=== PATIENT | male | born 1970 | race Caucasian/White ===

== ENCOUNTER 2016-06-16 22:00 | Emergency (ER) | payer OTHER ==
[~2016-06-16 22:00] MED LIST: /THIA10TA; ACET-654 PO; AMOX875T PO; ASPI81TA83 OR; ASPI81TAEC PO; BACT800T5 PO; CARA1TAB2 PO; CELEBRE200 PO; DILA2TAB; FOLI1TAB2 PO; LIPI10TA PO; MAALSUS OR; MIRA3350 PO; MULTCAP PO; MULTIVIT PO; NAPR250T OR; NICO21DI4; NORC5TAB PO; NORCOTAB PO; No Historical Meds; OMEP20TA7 OR; PENI250T81 OR; PERC5TAB6 PO; PERCOCET PO; PRIL20CA; PROT1TAB2 PO; PROT20TA11 PO; SENO8.6T10 PO; TYLE325T5 PO; VICO5TAB OR; VICODIN-ES PO; VITA100T60 PO; VITMTA PO; ZOFR20TA PO
[2016-06-16] MEDS ORDERED: MORPHINE 4 MG/ML 1ML SYRINGE As Ordered ONE (22:28)
[2016-06-16] MEDS ORDERED: LIDOCAINE 1% MDV 20ML VIAL As Ordered ONE (22:35)
[2016-06-16] MEDS ORDERED: CEPHALEXIN 250 MG CAP As Ordered ONE (23:05)
[2016-06-16] MEDS ORDERED: PERCOCET 5MG/325MG TAB As Ordered ONE (23:13)
--- NOTE | 2016-06-16 23:29 | EDDOCDS ---
Nurse's Notes [facility] Name: Pk Henley Age: 46 yrs Sex: Male : 1970 Arrival Date: 06/16/2016 Time: 22:00 Bed 10 Private MD: VALERIA STYLES Diagnosis: Laceration without foreign body of right index finger without damage to nail Presentation: 06/16 22:03 Presenting complaint: Patient states: "I cut my finger pretty bad. I was cutting mb9 firewood and I cut a piece of wood and it bounced back up and cut my finger". Adult Sepsis Screening: The patient does not have new or worsening altered mentation. Patient's respiratory rate is less than 22. Systolic blood pressure is greater than 100. Patient has a qSOFA score of 0- Negative Sepsis Screen. Suicide/Homicide risk assessment- the patient denies having any suicidal and/or homicidal ideations and does not present with any other emotional, behavioral or mental health complaints. Status: Patient is not a service correspondent or dependent. Transition of care: patient was not received from another setting of care. 22:03 Acuity: EZEQUIEL Level 4 mb9 22:03 Method Of Arrival: Walkin/Carried/Asstd mb9 Triage Assessment: 22:06 General: Appears uncomfortable, Behavior is appropriate for age, cooperative. Pain: mb9 Location: dorsal aspect of middle phalanx of right index finger and dorsal aspect of proximal phalanx of right index finger Pain currently is 9 out of 10 on a pain scale. HIV screening NA for this visit Offered previously. Injury Description: Laceration sustained to dorsal aspect of middle phalanx of right index finger and dorsal aspect of proximal phalanx of right index finger is jagged, 2.6 to 7.5 cm long, was sustained 1-2 hours ago. Historical: - Allergies: no known allergies; - Home Meds: 1. none - PMHx: Kidney stones; stomach ulcer; Pancreatitis; - PSHx: Knee surgery- Left; Knee surgery- Right; Appendectomy; - Immunization history:: Last tetanus immunization: < 5 years ago. - Family history: Not pertinent. - Social history: Smoking status: Patient uses tobacco products, light tobacco smoker. No barriers to communication noted. - : The pt / caregiver states he / she is not on anticoagulants. Home medication list is obtained from the patient. - Exposure Risk Screening:: None identified. Screenin:31 Screening information is obtained from the patient. Fall risk: No risks identified. kas2 Assistance ADL's: requires no assistance with activities of daily living. Abuse/DV Screen: The patient / caregiver reports he/she is: not in a situation that causes fear, pain or injury. Nutritional screening: No deficits noted. Advance Directives: Currently, there is no health care proxy. There is no active DNR order. There is no living will. There is no Power of Health Claims Examiner. home support is adequate. Assessment: 22:30 General: Appears in no apparent distress, uncomfortable, well nourished, well groomed, kas2 Behavior is appropriate for age, cooperative. Pain: Location: right hand and dorsal aspect of proximal phalanx of right index finger and dorsal aspect of middle phalanx of right index finger Pain currently is 8 out of 10 on a pain scale. Neurological: Level of Consciousness is awake, alert, Oriented to person, place, time. Cardiovascular: Rhythm is regular. Respiratory: Airway is patent Respiratory effort is even, unlabored, Respiratory pattern is regular, symmetrical, Breath sounds are clear bilaterally. Derm: Skin is intact, Skin is dry, Skin is pink, warm & dry. Skin temperature is warm. Injury Description: Laceration sustained to right hand and dorsal aspect of proximal phalanx of right index finger and dorsal aspect of middle phalanx of right index finger is bleeding a small amount. 23:09 General: Bacitracin applied to laceration on right hand on index finger. Dry dressing kas2 applied. Patient tolerated procedure well.. Vital Signs: 22:02 BP 161 / 90; Pulse 77; Resp 18 S; Temp 98.5(O); Pulse Ox 98% on R/A; Weight 90.72 kg dd6 (R); Height 5 ft. 11 in. (180.34 cm) (R); 23:15 BP 141 / 82; Pulse 86; Resp 18; Temp 97.7(TE); Pulse Ox 94% on R/A; Pain 10/10; kb5 22:02 Body Mass Index 27.89 (90.72 kg, 180.34 cm) dd6 Vitals: 22:02 Log In Time: June 16, 2016 at 22:00. dd6 ED Course: 22:01 Patient visited by Ricardo Esteban PCA. dd6 22:01 Patient moved to Waiting dd6 22:02 VALERIA STYLES is Private Physician. dd6 22:03 Patient moved to Pre RCE dd6 22:05 Triage Initiated mb9 22:13 Patient moved to Triage 3 mdr 22:18 Sonal Garland,RN is Primary Nurse. mdr 22:18 Patient moved to 10 mdr 22:20 Darron Colmenares MD is Attending Physician. br1 22:25 Patient visited by Darron Colmenares MD. br1 22:31 Patient visited by Sonal Garland RN. kas2 22:58 [facility] Payment Agreement was scanned into [employer] and attached to record. gb 23:09 VALERIA STYLES is Referral Physician. br1 23:10 Patient visited by Sonal Garland RN. kas2 23:10 No IV's were initiated during this patient's visit. No procedures done that require kas2 assistance. 23:16 Patient visited by Zeyad Gaxiola PCA. kb5 23:28 The patient / caregiver is instructed regarding the plan of care and ED course. kas2 Administered Medications: 22:34 Drug: morphine 4 mg [morphine 4 mg/mL intravenous cartridge (1 mL)] Route: IM; Site: kas2 left deltoid; 23:09 Drug: Cephalexin 500 mg [cephalexin 250 mg capsule (2 caps)] Route: PO; kas2 23:17 Drug: oxyCODONE-acetaminophen 1 tabs [oxycodone-acetaminophen 5 mg-325 mg tablet (1 kas2 tabs)] Route: PO; Order Results: There are currently no results for this order. Outcome: 23:11 Discharge ordered by Provider. br1 23:28 Discharge Assessment: patient administered narcotics - yes. Pt provided with safe kas2 discharge. The following High Risk Discharge criteria are identified: None. Discharged to home ambulatory, with significant other. Condition: good Condition: stable Condition: improved. No special radiology studies were completed. Property :Personal belongings accompany Pt. 23:28 Patient left the ED. kas2 Signatures: Barbara Leslie, Reg Reg Zeyad Gaxiola, PETROLEUM ENGINEER PETROLEUM ENGINEER kb5 Darron Colmenares MD MD br1 Ricardo Esteban, PETROLEUM ENGINEER PETROLEUM ENGINEER dd6 Hussain RayRN RN mb9 Pavel Moore, PETROLEUM ENGINEER PETROLEUM ENGINEER mdr Sonal Garland,RN RN kas2 MTDD
--- NOTE | 2016-06-16 23:29 | EDDOCDS ---
Physician Documentation [facility] Name: Pk Henley Age: 46 yrs Sex: Male : 1970 Arrival Date: 06/16/2016 Time: 22:00 Bed 10 Private MD: VALERIA STYLES Disposition: 06/16/16 23:11 Discharged to Home/Self Care. Impression: Laceration without foreign body of right index finger without damage to nail. - Condition is Stable. - Discharge Instructions: Laceration Care, Adult. - Prescriptions for Keflex 500 mg Oral Capsule - take 1 capsule by ORAL route every 6 hours for 7 days; 28 capsule. - Medication Reconciliation, Local Pharmacy Hours form. - Follow up: VALERIA STYLES; When: 4 - 5 days; Reason: Recheck today's complaints. - Problem is new. - Symptoms have improved. - Notes: You were seen in the ED for a laceration to the right index finger. Xrays showed no other acute findings. The wound was repaired with 6 sutures that will need to be removed in 7-10 days. Call your doctor in the morning to arrange to be seen for wound recheck as well. Take the antibiotics as written. Keep the wound cleanand dry with a clean dressing daily. Return to the ED for any worsening pain, redness around the wound, discharge from the wound, fever, or any other concerns. Historical: - Allergies: no known allergies; - Home Meds: 1. none - PMHx: Kidney stones; stomach ulcer; Pancreatitis; - PSHx: Knee surgery- Left; Knee surgery- Right; Appendectomy; - Immunization history:: Last tetanus immunization: < 5 years ago. - Family history: Not pertinent. - Social history: Smoking status: Patient uses tobacco products, light tobacco smoker. No barriers to communication noted. - : The pt / caregiver states he / she is not on anticoagulants. Home medication list is obtained from the patient. - Exposure Risk Screening:: None identified. Vital Signs: 06/16 22:02 BP 161 / 90; Pulse 77; Resp 18 S; Temp 98.5(O); Pulse Ox 98% on R/A; Weight 90.72 kg / dd6 200 lbs (R); Height 5 ft. 11 in. (180.34 cm) (R); 23:15 BP 141 / 82; Pulse 86; Resp 18; Temp 97.7(TE); Pulse Ox 94% on R/A; Pain 10/10; kb5 22:02 Body Mass Index 27.89 (90.72 kg, 180.34 cm) dd6 Procedures: 23:02 Laceration repair:. br1 Laceration: 23:02 Wound Repair of 4cm ( 1.6in ) full thickness laceration to dorsal aspect of middle br1 phalanx of right index finger. Irregularly shaped.. Wound explored. No foreign body. Extensor tendon intact.. Distal neuro/vascular/tendon intact. Anesthesia: Local anesthetic administered with 5 mls of 1% lidocaine. Wound prep: Simple cleansing with betadine by provider, Wound irrigation with saline by provider. Skin closed with 6 x 5-0 Ethilon using Simple interrupted sutures. Dressed with Bacitracin, 4x4's. Patient tolerated well. MDM: 22:24 Undress patient appropriately for examination ordered. br1 22:24 morphine 4 mg IM once ordered. br1 22:26 Hand, Complete Ordered. EDMS 22:33 Financial registration complete. 22:58 [facility] Payment Agreement was scanned into [employer] and attached to record. gb 23:01 Cephalexin 500 mg PO once ordered. br1 23:02 Misc. Nursing Order ordered. br1 23:11 oxyCODONE-acetaminophen 5 mg-325 mg 1 tabs PO once ordered. br1 Administered Medications: 22:34 Drug: morphine 4 mg [morphine 4 mg/mL intravenous cartridge (1 mL)] Route: IM; Site: kas2 left deltoid; 23:09 Drug: Cephalexin 500 mg [cephalexin 250 mg capsule (2 caps)] Route: PO; kas2 23:17 Drug: oxyCODONE-acetaminophen 1 tabs [oxycodone-acetaminophen 5 mg-325 mg tablet (1 kas2 tabs)] Route: PO; Signatures: Dispatcher [employer] EDMS Barbara Leslie, Reg Reg gb Darron Colmenares MD MD br1 Hussain Ray RN RN mb9 Sonal Garland RN RN kas2 The chart was reviewed and I authenticate all verbal orders and agree with the evaluation and treatment provided.Attachments: 22:58 [facility] Payment Agreement gb MTDD
--- NOTE | 2016-06-17 00:45 | REP ---
Clinical: Trauma. Technique: AP, lateral, bilateral oblique views of the right hand. Findings: The osseous structures and joint spaces are intact and there is no evidence for acute fracture or dislocation. Mild osteoarthritic degenerative changes are appreciated. Surrounding soft tissues are unremarkable. No subcutaneous emphysema or radiodense foreign body. Impression: Mild arthritic changes. No acute fracture or dislocation. Signed by Adiel Bernal MD 06/17/2016 12:36 A
--- NOTE | 2016-06-19 00:29 | EDDOCDS ---
Nurse's Notes [facility] Name: Pk Henley Age: 46 yrs Sex: Male : 1970 Arrival Date: 06/16/2016 Time: 22:00 Bed 10 Private MD: VALERIA STYLES Diagnosis: Laceration without foreign body of right index finger without damage to nail Presentation: 06/16 22:03 Presenting complaint: Patient states: "I cut my finger pretty bad. I was cutting mb9 firewood and I cut a piece of wood and it bounced back up and cut my finger". Adult Sepsis Screening: The patient does not have new or worsening altered mentation. Patient's respiratory rate is less than 22. Systolic blood pressure is greater than 100. Patient has a qSOFA score of 0- Negative Sepsis Screen. Suicide/Homicide risk assessment- the patient denies having any suicidal and/or homicidal ideations and does not present with any other emotional, behavioral or mental health complaints. Status: Patient is not a customer service professional or dependent. Transition of care: patient was not received from another setting of care. 22:03 Acuity: EZEQUIEL Level 4 mb9 22:03 Method Of Arrival: Walkin/Carried/Asstd mb9 Triage Assessment: 22:06 General: Appears uncomfortable, Behavior is appropriate for age, cooperative. Pain: mb9 Location: dorsal aspect of middle phalanx of right index finger and dorsal aspect of proximal phalanx of right index finger Pain currently is 9 out of 10 on a pain scale. HIV screening NA for this visit Offered previously. Injury Description: Laceration sustained to dorsal aspect of middle phalanx of right index finger and dorsal aspect of proximal phalanx of right index finger is jagged, 2.6 to 7.5 cm long, was sustained 1-2 hours ago. Historical: - Allergies: no known allergies; - Home Meds: 1. none - PMHx: Kidney stones; stomach ulcer; Pancreatitis; - PSHx: Knee surgery- Left; Knee surgery- Right; Appendectomy; - Immunization history:: Last tetanus immunization: < 5 years ago. - Family history: Not pertinent. - Social history: Smoking status: Patient uses tobacco products, light tobacco smoker. No barriers to communication noted. - : The pt / caregiver states he / she is not on anticoagulants. Home medication list is obtained from the patient. - Exposure Risk Screening:: None identified. Screenin:31 Screening information is obtained from the patient. Fall risk: No risks identified. kas2 Assistance ADL's: requires no assistance with activities of daily living. Abuse/DV Screen: The patient / caregiver reports he/she is: not in a situation that causes fear, pain or injury. Nutritional screening: No deficits noted. Advance Directives: Currently, there is no health care proxy. There is no active DNR order. There is no living will. There is no Power of Stock Hanger. home support is adequate. Assessment: 22:30 General: Appears in no apparent distress, uncomfortable, well nourished, well groomed, kas2 Behavior is appropriate for age, cooperative. Pain: Location: right hand and dorsal aspect of proximal phalanx of right index finger and dorsal aspect of middle phalanx of right index finger Pain currently is 8 out of 10 on a pain scale. Neurological: Level of Consciousness is awake, alert, Oriented to person, place, time. Cardiovascular: Rhythm is regular. Respiratory: Airway is patent Respiratory effort is even, unlabored, Respiratory pattern is regular, symmetrical, Breath sounds are clear bilaterally. Derm: Skin is intact, Skin is dry, Skin is pink, warm & dry. Skin temperature is warm. Injury Description: Laceration sustained to right hand and dorsal aspect of proximal phalanx of right index finger and dorsal aspect of middle phalanx of right index finger is bleeding a small amount. 23:09 General: Bacitracin applied to laceration on right hand on index finger. Dry dressing kas2 applied. Patient tolerated procedure well.. Vital Signs: 22:02 BP 161 / 90; Pulse 77; Resp 18 S; Temp 98.5(O); Pulse Ox 98% on R/A; Weight 90.72 kg dd6 (R); Height 5 ft. 11 in. (180.34 cm) (R); 23:15 BP 141 / 82; Pulse 86; Resp 18; Temp 97.7(TE); Pulse Ox 94% on R/A; Pain 10/10; kb5 22:02 Body Mass Index 27.89 (90.72 kg, 180.34 cm) dd6 Vitals: 22:02 Log In Time: June 16, 2016 at 22:00. dd6 ED Course: 22:01 Patient visited by Ricardo Esteban, BUZZ. dd6 22:01 Patient moved to Waiting dd6 22:02 VALERIA STYLES is Private Physician. dd6 22:03 Patient moved to Pre RCE dd6 22:05 Triage Initiated mb9 22:13 Patient moved to Triage 3 mdr 22:18 Sonal GarlandRN is Primary Nurse. mdr 22:18 Patient moved to 10 mdr 22:20 Darron Colmenares MD is Attending Physician. br1 22:25 Patient visited by Darron Colmenares MD. br1 22:31 Patient visited by Sonal Garland RN. kas2 22:58 [facility] Payment Agreement was scanned into [employer] and attached to record. gb 23:09 VALERIA STYLES is Referral Physician. br1 23:10 Patient visited by Sonal Garland RN. kas2 23:10 No IV's were initiated during this patient's visit. No procedures done that require kas2 assistance. 23:16 Patient visited by Zeyad Gaxiola, BUZZ. kb5 23:28 The patient / caregiver is instructed regarding the plan of care and ED course. kas2 06/17 00:57 Hand, Complete Returned. EDMS 11:25 T-Sheet-- Draft Copy was scanned into [employer] and attached to record. Administered Medications: 06/16 22:34 Drug: morphine 4 mg [morphine 4 mg/mL intravenous cartridge (1 mL)] Route: IM; Site: [facility] left deltoid; 23:09 Drug: Cephalexin 500 mg [cephalexin 250 mg capsule (2 caps)] Route: PO; kas2 23:17 Drug: oxyCODONE-acetaminophen 1 tabs [oxycodone-acetaminophen 5 mg-325 mg tablet (1 kas2 tabs)] Route: PO; Order Results: Radiology Order: Hand, Complete Test: Hand, Complete REASON FOR EXAMINATION: Trauma; Clinical: Trauma.; ; Technique: AP, lateral, bilateral oblique views of the right hand.; ; Findings: The osseous structures and joint spaces are intact and there is no; evidence for acute fracture or dislocation. Mild osteoarthritic degenerative; changes are appreciated. Surrounding soft tissues are unremarkable. No; subcutaneous emphysema or radiodense foreign body.; ; Impression:; Mild arthritic changes. No acute fracture or dislocation.; ; ; Signed by; Adiel Bernal MD 06/17/2016 12:36 A; Outcome: 23:11 Discharge ordered by Provider. br1 23:28 Discharge Assessment: patient administered narcotics - yes. Pt provided with safe kas2 discharge. The following High Risk Discharge criteria are identified: None. Discharged to home ambulatory, with significant other. Condition: good Condition: stable Condition: improved. No special radiology studies were completed. Property :Personal belongings accompany Pt. 23:28 Patient left the ED. kas2 Signatures: Dispatcher [employer] EDMS Barbara Leslie, Reg Reg gb Zeyad Gaxiola, CHUTE WORKER CHUTE WORKER kb5 Darron Colmenares MD MD br1 Ricardo Esteban, CHUTE WORKER CHUTE WORKER dd6 Hussain Ray,RN RN mb9 Pavel Moore, CHUTE WORKER CHUTE WORKER Sonal Martin RN RN kas2 Chart Complete MTDRenetta
--- NOTE | 2016-06-19 00:29 | EDDOCDS ---
Physician Documentation [facility] Name: Pk Henley Age: 46 yrs Sex: Male : 1970 Arrival Date: 06/16/2016 Time: 22:00 Bed 10 Private MD: VALERIA STYLES Disposition: 06/16/16 23:11 Discharged to Home/Self Care. Impression: Laceration without foreign body of right index finger without damage to nail. - Condition is Stable. - Discharge Instructions: Laceration Care, Adult. - Prescriptions for Keflex 500 mg Oral Capsule - take 1 capsule by ORAL route every 6 hours for 7 days; 28 capsule. - Medication Reconciliation, Local Pharmacy Hours form. - Follow up: VALERIA STYLES; When: 4 - 5 days; Reason: Recheck today's complaints. - Problem is new. - Symptoms have improved. - Notes: You were seen in the ED for a laceration to the right index finger. Xrays showed no other acute findings. The wound was repaired with 6 sutures that will need to be removed in 7-10 days. Call your doctor in the morning to arrange to be seen for wound recheck as well. Take the antibiotics as written. Keep the wound cleanand dry with a clean dressing daily. Return to the ED for any worsening pain, redness around the wound, discharge from the wound, fever, or any other concerns. Historical: - Allergies: no known allergies; - Home Meds: 1. none - PMHx: Kidney stones; stomach ulcer; Pancreatitis; - PSHx: Knee surgery- Left; Knee surgery- Right; Appendectomy; - Immunization history:: Last tetanus immunization: < 5 years ago. - Family history: Not pertinent. - Social history: Smoking status: Patient uses tobacco products, light tobacco smoker. No barriers to communication noted. - : The pt / caregiver states he / she is not on anticoagulants. Home medication list is obtained from the patient. - Exposure Risk Screening:: None identified. Vital Signs: 06/16 22:02 BP 161 / 90; Pulse 77; Resp 18 S; Temp 98.5(O); Pulse Ox 98% on R/A; Weight 90.72 kg / dd6 200 lbs (R); Height 5 ft. 11 in. (180.34 cm) (R); 23:15 BP 141 / 82; Pulse 86; Resp 18; Temp 97.7(TE); Pulse Ox 94% on R/A; Pain 10/10; kb5 22:02 Body Mass Index 27.89 (90.72 kg, 180.34 cm) dd6 Procedures: 23:02 Laceration repair:. br1 Laceration: 23:02 Wound Repair of 4cm ( 1.6in ) full thickness laceration to dorsal aspect of middle br1 phalanx of right index finger. Irregularly shaped.. Wound explored. No foreign body. Extensor tendon intact.. Distal neuro/vascular/tendon intact. Anesthesia: Local anesthetic administered with 5 mls of 1% lidocaine. Wound prep: Simple cleansing with betadine by provider, Wound irrigation with saline by provider. Skin closed with 6 x 5-0 Ethilon using Simple interrupted sutures. Dressed with Bacitracin, 4x4's. Patient tolerated well. MDM: 22:24 Undress patient appropriately for examination ordered. br1 22:24 morphine 4 mg IM once ordered. br1 22:26 Hand, Complete Ordered. EDMS 22:33 Financial registration complete. gb 22:58 [place] [place] Agreement was scanned into [employer] and attached to record. gb 23:01 Cephalexin 500 mg PO once ordered. br1 23:02 [facility]. Nursing Order ordered. br1 23:11 oxyCODONE-acetaminophen 5 mg-325 mg 1 tabs PO once ordered. br1 06/17 11:25 T-Sheet-- Draft Copy was scanned into [employer] and attached to record. gb Administered Medications: 06/16 22:34 Drug: morphine 4 mg [morphine 4 mg/mL intravenous cartridge (1 mL)] Route: IM; Site: kas2 left deltoid; 23:09 Drug: Cephalexin 500 mg [cephalexin 250 mg capsule (2 caps)] Route: PO; kas2 23:17 Drug: oxyCODONE-acetaminophen 1 tabs [oxycodone-acetaminophen 5 mg-325 mg tablet (1 kas2 tabs)] Route: PO; Signatures: Dispatcher [employer] EDIN Barbara Leslie, Reg Reg gb Darron Colmenares MD MD br1 Hussain Ray RN RN mb9 Sonal Garland RN RN kas2 The chart was reviewed and I authenticate all verbal orders and agree with the evaluation and treatment provided.Attachments: 22:58 [facility] Payment Agreement gb 06/17 11:25 T-Sheet-- Draft Copy gb Chart Complete MTDD
--- NOTE | 2016-06-19 00:29 | EDDOCDS ---
Physician Documentation [facility] Name: Pk Henley Age: 46 yrs Sex: Male : 1970 Arrival Date: 06/16/2016 Time: 22:00 Bed 10 Private MD: VALERIA STYLES Disposition: 06/16/16 23:11 Discharged to Home/Self Care. Impression: Laceration without foreign body of right index finger without damage to nail. - Condition is Stable. - Discharge Instructions: Laceration Care, Adult. - Prescriptions for Keflex 500 mg Oral Capsule - take 1 capsule by ORAL route every 6 hours for 7 days; 28 capsule. - Medication Reconciliation, Local Pharmacy Hours form. - Follow up: VALERIA STYLES; When: 4 - 5 days; Reason: Recheck today's complaints. - Problem is new. - Symptoms have improved. - Notes: You were seen in the ED for a laceration to the right index finger. Xrays showed no other acute findings. The wound was repaired with 6 sutures that will need to be removed in 7-10 days. Call your doctor in the morning to arrange to be seen for wound recheck as well. Take the antibiotics as written. Keep the wound cleanand dry with a clean dressing daily. Return to the ED for any worsening pain, redness around the wound, discharge from the wound, fever, or any other concerns. Historical: - Allergies: no known allergies; - Home Meds: 1. none - PMHx: Kidney stones; stomach ulcer; Pancreatitis; - PSHx: Knee surgery- Left; Knee surgery- Right; Appendectomy; - Immunization history:: Last tetanus immunization: < 5 years ago. - Family history: Not pertinent. - Social history: Smoking status: Patient uses tobacco products, light tobacco smoker. No barriers to communication noted. - : The pt / caregiver states he / she is not on anticoagulants. Home medication list is obtained from the patient. - Exposure Risk Screening:: None identified. Vital Signs: 06/16 22:02 BP 161 / 90; Pulse 77; Resp 18 S; Temp 98.5(O); Pulse Ox 98% on R/A; Weight 90.72 kg / dd6 200 lbs (R); Height 5 ft. 11 in. (180.34 cm) (R); 23:15 BP 141 / 82; Pulse 86; Resp 18; Temp 97.7(TE); Pulse Ox 94% on R/A; Pain 10/10; kb5 22:02 Body Mass Index 27.89 (90.72 kg, 180.34 cm) dd6 Procedures: 23:02 Laceration repair:. br1 Laceration: 23:02 Wound Repair of 4cm ( 1.6in ) full thickness laceration to dorsal aspect of middle br1 phalanx of right index finger. Irregularly shaped.. Wound explored. No foreign body. Extensor tendon intact.. Distal neuro/vascular/tendon intact. Anesthesia: Local anesthetic administered with 5 mls of 1% lidocaine. Wound prep: Simple cleansing with betadine by provider, Wound irrigation with saline by provider. Skin closed with 6 x 5-0 Ethilon using Simple interrupted sutures. Dressed with Bacitracin, 4x4's. Patient tolerated well. MDM: 22:24 Undress patient appropriately for examination ordered. br1 22:24 morphine 4 mg IM once ordered. br1 22:26 Hand, Complete Ordered. EDMS 22:33 Financial registration complete. gb 22:58 [facility] [place] Agreement was scanned into Mind[employer] and attached to record. gb 23:01 Cephalexin 500 mg PO once ordered. br1 23:02 [facility]. br1 23:11 oxyCODONE-acetaminophen 5 mg-325 mg 1 tabs PO once ordered. br1 06/17 11:25 T-Sheet-- Draft Copy was scanned into Mindjet and attached to record. gb Administered Medications: 06/16 22:34 Drug: morphine 4 mg [morphine 4 mg/mL intravenous cartridge (1 mL)] Route: IM; Site: kas2 left deltoid; 23:09 Drug: Cephalexin 500 mg [cephalexin 250 mg capsule (2 caps)] Route: PO; kas2 23:17 Drug: oxyCODONE-acetaminophen 1 tabs [oxycodone-acetaminophen 5 mg-325 mg tablet (1 kas2 tabs)] Route: PO; Signatures: Dispatcher MedHost EDWV Barbara Leslie, Reg Reg gb Darron Colmenares MD MD br1 Hussain Ray RN RN mb9 Sonal Garland RN RN kas2 The chart was reviewed and I authenticate all verbal orders and agree with the evaluation and treatment provided.Attachments: 22:58 [facility] Payment Agreement gb 06/17 11:25 T-Sheet-- Draft Copy gb Chart Complete MTDD
== END 2016-06-16 23:28 | disposition home or self-care (01) ==
LOC: M ED 22:00
DX: S61.210A Laceration without foreign body of right index finger without damage to nail, initial encounter (principal); W45.8XXA Other foreign body or object entering through skin, initial encounter; Y92.019 Unspecified place in single-family (private) house as the place of occurrence of the external cause; Y93.H9 Activity, other involving exterior property and land maintenance, building and construction; Y99.8 Other external cause status; K86.1 Other chronic pancreatitis; K25.9 Gastric ulcer, unspecified as acute or chronic, without hemorrhage or perforation; Z87.442 Personal history of urinary calculi; F17.210 Nicotine dependence, cigarettes, uncomplicated

== ENCOUNTER 2016-06-17 16:12 | Emergency (ER) | payer OTHER ==
[2016-06-17] MEDS ORDERED: MORPHINE 4 MG/ML 1ML SYRINGE As Ordered ONE (19:14)
[2016-06-17] MEDS ORDERED: UNASYN 3 GM VIAL As Ordered ONE (19:16)
[2016-06-17 19:49] LABS: BASO # 0.2 K/mm3 (0.0-0.2); BASO % 1.7 % (0.0-1.0); EOS # 0.2 K/mm3 (0.0-0.50); EOS % 1.8 % (0.0-3.0); LARGE UNSTAINED CELL # 0.4 K/mm3 (0.0-0.4); LARGE UNSTAINED CELL % 3.9 % (0.0-4.0); LYMPH # 4.5 K/mm3 (1.5-4.5); LYMPH % 40.9 % (24.0-44.0); MEAN CORPUSCULAR HEMOGLOBIN 29.7 pg (27.0-33.0); MEAN CORPUSCULAR HGB CONC 32.1 g/dl (32.0-36.5); MEAN CORPUSCULAR VOLUME 92.5 fl (80.0-96.0); MONO # 0.6 K/mm3 (0.0-0.8); MONO % 5.7 % (0.0-5.0); NEUTROPHILS # 4.6 K/mm3 (1.8-7.7); PLATELET COUNT, AUTOMATED 256 k/mm3 (150-450); RED CELL DISTRIBUTION WIDTH 13.6 % (11.5-14.5)
[2016-06-17] MEDS ORDERED: HYDROmorphone HCL 1 MG/ML SYRINGE (J1170) As Ordered ONE (20:23)
[2016-06-17] MEDS ORDERED: NORCO 5/325MG TABLET (BULK) As Ordered ONE (21:50)
--- NOTE | 2016-06-17 22:11 | EDDOCDS ---
Physician Documentation [facility] Name: Pk Henley Age: 46 yrs Sex: Male : 1970 Arrival Date: 06/17/2016 Time: 16:12 Bed I3 / M3 Private MD: No Pcp Disposition: 06/17/16 21:50 Discharged to Home/Self Care. Impression: Cellulitis of right finger - following laceration, index. - Condition is Stable. - Discharge Instructions: Cellulitis, Sutured Wound Care. - Medication Reconciliation, Local Pharmacy Hours form. - Follow up: Private Physician; When: As previously arranged; Reason: Recheck today's complaints, Continuance of care. - Problem is new. - Symptoms have improved. Historical: - Allergies: no known allergies; - Home Meds: 1. Keflex 500 mg Oral cap 1 cap every 12 hours 2. Motrin 800 mg Oral tab 1 tab 3 times per day - PMHx: Kidney stones; Pancreatitis; stomach ulcer; - Social history: Smoking status: Patient uses tobacco products, light tobacco smoker. No barriers to communication noted, The patient speaks fluent Kyrgyz, Speaks appropriately for age. - Family history: No immediate family members are acutely ill. - : The pt / caregiver states he / she is not on anticoagulants. Home medication list is obtained from the patient. - Exposure Risk Screening:: None identified. Vital Signs: 06/17 16:15 BP 156 / 89; Pulse 80; Resp 18; Temp 98.2(O); Pulse Ox 98% on R/A; Weight 90.72 kg / elp 200 lbs; Height 5 ft. 11 in. (180.34 cm); Pain 10/10; 21:56 BP 148 / 94; Pulse 84; Resp 18; Temp 98.6; Pulse Ox 98% ; Pain 8/10; ajs 16:15 Body Mass Index 27.89 (90.72 kg, 180.34 cm) elp MDM: 17:51 [facility] Payment Agreement was scanned into [employer] and attached to record. zo 18:48 Financial registration complete. zo 18:58 IV Saline Lock ordered. ar2 18:58 morphine 4 mg IVP once ordered. ar2 18:58 Ampicillin-Sulbactam Sodium 3 grams IVPB once over 30 mins; dilute in 100mL of NS or ar2 D5W ordered. 18:59 CBC with Diff Ordered. EDMS 18:59 CRP Ordered. EDMS 19:52 ERYTHROCYTE SEDIMENTATION RATE Ordered. EDMS 20:15 Dilaudid - HYDROmorphone 0.5 mg IVP once ordered. ar2 21:12 CBC with Diff Reviewed. ar2 21:12 CRP Reviewed. ar2 21:12 ERYTHROCYTE SEDIMENTATION RATE Reviewed. ar2 21:44 HYDROcodone-acetaminophen 4 pack- 5 mg-325 mg 1 packets PO Per package directions; ar2 Dispense with patient. 1 po q4h prn for pain ordered. 21:44 Dressing ordered. ar2 Administered Medications: 19:39 Drug: morphine 4 mg [morphine 4 mg/mL intravenous cartridge (1 mL)] Route: IVP; Site: jmb left forearm; 19:39 Drug: Ampicillin-Sulbactam Sodium 3 grams [ampicillin-sulbactam 1.5 gram solution for jmb injection] Route: IVPB; Infused Over: 30 mins; Site: left forearm; 20:30 Drug: Dilaudid - HYDROmorphone 0.5 mg [hydromorphone 1 mg/mL injection syringe (0.5 jmb mL)] Route: IVP; Site: left forearm; 22:07 Drug: HYDROcodone-acetaminophen 4 pack- 1 packets [hydrocodone 5 mg-acetaminophen 325 mb9 mg tablet (1 tabs)] {Co-Signature: lonnie (Taqueria Barrera RN).} Route: PO; Signatures: Dispatcher [employer] EDMS Hussain Lopez RN RN mlb1 Jeremy Starr Aaron, PA-C PA-C ar2 Hussain Ray RN RN mb9 Taqueria Barrera RN, RN The chart was reviewed and I authenticate all verbal orders and agree with the evaluation and treatment provided.Corrections: (The following items were deleted from the chart) 19:52 18:59 ERYTHROCYTE SEDIMENTATION RATE+LAB ordered. EDMS EDMS Attachments: 17:51 [facility] Payment Agreement zo MTDD
--- NOTE | 2016-06-17 22:11 | EDDOCDS ---
Nurse's Notes [facility] Name: Pk Henley Age: 46 yrs Sex: Male : 1970 Arrival Date: 06/17/2016 Time: 16:12 Bed I3 / M3 Private MD: No Pcp Diagnosis: Cellulitis of right finger-following laceration, index Presentation: 06/17 16:20 Presenting complaint: Patient states: Laceration to right index finger hit with a piece mlb1 of wood repaired here last night, increased pain swelling and redness since. Adult Sepsis Screening: The patient does not have new or worsening altered mentation. Patient's respiratory rate is less than 22. Systolic blood pressure is greater than 100. Patient has a qSOFA score of 0- Negative Sepsis Screen. Suicide/Homicide risk assessment- the patient denies having any suicidal and/or homicidal ideations and does not present with any other emotional, behavioral or mental health complaints. 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 Transition of care: patient was not received from another setting of care. 16:20 Acuity: EZEQUIEL Level 4 mlb1 16:20 Method Of Arrival: Walkin/Carried/Asstd mlb1 Triage Assessment: 16:24 General: Appears uncomfortable, Behavior is appropriate for age, cooperative. General: mlb1 Appears distressed, Behavior is. Pain: Location: right index finger Pain currently is 10 out of 10 on a pain scale. HIV screening NA for this visit Offered previously. Historical: - Allergies: no known allergies; - Home Meds: 1. Keflex 500 mg Oral cap 1 cap every 12 hours 2. Motrin 800 mg Oral tab 1 tab 3 times per day - PMHx: Kidney stones; Pancreatitis; stomach ulcer; - Social history: Smoking status: Patient uses tobacco products, light tobacco smoker. No barriers to communication noted, The patient speaks fluent Lao, Speaks appropriately for age. - Family history: No immediate family members are acutely ill. - : The pt / caregiver states he / she is not on anticoagulants. Home medication list is obtained from the patient. - Exposure Risk Screening:: None identified. Screenin:10 Screening information is obtained from the patient. Fall risk: No risks identified. mcp Assistance ADL's: requires no assistance with activities of daily living. Abuse/DV Screen: The patient / caregiver reports he/she is: not in a situation that causes fear, pain or injury. Nutritional screening: No deficits noted. Advance Directives: There is no active DNR order. home support is adequate. Assessment: 18:09 General: Appears uncomfortable, Behavior is cooperative. Pain: Location: right hand mcp Pain currently is 8 out of 10 on a pain scale. Neurological: No deficits noted. Respiratory: Airway is patent Respiratory effort is even, unlabored. Derm: Skin is pink, warm & dry. Musculoskeletal: Circulation, motion, and sensation intact Swelling present in right hand redness noted to right hand. Gauze dressing dry and intact. 19:22 Adult Sepsis Screening: The patient does not have new or worsening altered mentation. dsf Patient's respiratory rate is less than 22. Systolic blood pressure is greater than 100. Patient has a qSOFA score of 0- Negative Sepsis Screen. General: Appears uncomfortable, Behavior is cooperative. Pain: Location: right index finger Pain currently is 10 out of 10 on a pain scale. Quality of pain is described as sharp. Neurological: Level of Consciousness is awake, alert. Cardiovascular: Capillary refill < 3 seconds. Respiratory: Airway is patent Respiratory effort is even, unlabored, Respiratory pattern is regular, symmetrical. Derm: Skin is pink, warm & dry. Swollen area noted on right index finger and top of right hand. 20:30 General: Appears uncomfortable, Behavior is appropriate for age, cooperative, upon jmb entrance to room, patient swaying back and forth on bed. Patient medicated per Dean Chan's orders. Will monitor. . Neurological: Level of Consciousness is awake, alert, obeys commands, Oriented to person, place, time, Speech is normal, Facial symmetry appears normal, Facial symmetry: tongue is midline. Respiratory: Airway is patent Respiratory effort is even, unlabored, Respiratory pattern is regular, symmetrical. 21:15 General: Appears in no apparent distress, comfortable, Behavior is appropriate for age, jmb cooperative. Neurological: Level of Consciousness is awake, alert, obeys commands, Oriented to person, place, time. Respiratory: Airway is patent Respiratory effort is even, unlabored, Respiratory pattern is regular, symmetrical. Vital Signs: 16:15 BP 156 / 89; Pulse 80; Resp 18; Temp 98.2(O); Pulse Ox 98% on R/A; Weight 90.72 kg; elp Height 5 ft. 11 in. (180.34 cm); Pain 10/10; 21:56 BP 148 / 94; Pulse 84; Resp 18; Temp 98.6; Pulse Ox 98% ; Pain 8/10; ajs 16:15 Body Mass Index 27.89 (90.72 kg, 180.34 cm) elp Vitals: 16:15 Log In Time: June 17, 2016 at 16:14. elp ED Course: 16:14 Patient visited by Bobbi Lewis PCA. elp 16:14 No Pcp is Private Physician. elp 16:14 Patient moved to Waiting elp 16:15 Patient visited by Bobbi Lewis PCA. elp 16:16 Patient moved to Pre RCE elp 16:20 Patient visited by Hussain Lopez, EVELYNE. mlb1 16:22 Triage Initiated mlb1 16:25 Patient visited by Hussain Lopez, RN. mlb1 17:51 [facility] [place] [facility] Payment Agreement was scanned into [employer] and attached to record. zo 18:08 Patient moved to Triage 1 mcp 18:10 The patient / caregiver is instructed regarding the plan of care and ED course. Patient mcp has correct armband on for positive identification. Bed in low position. Call light in reach. Adult w/ patient. 18:11 Patient visited by Anastasiia Larsen RN. mcp 18:39 [facility] ar2 18:39 Maria G Gutiérrez MD is Attending Physician. ar2 18:39 Patient visited by Dean Chan PA-C. ar2 18:58 Patient moved to I3 / M3 mcp 19:01 Patient visited by Hussain Lopez, EVELYNE. mlb1 19:24 Patient visited by Addie Stephen,RN. dsf 19:39 CRP Sent. jmb 19:39 CBC with Diff Sent. jmb 20:31 Patient visited by Taqueria Barrera,EVELYNE. jmb 21:15 Patient visited by Taqueria Barrera,EVELYNE. jmb 21:57 Patient visited by Tamy Harrison. ajs 22:08 No IV's were initiated during this patient's visit. No procedures done that require mb9 assistance. Dressings: 4X4s X 1; 2 inch gauze. Administered Medications: 19:39 Drug: morphine 4 mg [morphine 4 mg/mL intravenous cartridge (1 mL)] Route: IVP; Site: jmb left forearm; 19:39 Drug: Ampicillin-Sulbactam Sodium 3 grams [ampicillin-sulbactam 1.5 gram solution for jmb injection] Route: IVPB; Infused Over: 30 mins; Site: left forearm; 20:30 Drug: Dilaudid - HYDROmorphone 0.5 mg [hydromorphone 1 mg/mL injection syringe (0.5 jmb mL)] Route: IVP; Site: left forearm; 22:07 Drug: HYDROcodone-acetaminophen 4 pack- 1 packets [hydrocodone 5 mg-acetaminophen 325 mb9 mg tablet (1 tabs)] {Co-Signature: lonnie (Taqueria Barrera RN).} Route: PO; Order Results: Lab Order: CBC with Diff; SPEC'M 06/17/16 19:36 Test: WHITE BLOOD COUNT; Value: 10.0; Range: 4.0-10.0; Units: K/mm3; Status: F Test: RED BLOOD COUNT; Value: 4.96; Range: 4.30-6.10; Units: M/mm3; Status: F Test: HEMOGLOBIN; Value: 14.7; Range: 14.0-18.0; Units: g/dl; Status: F Test: HEMATOCRIT; Value: 45.8; Range: 42.0-52.0; Units: %; Status: F Test: MEAN CORPUSCULAR VOLUME; Value: 92.5; Range: 80.0-96.0; Units: fl; Status: F Test: MEAN CORPUSCULAR HEMOGLOBIN; Value: 29.7; Range: 27.0-33.0; Units: pg; Status: F Test: MEAN CORPUSCULAR HGB CONC; Value: 32.1; Range: 32.0-36.5; Units: g/dl; Status: F Test: RED CELL DISTRIBUTION WIDTH; Value: 13.6; Range: 11.5-14.5; Units: %; Status: F Test: PLATELET COUNT, AUTOMATED; Value: 256; Range: 150-450; Units: k/mm3; Status: F Test: NEUTROPHILS %; Value: 46.0; Range: 36.0-66.0; Units: %; Status: F Test: LYMPH %; Value: 40.9; Range: 24.0-44.0; Units: %; Status: F Test: MONO %; Value: 5.7; Range: 0.0-5.0; Abnormal: Above high normal; Units: %; Status: F Test: EOS %; Value: 1.8; Range: 0.0-3.0; Units: %; Status: F Test: BASO %; Value: 1.7; Range: 0.0-1.0; Abnormal: Above high normal; Units: %; Status: F Test: LARGE UNSTAINED CELL %; Value: 3.9; Range: 0.0-4.0; Units: %; Status: F Test: NEUTROPHILS #; Value: 4.6; Range: 1.8-7.7; Units: K/mm3; Status: F Test: LYMPH #; Value: 4.5; Range: 1.5-4.5; Units: K/mm3; Status: F Test: MONO #; Value: 0.6; Range: 0.0-0.8; Units: K/mm3; Status: F Test: EOS #; Value: 0.2; Range: 0.0-0.50; Units: K/mm3; Status: F Test: BASO #; Value: 0.2; Range: 0.0-0.2; Units: K/mm3; Status: F Test: LARGE UNSTAINED CELL #; Value: 0.4; Range: 0.0-0.4; Units: K/mm3; Status: F Lab Order: CRP; SPEC'M 06/17/16 19:36 Test: C REACTIVE PROTEIN QUANTITATIV; Value: 2.08; Range: 0.00-0.30; Abnormal: Above high normal; Units: MG/DL; Status: F Lab Order: ERYTHROCYTE SEDIMENTATION RATE; SPEC'M 06/17/16 19:36 Test: ERYTHROCYTE SEDIMENTATION RATE; Value: 23; Range: 0-15; Abnormal: Above high normal; Units: mm/hr; Status: F Outcome: 21:50 Discharge ordered by Provider. ar2 22:08 Discharge Assessment: Patient awake, alert and oriented x 3. No cognitive and/or mb9 functional deficits noted. Patient verbalized understanding of disposition instructions. patient administered narcotics - yes. Pt provided with safe discharge. The following High Risk Discharge criteria are identified: None. Discharged to home ambulatory, with significant other. Condition: good Condition: stable Condition: improved. Discharge instructions given to patient, Instructed on discharge instructions, follow up and referral plans. medication usage, Demonstrated understanding of instructions, medications, Pt was receptive of discharge instructions/ teaching. No special radiology studies were completed. Property :Personal belongings accompany Pt. 22:09 Patient left the ED. cain Signatures: Anastasiia Larsen RN Hussain Sierra mcp RN EVELYNE [facility] Jeremy Starr Aaron, PA-C PA-C ar2 Addie StephenRN RN dsf Tamy Harrison Erin, Taqueria Lora RN RN jmb Belles, Michael, RN RN mb9 Taqueria fleming Corrections: (The following items were deleted from the chart) 19:01 16:20 Presenting complaint: Patient states: Laceration to left index finger hit with a mlb1 piece of wood repaired here last night, increased pain swelling and redness since mlb1 19:52 19:39 ERYTHROCYTE SEDIMENTATION RATE+LAB sent. lonnie EDMS MTDD
--- NOTE | 2016-06-19 23:11 | EDDOCDS ---
Physician Documentation [facility] Name: Pk Henley Age: 46 yrs Sex: Male : 1970 Arrival Date: 06/17/2016 Time: 16:12 Bed I3 / M3 Private MD: No Pcp Disposition: 06/17/16 21:50 Discharged to Home/Self Care. Impression: Cellulitis of right finger - following laceration, index. - Condition is Stable. - Discharge Instructions: Cellulitis, Sutured Wound Care. - Medication Reconciliation, Local Pharmacy Hours form. - Follow up: Private Physician; When: As previously arranged; Reason: Recheck today's complaints, Continuance of care. - Problem is new. - Symptoms have improved. Historical: - Allergies: no known allergies; - Home Meds: 1. Keflex 500 mg Oral cap 1 cap every 12 hours 2. Motrin 800 mg Oral tab 1 tab 3 times per day - PMHx: Kidney stones; Pancreatitis; stomach ulcer; - Social history: Smoking status: Patient uses tobacco products, light tobacco smoker. No barriers to communication noted, The patient speaks fluent Anguillan, Speaks appropriately for age. - Family history: No immediate family members are acutely ill. - : The pt / caregiver states he / she is not on anticoagulants. Home medication list is obtained from the patient. - Exposure Risk Screening:: None identified. Vital Signs: 06/17 16:15 BP 156 / 89; Pulse 80; Resp 18; Temp 98.2(O); Pulse Ox 98% on R/A; Weight 90.72 kg / elp 200 lbs; Height 5 ft. 11 in. (180.34 cm); Pain 10/10; 21:56 BP 148 / 94; Pulse 84; Resp 18; Temp 98.6; Pulse Ox 98% ; Pain 8/10; ajs 16:15 Body Mass Index 27.89 (90.72 kg, 180.34 cm) elp MDM: 17:51 [place] [place] was scanned into Aveks[employer] and attached to record. zo 18:48 Financial registration complete. zo 18:58 IV Saline Lock ordered. ar2 18:58 morphine 4 mg IVP once ordered. ar2 18:58 Ampicillin-Sulbactam Sodium 3 grams IVPB once over 30 mins; dilute in 100mL of NS or ar2 D5W ordered. 18:59 CBC with Diff Ordered. EDMS 18:59 CRP Ordered. EDMS 19:52 ERYTHROCYTE SEDIMENTATION RATE Ordered. EDMS 20:15 Dilaudid - HYDROmorphone 0.5 mg IVP once ordered. ar2 21:12 CBC with Diff Reviewed. ar2 21:12 CRP Reviewed. ar2 21:12 ERYTHROCYTE SEDIMENTATION RATE Reviewed. ar2 21:44 HYDROcodone-acetaminophen 4 pack- 5 mg-325 mg 1 packets PO Per package directions; ar2 Dispense with patient. 1 po q4h prn for pain ordered. 21:44 Dressing ordered. ar2 06/18 12:38 T-Sheet-- Draft Copy was scanned into Ave[employer] and attached to record. gb Administered Medications: 06/17 19:39 Drug: morphine 4 mg [morphine 4 mg/mL intravenous cartridge (1 mL)] Route: IVP; Site: b left forearm; 19:39 Drug: Ampicillin-Sulbactam Sodium 3 grams [ampicillin-sulbactam 1.5 gram solution for jmb injection] Route: IVPB; Infused Over: 30 mins; Site: left forearm; 20:30 Drug: Dilaudid - HYDROmorphone 0.5 mg [hydromorphone 1 mg/mL injection syringe (0.5 jmb mL)] Route: IVP; Site: left forearm; 22:07 Drug: HYDROcodone-acetaminophen 4 pack- 1 packets [hydrocodone 5 mg-acetaminophen 325 mb9 mg tablet (1 tabs)] {Co-Signature: lonnie (Taqueria Barrera RN).} Route: PO; Signatures: Dispatcher MedHost EDMS Barbara Leslie, Reg Reg gb Hussain Lopez, RN RN mlb1 Jeremy Starr Aaron, PA-C PA-C ar2 Hussain Ray RN RN [id number] Taqueria Barrera RN, RN The chart was reviewed and I authenticate all verbal orders and agree with the evaluation and treatment provided.Corrections: (The following items were deleted from the chart) 19:52 18:59 ERYTHROCYTE SEDIMENTATION RATE+LAB ordered. EDMS EDMS Attachments: 17:51 [place] [place] Agreement zo 06/18 12:38 T-Sheet-- Draft Copy gb Chart Complete MTDD
--- NOTE | 2016-06-19 23:11 | EDDOCDS ---
Nurse's Notes [facility] Name: Pk Henley Age: 46 yrs Sex: Male : 1970 Arrival Date: 06/17/2016 Time: 16:12 Bed I3 / M3 Private MD: No Pcp Diagnosis: Cellulitis of right finger-following laceration, index Presentation: 06/17 16:20 Presenting complaint: Patient states: Laceration to right index finger hit with a piece mlb1 of wood repaired here last night, increased pain swelling and redness since. Adult Sepsis Screening: The patient does not have new or worsening altered mentation. Patient's respiratory rate is less than 22. Systolic blood pressure is greater than 100. Patient has a qSOFA score of 0- Negative Sepsis Screen. Suicide/Homicide risk assessment- the patient denies having any suicidal and/or homicidal ideations and does not present with any other emotional, behavioral or mental health complaints. 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 Transition of care: patient was not received from another setting of care. 16:20 Acuity: EZEQUIEL Level 4 mlb1 16:20 Method Of Arrival: Walkin/Carried/Asstd mlb1 Triage Assessment: 16:24 General: Appears uncomfortable, Behavior is appropriate for age, cooperative. General: mlb1 Appears distressed, Behavior is. Pain: Location: right index finger Pain currently is 10 out of 10 on a pain scale. HIV screening NA for this visit Offered previously. Historical: - Allergies: no known allergies; - Home Meds: 1. Keflex 500 mg Oral cap 1 cap every 12 hours 2. Motrin 800 mg Oral tab 1 tab 3 times per day - PMHx: Kidney stones; Pancreatitis; stomach ulcer; - Social history: Smoking status: Patient uses tobacco products, light tobacco smoker. No barriers to communication noted, The patient speaks fluent Hungarian, Speaks appropriately for age. - Family history: No immediate family members are acutely ill. - : The pt / caregiver states he / she is not on anticoagulants. Home medication list is obtained from the patient. - Exposure Risk Screening:: None identified. Screenin:10 Screening information is obtained from the patient. Fall risk: No risks identified. mcp Assistance ADL's: requires no assistance with activities of daily living. Abuse/DV Screen: The patient / caregiver reports he/she is: not in a situation that causes fear, pain or injury. Nutritional screening: No deficits noted. Advance Directives: There is no active DNR order. home support is adequate. Assessment: 18:09 General: Appears uncomfortable, Behavior is cooperative. Pain: Location: right hand mcp Pain currently is 8 out of 10 on a pain scale. Neurological: No deficits noted. Respiratory: Airway is patent Respiratory effort is even, unlabored. Derm: Skin is pink, warm & dry. Musculoskeletal: Circulation, motion, and sensation intact Swelling present in right hand redness noted to right hand. Gauze dressing dry and intact. 19:22 Adult Sepsis Screening: The patient does not have new or worsening altered mentation. dsf Patient's respiratory rate is less than 22. Systolic blood pressure is greater than 100. Patient has a qSOFA score of 0- Negative Sepsis Screen. General: Appears uncomfortable, Behavior is cooperative. Pain: Location: right index finger Pain currently is 10 out of 10 on a pain scale. Quality of pain is described as sharp. Neurological: Level of Consciousness is awake, alert. Cardiovascular: Capillary refill < 3 seconds. Respiratory: Airway is patent Respiratory effort is even, unlabored, Respiratory pattern is regular, symmetrical. Derm: Skin is pink, warm & dry. Swollen area noted on right index finger and top of right hand. 20:30 General: Appears uncomfortable, Behavior is appropriate for age, cooperative, upon jmb entrance to room, patient swaying back and forth on bed. Patient medicated per Dean Chan's orders. Will monitor. . Neurological: Level of Consciousness is awake, alert, obeys commands, Oriented to person, place, time, Speech is normal, Facial symmetry appears normal, Facial symmetry: tongue is midline. Respiratory: Airway is patent Respiratory effort is even, unlabored, Respiratory pattern is regular, symmetrical. 21:15 General: Appears in no apparent distress, comfortable, Behavior is appropriate for age, jmb cooperative. Neurological: Level of Consciousness is awake, alert, obeys commands, Oriented to person, place, time. Respiratory: Airway is patent Respiratory effort is even, unlabored, Respiratory pattern is regular, symmetrical. Vital Signs: 16:15 BP 156 / 89; Pulse 80; Resp 18; Temp 98.2(O); Pulse Ox 98% on R/A; Weight 90.72 kg; elp Height 5 ft. 11 in. (180.34 cm); Pain 10/10; 21:56 BP 148 / 94; Pulse 84; Resp 18; Temp 98.6; Pulse Ox 98% ; Pain 8/10; ajs 16:15 Body Mass Index 27.89 (90.72 kg, 180.34 cm) elp Vitals: 16:15 Log In Time: June 17, 2016 at 16:14. elp ED Course: 16:14 Patient visited by Bobbi Lewis PCA. elp 16:14 No Pcp is Private Physician. elp 16:14 Patient moved to Waiting elp 16:15 Patient visited by Bobbi Lewis PCA. elp 16:16 Patient moved to Pre RCE elp 16:20 Patient visited by Hussain Lopez, EVELYNE. mlb1 16:22 Triage Initiated mlb1 16:25 Patient visited by Hussain Lopez, RN. mlb1 17:51 [facility] [place] was scanned into [employer] and attached to record. zo 18:08 Patient moved to Triage 1 mcp 18:10 The patient / caregiver is instructed regarding the plan of care and ED course. Patient mcp has correct armband on for positive identification. Bed in low position. Call light in reach. Adult w/ patient. 18:11 Patient visited by Anastasiia Larsen RN. mcp 18:39 [facility]. ar2 18:39 Maria G Gutiérrez MD is Attending Physician. ar2 18:39 Patient visited by Dean Chan PA-C. ar2 18:58 Patient moved to I3 / M3 mcp 19:01 Patient visited by Hussain Lopez, EVELYNE. mlb1 19:24 Patient visited by Addie Stephen,RN. dsf 19:39 CRP Sent. jmb 19:39 CBC with Diff Sent. jmb 20:31 Patient visited by Taqueria Barrera,EVELYNE. jmb 21:15 Patient visited by Taqueria Barrera,EVELYNE. jmb 21:57 Patient visited by Tamy Harrison. ajs 22:08 No procedures done that require assistance. Dressings: 4X4s X 1; 2 inch gauze. mb9 22:11 Discontinued IV lock intact, bleeding controlled, pressure dressing applied, No mb9 redness/swelling at site. pt had a [address] to left forearm when discharged. 06/18 12:38 T-Sheet-- Draft Copy was scanned into [employer] and attached to record. gb Administered Medications: 06/17 19:39 Drug: morphine 4 mg [morphine 4 mg/mL intravenous cartridge (1 mL)] Route: IVP; Site: jmb left forearm; 19:39 Drug: Ampicillin-Sulbactam Sodium 3 grams [ampicillin-sulbactam 1.5 gram solution for jmb injection] Route: IVPB; Infused Over: 30 mins; Site: left forearm; 20:30 Drug: Dilaudid - HYDROmorphone 0.5 mg [hydromorphone 1 mg/mL injection syringe (0.5 jmb mL)] Route: IVP; Site: left forearm; 22:07 Drug: HYDROcodone-acetaminophen 4 pack- 1 packets [hydrocodone 5 mg-acetaminophen 325 mb9 mg tablet (1 tabs)] {Co-Signature: lonnie (Taqueria Barrera RN).} Route: PO; Order Results: Lab Order: CBC with Diff; SPEC'M 06/17/16 19:36 Test: WHITE BLOOD COUNT; Value: 10.0; Range: 4.0-10.0; Units: K/mm3; Status: F Test: RED BLOOD COUNT; Value: 4.96; Range: 4.30-6.10; Units: M/mm3; Status: F Test: HEMOGLOBIN; Value: 14.7; Range: 14.0-18.0; Units: g/dl; Status: F Test: HEMATOCRIT; Value: 45.8; Range: 42.0-52.0; Units: %; Status: F Test: MEAN CORPUSCULAR VOLUME; Value: 92.5; Range: 80.0-96.0; Units: fl; Status: F Test: MEAN CORPUSCULAR HEMOGLOBIN; Value: 29.7; Range: 27.0-33.0; Units: pg; Status: F Test: MEAN CORPUSCULAR HGB CONC; Value: 32.1; Range: 32.0-36.5; Units: g/dl; Status: F Test: RED CELL DISTRIBUTION WIDTH; Value: 13.6; Range: 11.5-14.5; Units: %; Status: F Test: PLATELET COUNT, AUTOMATED; Value: 256; Range: 150-450; Units: k/mm3; Status: F Test: NEUTROPHILS %; Value: 46.0; Range: 36.0-66.0; Units: %; Status: F Test: LYMPH %; Value: 40.9; Range: 24.0-44.0; Units: %; Status: F Test: MONO %; Value: 5.7; Range: 0.0-5.0; Abnormal: Above high normal; Units: %; Status: F Test: EOS %; Value: 1.8; Range: 0.0-3.0; Units: %; Status: F Test: BASO %; Value: 1.7; Range: 0.0-1.0; Abnormal: Above high normal; Units: %; Status: F Test: LARGE UNSTAINED CELL %; Value: 3.9; Range: 0.0-4.0; Units: %; Status: F Test: NEUTROPHILS #; Value: 4.6; Range: 1.8-7.7; Units: K/mm3; Status: F Test: LYMPH #; Value: 4.5; Range: 1.5-4.5; Units: K/mm3; Status: F Test: MONO #; Value: 0.6; Range: 0.0-0.8; Units: K/mm3; Status: F Test: EOS #; Value: 0.2; Range: 0.0-0.50; Units: K/mm3; Status: F Test: BASO #; Value: 0.2; Range: 0.0-0.2; Units: K/mm3; Status: F Test: LARGE UNSTAINED CELL #; Value: 0.4; Range: 0.0-0.4; Units: K/mm3; Status: F Lab Order: CRP; SPEC'M 06/17/16 19:36 Test: C REACTIVE PROTEIN QUANTITATIV; Value: 2.08; Range: 0.00-0.30; Abnormal: Above high normal; Units: MG/DL; Status: F Lab Order: ERYTHROCYTE SEDIMENTATION RATE; SPEC'M 06/17/16 19:36 Test: ERYTHROCYTE SEDIMENTATION RATE; Value: 23; Range: 0-15; Abnormal: Above high normal; Units: mm/hr; Status: F Outcome: 21:50 Discharge ordered by Provider. ar2 22:08 Discharge Assessment: Patient awake, alert and oriented x 3. No cognitive and/or mb9 functional deficits noted. Patient verbalized understanding of disposition instructions. patient administered narcotics - yes. Pt provided with safe discharge. The following High Risk Discharge criteria are identified: None. Discharged to home ambulatory, with significant other. Condition: good Condition: stable Condition: improved. Discharge instructions given to patient, Instructed on discharge instructions, follow up and referral plans. medication usage, Demonstrated understanding of instructions, medications, Pt was receptive of discharge instructions/ teaching. No special radiology studies were completed. Property :Personal belongings accompany Pt. 22:09 Patient left the ED. 9 Signatures: Anastasiia Larsen, RN RN Barbara Wynn, Hussain Wilder RN RN [facility] Jeremy Starr Aaron, PALaronC PASolange ar2 Addie StephenRN RN dsf Tamy Harrison Erin, ANALYSIS ANALYST ANALYSIS ANALYST Taqueria Boyd RN RN jmb Belles, Michael, RN RN 9 Taqueria fleming Corrections: (The following items were deleted from the chart) 19:01 16:20 Presenting complaint: Patient states: Laceration to left index finger hit with a mlb1 piece of wood repaired here last night, increased pain swelling and redness since mlb1 19:52 19:39 ERYTHROCYTE SEDIMENTATION RATE+LAB sent. lonnie EDMS 22:11 22:08 No IV's were initiated during this patient's visit cain lal9 Chart Complete MTDD
--- NOTE | 2016-06-19 23:11 | EDDOCDS ---
Physician Documentation [facility] Name: Pk Henley Age: 46 yrs Sex: Male : 1970 Arrival Date: 06/17/2016 Time: 16:12 Bed I3 / M3 Private MD: No Pcp Disposition: 06/17/16 21:50 Discharged to Home/Self Care. Impression: Cellulitis of right finger - following laceration, index. - Condition is Stable. - Discharge Instructions: Cellulitis, Sutured Wound Care. - Medication Reconciliation, Local Pharmacy Hours form. - Follow up: Private Physician; When: As previously arranged; Reason: Recheck today's complaints, Continuance of care. - Problem is new. - Symptoms have improved. Historical: - Allergies: no known allergies; - Home Meds: 1. Keflex 500 mg Oral cap 1 cap every 12 hours 2. Motrin 800 mg Oral tab 1 tab 3 times per day - PMHx: Kidney stones; Pancreatitis; stomach ulcer; - Social history: Smoking status: Patient uses tobacco products, light tobacco smoker. No barriers to communication noted, The patient speaks fluent Belarusian, Speaks appropriately for age. - Family history: No immediate family members are acutely ill. - : The pt / caregiver states he / she is not on anticoagulants. Home medication list is obtained from the patient. - Exposure Risk Screening:: None identified. Vital Signs: 06/17 16:15 BP 156 / 89; Pulse 80; Resp 18; Temp 98.2(O); Pulse Ox 98% on R/A; Weight 90.72 kg / elp 200 lbs; Height 5 ft. 11 in. (180.34 cm); Pain 10/10; 21:56 BP 148 / 94; Pulse 84; Resp 18; Temp 98.6; Pulse Ox 98% ; Pain 8/10; ajs 16:15 Body Mass Index 27.89 (90.72 kg, 180.34 cm) elp MDM: 17:51 [facility] [place] Agreement was scanned into QRGL and attached to record. zo 18:48 Financial registration complete. zo 18:58 IV Saline Lock ordered. ar2 18:58 morphine 4 mg IVP once ordered. ar2 18:58 Ampicillin-Sulbactam Sodium 3 grams IVPB once over 30 mins; dilute in 100mL of NS or ar2 D5W ordered. 18:59 CBC with Diff Ordered. EDMS 18:59 CRP Ordered. EDMS 19:52 ERYTHROCYTE SEDIMENTATION RATE Ordered. EDMS 20:15 Dilaudid - HYDROmorphone 0.5 mg IVP once ordered. ar2 21:12 CBC with Diff Reviewed. ar2 21:12 CRP Reviewed. ar2 21:12 ERYTHROCYTE SEDIMENTATION RATE Reviewed. ar2 21:44 HYDROcodone-acetaminophen 4 pack- 5 mg-325 mg 1 packets PO Per package directions; ar2 Dispense with patient. 1 po q4h prn for pain ordered. 21:44 Dressing ordered. ar2 06/18 12:38 T-Sheet-- Draft Copy was scanned into QRGL and attached to record. gb Administered Medications: 06/17 19:39 Drug: morphine 4 mg [morphine 4 mg/mL intravenous cartridge (1 mL)] Route: IVP; Site: b left forearm; 19:39 Drug: Ampicillin-Sulbactam Sodium 3 grams [ampicillin-sulbactam 1.5 gram solution for jmb injection] Route: IVPB; Infused Over: 30 mins; Site: left forearm; 20:30 Drug: Dilaudid - HYDROmorphone 0.5 mg [hydromorphone 1 mg/mL injection syringe (0.5 jmb mL)] Route: IVP; Site: left forearm; 22:07 Drug: HYDROcodone-acetaminophen 4 pack- 1 packets [hydrocodone 5 mg-acetaminophen 325 mb9 mg tablet (1 tabs)] {Co-Signature: lonnie (Taqueria Barrera RN).} Route: PO; Signatures: Dispatcher MedHost EDMS Barbara Leslie, Reg Reg gb Hussain Lopez, RN RN mlb1 Jeremy Starr Aaron, PA-C PA-C ar2 Hussain Ray RN RN [id number] Taqueria Barrera RN, RN The chart was reviewed and I authenticate all verbal orders and agree with the evaluation and treatment provided.Corrections: (The following items were deleted from the chart) 19:52 18:59 ERYTHROCYTE SEDIMENTATION RATE+LAB ordered. EDMS EDMS Attachments: 17:51 [facility] [place] Payment Agreement zo 06/18 12:38 T-Sheet-- Draft Copy gb Chart Complete MTDD
== END 2016-06-17 22:09 | disposition home or self-care (01) ==
LOC: M ED 16:12
DX: L03.011 Cellulitis of right finger (principal); K86.1 Other chronic pancreatitis; K25.9 Gastric ulcer, unspecified as acute or chronic, without hemorrhage or perforation; Z87.442 Personal history of urinary calculi; F17.210 Nicotine dependence, cigarettes, uncomplicated; Z79.899 Other long term (current) drug therapy
CPT/HCPCS: 36415; 85025; 85652; 86140; 96374; 96375; 99283; J1170

== ENCOUNTER 2017-04-08 05:59 | Day surgery (SDC) | payer OTHER ==
[~2017-04-08] VITALS: Ht 180.3 cm; Wt 105.7 kg
[~2017-04-08 05:59] MED LIST changes: -ACET-654 PO; +ACET1TAB17 PO; -CARA1TAB2 PO; +CARA1TAB6 PO; -FOLI1TAB2 PO; +FOLI1TAB4 PO; +NORC1TAB4 PO; -NORC5TAB PO; +PERC5TAB12 PO; -PERC5TAB6 PO; +TYLE500T78 PO
[2017-04-08] MEDS ORDERED: LR 1,000 ML IV ONE (06:15)
[2017-04-08] MEDS ORDERED: LIDOCAINE 2% INJ 100 MG/5 ML SDV (FOR ANES.) As Ordered ONE (07:16)
[2017-04-08] MEDS ORDERED: ROCURONIUM BROMIDE 50 MG/5 ML VIAL/SYRINGE As Ordered ONE ×2 (07:16→08:16)
[2017-04-08] MEDS ORDERED: fentaNYL 250 MCG/5 ML INJECTION (J3010) As Ordered ONE (07:16)
[2017-04-08] MEDS ORDERED: MIDAZOLAM INJ 2 MG/2 ML VIAL (J2250) As Ordered ONE (07:16)
[2017-04-08] MEDS ORDERED: PROPOFOL 200 MG/20 ML VIAL As Ordered ONE ×2 (07:16→08:49)
[2017-04-08] MEDS ORDERED: dexameTHASONE 4 MG/ML 1ML VIAL (J1100) As Ordered ONE (07:16)
[2017-04-08] MEDS ORDERED: ONDANSETRON 4MG/2ML VIAL (J2405) As Ordered ONE (07:16)
[2017-04-08] MEDS ORDERED: BUPIVACAINE HCL 0.25% 30 ML VIAL As Ordered ONE (07:21)
[2017-04-08] MEDS ORDERED: BUPIVACAINE LIPOSOME/PF 1.3% 20 ML VIAL (13.3MG/ML)(EXPAREL) As Ordered ONE (07:21)
[2017-04-08] MEDS ORDERED: ePHEDrine SULFATE 25 MG/5 ML(5MG/ML) SYRINGE As Ordered ONE (08:02)
[2017-04-08] MEDS ORDERED: PHENYLephrine HCL 500 MCG/5 ML (100MCG/ML) SYRINGE (J2370) As Ordered ONE (08:05)
[2017-04-08] MEDS ORDERED: HYDROmorphone HCL 2 MG/ML 1ML VIAL (J1170) As Ordered ONE (08:26)
[2017-04-08] MEDS ORDERED: GLYCOPYRROLATE INJ 0.2 MG/ML 2 ML VIAL As Ordered ONE (08:26)
[2017-04-08] MEDS ORDERED: NEOSTIGMINE 10 MG/10 ML VIAL (J2710) As Ordered ONE (08:26)
[2017-04-08] MEDS ORDERED: LABETALOL HCL 100 MG/20 ML VIAL As Ordered ONE (08:54)
[2017-04-08] MEDS ORDERED: SEVOFLURANE INHAL SOLN 250 ML BTL As Ordered ONE (08:58)
[2017-04-08] MEDS ORDERED: NORCO, ANEXSIA 5/325MG TABLET (HYDROcodone/ACETAMINOPHEN) PO PRN ×2 (10:45)
[2017-04-08] MEDS ORDERED: ONDANSETRON 4MG/2ML VIAL (J2405) IV PRN (10:45)
[2017-04-08] MEDS ORDERED: PERCOCET 5MG/325MG TAB PO PRN (10:45)
[2017-04-08] MEDS ORDERED: IBUPROFEN 600 MG TAB PO PRN (10:45)
[2017-04-08] MEDS ORDERED: ACETAMINOPHEN TAB 650MG DOSE (2X325MG) PO PRN (10:45)
[2017-04-08] MEDS ORDERED: LR 1,000 ML IV SCH (10:45)
[2017-04-08] MEDS ORDERED: HYDROmorphone HCL 1 MG/ML SYRINGE (J1170) IV PRN (10:45)
[2017-04-08] MEDS ORDERED: fentaNYL 100 MCG/2 ML INJECTION (J3010) IV PRN (10:45)
[2017-04-08 11:45] VITALS: BP 128/66
--- NOTE | 2017-04-09 10:41 | RO ---
DATE OF PROCEDURE: 04/08/2017 PREOPERATIVE DIAGNOSIS: Ventral incisional hernia. POSTOPERATIVE DIAGNOSIS: Incarcerated ventral incisional hernia with multiple additional ventral incisional hernias. PROCEDURE PERFORMED: Laparoscopic repair of incarcerated ventral incisional hernia with additional fascial defects using Parietex mesh, and lysis of adhesions. SURGEON: Ebenezer Brian MD MARKET RESEARCH EXECUTIVE: ANESTHESIA: General. INDICATIONS FOR THE PROCEDURE: The patient is a 47-year-old man who had undergone an open appendectomy for perforated appendicitis many years ago. He has recently developed a bulge along the right side of the umbilicus. He has had some soreness in this area and he is now for repair of a ventral incisional hernia. OPERATIVE PROCEDURE: The patient was placed under general endotracheal anesthesia. The patient's abdomen was prepped and draped in a sterile fashion. Inspection of the abdominal wall showed a long midline scar extending from the epigastrium to the hypogastrium, curving around the left side of the umbilicus. On the right side of the umbilicus, slightly above the level of the umbilicus, was an approximately 2-2-1/2 cm subcutaneous mass, which was not reducible, consistent with an incarcerated hernia. I elected to proceed initially by making a short transverse incision over this mass and this was performed sharply. The incision was deepened into the subcutaneous tissues using the cautery. Some fibrofatty tissue was opened and as dissection proceeded deeper a herniated portion of fibrofatty tissue clearly encapsulated and a thin hernia capsule was identified. This was approximately 2-1/2 cm in size and clearly represented the palpable mass. This was dissected free down to the fascia where it was noted that this presented through a defect that was smaller than a centimeter in size. The neck of this portion of herniated tissue was carefully transected using the electrocautery. The fascial defect was then opened extending superiorly and inferiorly to allow better inspection of the fascia. Palpation revealed fairly extensive adhesions to fibrofatty tissue, particularly toward the left side of the abdomen which would be toward the scar from his prior surgery. As a few adhesions were broken apart bluntly by finger dissection, there was clearly free space to the right side of the abdomen. I therefore infiltrated some local anesthesia in this area, made a small incision and advanced to 5 mm trocar into the abdomen in the lateral right abdomen at the level of the umbilicus. At this point, I temporarily closed the fascial opening that I had created, which at this point was perhaps 4 cm in length using Ethibond sutures. The abdomen was insufflated. Inspection with the scope showed that there were still some adhesions superiorly and inferiorly from the area around the umbilicus. There were a few fragments of fibrofatty tissue adherent up into additional smaller fascial defects extending superiorly and inferiorly as well along the area of his previous scar. A second 5 mm trocar was placed in the right upper quadrant. A pair of cauterizing scissors was used to take down the remaining adhesions. Some fibrofatty tissue was removed from within a couple of small fascial defects. Measurements were taken and the defects appeared to extend over a distance of approximately 10-11 cm. A 12 cm Parietex patch was selected. The abdomen was deflated and the sutures in the fascial closure were removed and the wound reopened. A #0 Ethibond suture was placed at the midpoint of the fascial defect and taking a very small bite of the Parietex patch to fix this in place, centered over the area of the defect. The mesh was reduced into the abdomen and the suture tied and the fascial defect was closed completely with interrupted #0 Ethibond sutures. The abdomen was reinflated and a SecureStrap tacker was used to tack the mesh securely to the anterior abdominal wall. Two tackers, or total of approximately 45 tacks, were utilized. These were placed completely around the periphery as well as in multiple areas within the center portions of the mesh to apply this nicely over the anterior abdominal wall. There was no significant bleeding caused. 20 mL of Exparel was then mixed with 20 mL of sterile saline and this was infiltrated into the abdominal wall diffusely over the area of the mesh application guided by inspection from within the abdomen. Some of the Exparel was also infiltrated over the supraumbilical incision and around the trocar sites. After a final inspection confirmed no evidence of bleeding, the abdomen was deflated and the trocars were removed. The subcutaneous tissues at the supraumbilical incision were approximated with some Vicryl sutures and the incision was closed with a running subcuticular #5-0 Vicryl. Trocar sites were also closed with buried Vicryl. Steri-Strips were applied followed by light dressings. The patient tolerated the procedure well without apparent complication. He was awakened in the operating room, extubated and moved to the recovery room in stable condition.
== END 2017-04-08 11:46 | disposition home or self-care (01) ==
LOC: M SDC 05:59
PROVIDERS: ATTEND Surgery
DX: K43.6 Other and unspecified ventral hernia with obstruction, without gangrene (principal); K66.0 Peritoneal adhesions (postprocedural) (postinfection); R06.83 Snoring; G47.9 Sleep disorder, unspecified; Z72.0 Tobacco use; Z87.81 Personal history of (healed) traumatic fracture
CPT/HCPCS: 49653; 88302; C1781

== ENCOUNTER → 2017-07-07 | Outpatient (CLI) | payer OTHER | LOC: M LRY 15:20 | DX: S89.92XA Unspecified injury of left lower leg, initial encounter (principal); X58.XXXA Exposure to other specified factors, initial encounter; Y92.89 Other specified places as the place of occurrence of the external cause; Y93.89 Activity, other specified; Y99.8 Other external cause status | CPT/HCPCS: 73564 ==

== ENCOUNTER 2017-10-08 08:06 | Emergency (ER) | payer OTHER ==
[2017-10-08] MEDS: NS 1,000 ML IV (08:50)
[2017-10-08] MEDS: MORPHINE 4 MG/ML 1ML VIAL/SYRINGE (J2270) IV ×2 (08:50→10:03)
[2017-10-08] MEDS: ONDANSETRON 4MG/2ML VIAL (J2405) IV (08:50)
[2017-10-08 09:00] LABS: BASO # 0.1 10^3/uL (0.0-0.2); BASO % 0.8 % (0.0-1.0); EOS # 0.2 10^3/uL (0.0-0.50); EOS % 1.1 % (0.0-3.0); HEMATOCRIT 39.2 % (42.0-52.0); HEMOGLOBIN 13.2 g/dl (13.5-17.5); IMMATURE GRANULOCYTE % 0.8 % (0-3.0); LYMPH # 2.3 10^3/uL (1.5-4.5); LYMPH % 15.3 % (24.0-44.0); MEAN CORPUSCULAR HEMOGLOBIN 29.5 pg (27.0-33.0); MEAN CORPUSCULAR HGB CONC 33.7 g/dl (32.0-36.5); MEAN CORPUSCULAR VOLUME 87.7 fl (80.0-96.0); MONO # 0.9 10^3/uL (0.0-0.8); MONO % 5.8 % (0.0-5.0); NEUTROPHILS # 11.4 10^3/uL (1.8-7.7); NEUTROPHILS % 76.2 % (36.0-66.0); PLATELET COUNT, AUTOMATED 768 10^3/uL (150-450); RED BLOOD COUNT 4.47 10^6/uL (4.30-6.10); RED CELL DISTRIBUTION WIDTH 13.1 % (11.5-14.5)
[2017-10-08 09:23] LABS: ALBUMIN 3.2 GM/DL (3.2-5.2); ALBUMIN/GLOBULIN RATIO 0.57 (1.00-1.93); ALKALINE PHOSPHATASE 182 U/L (45-117); ALT/SGPT 48 U/L (12-78); AMYLASE 68 U/L (25-115); ANION GAP 10 MEQ/L (8-16); AST/SGOT 30 U/L (7-37); BILIRUBIN,DIRECT 0.1 MG/DL (0.0-0.2); BILIRUBIN,TOTAL 0.9 MG/DL (0.2-1.0); BLOOD UREA NITROGEN 19 MG/DL (7-18); CALCIUM LEVEL 9.4 MG/DL (8.5-10.1); CARBON DIOXIDE LEVEL 24 MEQ/L (21-32); CHLORIDE LEVEL 103 MEQ/L (98-107); CREATININE FOR GFR 0.99 MG/DL (0.70-1.30); GLOMERULAR FILTRATION RATE > 60.0 (>60); GLUCOSE, FASTING 148 MG/DL (70-100); LIPASE 59 U/L (73-393); POTASSIUM SERUM 4.1 MEQ/L (3.5-5.1); SODIUM LEVEL 137 MEQ/L (136-145); TOTAL PROTEIN 8.8 GM/DL (6.4-8.2)
[2017-10-08 09:33] LABS: INR 0.98; PARTIAL THROMBOPLASTIN TIME 34.9 SECONDS (26.8-37.9); PROTHROMBIN TIME 13.1 SECONDS (12.4-14.5)
[2017-10-08 09:46] LABS: LACTIC ACID SEPSIS PROTOCOL 2.2 MMOL/L (0.4-2.0)
[2017-10-08] MEDS: METOCLOPRAMIDE INJ 10MG/2ML VIAL (J2765) IV (10:03)
[2017-10-08] MEDS ORDERED: ISOVUE-370 76% 100ML VIAL (Q9967) As Ordered (10:14)
[2017-10-08] MEDS: HYDROmorphone HCL 1 MG/ML SYRINGE (J1170) IV (11:17)
[2017-10-08] MEDS: DICYCLOMINE INJ 20MG/2ML (J0500) IM (14:09)
== END 2017-10-08 15:17 | disposition home or self-care (01) ==
LOC: M ED 08:06
DX: E86.0 Dehydration (principal); R11.2 Nausea with vomiting, unspecified; R19.7 Diarrhea, unspecified; Z79.899 Other long term (current) drug therapy; Z79.82 Long term (current) use of aspirin
CPT/HCPCS: J1170

== ENCOUNTER 2017-10-10 09:47 | Emergency (ER) | payer OTHER ==
[2017-10-10] MEDS: ONDANSETRON 4MG/2ML VIAL (J2405) IV (10:13)
[2017-10-10] MEDS: PANTOPRAZOLE 40MG INJ (PROTONIX) (C9113) IV (10:13)
[2017-10-10 10:37] LABS: BASO # 0.1 10^3/uL (0.0-0.2); BASO % 0.6 % (0.0-1.0); EOS # 0.1 10^3/uL (0.0-0.50); EOS % 0.4 % (0.0-3.0); HEMATOCRIT 38.6 % (42.0-52.0); HEMOGLOBIN 12.7 g/dl (13.5-17.5); IMMATURE GRANULOCYTE % 0.4 % (0-3.0); LYMPH % 12.8 % (24.0-44.0); MEAN CORPUSCULAR HEMOGLOBIN 29.1 pg (27.0-33.0); MEAN CORPUSCULAR HGB CONC 32.9 g/dl (32.0-36.5); MEAN CORPUSCULAR VOLUME 88.3 fl (80.0-96.0); MONO # 0.9 10^3/uL (0.0-0.8); MONO % 5.9 % (0.0-5.0); NEUTROPHILS # 12.5 10^3/uL (1.8-7.7); NEUTROPHILS % 79.9 % (36.0-66.0); PLATELET COUNT, AUTOMATED 846 10^3/uL (150-450); RED BLOOD COUNT 4.37 10^6/uL (4.30-6.10); RED CELL DISTRIBUTION WIDTH 13.1 % (11.5-14.5); WHITE BLOOD COUNT 15.7 10^3/uL (4.0-10.0)
[2017-10-10 10:56] LABS: INR 1.03; PROTHROMBIN TIME 13.6 SECONDS (12.4-14.5)
[2017-10-10 11:03] LABS: ALBUMIN 3.6 GM/DL (3.2-5.2); ALKALINE PHOSPHATASE 144 U/L (45-117); ALT/SGPT 38 U/L (12-78); ANION GAP 9 MEQ/L (8-16); AST/SGOT 21 U/L (7-37); BILIRUBIN,DIRECT 0.3 MG/DL (0.0-0.2); BILIRUBIN,TOTAL 0.9 MG/DL (0.2-1.0); BLOOD UREA NITROGEN 21 MG/DL (7-18); CALCIUM LEVEL 9.4 MG/DL (8.5-10.1); CARBON DIOXIDE LEVEL 27 MEQ/L (21-32); CHLORIDE LEVEL 100 MEQ/L (98-107); CPK CREATINE PHOSPHOKINASE 243 U/L (39-308); CREATININE FOR GFR 0.95 MG/DL (0.70-1.30); GLOMERULAR FILTRATION RATE > 60.0 (>60); GLUCOSE, FASTING 118 MG/DL (70-100); LIPASE 140 U/L (73-393); POTASSIUM SERUM 4.4 MEQ/L (3.5-5.1); SODIUM LEVEL 136 MEQ/L (136-145); TOTAL PROTEIN 8.1 GM/DL (6.4-8.2); TROPONIN I < 0.02 NG/ML (< 0.10)
[2017-10-10] MEDS: GI COCKTAIL 50ML BTL(HYOSCYAMINE/MAALOX/LIDOCAINE VISCOUS)(1:3:1) PO (11:03)
[2017-10-10 11:04] LABS: CK-MB VALUE MASS < 1.0 NG/ML (<3.6); MB/CK RELATIVE INDEX 0.41 (< OR =4)
[2017-10-10] MEDS: SUCRALFATE SUSP 1GM/10ML UD PO (11:26)
[2017-10-10] MEDS: NS 1,000 ML IV (11:26)
[2017-10-10 11:50] LABS: LACTIC ACID SEPSIS PROTOCOL 1.6 MMOL/L (0.4-2.0)
[2017-10-10] MEDS ORDERED: ISOVUE-370 76% 100ML VIAL (Q9967) As Ordered (13:04)
[2017-10-10] MEDS: MORPHINE 4 MG/ML 1ML VIAL/SYRINGE (J2270) IV (13:25)
[2017-10-10] MEDS: NITROGLYCERIN 0.4 MG SUBL TABLET SL (15:06)
[2017-10-10 17:12] LABS: CK-MB VALUE MASS < 1.0 NG/ML (<3.6); CPK CREATINE PHOSPHOKINASE 196 U/L (39-308); MB/CK RELATIVE INDEX 0.51 (< OR =4); TROPONIN I < 0.02 NG/ML (< 0.10)
[2017-10-10] MEDS: PROMETHAZINE INJ 25 MG/ML VIAL (J2550) IV (17:31)
== END 2017-10-10 19:09 | disposition home or self-care (01) ==
LOC: M ED 09:47
DX: R11.2 Nausea with vomiting, unspecified (principal); R78.5 Finding of other psychotropic drug in blood; Z87.891 Personal history of nicotine dependence; N20.0 Calculus of kidney
CPT/HCPCS: C9113

== ENCOUNTER 2018-02-26 18:44 | Emergency (ER) | payer SELFPAY, OTHER, MEDICAID ==
[2018-02-26 19:24] LABS: BASO % 0.1 % (0.0-1.0); HEMATOCRIT 42.8 % (42.0-52.0); HEMOGLOBIN 14.4 g/dl (13.5-17.5); IMMATURE GRANULOCYTE % 0.5 % (0-3.0); LYMPH # 1.5 10^3/uL (1.5-4.5); LYMPH % 9.4 % (24.0-44.0); MEAN CORPUSCULAR HEMOGLOBIN 29.8 pg (27.0-33.0); MEAN CORPUSCULAR HGB CONC 33.6 g/dl (32.0-36.5); MEAN CORPUSCULAR VOLUME 88.6 fl (80.0-96.0); MONO # 0.5 10^3/uL (0.0-0.8); MONO % 3.4 % (0.0-5.0); NEUTROPHILS # 13.4 10^3/uL (1.8-7.7); NEUTROPHILS % 86.6 % (36.0-66.0); PLATELET COUNT, AUTOMATED 361 10^3/uL (150-450); RED BLOOD COUNT 4.83 10^6/uL (4.30-6.10); RED CELL DISTRIBUTION WIDTH 13.8 % (11.5-14.5); WHITE BLOOD COUNT 15.5 10^3/uL (4.0-10.0)
[2018-02-26 19:31] LABS: AMORPHOUS SEDIMENT SMALL (NEGATIVE); APPEARANCE, URINE CLOUDY (CLEAR); BACTERIA, URINE AUTO NEGATIVE (NEGATIVE); BILIRUBIN, URINE AUTO NEGATIVE (NEGATIVE); BLOOD, URINE BLOOD NEGATIVE (NEGATIVE); COLOR, URINE YELLOW (YELLOW); GLUCOSE, URINE (UA) AUTO NEGATIVE (NEGATIVE); KETONE, URINE AUTO NEGATIVE (NEGATIVE); LEUKOCYTE ESTERASE, URINE AUTO NEGATIVE (NEGATIVE); MUCUS, URINE SMALL (NEGATIVE); NITRITE, URINE AUTO NEGATIVE (NEGATIVE); PROTEIN, URINE AUTO NEGATIVE (NEGATIVE); RBC, URINE AUTO 4 /HPF (0-3); SQUAMOUS EPITHELIAL CELL UR AU 0 /HPF (0-6); UROBILINOGEN, URINE AUTO 0.2 mg/dL (0.0-2.0); WBC, URINE AUTO 3 /HPF (0-3)
[2018-02-26] MEDS: NS 1,000 ML IV (19:45)
[2018-02-26] MEDS: METOCLOPRAMIDE INJ 10MG/2ML VIAL (J2765) IV (19:55)
[2018-02-26] MEDS: MORPHINE 4 MG/ML 1ML VIAL/SYRINGE (J2270) IV ×2 (19:56→21:23)
[2018-02-26 19:59] LABS: ALBUMIN/GLOBULIN RATIO 0.95 (1.00-1.93); ALKALINE PHOSPHATASE 72 U/L (45-117); ALT/SGPT 19 U/L (12-78); ANION GAP 8 MEQ/L (8-16); AST/SGOT 12 U/L (7-37); BILIRUBIN,DIRECT 0.2 MG/DL (0.0-0.2); BILIRUBIN,TOTAL 0.5 MG/DL (0.2-1.0); BLOOD UREA NITROGEN 11 MG/DL (7-18); CALCIUM LEVEL 9.4 MG/DL (8.5-10.1); CARBON DIOXIDE LEVEL 27 MEQ/L (21-32); CHLORIDE LEVEL 104 MEQ/L (98-107); CPK CREATINE PHOSPHOKINASE 108 U/L (39-308); GLOMERULAR FILTRATION RATE > 60.0 (>60); GLUCOSE, FASTING 147 MG/DL (70-100); LIPASE 68 U/L (73-393); POTASSIUM SERUM 3.9 MEQ/L (3.5-5.1); SODIUM LEVEL 139 MEQ/L (136-145); TOTAL PROTEIN 8.2 GM/DL (6.4-8.2); TROPONIN I < 0.02 NG/ML (< 0.10)
[2018-02-26] MEDS: GASTROGRAFIN SOLUTION 30ML PO ×2 (20:20→20:45)
[2018-02-26] MEDS ORDERED: ISOVUE-370 76% 100ML VIAL (Q9967) As Ordered (21:40)
[2018-02-26] MEDS: GI COCKTAIL 50ML BTL(HYOSCYAMINE/MAALOX/LIDOCAINE VISCOUS)(1:3:1) PO (23:30)
[2018-02-26] MEDS: PANTOPRAZOLE 40MG INJ (PROTONIX) (C9113) IV (23:30)
== END 2018-02-27 | disposition home or self-care (01) ==
LOC: M ED 02-27
DX: K21.0 Gastro-esophageal reflux disease with esophagitis (principal); E78.5 Hyperlipidemia, unspecified; F10.11 Alcohol abuse, in remission; Z87.19 Personal history of other diseases of the digestive system; Z87.891 Personal history of nicotine dependence; Z90.49 Acquired absence of other specified parts of digestive tract
CPT/HCPCS: C9113

== ENCOUNTER 2018-07-29 16:36 | Emergency (ER) | payer OTHER, SELFPAY ==
[~2018-07-29 16:36] MED LIST changes: -ACET1TAB17 PO; +ACET1TAB55 PO; +BENT10CA PO; +DIAZ5TAB; +DOK100TA; +EQ A81TA; +FOLI1TAB11 PO; -FOLI1TAB4 PO; +OXYCOD/APAP; +REGL10TA6 PO; +SUCR1SS PO; -ZOFR20TA PO; +ZOFR4TAB14 PO; +ZOFR4TAB16 PO
[2018-07-29] MEDS ORDERED: GI COCKTAIL 50ML BTL(HYOSCYAMINE/MAALOX/LIDOCAINE VISCOUS)(1:3:1) PO ONE (17:30)
[2018-07-29] MEDS ORDERED: KETOROLAC 30 MG/ML VIAL (J1885) IV ONE (17:30)
[2018-07-29] MEDS ORDERED: NS 1,000 ML IV ONE ×2 (17:30→18:30)
[2018-07-29 17:41] LABS: BASO % 0.2 % (0.0-1.0); HEMOGLOBIN 13.1 g/dl (13.5-17.5); LYMPH # 1.6 10^3/uL (1.5-4.5); LYMPH % 14.8 % (24.0-44.0); MEAN CORPUSCULAR HEMOGLOBIN 29.6 pg (27.0-33.0); MEAN CORPUSCULAR HGB CONC 33.6 g/dl (32.0-36.5); MONO # 0.4 10^3/uL (0.0-0.8); MONO % 3.9 % (0.0-5.0); NEUTROPHILS # 8.9 10^3/uL (1.8-7.7); NEUTROPHILS % 80.6 % (36.0-66.0); PLATELET COUNT, AUTOMATED 409 10^3/uL (150-450); RED BLOOD COUNT 4.43 10^6/uL (4.30-6.10)
[2018-07-29 17:56] LABS: AMORPHOUS SEDIMENT SMALL (NEGATIVE); APPEARANCE, URINE HAZY (CLEAR); BACTERIA, URINE AUTO NEGATIVE (NEGATIVE); BILIRUBIN, URINE AUTO NEGATIVE (NEGATIVE); BLOOD, URINE BLOOD NEGATIVE (NEGATIVE); COLOR, URINE YELLOW (YELLOW); GLUCOSE, URINE (UA) AUTO NEGATIVE (NEGATIVE); KETONE, URINE AUTO NEGATIVE (NEGATIVE); LEUKOCYTE ESTERASE, URINE AUTO NEGATIVE (NEGATIVE); MUCUS, URINE SMALL (NEGATIVE); NITRITE, URINE AUTO NEGATIVE (NEGATIVE); PROTEIN, URINE AUTO NEGATIVE (NEGATIVE); RBC, URINE AUTO 2 /HPF (0-3); SQUAMOUS EPITHELIAL CELL UR AU 0 /HPF (0-6); UROBILINOGEN, URINE AUTO 0.2 mg/dL (0.0-2.0); WBC, URINE AUTO 1 /HPF (0-3)
[2018-07-29] MEDS: GASTROGRAFIN SOLUTION 30ML PO SCH ×2 (17:56→18:30)
[2018-07-29 18:10] LABS: ALBUMIN 3.6 GM/DL (3.2-5.2); ALT/SGPT 19 U/L (12-78); AMYLASE 85 U/L (25-115); BILIRUBIN,TOTAL 0.5 MG/DL (0.2-1.0); BLOOD UREA NITROGEN 10 MG/DL (7-18); C REACTIVE PROTEIN QUANTITATIV 1.45 MG/DL (0.00-0.30); CALCIUM LEVEL 8.5 MG/DL (8.5-10.1); CARBON DIOXIDE LEVEL 28 MEQ/L (21-32); CHLORIDE LEVEL 105 MEQ/L (98-107); CPK CREATINE PHOSPHOKINASE 136 U/L (39-308); CREATININE FOR GFR 0.88 MG/DL (0.70-1.30); GLOMERULAR FILTRATION RATE > 60.0 (>56); GLUCOSE, FASTING 137 MG/DL (70-100); LIPASE 80 U/L (73-393); MB/CK RELATIVE INDEX 0.81 (< OR =4); POTASSIUM SERUM 4.1 MEQ/L (3.5-5.1); SODIUM LEVEL 140 MEQ/L (136-145); TOTAL PROTEIN 7.7 GM/DL (6.4-8.2); TROPONIN I 0.02 NG/ML (< 0.10)
[2018-07-29] MEDS ORDERED: MORPHINE 4 MG/ML 1ML VIAL/SYRINGE (J2270) IV ONE (18:15)
--- NOTE | 2018-07-29 18:21 | REP ---
Chest x-ray: Two views. History: Abdomen pain radiating into the chest. Comparison chest x-ray November 19, 2014. Findings: The lungs are well inflated and clear. There is no evidence of infiltrate or free subdiaphragmatic air. Pleural angles are sharp. Pulmonary vasculature is not increased. Heart size is normal. No significant bony abnormality is seen. Impression: No active disease. Electronically Signed by Kb Albarado MD 07/29/2018 06:11 P
--- NOTE | 2018-07-29 18:58 | ECGEPIP ---
Stationary ECG Study [facility] - ED Test Date: 2018-07-29 Pat Name: SOULEYMANE TALBERT Department: Room: - Gender: M Point Of Care Technician: SIERRA : 1970 Requested By: RUSH Stephenson PA-C Order Number: [id number] Reading MD: Vinicio John Measurements Intervals [place] Rate: 61 P: 7 ID: [id number] QRS: 45 QRSD: 95 T: 42 QT: 411 QTc: 416 Interpretive Statements SINUS RHYTHM WITH MARKED SINUS ARRHYTHMIA NSTTW ABNORMALITIES SIMILAR TO 10/10/17 Electronically Signed On 07-29-2018 18:58:04 EST by Vinicio John
[2018-07-29] MEDS ORDERED: ISOVUE-370 76% 100ML VIAL (Q9967) As Ordered ONE (19:10)
--- NOTE | 2018-07-29 20:12 | REPVR ---
EXAM: CT Abdomen and Pelvis With Contrast EXAM DATE/TIME: 07/29/2018 7:24 PM CLINICAL HISTORY: 48 years old, male; Pain; Abdominal pain; Generalized; Additional info: Diffuse abd pain, HX of pancreatitis TECHNIQUE: Axial computed tomography images of the abdomen and pelvis with intravenous contrast. All CT scans at this facility use at least one of these dose optimization techniques: automated exposure control; mA and/or kV adjustment per patient size (includes targeted exams where dose is matched to clinical indication); or iterative reconstruction. Coronal and sagittal reformatted images were created and reviewed. CONTRAST: Contrast Material: 100 ml of isovue 370; Contrast Route: iv COMPARISON: CT ABD/PEL W/IV ORAL CONTRAS 02/26/2018 9:33 PM FINDINGS: Lower thorax: No acute findings. ABDOMEN: Liver: There is a diffuse decrease in hepatic parenchymal density, consistent with fatty infiltration. Gallbladder and bile ducts: Normal. No calcified stones. No ductal dilation. Pancreas: Normal. No ductal dilation. Spleen: Normal. No splenomegaly. Adrenals: Normal. No mass. Kidneys and ureters: 5 millimeters nonobstructing calculus left kidney. Subcentimeter left renal cyst. Stomach and bowel: Normal. No obstruction. No mucosal thickening. Appendix: No evidence of appendicitis. PELVIS: Bladder: Diffuse thickening of the bladder wall likely related to underdistention. Clinical correlation to exclude cystitis suggested. Reproductive: Unremarkable as visualized. ABDOMEN and PELVIS: Intraperitoneal space: Normal. No free air. No significant fluid collection. Bones/joints: The spine demonstrates mild degenerative changes. Soft tissues: Bilateral inguinal hernias. Vasculature: The aorta demonstrates mild atherosclerotic calcification. Lymph nodes: Normal. No enlarged lymph nodes. IMPRESSION: 1. There is a diffuse decrease in hepatic parenchymal density, consistent with fatty infiltration. 2. 5 millimeters nonobstructing calculus left kidney. 3. Bilateral inguinal hernias. 4. Diffuse thickening of the bladder wall likely related to underdistention. Clinical correlation to exclude cystitis suggested. COMMENT: Consistent with the [employer] [place] [employer] Incidental Findings Committee Report (J Am Lia Radiol 2010): Unless the patients specific circumstances suggest otherwise, any liver lesion 0.5 cm or less, any cystic kidney lesion less than 1.0 cm, and/or any adrenal lesion 1.0 cm or less not otherwise characterized in this report as possessing suspicious or indeterminate imaging features is/are highly likely to be benign and do not require follow-up imaging or biopsy. Electronically signed by: Graham Zafar On 07/29/2018 20:12:02 PM
[2018-07-29 20:22] VITALS: BP 171/84
[2018-07-29] MEDS ORDERED: KETO10TAB PO (20:22)
== END 2018-07-29 20:42 | disposition home or self-care (01) ==
LOC: M ED 16:36 → EDBD 16:36 → M ED 20:42
DX: K40.90 Unilateral inguinal hernia, without obstruction or gangrene, not specified as recurrent (principal); R10.84 Generalized abdominal pain; N20.0 Calculus of kidney; I10 Essential (primary) hypertension; E78.00 Pure hypercholesterolemia, unspecified
CPT/HCPCS: 71046; 74177; 80053; 81001; 82150; 82550; 82553; 83605; 83690; 85025; 86140; 93005; 96361; 96374; 96375; 99284; J1885; J2270; Q9963; Q9967

== ENCOUNTER 2019-08-24 05:22 | Observation (INO) | payer OTHER ==
[~2019-08-24] VITALS: Ht 180.3 cm; Wt 105.7 kg
[~2019-08-24 05:22] MED LIST changes: +ASPI-117; -EQ A81TA; +HYDR-3715 PO; +KETO10TAB PO; -NORC1TAB4 PO; +NORC1TAB7 PO; -NORCOTAB PO
[2019-08-24 05:53] LABS: BASO % 0.1 % (0.0-1.0); EOS % 0.1 % (0.0-3.0); HEMATOCRIT 44.4 % (42.0-52.0); HEMOGLOBIN 14.8 g/dl (13.5-17.5); LYMPH # 2.7 10^3/uL (1.5-5.0); LYMPH % 18.3 % (24.0-44.0); MEAN CORPUSCULAR HEMOGLOBIN 29.5 pg (27.0-33.0); MEAN CORPUSCULAR HGB CONC 33.3 g/dl (32.0-36.5); MEAN CORPUSCULAR VOLUME 88.4 fl (80.0-96.0); MONO # 1.5 10^3/uL (0.0-0.8); MONO % 9.7 % (0.0-5.0); NEUTROPHILS # 10.7 10^3/uL (1.5-8.5); NEUTROPHILS % 71.4 % (36.0-66.0); PLATELET COUNT, AUTOMATED 330 10^3/uL (150-450); RED BLOOD COUNT 5.02 10^6/uL (4.30-6.10)
[2019-08-24] MEDS ORDERED: GI COCKTAIL 50ML BTL(HYOSCYAMINE/MAALOX/LIDOCAINE VISCOUS)(1:3:1) PO ONE (06:00)
[2019-08-24] MEDS ORDERED: PANTOPRAZOLE 40MG INJ (PROTONIX) (C9113) IV ONE (06:00)
[2019-08-24] MEDS ORDERED: NS 500 ML IV ONE ×2 (06:00→07:15)
[2019-08-24 06:22] LABS: ALBUMIN 4.1 GM/DL (3.2-5.2); ALT/SGPT 21 U/L (12-78); BILIRUBIN,DIRECT 0.2 MG/DL (0.0-0.2); BILIRUBIN,TOTAL 1.1 MG/DL (0.2-1.0); BLOOD UREA NITROGEN 13 MG/DL (7-18); CALCIUM LEVEL 9.3 MG/DL (8.5-10.1); CARBON DIOXIDE LEVEL 25 MEQ/L (21-32); CHLORIDE LEVEL 101 MEQ/L (98-107); CK-MB VALUE MASS 1.9 NG/ML (<3.6); CPK CREATINE PHOSPHOKINASE 457 U/L (39-308); CREATININE FOR GFR 1.01 MG/DL (0.70-1.30); ETHYL ALCOHOL (ETHANOL) < 0.003 % (0.000-0.010); GLOMERULAR FILTRATION RATE > 60.0 (>56); GLUCOSE, FASTING 113 MG/DL (70-100); LIPASE 859 U/L (73-393); MB/CK RELATIVE INDEX 0.42 (< OR =4); POTASSIUM SERUM 3.3 MEQ/L (3.5-5.1); SODIUM LEVEL 137 MEQ/L (136-145); TOTAL PROTEIN 8.2 GM/DL (6.4-8.2); TROPONIN I < 0.02 NG/ML (< 0.10)
[2019-08-24] MEDS: GASTROGRAFIN SOLUTION 30ML PO SCH ×2 (06:23→06:50)
[2019-08-24] MEDS ORDERED: MORPHINE 4 MG/ML 1ML VIAL/SYRINGE (J2270) IV ONE ×2 (06:30→10:30)
[2019-08-24] MEDS: HYDROMORPHONE HCL 0.5 MG/ 0.5 ML SYRINGE (J1170 PER 1) IV PRN ×2 (07:26→09:16)
[2019-08-24] MEDS ORDERED: ISOVUE-370 76% 100ML VIAL (Q9967) As Ordered ONE (07:42)
--- NOTE | 2019-08-24 08:25 | REP ---
CT ABDOMEN AND PELVIS WITH IV CONTRAST: HISTORY: Abdomen pain. Comparison CT study July 29, 2018. CT CONTRAST DOSE: 100 mL of intravenous Isovue 370. 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 Axial images through the lung bases demonstrate minimal subsegmental discoid atelectatic change in the right lower lobe. No pleural effusion is seen. There is evidence of mild diffuse fatty infiltration of the liver similar to the prior study. No focal liver mass lesion is seen. The gallbladder and the pancreas are unremarkable. The spleen is normal size homogeneous in texture. No adrenal lesion is seen on either side. There is no evidence of hydronephrosis. There is a calculus in the upper pole left kidney collecting system which measures 5 mm in greatest diameter. No ureteral or bladder calculus is seen. No renal mass lesion is observed. No retroperitoneal mass or adenopathy is seen. No free fluid is noted. There are some dystrophic calcifications in the prostate. There is some fatty infiltration of the spermatic cords bilaterally. No abdominal wall defect is seen. Axial CT images also show mild gaseous distension of the transverse colon and to some degree, the cecum. No small bowel dilation is seen. No significant small bowel air-fluid levels are seen. No obstructive lesion is appreciated. There is no evidence of free air. The distal colon is empty. There is mild mural thickening in the left colon from mid descending distally. This may reflect some degree of enterocolitis. IMPRESSION: Very mild mural thickening affecting the distal colon. This may represent a mild enterocolitis. Question ileus. No obstructive lesion or free air seen. There is a 5 mm intrarenal calculus in the upper pole left kidney. Fatty infiltration of the liver is seen. The patient is status post appendectomy. Electronically Signed by Kb Albarado MD 08/24/2019 10:03 A
[2019-08-24] MEDS: NS 1,000 ML IV SCH ×2 (10:20→17:49)
--- NOTE | 2019-08-24 10:24 | HPEPDOC ---
General Date of Admission Aug 24, 2019 at 05:23 Date of Service: Aug 24, 2019 Chief Complaint The patient is a 49-year-old male admitted with a reason for visit of Pancreatitis. History of Present Illness 49 year old male presents with abdominal pain. States symptoms started yesterday evening, b/l LQ abdominal pain, associated with nausea and vomiting. VSS, afebrile. CT A/P with question of ileus, fatty infiltration of the liver, mild mural wall thickening affecting distal colon, normal pancreas. Home Medications No Active Prescriptions or Reported Meds Allergies Coded Allergies: No Known Drug Allergies (Verified Allergy, Unknown, 08/24/19) Past Medical History Medical History PAST MEDICAL HISTORY: 1. Peptic ulcer disease. 2. Chronic abdominal pain. 3. Pancreatitis. PAST SURGICAL HISTORY: 1. Appendectomy. 2. Bilateral knee surgery. Surgical History as above Family History Significant Family History: No pertinent family hx Social History * Smoker: current smoker Alcohol: Denies Drugs: denies A-FIB/CHADSVASC A-FIB History Current/History of A-Fib/PAF?: No Review of Systems Constitutional: Denies: Chills, Fever, Night Sweats Eyes: Denies: Pain, Vision change ENT: Denies: Head Aches, Ear Pain, Dysphagia Skin: Denies: Rash, Lesions, Breakdown Pulmonary: Denies: Dyspnea, Cough Cardiovascular: Denies: Chest Pain, Palpitations, Orthopnea, Paroxysmal Noc. Dy spnea, Lt Headedness Gastrointestinal: Reports: Nausea, Abdominal Pain; Denies: Vomiting, Diarrhea Genitourinary: Denies: Dysuria, Frequency, Incontinence, Retention Hematologic: Denies: Bruising, Bleeding Excessively Musculoskeletal: Denies: Neck Pain, Back Pain, Joint Pain, Muscle Pain, Spasms Neurological: Denies: Weakness, Numbness, Change in speech, Confusion Psych: Reports: Mood Normal; Denies: Depression, Memory Issues Physical Examination General Exam: Positive: Alert, No Acute Distress Eye Exam: Positive: PERRLA, Conjunctiva & lids normal, EOMI; Negative: Sclera icteric ENT Exam: Positive: Atraumatic, Mucous membr. moist/pink, Pharynx Normal Neck Exam: Positive: Supple; Negative: JVD, thyromegaly Chest Exam: Positive: Clear to auscultation, Normal air movement Heart Exam: Positive: Rate Normal, Regular Rhythm, Normal S1, Normal S2; Negative: Murmurs, Rubs Telemetry: Positive: No significant arrhythmia Abdomen Exam: Positive: Normal bowel sounds, Soft, Tenderness (generalized); Negative: Hepatospenomegaly Extremity Exam: Positive: Normal pulses; Negative: Clubbing, Cyanosis, Edema Skin Exam: Positive: Nl turgor and temperature; Negative: Breakdown, Lesion Neuro Exam: Positive: Normal Gait, Normal Speech, Cranial Nerves 3-12 NL, Reflexes 2+ Psych Exam: Positive: Mental status NL, Mood NL, Oriented x 3 Vital Signs Vital Signs Date Time Temp Pulse Resp B/P (MAP) Pulse Ox O2 Delivery O2 Flow Rate FiO2 08/24/19 09:47 98.0 08/24/19 09:16 18 08/24/19 09:00 74 121/71 (88) 93 Room Air Laboratory Data Labs 24H Laboratory Tests 2 08/24/19 05:38: Immature Granulocyte % (Auto) 0.4, Neutrophils (%) (Auto) 71.4H, Lymphocytes (%) (Auto) 18.3L, Monocytes (%) (Auto) 9.7H, Eosinophils (%) (Auto) 0.1, Basophils (%) (Auto) 0.1, Neutrophils # (Auto) 10.7H, Lymphocytes # (Auto) 2.7, Monocytes # (Auto) 1.5H, Eosinophils # (Auto) 0.0, Basophils # (Auto) 0.0, Nucleated Red Blood Cells % (auto) 0.0, Anion Gap 11, Glomerular Filtration Rate > 60.0, Calcium Level 9.3, Total Bilirubin 1.1H, Direct Bilirubin 0.2, Aspartate Amino Transf (AST/SGOT) 20, Alanine Aminotransferase (ALT/SGPT) 21, Alkaline Phosphatase 62, Total Creatine Kinase 457H, Creatine Kinase MB 1.9, Creatine Kinase MB Relative Index 0.42, Troponin I < 0.02, Total Protein 8.2, Albumin 4.1, Albumin/Globulin Ratio 1.00, Lipase 859H, Ethyl Alcohol Level < 0.003 08/24/19 05:41: POC Glucose (Misc Panel) 121H, POC Sodium (Misc Panel) 137, POC Potassium (Misc Panel) 3.3L, POC Chloride (Misc Panel) 99, POC Total CO2 (Misc Panel) 24.0, POC Blood Urea Nitrogen (Misc Panel 15, POC Ionized Calcium (Misc Panel) 4.3L, POC Creatinine (Misc Panel) 0.9, POC Hematocrit (Misc Panel) 47.0 CBC/BMP Laboratory Tests 08/24/19 05:38 Assessment/Plan 1. acute pancreatitis - admit to med/surg. - NPO, IVF. - pain control prn, antiemetics prn. - PPI. - CT results noted, check abdominal US. 2. ileus - management as above. 3. DVT ppx - lovenox/SCD's. Plan / VTE VTE Prophylaxis Ordered?: Yes MARIA FERNANDA FLOOD MD Aug 24, 2019 10:24
[2019-08-24] MEDS ORDERED: ONDANSETRON 4MG/2ML VIAL (J2405) IV PRN (11:15)
[2019-08-24 11:50] VITALS: BP 147/94
[2019-08-24] MEDS: ENOXAPARIN 40 MG/0.4 ML SYRINGE (J1650) SC SCH (13:31)
[2019-08-24 14:00] VITALS: BP 138/32
[2019-08-24] MEDS ORDERED: HYDROMORPHONE HCL 0.5 MG/ 0.5 ML SYRINGE (J1170 PER 1) IV ONE (14:00)
--- NOTE | 2019-08-24 16:26 | REP ---
REASON FOR EXAM: Abdominal pain. No prior complete ultrasound examinations for comparison. Previous right upper quadrant ultrasound examinations 09/28/2015, 08/27/2014, 07/13/2014 were reviewed. Patient also had CT earlier today which was also reviewed. Multiple ultrasonographic images of the liver show patchy areas of increased echoes. There was no mass or ductal dilatation. The common bile duct measures 3 mm. Multiple ultrasonographic images of the gallbladder show the gallbladder to be normal and unchanged. The imaged portion of the pancreas shows no abnormality. The spleen measures 9.3 x 2.6 x 9.5 cm rendering a volumetric index of 229 which is within normal limits. There are no splenic or perisplenic abnormalities. Right kidney measures 11.0 x 5.9 x 6.1 cm and left kidney measures 11.0 x 4.9 x 5.7 cm. There are no renal abnormalities. There are cystic or solid masses. There is no hydronephrosis. The imaged aorta is within normal limits. There is no free fluid in the abdomen. IMPRESSION: There is ultrasonographic evidence of mild geographic fatty infiltration of the liver. With that exception the examination is unremarkable. Fatty infiltration of the liver better imaged by CT. Electronically Signed by Quinton Mabry DO 08/24/2019 04:53 P
[2019-08-24] MEDS: MORPHINE 2 MG/ML 1ML VIAL (J2270) IV PRN ×2 (18:09→21:41)
--- NOTE | 2019-08-24 18:20 | ECGEPIP ---
[facility] - ED Test Date: 2019-08-24 Pat Name: SOULEYMANE TALBERT Department: Room: - Gender: Male Respiratory Therapy Aide: : 1970 Requested By: YVAN DUNLAP Order Number: [id number] Reading MD: Carli Carolina Measurements Intervals [place] Rate: 107 P: 60 NM: 120 QRS: 32 QRSD: 92 T: 50 QT: 351 QTc: 469 Interpretive Statements SINUS TACHYCARDIA ABNORMAL RHYTHM ECG INCREASED RATE 07/29/18 Electronically Signed on 08-24-2019 18:20:25 EDT by Carli Carolina
[2019-08-24 22:00] VITALS: BP 141/81
[2019-08-25] MEDS: NS 1,000 ML IV SCH ×2 (00:18→06:07)
[2019-08-25] MEDS: MORPHINE 4 MG/ML 1ML VIAL/SYRINGE (J2270) IV PRN ×3 (02:20→09:27)
[2019-08-25 05:30] LABS: BASO # 0.1 10^3/uL (0.0-0.2); BASO % 0.5 % (0.0-1.0); EOS # 0.1 10^3/uL (0.0-0.5); EOS % 0.8 % (0.0-3.0); HEMATOCRIT 39.9 % (42.0-52.0); LYMPH # 3.2 10^3/uL (1.5-5.0); LYMPH % 31.8 % (24.0-44.0); MEAN CORPUSCULAR HGB CONC 32.6 g/dl (32.0-36.5); MEAN CORPUSCULAR VOLUME 91.9 fl (80.0-96.0); MONO # 0.8 10^3/uL (0.0-0.8); MONO % 8.2 % (0.0-5.0); NEUTROPHILS # 5.9 10^3/uL (1.5-8.5); NEUTROPHILS % 58.4 % (36.0-66.0); PLATELET COUNT, AUTOMATED 286 10^3/uL (150-450); RED BLOOD COUNT 4.34 10^6/uL (4.30-6.10); WHITE BLOOD COUNT 10.1 10^3/uL (4.0-10.0)
[2019-08-25 05:45] LABS: BLOOD UREA NITROGEN 15 MG/DL (7-18); CALCIUM LEVEL 8.1 MG/DL (8.5-10.1); CARBON DIOXIDE LEVEL 28 MEQ/L (21-32); CHLORIDE LEVEL 110 MEQ/L (98-107); CREATININE FOR GFR 0.86 MG/DL (0.70-1.30); GLOMERULAR FILTRATION RATE > 60.0 (>56); GLUCOSE, FASTING 76 MG/DL (70-100); LIPASE 371 U/L (73-393); POTASSIUM SERUM 3.8 MEQ/L (3.5-5.1); SODIUM LEVEL 139 MEQ/L (136-145)
[2019-08-25 05:50] LABS: CHOLESTEROL RISK RATIO 6.677 (<5)
[2019-08-25 06:00] VITALS: BP 138/81
[2019-08-25] MEDS: ENOXAPARIN 40 MG/0.4 ML SYRINGE (J1650) SC SCH (08:46)
[2019-08-25] MEDS ORDERED: PANTOPRAZOLE 40MG INJ (PROTONIX) (C9113) IV SCH (09:00)
--- NOTE | 2019-08-25 12:45 | DS.PDOC ---
Discharge Summary General Date of Admission Aug 24, 2019 at 05:23 Date of Discharge 08/25/19 Discharge Summary PROCEDURES PERFORMED DURING STAY: [None]. ADMITTING DIAGNOSES: 1. acute pancreatitis DISCHARGE DIAGNOSES: 1. acute pancreatitis COMPLICATIONS/CHIEF COMPLAINT: Pancreatitis. HISTORY OF PRESENT ILLNESS: Please refer to admission history and physical for detailed HPI. HOSPITAL COURSE: Patient was admitted to the hospital and treated for the following conditions: 1. acute pancreatitis - patient was admitted to med/surg. - NPO, IVF. - pain control prn, antiemetics prn. - PPI. - patient requesting to sign out AMA on AM of 08/25/19. Advised patient at length of the risks of such a decision and that I advise against it. States "I don't need to be here and nobody is doing anything anyway". Nurse present during discussion. Patient signed out AMA. DISCHARGE MEDICATIONS: Please see below. ALLERGIES: Please see below. PHYSICAL EXAMINATION ON DISCHARGE: VITAL SIGNS: Please see below. GENERAL: awake, alert, NAD HEENT: NCAT, anicteric sclera, PERRLA/EOMI NECK: supple, no JVD, no masses/thyromegaly CARDIOVASCULAR EXAMINATION: NS1S2, regular, no M/R/G RESPIRATORY EXAMINATION: CTA b/l, no wheezes/rales/rhonchi ABDOMINAL EXAMINATION: NT/ND, positive bowel sounds x 4 EXTREMITIES: no cyanosis, clubbing, edema SKIN: warm, no rashes NEUROLOGICAL EXAMINATION: AAO x 3, no focal motor/sensory deficits PSYCHIATRIC EXAMINATION: calm, cooperative, normal affect LABORATORY DATA: Please see below. ACTIVITY: [As tolerated]. DISPOSITION: signed out AMA DISCHARGE INSTRUCTIONS: 1. Advised to return to ED if symptoms return. ITEMS TO FOLLOWUP ON ON OUTPATIENT: 1. none DISCHARGE CONDITION: [Stable]. TIME SPENT ON DISCHARGE: Greater than [30] minutes. Vital Signs/I&Os Vital Signs Date Time Temp Pulse Resp B/P (MAP) Pulse Ox O2 Delivery O2 Flow Rate FiO2 08/25/19 09:42 18 08/25/19 06:07 95 08/25/19 06:00 98.5 70 138/81 (100) Room Air I&O- Last 24 Hours up to 6 AM 08/25/19 06:00 Intake Total 3850 ml Output Total 1000 ml Balance 2850 ml Laboratory Data Labs 24H Laboratory Tests 2 08/25/19 05:10: Immature Granulocyte % (Auto) 0.3, Neutrophils (%) (Auto) 58.4, Lymphocytes (%) (Auto) 31.8, Monocytes (%) (Auto) 8.2H, Eosinophils (%) (Auto) 0.8, Basophils (%) (Auto) 0.5, Neutrophils # (Auto) 5.9, Lymphocytes # (Auto) 3.2, Monocytes # (Auto) 0.8, Eosinophils # (Auto) 0.1, Basophils # (Auto) 0.1, Nucleated Red Blood Cells % (auto) 0.0, Anion Gap 1L, Glomerular Filtration Rate > 60.0, Calcium Level 8.1L, Triglycerides Level 116, Total Cholesterol 207H, LDL Cholesterol 153H, Non-HDL Cholesterol (LDL + VLDL) 176, Total HDL Cholesterol 31L, Cholesterol/HDL Ratio 6.677H, Lipase 371 CBC/BMP Laboratory Tests 08/25/19 05:10 Discharge Medications No Active Prescriptions or Reported Meds Allergies Coded Allergies: No Known Drug Allergies (Verified Allergy, Unknown, 08/24/19) MARIA FERNANDA FLOOD MD Aug 25, 2019 12:42
== END 2019-08-25 11:24 | disposition home or self-care (01) ==
LOC: EDBD 05:22 → M ED 05:22 → M ED INP 05:23 → ENRESERV 10:40 → M MSPAV 11:47
PROVIDERS: ADMIT Internal Medicine; ATTEND Internal Medicine
DX: K85.90 Acute pancreatitis without necrosis or infection, unspecified (principal); K56.7 Ileus, unspecified; R10.9 Unspecified abdominal pain; G89.29 Other chronic pain; R11.2 Nausea with vomiting, unspecified; F10.10 Alcohol abuse, uncomplicated; K27.9 Peptic ulcer, site unspecified, unspecified as acute or chronic, without hemorrhage or perforation; Z87.19 Personal history of other diseases of the digestive system; F17.210 Nicotine dependence, cigarettes, uncomplicated
CPT/HCPCS: 36415; 74177; 76700; 80047; 80048; 80061; 80076; 82550; 82553; 83690; 85025; 93005; 96361; 96372; 96374; 96375; 96376; 99285; C9113; G0480; J1170; J1650; J2270; Q9963; Q9967

== ENCOUNTER 2019-09-18 18:06 | Day surgery (SDC) | payer OTHER ==
[~2019-09-18] VITALS: Ht 180.3 cm; Wt 109.1 kg
[~2019-09-18 18:06] MED LIST changes: +PERCOCET 5MG/325MG TAB PO SCH
[2019-09-18] MEDS ORDERED: propofoL 200 MG/20 ML VIAL As Ordered ONE ×2 (18:21→20:38)
[2019-09-18] MEDS ORDERED: LIDOCAINE 2% 100MG/5ML SDV (FOR ANES.) As Ordered ONE (18:21)
[2019-09-18] MEDS ORDERED: ONDANSETRON 4MG/2ML VIAL As Ordered ONE (18:22)
[2019-09-18] MEDS ORDERED: MIDAZOLAM INJ 2MG/2ML VIAL (J2250 PER 1MG) As Ordered ONE (18:22)
[2019-09-18] MEDS ORDERED: dexameTHASONE 4 MG/ML 1ML VIAL (J1100 PER 1MG) As Ordered ONE (18:22)
[2019-09-18] MEDS ORDERED: fentaNYL 100 MCG/2 ML INJECTION (J3010) As Ordered ONE (18:22)
[2019-09-18 19:05] LABS: HEMATOCRIT 45.1 % (42.0-52.0); HEMOGLOBIN 14.9 g/dl (13.5-17.5); MEAN CORPUSCULAR HEMOGLOBIN 29.8 pg (27.0-33.0); MEAN CORPUSCULAR VOLUME 90.2 fl (80.0-96.0); PLATELET COUNT, AUTOMATED 330 10^3/uL (150-450); WHITE BLOOD COUNT 12.9 10^3/uL (4.0-10.0)
[2019-09-18 19:28] LABS: BLOOD UREA NITROGEN 13 MG/DL (7-18); CALCIUM LEVEL 9.8 MG/DL (8.5-10.1); CARBON DIOXIDE LEVEL 28 MEQ/L (21-32); CHLORIDE LEVEL 104 MEQ/L (98-107); CREATININE FOR GFR 0.99 MG/DL (0.70-1.30); GLOMERULAR FILTRATION RATE > 60.0 (>56); GLUCOSE, FASTING 93 MG/DL (70-100); POTASSIUM SERUM 4.1 MEQ/L (3.5-5.1); SODIUM LEVEL 137 MEQ/L (136-145)
[2019-09-18] MEDS ORDERED: ceFAZolin 1GM VIAL (J0690 PER 500MG) As Ordered ONE ×2 (19:46→21:34)
[2019-09-18] MEDS: fentaNYL 100 MCG/2 ML INJECTION (J3010) IV PRN ×4 (20:12→22:07)
[2019-09-18] MEDS ORDERED: BUPIVACAINE HCL 0.25% 30ML VIAL As Ordered ONE (20:29)
[2019-09-18] MEDS ORDERED: ACETAMINOPHEN 1000MG 100ML IV BTL (OFIRMEV) (J0131 PER 10MG) As Ordered ONE (20:38)
[2019-09-18] MEDS ORDERED: KETOROLAC 60 MG/2 ML VIAL As Ordered ONE (20:49)
[2019-09-18] MEDS ORDERED: ONDANSETRON 4MG/2ML VIAL IV PRN ×2 (21:15→21:45)
[2019-09-18] MEDS ORDERED: LR 1,000 ML IV SCH ×2 (21:15→21:45)
[2019-09-18] MEDS: oxyCODONE 5MG TAB PO PRN ×2 (21:15→21:45)
[2019-09-18] MEDS ORDERED: MORPHINE 2 MG/ML 1ML VIAL (J2270) IV PRN (21:45)
[2019-09-18] MEDS ORDERED: PERCOCET 5MG/325MG TAB PO PRN (21:45)
[2019-09-18] MEDS ORDERED: ACETAMINOPHEN TAB 650MG DOSE (2X325MG) PO PRN (21:45)
[2019-09-18] MEDS ORDERED: ceFAZolin SOD 2 GM in IV 1 EA IV ONE (21:45)
--- NOTE | 2019-09-18 21:58 | RO ---
DATE OF PROCEDURE: 09/18/2019 PREOPERATIVE DIAGNOSIS: Right index finger infected proximal interphalangeal (PIP). POSTOPERATIVE DIAGNOSIS: Right index finger infected proximal interphalangeal. PLANNED PROCEDURE: Right index finger proximal interphalangeal irrigation and debridement. PROCEDURE PERFORMED: Right index proximal interphalangeal irrigation and debridement and arthrotomy. SURGEON: Jaime James MD ELECTRIC WHEELCHAIR REPAIRER: None. BLACKENER: Dr. Pineda TYPE OF ANESTHETIC: LMA and digital block. OPERATIVE PREAMBLE: This 49-year-old man presented with 3 days of painful swelling to the PIP joint of his right index finger. Performed aspiration; this showed pus in the office, so it was decided to take him urgently to the operating theater to perform irrigation and debridement. We talked about the pros, the cons, the risks and benefits of nonsurgical management versus surgery, which include but are not limited to infection, pain, stiffness, bleeding, neurovascular injury, damage to surrounding structures, persistent of pain, need for further surgery, anesthetic complications, blood clots, , and other risks. He wished to proceed. We signed the consent form, marked the right index finger. DESCRIPTION OF PROCEDURE: The patient was brought to the operating theater. He was administered light sedation with LMA for airway control. Antibiotics were held until after cultures were taken. Limb was prepped and draped in the usual sterile fashion. The patient was positioned supine on the operating room table with a hand table to the patient's right side. All bony prominences were padded. Sequential compression devices (SCDs) were used on the legs. Prep solution was allowed to thoroughly dry before draping. Preoperative time-out was performed to confirm the site, the patient, and the surgery. Began by making a small incision dorsolaterally about the PIP joint. I then took swabs, both aerobic and anaerobic cultures. There was a marked amount of pus that came out of the wound. This was thoroughly debrided. I raised small skin flaps on either side of the incision. There was a shiny white membrane-like material was then was removed. It appeared to be possibly chronic granulation material. This was sent for pathology. Performed a small arthrotomy; there was no obvious pus inside the joint. I thoroughly irrigated the wound using normal saline with Ancef solution. Bleeding was hemostased. Subcutaneous tissue was closed with interrupted #3-0 Vicryl suture, and then the skin was closed with #4-0 Ethilon in a horizontal mattress fashion. A ring block was performed using 3 mL of 0.25% Marcaine plain local anesthetic on either side of the proximal phalanx. Skin was cleaned with a wet and dry dressing, followed by application of Adaptic gauze and overwrapped with a loose Odilon. The patient was woken up from general anesthetic, transferred off the operating table and taken to the postanesthetic care unit in stable condition. All sponge, needle, and instrument counts were correct. Estimated blood loss 5 mL. PLAN: The patient will be discharged home according to the day surgery criteria. Will give one dose of IV Ancef immediately after the surgery and then send him home with a prescription for oral Keflex 500 mg by mouth four times a day as well as oral Percocet 1-2 tablets every 4 hours for pain control. Follow up in the office in 3 days' time to check the wound and for dressing change. We communicated this to his as well as the nursing staff
[2019-09-18 23:00] VITALS: BP 149/88
== END 2019-09-18 23:10 | disposition home or self-care (01) ==
LOC: M ED 18:06 → M SDC 18:07
PROVIDERS: ATTEND Orthopaedic Surgery Sports Medicine
DX: L03.011 Cellulitis of right finger (principal); E78.5 Hyperlipidemia, unspecified; I10 Essential (primary) hypertension; F41.9 Anxiety disorder, unspecified; F17.218 Nicotine dependence, cigarettes, with other nicotine-induced disorders; B95.62 Methicillin resistant Staphylococcus aureus infection as the cause of diseases classified elsewhere
CPT/HCPCS: 26011; 26080; 36415; 80048; 85027; 87070; 87075; 87077; 87186; 87205; 88304; 99284; J0131; J0690; J1100; J2250; J2270; J2405; J3010; U0002

== ENCOUNTER 2019-10-16 11:40 | Emergency (ER) | payer OTHER ==
[~2019-10-16] VITALS: Ht 180.3 cm; Wt 109.1 kg
[~2019-10-16 11:40] MED LIST changes: -PERCOCET 5MG/325MG TAB PO SCH
[2019-10-16] MEDS ORDERED: ISOVUE-370 76% 100ML VIAL As Ordered ONE (12:09)
[2019-10-16 12:28] LABS: BASO % 0.2 % (0.0-1.0); EOS % 0.1 % (0.0-3.0); HEMATOCRIT 41.8 % (42.0-52.0); HEMOGLOBIN 13.9 g/dl (13.5-17.5); LYMPH # 1.3 10^3/uL (1.5-5.0); LYMPH % 10.2 % (24.0-44.0); MEAN CORPUSCULAR HEMOGLOBIN 30.3 pg (27.0-33.0); MEAN CORPUSCULAR HGB CONC 33.3 g/dl (32.0-36.5); MEAN CORPUSCULAR VOLUME 91.1 fl (80.0-96.0); MONO # 0.3 10^3/uL (0.0-0.8); MONO % 2.7 % (0.0-5.0); NEUTROPHILS # 10.9 10^3/uL (1.5-8.5); NEUTROPHILS % 86.3 % (36.0-66.0); PLATELET COUNT, AUTOMATED 312 10^3/uL (150-450); RED BLOOD COUNT 4.59 10^6/uL (4.30-6.10); WHITE BLOOD COUNT 12.6 10^3/uL (4.0-10.0)
[2019-10-16 12:50] LABS: ALT/SGPT 24 U/L (12-78); AMYLASE 151 U/L (25-115); BILIRUBIN,DIRECT 0.2 MG/DL (0.0-0.2); BILIRUBIN,TOTAL 0.7 MG/DL (0.2-1.0); ETHYL ALCOHOL (ETHANOL) < 0.003 % (0.000-0.010); LIPASE 407 U/L (73-393); TOTAL PROTEIN 7.9 GM/DL (6.4-8.2)
--- NOTE | 2019-10-16 12:51 | REP ---
Clinical: Generalized abdominal pain. Technique: Axial contrast enhanced images from the lung bases to the pubic symphysis using 100 ml Isovue 370 intravenous contrast material with coronal and sagittal re-formations. Comparison: 08/24/2019, 07/29/2018. Findings: Liver, spleen, pancreas, gallbladder, bilateral adrenal glands and right kidney are normal. Left kidney includes 4 mm nonobstructing intrarenal calculus. The enteric system is without obstruction or acute inflammatory process. Normal terminal ileum identified in the right lower quadrant. Pelvis demonstrates normal bladder and age appropriate prostate/seminal vesicles. Small forming fat containing inguinal hernias cannot be excluded. No ascites. No free air. No adenopathy. Abdominal aorta without aneurysm or dissection. Musculoskeletal structures demonstrate age-related changes without focal osseous abnormality. Impression: 1. 4 mm nonobstructing left renal calculus. 2. Small forming fat containing inguinal hernias suggested. 3. No further acute abdominopelvic pathology appreciated. Electronically Signed by Adiel Bernal MD 10/16/2019 12:42 P
--- NOTE | 2019-10-16 13:25 | REP ---
Clinical: Recent trauma . Comparison: None. Technique: Axial images from the skull base to the vertex with coronal re-formations. . Findings: The ventricles, sulci, and cisterns are normal in position and appearance. Herring-white differentiation is maintained. Vascular enhancement is noted and appears relatively normal (contrast enhanced CT of the abdomen and pelvis performed prior to head CT). No acute intracranial hemorrhage, mass/mass effect, pathology or trauma/injury. No evidence for acute infarction. No extra-axial fluid collection. Calvarium is intact. Paranasal sinuses and mastoid air cells are clear. Impression: Normal noncontrast head CT. No evidence for acute intracranial pathology or trauma/injury. No evidence for subdural hematoma. Electronically Signed by Adiel Bernal MD 10/16/2019 01:16 P
[2019-10-16] MEDS ORDERED: METOCLOPRAMIDE INJ 10MG/2ML VIAL (J2765 PER 1) IV ONE (13:30)
[2019-10-16] MEDS ORDERED: PANTOPRAZOLE 40MG VIAL (C9113 PER 1) IV ONE (13:45)
[2019-10-16] MEDS ORDERED: KETOROLAC 30 MG/ML 1ML VIAL IV ONE (14:00)
--- NOTE | 2019-10-16 15:20 | ECGEPIP ---
[facility] - ED Test Date: 2019-10-16 Pat Name: SOULEYMANE TALBERT Department: Room: - Gender: Male [employer]: : [id number] Requested By: SEVEN RIOS Order Number: [id number] Reading MD: Carli Carolina Measurements Intervals Steger Rate: 53 P: 38 NV: 154 QRS: 48 QRSD: 97 T: 37 QT: 436 QTc: 411 Interpretive Statements SINUS BRADYCARDIA WITH MARKED SINUS ARRHYTHMIA DECREASED RATE 08/24/19 Electronically Signed on 10-16-2019 15:20:15 EDT by Carli Carolina
[2019-10-16] MEDS ORDERED: HALOPERIDOL 5MG/ML VIAL (J1630 PER 1) IV ONE (17:15)
[2019-10-16 17:55] VITALS: BP 168/92
[2019-10-16 18:18] LABS: AMPHETAMINES LEVEL URINE NEGATIVE (NEGATIVE); BARBITURATES URINE NEGATIVE (NEGATIVE); BENZODIAZEPINES URINE NEGATIVE (NEGATIVE); CANNABINOIDS URINE POSITIVE (NEGATIVE); COCAINE METABOLITE URINE NEGATIVE (NEGATIVE); METHADONE URINE NEGATIVE (NEGATIVE); OPIATES URINE POSITIVE (NEGATIVE); PHENCYCLIDINE URINE NEGATIVE (NEGATIVE)
== END 2019-10-16 18:06 | disposition home or self-care (01) ==
LOC: M ED 11:40 → EDBD 11:40 → M ED 18:06
DX: R10.9 Unspecified abdominal pain (principal); N20.0 Calculus of kidney; R11.2 Nausea with vomiting, unspecified; R00.1 Bradycardia, unspecified; F17.200 Nicotine dependence, unspecified, uncomplicated; Z91.81 History of falling
CPT/HCPCS: 36415; 70450; 74177; 80047; 80076; 80307; 81001; 82150; 83605; 83690; 85025; 93005; 93041; 96374; 96375; 99285; C9113; G0480; J1630; J1885; J2765; Q9967

== ENCOUNTER 2019-10-19 08:59 | Emergency (ER) | payer OTHER ==
[~2019-10-19] VITALS: Ht 180.3 cm; Wt 109.1 kg
[2019-10-19 09:26] VITALS: BP 154/106
[2019-10-19] MEDS ORDERED: MORPHINE 2 MG/ML 1ML VIAL (J2270) IV ONE (09:30)
[2019-10-19] MEDS ORDERED: ONDANSETRON 4MG/2ML VIAL IV ONE (09:30)
[2019-10-19 09:35] LABS: BASO # 0.1 10^3/uL (0.0-0.2); BASO % 0.6 % (0.0-1.0); EOS % 0.4 % (0.0-3.0); HEMATOCRIT 42.4 % (42.0-52.0); HEMOGLOBIN 14.3 g/dl (13.5-17.5); LYMPH # 1.8 10^3/uL (1.5-5.0); LYMPH % 16.9 % (24.0-44.0); MEAN CORPUSCULAR HEMOGLOBIN 30.4 pg (27.0-33.0); MEAN CORPUSCULAR HGB CONC 33.7 g/dl (32.0-36.5); MEAN CORPUSCULAR VOLUME 90.2 fl (80.0-96.0); MONO # 0.6 10^3/uL (0.0-0.8); NEUTROPHILS # 7.9 10^3/uL (1.5-8.5); NEUTROPHILS % 75.8 % (36.0-66.0); PLATELET COUNT, AUTOMATED 307 10^3/uL (150-450); WHITE BLOOD COUNT 10.4 10^3/uL (4.0-10.0)
[2019-10-19] MEDS ORDERED: HALOPERIDOL 5MG/ML VIAL (J1630 PER 1) IV ONE (09:45)
[2019-10-19] MEDS ORDERED: KETOROLAC 30 MG/ML 1ML VIAL IV ONE (09:45)
[2019-10-19 10:00] LABS: ALBUMIN 3.8 GM/DL (3.2-5.2); ALT/SGPT 22 U/L (12-78); BILIRUBIN,DIRECT 0.1 MG/DL (0.0-0.2); BILIRUBIN,TOTAL 0.7 MG/DL (0.2-1.0); LIPASE 432 U/L (73-393); TOTAL PROTEIN 7.5 GM/DL (6.4-8.2)
[2019-10-19 10:20] LABS: ETHYL ALCOHOL (ETHANOL) < 0.003 % (0.000-0.010)
[2019-10-19] MEDS ORDERED: NS 500 ML IV ONE (10:30)
--- NOTE | 2019-10-19 11:49 | REP ---
CT ABDOMEN AND PELVIS WITHOUT CONTRAST: CT abdomen and pelvis performed without oral or IV contrast. Sagittal and coronal reconstruction images are performed. Comparison is made with a prior study of 10/16/2019. Visualized lung bases are clear. Liver, spleen, adrenals, and pancreas area gain grossly unremarkable. Right kidney is grossly unremarkable. There is a 4 mm calculus in the upper pole, left renal collecting system. There is no ureteral calculus bilaterally and no hydroureteronephrosis. There is mild atherosclerotic calcification of the abdominal aorta without aneurysm. There is no adenopathy, free air or free fluid. No bowel wall thickening is seen. No pelvic mass is seen. There are small bilateral inguinal hernias containing fat. IMPRESSION: No change since the prior study. There is an intrarenal calculus in the upper pole of the left kidney. There is no ureteral calculus bilaterally and no hydroureteronephrosis. There are small bilateral inguinal hernias containing fat. No other acute abnormality is detected. Electronically Signed by Madhav Herring MD 10/19/2019 12:43 P
[2019-10-19] MEDS: GASTROGRAFIN SOLUTION 30ML PO SCH ×3 (13:00→13:52)
[2019-10-19 13:18] LABS: APPEARANCE, URINE CLEAR (CLEAR); BACTERIA, URINE AUTO NEGATIVE (NEGATIVE); BILIRUBIN, URINE AUTO NEGATIVE (NEGATIVE); BLOOD, URINE BLOOD NEGATIVE (NEGATIVE); COLOR, URINE YELLOW (YELLOW); GLUCOSE, URINE (UA) AUTO NEGATIVE (NEGATIVE); KETONE, URINE AUTO NEGATIVE (NEGATIVE); LEUKOCYTE ESTERASE, URINE AUTO NEGATIVE (NEGATIVE); MUCUS, URINE SMALL (NEGATIVE); NITRITE, URINE AUTO NEGATIVE (NEGATIVE); PROTEIN, URINE AUTO NEGATIVE (NEGATIVE); RBC, URINE AUTO 0 /HPF (0-3); SPECIFIC GRAVITY URINE AUTO 1.026 (1.002-1.035); SQUAMOUS EPITHELIAL CELL UR AU 0 /HPF (0-6); UROBILINOGEN, URINE AUTO 0.2 mg/dL (0.0-2.0); WBC, URINE AUTO 1 /HPF (0-3)
[2019-10-19 14:10] LABS: AMPHETAMINES LEVEL URINE NEGATIVE (NEGATIVE); BARBITURATES URINE NEGATIVE (NEGATIVE); BENZODIAZEPINES URINE NEGATIVE (NEGATIVE); CANNABINOIDS URINE POSITIVE (NEGATIVE); COCAINE METABOLITE URINE NEGATIVE (NEGATIVE); METHADONE URINE NEGATIVE (NEGATIVE); OPIATES URINE POSITIVE (NEGATIVE); PHENCYCLIDINE URINE NEGATIVE (NEGATIVE)
== END 2019-10-19 14:02 | disposition left against medical advice (07) ==
LOC: EDSEX 08:59 → M ED 08:59 → EDBD 08:59 → M ED 14:02
DX: R10.84 Generalized abdominal pain (principal); N20.0 Calculus of kidney; Z87.19 Personal history of other diseases of the digestive system; F17.200 Nicotine dependence, unspecified, uncomplicated
CPT/HCPCS: 74176; 80047; 80076; 80307; 81001; 83690; 85025; 96361; 96374; 96375; 99284; G0480; J1630; J1885; J2270; J2405; Q9963

== ENCOUNTER 2020-06-20 18:47 | Emergency (ER) | payer OTHER ==
[~2020-06-20] VITALS: Ht 180.3 cm; Wt 109.1 kg
[~2020-06-20 18:47] MED LIST changes: -DOK100TA; +DOK100TA2
[2020-06-20] MEDS ORDERED: ISOVUE-370 76% 100ML VIAL As Ordered ONE (20:11)
[2020-06-20 20:13] LABS: BASO # 0.1 10^3/uL (0.0-0.2); BASO % 0.4 % (0.0-1.0); EOS % 0.2 % (0.0-3.0); HEMATOCRIT 42.5 % (42.0-52.0); HEMOGLOBIN 13.6 g/dl (13.5-17.5); LYMPH # 2.1 10^3/uL (1.5-5.0); LYMPH % 11.5 % (24.0-44.0); MEAN CORPUSCULAR HEMOGLOBIN 28.9 pg (27.0-33.0); MEAN CORPUSCULAR VOLUME 90.4 fl (80.0-96.0); MONO # 0.7 10^3/uL (0.0-0.8); MONO % 3.9 % (0.0-5.0); NEUTROPHILS % 83.6 % (36.0-66.0); PLATELET COUNT, AUTOMATED 394 10^3/uL (150-450); WHITE BLOOD COUNT 17.9 10^3/uL (4.0-10.0)
[2020-06-20] MEDS ORDERED: HYDROMORPHONE HCL 0.5 MG/ 0.5 ML SYRINGE (J1170 PER 1) IV PRN (20:15)
[2020-06-20 20:46] LABS: ALBUMIN 3.8 GM/DL (3.2-5.2); ALT/SGPT 22 U/L (12-78); BILIRUBIN,DIRECT < 0.1 MG/DL (0.0-0.2); BILIRUBIN,TOTAL 0.4 MG/DL (0.2-1.0); BLOOD UREA NITROGEN 10 MG/DL (7-18); CARBON DIOXIDE LEVEL 29 MEQ/L (21-32); CHLORIDE LEVEL 105 MEQ/L (98-107); CREATININE FOR GFR 1.04 MG/DL (0.70-1.30); GLOMERULAR FILTRATION RATE > 60.0 (>56); GLUCOSE, FASTING 127 MG/DL (70-100); LIPASE 207 U/L (73-393); POTASSIUM SERUM 4.2 MEQ/L (3.5-5.1); SODIUM LEVEL 139 MEQ/L (136-145); TOTAL PROTEIN 7.6 GM/DL (6.4-8.2)
--- NOTE | 2020-06-20 20:54 | REPVR ---
PROCEDURE INFORMATION: Exam: CT Abdomen And Pelvis With Contrast Exam date and time: 06/20/2020 8:22 PM Age: 50 years old Clinical indication: Abdominal pain; Flank; Left; Additional info: Left flank pain TECHNIQUE: Imaging protocol: Computed tomography of the abdomen and pelvis with intravenous contrast. Radiation optimization: All CT scans at this facility use at least one of these dose optimization techniques: automated exposure control; mA and/or kV adjustment per patient size (includes targeted exams where dose is matched to clinical indication); or iterative reconstruction. Contrast material: ISOVUE 370; Contrast volume: 100 ml; Contrast route: INTRAVENOUS (IV); COMPARISON: CT ABD PELVIS W/O CONTRAST 10/19/2019 11:03 AM FINDINGS: Liver: Normal. No mass. Gallbladder and bile ducts: Normal. No calcified stones. No ductal dilation. Pancreas: Normal. No ductal dilation. Spleen: Normal. No splenomegaly. Adrenal glands: Normal. No mass. Kidneys and ureters: Mild left hydronephrosis with 5 mm calculus in the proximal left ureter. Mild left perinephric and periureteral and hands mint. Distal left ureter is decompressed. Normal right kidney and ureter. Stomach and bowel: Unremarkable. No obstruction. No mucosal thickening. Appendix: No evidence of appendicitis. Intraperitoneal space: Unremarkable. No free air. No significant fluid collection. Vasculature: Unremarkable. No abdominal aortic aneurysm. Lymph nodes: Unremarkable. No enlarged lymph nodes. Urinary bladder: Unremarkable as visualized. Reproductive: Unremarkable as visualized. Bones/joints: There are degenerative changes in the spine and pelvis. Soft tissues: Unremarkable. IMPRESSION: Left hydronephrosis with obstructing 5 mm proximal ureteral calculus. Electronically signed by: Neal Hawley On 06/20/2020 20:53:43 PM
--- OUTSIDE RECORDS SUMMARY | 2020-06-20 20:57 | CCD ---
Author Author [facility] Organization [facility] Address Unknown Phone Unavailable Care Team Providers Care Grips Name Role Phone Cruzito Welch Unavailable Unavailable BirklCruzito de anda Unavailable Unavailable BirklCruzito de anda Unavailable Unavailable BirklCruzito de anda Unavailable Unavailable BirklCruzito de anda Unavailable Unavailable BirklCruzito de anda Unavailable Unavailable BirklCruzito de anda Unavailable Unavailable BirklCruzito de anda Unavailable Unavailable BirklCruzito de anda Unavailable Unavailable Cruzito Welch Unavailable Unavailable Cruzito Welch Unavailable Unavailable BirklCruzito de anda Unavailable Unavailable BirklCruzito de anda Unavailable Unavailable BirklCruzito de anda Unavailable Unavailable NaifklCruzito de anda Unavailable Unavailable Birklin, Cruzito Madhav PA Unavailable Unavailable BirklinCruzito Unavailable Unavailable BirklinCruzito PA Unavailable Unavailable Birklin, Cruzito Corey PA Unavailable Unavailable Birklin, Cruzito Corey PA Unavailable Unavailable Birklin, Cruzito Corey PA Unavailable Unavailable Birklin, Cruzito Corey PA Unavailable Unavailable Birklin, Cruzito Corey PA Unavailable Unavailable BirklinCruzito PA Unavailable Unavailable Birklin, Cruzito Corey PA Unavailable Unavailable Birklin, Cruzito Corey PA Unavailable Unavailable Birklin, Cruzito Corey PA Unavailable Unavailable Birklin, Cruzito Corey PA Unavailable Unavailable MAR, JOHN MD Unavailable Unavailable MAR, JOHN MD Unavailable Unavailable MAR, JOHN MD Unavailable Unavailable MAR, JOHN MD Unavailable Unavailable MAR, JOHN MD Unavailable Unavailable MAR, JOHN MD Unavailable Unavailable MAR, JOHN MD Unavailable Unavailable MAR, JOHN MD Unavailable Unavailable MAR, JOHN MD Unavailable Unavailable MAR, JOHN MD Unavailable Unavailable MAR, JOHN MD Unavailable Unavailable MAR, JOHN MD Unavailable Unavailable MAR, JOHN MD Unavailable Unavailable MAR, JOHN MD Unavailable Unavailable MAR, JOHN MD Unavailable Unavailable MAR, JOHN MD Unavailable Unavailable MAR, JOHN MD Unavailable Unavailable MAR, JOHN MD Unavailable Unavailable MAR, JOHN MD Unavailable Unavailable MAR, JOHN MD Unavailable Unavailable MAR, JOHN MD Unavailable Unavailable MAR, JOHN MD Unavailable Unavailable MAR, JOHN MD Unavailable Unavailable MAR, JOHN MD Unavailable Unavailable MAR, JOHN MD Unavailable Unavailable MAR, JOHN MD Unavailable Unavailable MAR, JOHN MD Unavailable Unavailable MAR, JOHN MD Unavailable Unavailable MAR, JOHN MD Unavailable Unavailable MAR, JOHN MD Unavailable Unavailable MAR, JOHN MD Unavailable Unavailable MAR, JOHN MD Unavailable Unavailable MAR, JOHN MD Unavailable Unavailable MAR, JOHN MD Unavailable Unavailable MAR, JOHN MD Unavailable Unavailable MAR, JOHN MD Unavailable Unavailable MAR, JOHN MD Unavailable Unavailable MAR, JOHN MD Unavailable Unavailable MAR, JOHN MD Unavailable Unavailable MAR, JOHN MD Unavailable Unavailable MAR, JOHN MD Unavailable Unavailable MAR, JOHN MD Unavailable Unavailable MAR, JOHN MD Unavailable Unavailable MAR, JOHN MD Unavailable Unavailable MAR, JOHN MD Unavailable Unavailable MAR, JOHN MD Unavailable Unavailable MAR, JOHN MD Unavailable Unavailable MAR, JOHN MD Unavailable Unavailable MAR, JOHN MD Unavailable Unavailable MAR, JOHN MD Unavailable Unavailable MAR, JOHN MD Unavailable Unavailable MAR, JOHN MD Unavailable Unavailable MAR, JOHN MD Unavailable Unavailable MAR, JOHN MD Unavailable Unavailable MAR, JOHN MD Unavailable Unavailable MAR, JOHN MD Unavailable Unavailable MAR, JOHN MD Unavailable Unavailable MAR, JOHN MD Unavailable Unavailable MAR, JOHN MD Unavailable Unavailable MAR, JOHN MD Unavailable Unavailable MAR, JOHN MD Unavailable Unavailable MAR, JOHN MD Unavailable Unavailable MAR, JOHN MD Unavailable Unavailable MAR, JOHN MD Unavailable Unavailable MAR, JOHN MD Unavailable Unavailable MAR, JOHN MD Unavailable Unavailable MAR, JOHN MD Unavailable Unavailable Mollison, Yaron Sandoval MD Unavailable Unavailable Mollison, Yaron Sandoval MD Unavailable Unavailable Mollison, Yaron Sandoval MD Unavailable Unavailable MollisonYaron MD Unavailable Unavailable MollisonYaron MD Unavailable Unavailable MollisonYaron MD Unavailable Unavailable MollisonYaron MD Unavailable Unavailable MollisonYaron MD Unavailable Unavailable MollisonYaron MD Unavailable Unavailable MollisonYaron MD Unavailable Unavailable MollisonYaron MD Unavailable Unavailable MollisonYaron MD Unavailable Unavailable MollisonYaron MD Unavailable Unavailable MollisonYaron MD Unavailable Unavailable MollisonYaron MD Unavailable Unavailable MollisonYaron MD Unavailable Unavailable MollisonYaron MD Unavailable Unavailable MollisonYaron MD Unavailable Unavailable MollisonYaron MD Unavailable Unavailable MollisonYaron MD Unavailable Unavailable MollisonYaron MD Unavailable Unavailable MollisonYaron MD Unavailable Unavailable MollisonYaron MD Unavailable Unavailable MollisonYaron MD Unavailable Unavailable MollisonYaron MD Unavailable Unavailable MollisonYaron MD Unavailable Unavailable MollisonYaron MD Unavailable Unavailable MollisonYaron MD Unavailable Unavailable MollisonYaron MD Unavailable Unavailable MollisonYaron MD Unavailable Unavailable MollisonYaron MD Unavailable Unavailable MollisonYaron MD Unavailable Unavailable MollisonYaron MD Unavailable Unavailable Mollison, Yaron Sandoval MD Unavailable Unavailable Mollison, Yaron Sandoval MD Unavailable Unavailable MollisonYaron MD Unavailable Unavailable MollisonYaron MD Unavailable Unavailable MollisonYaron MD Unavailable Unavailable Mollison, Yaron Sandoval MD Unavailable Unavailable Mollison, Yaron Sandoval MD Unavailable Unavailable Mollison, Yaron Sandoval MD Unavailable Unavailable Mollison, Yaron Sandoval MD Unavailable Unavailable Mollison, Yaron Sandoval MD Unavailable Unavailable Yaron James MD Unavailable Unavailable Re-disclosure Warning The records that you are about to access may contain information from federally-assisted alcohol or drug abuse programs. If such information is present, then the following federally mandated warning applies: This information has been disclosed to you from records protected by federal confidentiality rules (42 CFR part 2). The federal rules prohibit you from making any further disclosure of this information unless further disclosure is expressly permitted by the written consent of the person to whom it pertains or as otherwise permitted by 42 CFR part 2. A general authorization for the release of medical or other information is NOT sufficient for this purpose. The Federal rules restrict any use of the information to criminally investigate or prosecute any alcohol or drug abuse patient.The records that you are about to access may contain highly sensitive health information, the redisclosure of which is protected by Article 27-F of the [facility] Public Health law. If you continue you may have access to information: Regarding HIV / AIDS; Provided by facilities licensed or operated by the [facility] Office of Mental Health; or Provided by the [facility] Office for People With Developmental Disabilities. If such information is present, then the following [facility] mandated warning applies: This information has been disclosed to you from confidential records which are protected by state law. State law prohibits you from making any further disclosure of this information without the specific written consent of the person to whom it pertains, or as otherwise permitted by law. Any unauthorized further disclosure in violation of state law may result in a fine or mcc sentence or both. A general authorization for the release of medical or other information is NOT sufficient authorization for further disc losure. Allergies and Adverse Reactions Type Description Substance Reaction Status Data Source(s ) Drug Class NO KNOWN ALLERGIES NO KNOWN ALLERGIES [facility] Family History Family Member Name Family Member Gender Family Member Status Date o f Status Description Data Source(s) Unknown Male Problem [facility] ([facility]) Encounters Encounter Providers Location Date Indications Data Source(s ) Outpatient Attender: Madhav CISNEROS 03/19/2020 12:00:00 AM [facility] Outpatient Attender: JOHN MANUEL MD 03/19/2020 12:00:[address] [facility] Outpatient Referrer: Madhav CISNEROS 03/11/2020 12:00:00 AM EDT [facility] Outpatient Referrer: Madhav CISNEROS 03/11/2020 12:00:00 AM T [facility] Outpatient Attender: Madhav CISNEROS 01/31/2020 12:00:00 AM EDT [facility] Outpatient Attender: Madhav CISNEROS [id number] 01/30/2020 12 :00:00 AM EDT Pain due to internal orthopedic prosthetic devices, implants and grafts, initial encounter [facility] Pain due to internal orthopedic prosthet ic devices, implants and grafts, initial encounter Outpatient Referrer: JOHN MANUEL MD 01/30/2020 12:00:0 0 AM EDT Presence of left artificial knee joint [facility] Presence of left artificial knee joint Outpatient Attender: JOHN MANUEL MD 01/30/2020 12:00:00 AM E [facility] Outpatient Attender: JOHN MANUEL MD 01/30/2020 12:00:00 AM E [facility] Outpatient Referrer: Jaime James MD 11/20/2019 03:23:00 PM EDT [facility] Outpatient Referrer: Jaime James MD 11/20/2019 03:09:00 PM EDT [facility] Outpatient Referrer: Jaime James MD 11/20/2019 12:23:00 PM EDT [facility] Outpatient Referrer: Jaime James MD 11/20/2019 11:50:00 AM EDT [facility] Outpatient Referrer: Jaime James MD 11/20/2019 09:34:00 AM EDT [facility] Outpatient 11/20/2019 09:33:00 AM EDT [facility] Outpatient Attender: Jaime Echevarria/Matthew/Ellis/Re indl 11/15/2019 02:00:00 PM EDT [facility] ([facility] Outpatient Attender: JOHN MANUEL MD 10/31/2019 12:00:00 AM E [facility] Outpatient 10/27/2019 05:52:00 AM EDT [facility] [address] [address] 10/23/2019 12:00:00 AM EDT eCW1 ([facility]) [facility] [address] [address] 10/17/2019 12:00:00 AM EDT eCW1 ([facility]) Outpatient Attender: JOHN MANUEL MD 10/03/2019 12:00:00 AM E [facility] Outpatient Attender: Madhav CISNEROS 10/02/2019 12:00:00 AM EDT [facility] Outpatient Attender: Jaime Echevarria/Matthew/Ellis/Re indl 09/18/2019 04:00:00 PM EDT [facility] ([facility] [address] [address] 09/18/2019 12:00:00 AM EDT eCW1 ([facility]) Outpatient 09/11/2019 05:41:00 AM EDT [facility] Outpatient Attender: Madhav CISNEROS 05/11/2019 12:00:00 AM [facility] Medications Medication Brand Name Start Date Product Form Dose Route Admi nistrative Instructions Pharmacy Instructions Status Indications Reaction Description Data Source(s) No Active Medications 11/16/2019 12:00:00 AM EDT active [facility] ([facility] ) Acetaminophen 325 MG / Oxycodone Hydrochloride 5 MG Or al Tablet [Percocet] Percocet 09/18/2019 12:00:00 AM EDT ORAL completed [facility] ([facility], ) Insurance Providers Payer name Policy type / Coverage type Policy ID Covered constitution party ID Covered constitution party's relationship to vega Policy Vega Plan Information PEDRO [id number] SP [id number] PEDRO I [id number] Self [id number] WORKERS COMPENSATION GENERIC W [id number] Empl [id number] [place] [id number] S [id number] PEDRO [id number] SP [id number] SELF PAY ONLY [id number] SP [id number] MEDICAID [id number] SP [id number] [place] [id number] S [id number] [place] XIX MAN -RECURRING [id number] [facility] I [id number] Self [id number] [place] Medigap Part B [id number] Self [id number] Pedro Care [place] Medicaid [id number] Self [id number] PEDRO [id number] SP [id number] Medicaid [place] [id number] Self [id number] COMMUNITY PLAN [facility] [id number] SP [id number] [facility] O [id number] S [id number] SELF PAY ONLY 00 SP 00 MEDICAID [id number] SELF PAY UNAVAILABLE SP UNAVAILA BLE BIG DOG DAIRY [id number] SP [id number] NHP [employer] LIMITED BENEFIT [id number] SELF PAY POLICY # [id number] SP P OLICY # [id number] [facility] I [id number] Self [id number] [facility] I [id number] Self [id number] Problems, Conditions, and Diagnoses Code Display Name Description Problem Type Effective Dates Data Source(s) Z96.652 Presence of left artificial knee joint P resence of left artificial knee joint Diagnosis 01/30/2020 10:46:09 AM EDT [facility] T84.84XA Pain due to internal orthope dic prosthetic devices, implants and grafts, initial encounter Pain due to internal orthopedic prosthet ic devices, implants and grafts, initial encounter Diagnosis 01/30/2020 10:46:09 A M [facility] Surgeries/Procedures Procedure Description Date Indications Data Source(s) Apply Cast Short Arm 11/15/2019 12:00:00 AM EDT [facility] ([facility] ) RADEX WRIST 2 VIEWS 11/15/2019 12:00:00 AM EDT [facility] ([facility] ) RADEX WRIST 2 VIEWS 11/15/2019 12:00:00 AM EDT [facility] ([facility] ) X-Ray Hand Three Views 09/18/2019 12:00:00 AM EDT [facility] ([facility] ) RADEX HAND MINIMUM 3 VIEWS 09/18/2019 12:00:00 AM EDT [facility] ([facility]) RADEX HAND MINIMUM 3 VIEWS 09/18/2019 12:00:00 AM EDT [facility] ([facility]) Results ID Date Data Source [id number] 01/30/2020 01:57:51 PM EDT [facility] XR KNEE 4 OR MORE VIEWS [id number] RESUL TInterpreted by:WILFREDO Boothlinical history: Status post left total knee arthroplastyViews: 3 views left kneeIndication: Check status of left total knee arthroplastyFindings: The patient has stable appearing femoral and tibial components of left total knee arthroplasty. The components are articulating normally. Patella component is well located within the femoral groove.Impression: Stable appearing, normally articulating left total knee arthroplastyThis document has been electronically signed by Darron Vazquez MD on 01/30/2020 1:55 PM Name Value Range Interpretation Code Description Data Carrol rce(s) Supporting Document(s) ID Date Data Source [id number] 01/30/2020 01:53:24 PM EDT [facility] Name Value Range Interpretation Code Description Data Carrol rce(s) Supporting Document(s) Progress Note [facility] CTBQQd0pBgCNWiEl15/ZDCbiYBWoh4CxBWknOZu1KTpoHFYxI3PpEVJ9rD8xKXI4UYrEFzLcBfKdAUM7 lbm [file] 1wPWTB/U0fhTu06+wn3nDyLuMLd1XcwQdSaXkLltHgc0v4VlSrjVs3cBGurVJSjJhjNcz7g6q/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 [file] ICAgICAgICAgICAgICAgICAgICAgICAgICAgICAgICAgICAgICAgICAgICAgICAgICAgICAgICAgICAg ICAgICAgICAgICAgICAgICAgICAgICAgICAgICAgICAgICAgDQogICAgICAgICAgICAgICAgICAgICAg ICAgICAgICAgICAgICAgICAgICAgICAgICAgICAgIC AgICAgICAgICAgICAgICAgICAgICAgICAgICAgICAgICAgICAgICAgICAgICAgDQogICAgICAgICAgIC AgICAgICAgICAgICAgICAgICAgICAgICAgICAgICAgICAgICAgICAgICAgICAgICAgICAgICAgICAgIC AgICAgICAgICAgICAgICAgICAgICAgICAgICAgDQog ICAgICAgICAgICAgICAgICAgICAgICAgICAgICAgICAgICAgICAgICAgICAgICAgICAgICAgICAgICAg ICAgICAgICAgICAgICAgICAgICAgICAgICAgICAgICAgICAgICAgDQogICAgICAgICAgICAgICAgICAg ICAgICAgICAgICAgICAgICAgICAgICAgICAgICAgIC AgICAgICAgICAgICAgICAgICAgICAgICAgICAgICAgICAgICAgICAgICAgICAgICAgDQogICAgICAgIC AgICAgICAgICAgICAgICAgICAgICAgICAgICAgICAgICAgICAgICAgICAgICAgICAgICAgICAgICAgIC AgICAgICAgICAgICAgICAgICAgICAgICAgICAgICAg DQogICAgICAgICAgICAgICAgICAgICAgICAgICAgICAgICAgICAgICAgICAgICAgICAgICAgICAgICAg ICAgICAgICAgICAgICAgICAgICAgICAgICAgICAgICAgICAgICAgICAgDQogICAgICAgICAgICAgICAg ICAgICAgICAgICAgICAgICAgICAgICAgICAgICAgIC AgICAgICAgICAgICAgICAgICAgICAgICAgICAgICAgICAgICAgICAgICAgICAgICAgICAgDQogICAgIC AgICAgICAgICAgICAgICAgICAgICAgICAgICAgICAgICAgICAgICAgICAgICAgICAgICAgICAgICAgIC AgICAgICAgICAgICAgICAgICAgICAgICAgICAgICAg ICAgDQogICAgICAgICAgICAgICAgICAgICAgICAgICAgICAgICAgICAgICAgICAgICAgICAgICAgICAg KGLdWSWoNPYpFFRdUJWsWMHsHLMrEGQfDRKnFAVqNLZpOQMvSYKsKUFnEITuNGp1G5rxUJIwJHFpVH1p TKs3Zf9+OKjLNwZgREB4ngEsmL2IRY1rh6RcXZmlVI Utl4UaYAt3LG2OISSgWApjCK4LANxkwo1ZROJzTZDcrFXSf2goZxDvSLO7BSQxXfdjXK6LKRGmZ2gbab UoCGJlUNGKSXshZWIKKF3OEzCnH9XyxF35YUTRCa7+NPuholUiMtmCXpJ2AOYku0KsYQe6FK2KPFLjKi hop3WgXasoYZPGBJdbRA1NLWP2RXC7WCJiBx5FVJXi W707yeVjBX5XPs1JVwNhEJ1yib4PShkyISTlYypNZie7CYraFN0XkVZvUIlMyr9ydmOklhYSt5BvguPh dUGRYJ7zRCjdPQN4nUPtFwsdq3phhdduIXWhREWbRX50ExVbZuRoXRQ5YkKaJC5nQCfpHU3SGAC2FXtb EIWpHVFeP5jCKxMqWQTmTiDsiWckZE3SNhDqA3Utet VudCAzOCAwIFINCj4+NIgqicSqXdpITmFyHKBhr5KvVKd7RP9CJAGnQAzrSF4GJLAmyL5nVOpeVO9XRf NbPzHwJGIEPjYmY74uvKJnGJf8W6RoHiAjMSHbHvcgERMfYDkwLiSbCGUzAwAwPZpvXG2+ID4+DQogIC 7ZXSfrugWgSHSsEf0MJFUzBUQoAY1uPLTcJFKrO2X5 dLjgIIMGSwMcH1jlfikzFF5rVTWiN701bJuttxLmCTG9TCGdPp0XNULuSTK0EDBcxWWzGbqaRPIEFBfh JR9ExBViJWT8vO5sKUitUTTvQKIcE8dQMqDibJrcWE82gPiqldMehHEaBLt+Ug1KTU9uq4PnNCv1dqHl QAtbQUKyKFibVSNgYZRpIDXuQCM0UYK6LGJEVdLmRA HnQKNuVKclDACeRDTrnd2IPYUmSMHtZrV9ZrJpWHHgMXBcBYilLUYeMPH1KNv1KUXgSUWbHF4RCbGtAV QuDYAlJRbeUJTqWCYtlr3IWNWrPRGrGOHqNSIhVFHfVLXxCLhwQAQnQPW6YkCoWJOeMOPxRJ5YXcGaOC ZaFNM2CYBtVVZoAVZyca0TNJCoVOTxJzx4QYYoAMKp EGAzWZzbXLHmVRS7IIOtSWAhNJGvUV7ZYgNnMGXmCTzeKJnwETJzIOIpua8VFECuIZOaLQErQYHrZMTo ZAUiIGzpSEBbCKZ7IBb1MWBoNXUdCO1XJpIvIHWjZZurMYYuLOPyFDJwmj5ORXHdSNEuOKN3ZQZvUSPa RCQdEOnzHSRvBORmVST4PEXnVEQoXY9EUjAkJAFaQm TtKuNsYTPzMMRbis7PEBVkHTZiFVH2AvXhOYKmSJNuMEazJEJoFJJhVdqcJFEfMTIzKP3DEoXfZATmPc S3QhdsYXTwWJMzra1XLDYeKZVkCbf7DgKqXHNwQGJjZNngJRTrNBGlEAw2FVDySQZvVQ9ZHcUtTSEiHi WyNJjvLHWpHIUxwx9NKJZnOIXiBPKvDOPuQEQjWGLc KRcyKFInPAG8Ifp6PJAlPDVoHF7ULvNhZAYzMmG6ZpjfRURiFLHjwj9CIAWcYNQfXZKdOQVdCIXrZKWs WElkCQPgSIQ7OvHpWWUwKINuWL1BMtXfJLCzNlW0FgLsFSAuZUObif1BPRNmCLNkVTqwKPBqGVQsKSUp XIvvCRQcVBDlWQHnLBDuPMYeHY6BEaKrTSCsBuQjEp ynVBYpSHNtlx3WGHEuFFZdVUGoCgInLEKwXRUrSBbnJWXrMFSuChX8UCMiZXNpEI1EEeJzJSPcJpM5Yg rkGAFfYMKial2NXEIeSYCaIeFlWlQeSXXxRRHtWKttYFQfJEMmJfG7BGZuVFNjIU5PSuEmWXXrGfA7ZN BoOTAdZEJtaf4WRQTcZOQxZXM7WDOoPAHjKRRaAKbw JHSzMKO6IkQfNHNxIHKdVK5ASfPxEBXoCeI0WNFxSTPaNWYvik1OeKQnrJevcx9EXPaTIa2XbZzqZYAr EYflIr7ydVV6GSDlQLBODt0QoiBtWRXwGHCERAjkZBRoVQKxVYm3AHS3HqIgNCNnRFZnRJEgFAGnVJey HyKeFfK6GnT4SLY4PVJiWlgyLMLxHeB5D7BvVAKhCb C8UXPnDAYzEZq+YT6uSAz+Dg5Bf7EjsoT7myNrPDnlKHH9ZO0SVXUXG0RQKm== ID Date Data Source [id number] 11/20/2019 12:00:00 AM EDT [facility] Jaime James MD Patient Name: PK [id number] [facility] Date of : 1970Suite Date of Exam: 11/20/2019CARMEN Haddad [id number]#: Fax: [id number] EXAM: CT UPPER LEFT EXTREMITY WITHOUT CONTRASTCLINICAL INFORMATION: Distal forearm/wrist trauma. Evaluate for possibleoccult distal radial fracture. Left wrist pain.Low dose 64 slice helical scanning through the left wrist was obtainedusing 2 mm increments and reconstructed in both coronal and sagittalplanes. 3D reconstructions were also obtained. Post processing wasperformed at the physician's workstation.FINDINGS:I do not have recent comparison study. Right hand 06/16/2016 was reviewed.Fiberglass cast material overlies.The shaft of the distal radius is intact. The distal radial metaphysis isintact. A tiny calcific or ossific density adjacent to the peripheralmargin of the radius near the radiocarpal articulation volar aspect. Thiscould be old post traumatic change vs. something more acute. A few tinysubchondral cysts are seen in the radiostyloid suggesting some degenerativechange. I do not see acute fracture, avulsion or fracture line. Thecarpal bones are without displaced fracture. There is no subluxation ordislocation. There are degenerative changes at multiple carpalarticulations. The volar process of the greater multangular bone and thehook of the hamate are intact. The proximal met acarpal bones and MCPjoints are without fracture. There are some degenerative changes at the1st CMC and MCP joints visible.Some subcutaneous soft tissue swelling noted volar aspect of the wrist butno definite avulsion, fracture or other acute finding.IMPRESSION:1. There are some degenerative changes at some of the carpal articulationsand 1st MCP joint but no displaced fracture or avulsion of the carpal bonesor metacarpals.2. Tiny calcific/ossific density peripheral to the distal radius at theradio-ulnar articulation that may be old trauma. Swelling about the wristgreater volar than dorsal aspect. I cannot confirm a definite acutefracture or destructive lesion.Accredited by the [employer] in [place].Pk Paul, JIMBO/Misha you for referring PK TALBERT to our office. Electronically Signed - PK PAUL MD 11/20/19 15:16 Name Value Range Interpretation Code Description Data Carrol rce(s) Supporting Document(s) Procedure Social History Code Duration Value Status Description Data Source(s ) Alcohol intake 01/30/2020 12:00:00 AM EDT Current non-d dago of alcohol (finding) completed Current non-drinker of alcohol (finding) [facility] Tobacco use and exposure 01/30/2020 12:00:00 AM EDT Never used co mpleted Never used [facility] Cigarette pack-years 01/30/2020 12:00:00 AM EDT [facility] Cigarettes smoked current (pack per day) - Reported 01/30/20 12:00:00 AM EDT UNK completed [facility] Smoking 01/30/2020 12:00:00 AM EDT Current every day smoker co mpleted Current every day smoker [facility] Vital Signs ID Date Data Source UNK Name Value Range Interpretation Code Description Data Source(s) Body weight 108.864 kg 108.864 kg [facility] ([facility]) Body mass index (BMI) [Ratio] 33.5 kg/m2 33.5 k g/m2 [facility] ([facility]) Body weight 240.00 [lb_av] 240.00 [lb_av] MEDEN T ([facility]) Body height 71 [in_i] 71 [in_i] [facility] ([facility]) 5'11" Body temperature 97.5 [degF] 97.5 [degF] [facility] ([facility]) Body weight 108.864 kg 108.864 kg [facility] ([facility]) Body mass index (BMI) [Ratio] 33.5 kg/m2 33.5 k g/m2 [facility] ([facility]) Body weight 240.00 [lb_av] 240.00 [lb_av] MEDEN T ([facility]) Body height 71 [in_i] 71 [in_i] [facility] 5'11" Body temperature 98.2 [degF] 98.2 [degF] MEDENT ([facility]) Diastolic blood pressure 83 mm[Hg] 83 mm[Hg] eCW1 ([facility]) Systolic blood pressure 139 mm[Hg] 139 mm[Hg] e CW1 ([facility]) Body temperature 98.9 [degF] 98.9 [degF] eCW1 ( [facility]) Respiratory rate 18 /min 18 /min eCW1 ([facility]) Heart rate 90 /min 90 /min eCW1 ([facility]) Body mass index (BMI) [Ratio] 33.61 kg/m2 33.61 kg/m2 eCW1 ([facility]) Body height 71 [in_us] 71 [in_us] eCW1 ([facility]) Body weight Measured 241 [lb_av] 241 [lb_av] eC W1 ([facility])
[2020-06-20] MEDS ORDERED: KETOROLAC 30 MG/ML 1ML VIAL IV ONE (21:15)
[2020-06-20] MEDS ORDERED: cefTRIAXone SOD 1 GM in D5W MINI-BAG PLUS 50 ML IV ONE (21:15)
[2020-06-20] MEDS ORDERED: TAMSULOSIN 0.4 MG CAP PO ONE (21:15)
[2020-06-20 21:18] LABS: ALBUMIN 3.8 GM/DL (3.2-5.2); BILIRUBIN,DIRECT 0.1 MG/DL (0.0-0.2); BILIRUBIN,TOTAL 0.4 MG/DL (0.2-1.0); TOTAL PROTEIN 7.2 GM/DL (6.4-8.2)
[2020-06-20] MEDS ORDERED: PERC5TAB12 PO (23:10)
[2020-06-20] MEDS ORDERED: CEFD1CAP8 PO (23:10)
[2020-06-20] MEDS ORDERED: FLOM0.4C39 PO (23:10)
[2020-06-20] MEDS ORDERED: KETO10TAB PO (23:10)
[2020-06-20] MEDS ORDERED: OXYCODONE/APAP 5MG/325MG(BULK FOR ED) 1 TABLET PO ONE (23:15)
[2020-06-20] MEDS ORDERED: PERCOCET 5MG/325MG TAB PO ONE (23:15)
[2020-06-20 23:42] VITALS: BP 141/85
== END 2020-06-20 23:43 | disposition home or self-care (01) ==
LOC: EDBD 18:47 → M ED 18:47
DX: N13.2 Hydronephrosis with renal and ureteral calculous obstruction (principal)
CPT/HCPCS: 74177; 80047; 80048; 80076; 81001; 82150; 83605; 83690; 85025; 93041; 96365; 96375; 99285; J0696; J1170; J1885; Q9967

== ENCOUNTER 2020-09-22 00:18 | Emergency (ER) | payer OTHER ==
[~2020-09-22 00:18] MED LIST changes: -ACETAMINOPHEN 1000MG 100ML IV BTL (OFIRMEV) (J0131 PER 10MG) As Ordered ONE; -AMLO1TAB25 PO; -AZO-95TA3 PO; -BOSU PR; -CONRAY-60 60% 50ML VIAL (Q9961) As Ordered ONE; -HYDROMORPHONE HCL 0.5 MG/ 0.5 ML SYRINGE (J1170 PER 1) IV ONE; -KETOROLAC 30 MG/ML 1ML VIAL IV ONE; -KETOROLAC 60MG 2ML VIAL As Ordered ONE; -LIDOCAINE 2% 100MG/5ML SDV (FOR ANES.) As Ordered ONE; -LIDOCAINE 2% 5ML JELLY UROJET As Ordered ONE; -LR 1,000 ML IV SCH; -MIDAZOLAM INJ 2MG/2ML VIAL (J2250 PER 1MG) As Ordered ONE; -MORPHINE 4 MG/ML 1ML VIAL/SYRINGE (J2270) IV ONE; -ONDA4TAB6 PO; -ONDANSETRON 4MG/2ML VIAL As Ordered ONE; -ONDANSETRON 4MG/2ML VIAL IV PRN; -OXYB5TAB10 PO; -OXYC-517 PO; -SENN-52 PO; -TRAM50TA2 PO; -ceFAZolin 2 GM/D5W 50 ML IV BAG (J0690 PER 500MG) As Ordered ONE; -dexameTHASONE 4 MG/ML 1ML VIAL (J1100 PER 1MG) As Ordered ONE; -fentaNYL 100 MCG/2 ML INJECTION (J3010) As Ordered ONE; -fentaNYL 100 MCG/2 ML INJECTION (J3010) IV PRN; -oxyCODONE 5MG TAB PO PRN; -propofoL 200 MG/20 ML VIAL As Ordered ONE
[2020-09-22] MEDS ORDERED: MORPHINE 4 MG/ML 1ML VIAL/SYRINGE (J2270) IV ONE (00:30)
[2020-09-22 01:04] LABS: HEMATOCRIT 42.4 % (42.0-52.0); HEMOGLOBIN 13.8 g/dl (13.5-17.5); MEAN CORPUSCULAR HEMOGLOBIN 29.5 pg (27.0-33.0); MEAN CORPUSCULAR HGB CONC 32.5 g/dl (32.0-36.5); MEAN CORPUSCULAR VOLUME 90.6 fl (80.0-96.0); PLATELET COUNT, AUTOMATED 340 10^3/uL (150-450); RED BLOOD COUNT 4.68 10^6/uL (4.30-6.10); WHITE BLOOD COUNT 14.3 10^3/uL (4.0-10.0)
[2020-09-22 01:46] LABS: ALBUMIN 4.1 GM/DL (3.2-5.2); ALT/SGPT 28 U/L (12-78); BILIRUBIN,TOTAL 0.7 MG/DL (0.2-1.0); BLOOD UREA NITROGEN 8 MG/DL (7-18); CALCIUM LEVEL 9.5 MG/DL (8.5-10.1); CARBON DIOXIDE LEVEL 28 MEQ/L (21-32); CHLORIDE LEVEL 103 MEQ/L (98-107); CREATININE FOR GFR 0.95 MG/DL (0.70-1.30); GLOMERULAR FILTRATION RATE > 60.0 (>56); GLUCOSE, FASTING 154 MG/DL (70-100); LIPASE 65 U/L (73-393); POTASSIUM SERUM 4.4 MEQ/L (3.5-5.1); SODIUM LEVEL 139 MEQ/L (136-145); TOTAL PROTEIN 7.8 GM/DL (6.4-8.2)
[2020-09-22] MEDS ORDERED: ISOVUE-370 76% 100ML VIAL As Ordered ONE (01:55)
--- NOTE | 2020-09-22 02:53 | REPVR ---
PROCEDURE INFORMATION: Exam: CT Abdomen And Pelvis With Contrast Exam date and time: 09/22/2020 2:23 AM Age: 50 years old Clinical indication: Abdominal pain; Periumbilical; Additional info: Periumbilical abdominal pain TECHNIQUE: Imaging protocol: Computed tomography of the abdomen and pelvis with contrast. Radiation optimization: All CT scans at this facility use at least one of these dose optimization techniques: automated exposure control; mA and/or kV adjustment per patient size (includes targeted exams where dose is matched to clinical indication); or iterative reconstruction. Contrast material: ISOVUE 370; Contrast volume: 100 ml; Contrast route: INTRAVENOUS (IV); COMPARISON: CT ABD/PEL W/IV CONTRAST ONLY 06/20/2020 8:22 PM FINDINGS: Lungs: Mild dependent atelectasis in the right lower lobe. Mediastinal space: Minimal hiatal hernia. Liver: The liver attenuation is 62 Hounsfield units and the spleen is 90 Hounsfield units. Gallbladder and bile ducts: Normal. No calcified stones. No ductal dilation. Pancreas: Normal. No ductal dilation. Spleen: Normal. No splenomegaly. Adrenal glands: Normal. No mass. Kidneys and ureters: 5 mm left ureteral calculus just anterior to the bifurcation of the left common iliac artery which has migrated since the earlier study. There is decreased left obstructive uropathy. Stomach and bowel: Much of the left colon is collapsed or contracted with question of slight wall thickening from the splenic flexure to the rectum. Appendix: There are no changes of appendicitis. A normal appendix is not seen. Intraperitoneal space: Unremarkable. No free air. No significant fluid collection. Vasculature: There is minimal atherosclerotic calcification of the abdominal aorta. Lymph nodes: Unremarkable. No enlarged lymph nodes. Urinary bladder: Unremarkable as visualized. Reproductive: Unremarkable as visualized. Bones/joints: Unremarkable. No acute fracture. Soft tissues: Unremarkable. IMPRESSION: 1. Interval migration of a left ureteral calculus to a level just anterior to the bifurcating left common iliac artery since 06/20/2020. There is resolution of left obstructive uropathy, however. 2. Question of minimal nonspecific left colitis distal to the splenic flexure which is similar to the prior study. Electronically signed by: Nic Zhao On 09/22/2020 02:52:56 AM
[2020-09-22] MEDS ORDERED: KETOROLAC 30 MG/ML 1ML VIAL IV ONE (03:20)
[2020-09-22] MEDS ORDERED: oxyCODONE 5MG TAB PO ONE (03:45)
[2020-09-22] MEDS ORDERED: ONDANSETRON 4 MG ORAL DISINTEGRATING TAB PO ONE (03:45)
[2020-09-22] MEDS ORDERED: OXYC-517 PO (03:50)
[2020-09-22] MEDS ORDERED: ONDA4TAB6 PO (03:50)
[2020-09-22 04:15] VITALS: BP 193/97
--- NOTE | 2020-09-22 06:24 | ECGEPIP ---
[facility] - ED Test Date: 2020-09-22 Pat Name: SOULEYMANE TALBERT Department: Room: - Gender: Male Bdc Manager: Nancy MONTERO : 1970 Requested By: Chevy Do Order Number: [id number] Reading MD: Eunice Sharma Measurements Intervals [place] Rate: 55 P: 35 IN: 156 QRS: 23 QRSD: 90 T: 42 QT: 410 QTc: 392 Interpretive Statements Sinus bradycardia with marked sinus arrhythmia Nonspecific ST T wave changes 10/15/[address] T wave changes Electronically Signed on 09-22-2020 6:24:39 EDT by Eunice Sharma
[2020-09-23] MEDS ORDERED: ONDA4TAB6 PO (07:03)
[2020-09-23] MEDS ORDERED: AZO-95TA3 PO (08:22)
[2020-09-23] MEDS ORDERED: OXYC-517 PO (08:22)
== END 2020-09-22 05:02 | disposition home or self-care (01) ==
LOC: M ED 00:18
DX: N20.1 Calculus of ureter (principal); R10.84 Generalized abdominal pain; R11.2 Nausea with vomiting, unspecified; R00.1 Bradycardia, unspecified; I10 Essential (primary) hypertension; E78.5 Hyperlipidemia, unspecified; K21.9 Gastro-esophageal reflux disease without esophagitis; F17.200 Nicotine dependence, unspecified, uncomplicated; Z79.899 Other long term (current) drug therapy
CPT/HCPCS: 74177; 80053; 83690; 85027; 93005; 96374; 96375; 99285; J1885; J2270; Q0162; Q9967

== ENCOUNTER → 2020-09-22 | Day surgery (SDC) | payer OTHER ==
[~2020-09-22] VITALS: Ht 180.3 cm; Wt 112.3 kg
[~2020-09-22] MED LIST changes: +ACETAMINOPHEN 1000MG 100ML IV BTL (OFIRMEV) (J0131 PER 10MG) As Ordered ONE; +AMLO1TAB25 PO; +ASPI-569 PO; -ASPI81TAEC PO; +AZO-95TA3 PO; +BOSU PR; +CEFD1CAP8 PO; +CONRAY-60 60% 50ML VIAL (Q9961) As Ordered ONE; +FLOM0.4C39 PO; +HYDROMORPHONE HCL 0.5 MG/ 0.5 ML SYRINGE (J1170 PER 1) IV ONE; +KETOROLAC 30 MG/ML 1ML VIAL IV ONE; +KETOROLAC 60MG 2ML VIAL As Ordered ONE; +LIDOCAINE 2% 100MG/5ML SDV (FOR ANES.) As Ordered ONE; +LIDOCAINE 2% 5ML JELLY UROJET As Ordered ONE; +LR 1,000 ML IV SCH; +MIDAZOLAM INJ 2MG/2ML VIAL (J2250 PER 1MG) As Ordered ONE; +MORPHINE 4 MG/ML 1ML VIAL/SYRINGE (J2270) IV ONE; +ONDA4TAB6 PO; +ONDANSETRON 4MG/2ML VIAL As Ordered ONE; +ONDANSETRON 4MG/2ML VIAL IV PRN; +OXYB5TAB10 PO; +OXYC-517 PO; +SENN-52 PO; +TRAM50TA2 PO; +ceFAZolin 2 GM/D5W 50 ML IV BAG (J0690 PER 500MG) As Ordered ONE; +dexameTHASONE 4 MG/ML 1ML VIAL (J1100 PER 1MG) As Ordered ONE; +fentaNYL 100 MCG/2 ML INJECTION (J3010) As Ordered ONE; +fentaNYL 100 MCG/2 ML INJECTION (J3010) IV PRN; +oxyCODONE 5MG TAB PO PRN; +propofoL 200 MG/20 ML VIAL As Ordered ONE
[2020-09-22 10:47] LABS: INR 0.98; PARTIAL THROMBOPLASTIN TIME 27.1 SECONDS (24.2-38.5); PROTHROMBIN TIME 13.2 SECONDS (12.5-14.3)
[2020-09-22 11:10] LABS: RSV AMPLIFICATION NEGATIVE (NEGATIVE)
--- NOTE | 2020-09-22 11:49 | CR.PDOC ---
General Date of Consultation: September 22, 2020 Referring Provider: JESSICA BARNES DO Attending Physician: CIARA CHANDLER MD Consultation REASON FOR CONSULTATION/CHIEF COMPLAINT: 5 millimeter mid left ureteral stone with severe pain and vomiting HISTORY OF PRESENT ILLNESS: Patient is a 50-year-old gentleman who was diagnosed with a left 5 mm stone back in May 2020 but wanted to see if he could pass spontaneously. He has passed multiple stones without needing intervention. He had stopped making stones when he stopped drinking soda. Unfortunately though he began to have pain on the left side again this week and was seen in the ER and sent home but came back today with continuing pain and vomiting in his left mid back area. The pain did radiate slightly to the groin. He denies any gross hematuria. He has had no significant irritative or obstructive voiding symptoms and denies issues with recurrent urinary tract infections. ALLERGIES: Please see below. HOME MEDICATIONS: Please see below. PAST MEDICAL HISTORY: -Mixed hyperlipidemia -History of alcohol abuse but stopped many years ago -History of pancreatitis PAST SURGICAL HISTORY: -Umbilical hernia repair -Total knee replacement -Appendectomy FAMILY HISTORY: -Mother is 71 with Alzheimer's and he is estranged from his father -No known urologic family history SOCIAL HISTORY: -Patient is and quit drinking alcohol many years ago -He tried to quit smoking a few months ago but is back to smoking again REVIEW OF SYSTEMS: A 12 system review was essentially negative except for occasional abdominal pain PHYSICAL EXAMINATION: VITAL SIGNS: Please see below. GENERAL APPEARANCE: Well-developed well-nourished gentleman in no apparent respiratory distress HEENT: Normocephalic atraumatic. Eyes PERRLA. RESPIRATORY: Clear to auscultation percussion CARDIOVASCULAR: Rate and rhythm with no rubs gallops or murmurs appreciated ABDOMEN: Soft with some diffuse tenderness on the left-hand side with some left CVA and left mid back pain EXTREMITIES: No cyanosis clubbing or edema NEUROLOGICAL: Nonfocal PSYCHIATRIC: Alert and oriented 3 LABORATORY DATA: Please see below. Impression: -5 mm mid left ureteral stone and the patient now with unremitting left mid back pain and some vomiting yesterday -History of passing multiple stones but these had slowed down when he quit drinking soda but he has passed 3 stones since May of this year -CT scan 09/22/20 shows only the mid left ureteral stone but this was done with contrast but no other stones are seen in the [place] is actually better since a CT scan done in May -History of pancreatitis and alcohol abuse but stopped drinking many years ago -Smoker Plan: -After discussing all different options, alternatives, risks, benefits it was decided to bring the patient to the operating room for cystoscopy, left urete roscopy, left laser lithotripsy and/or stone basketing, and left ureteral stent placement. We discussed because there is such little Hydronephrosis and the stone is been there since May that we may only safely be able to put a stent in at this point and come back at another time to remove the stone but we won't know until we are in the operating room. Informed consent was obtained in both verbal and written form -Stone prevention should be done in the future At least 70 minutes was spent today with greater than 50% of this in [id number] consultation. This was dictated with Chriss and not proofread for errors Vital Signs/I&O Vital Signs Date Time Temp Pulse Resp B/P (MAP) Pulse Ox O2 Delivery O2 Flow Rate FiO2 09/22/20 11:22 98.8 104 16 133/83 (100) 97 Room Air Laboratory Data Labs 24H Laboratory Tests 2 09/22/20 10:25: Prothrombin Time 13.2, Prothromb Time International Ratio 0.98, Activated Partial Thromboplast Time 27.1, Urine Color YELLOW, Urine Appearance CLEAR, Urine pH 6.0, Urine Specific [place] 1.057, Urine Protein 2+H, Urine Glucose (UA) 1+H, Urine Ketones TRACEH, Urine Blood NEGATIVE, Urine Nitrite NEGATIVE, Urine Bilirubin NEGATIVE, Urine Urobilinogen 0.2, Urine Leukocyte Esterase NEGATIVE, Urine WBC (Auto) 2, Urine RBC (Auto) 9H, Urine Hyaline Casts (Auto) 0, Urine Bacteria (Auto) NEGATIVE, Urine Squamous Epithelial Cells 0, Urine Mucus (Auto) SMALL, Urine Sperm (Auto) , Coronavirus (COVID-19)(PCR) NEGATIVE, Influenza Type A (RT-PCR) NEGATIVE, Influenza Type B (RT-PCR) NEGATIVE, R espiratory Syncytial Virus (PCR) NEGATIVE Allergies Coded Allergies: No Known Drug Allergies (Verified Allergy, Unknown, 10/19/19) Home Medications Scheduled PRN Oxycodone HCl (Oxycodone HCl) 5 Mg Tablet, 5 MG PO QIDP PRN for pain for 5 Days, #20 CIARA CHANDLER MD September 22, 2020 11:49
--- NOTE | 2020-09-22 13:50 | ROOPDOC ---
[facility] Report Of Operation Report of Operation DATE OF PROCEDURE: 09/22/20 PREPROCEDURE DIAGNOSES: 5 millimeter mid left ureteral calculus POSTPROCEDURE DIAGNOSES: PROCEDURE: Cystoscopy, left ureteroscopy, left laser lithotripsy, left stone basketing and 5 Spanish double-J ureteral stent placement SURGEON: Flavia Chandler MD DOOR CLAMPER: None ANESTHESIA: Gen. ESTIMATED BLOOD LOSS: Approximately 5 mL. COMPLICATIONS: None REMARKS: Tight ureter and was unable to place a 6 Spanish stent but a 5 Spanish stent did pass SPECIMEN: Stone for analysis PROCEDURE NOTE: The patient is a 50-year-old gentleman who was seen in the emergency room this morning and a CT scan showed a mid left ureteral stone measuring approximate 5 mm. He was seen in the emergency room this week with the same pain. He has probably had this stone since May. He did have some nausea and vomiting yesterday. After discussing all different options, alternatives, risks, benefits he decided that he wanted the stone removed and surgery was scheduled. DESCRIPTION OF PROCEDURE: The patient was brought into the operating room and general anesthesia was induced. Sequential compression devices were in place and preoperative antibiotics had been given. He was placed in the lithotomy position and prepped and draped in the usual fashion. A 21 Spanish cystoscope was inserted and the urethra was noted to be open without any evidence of lesions or strictures. The prostatic urethra was not significantly obstructing. On entering the bladder both ureteral orifices were seen. There was no evidence of stones, erythematous patches, lesions, or other abnormalities. Under fluoroscopic guidance a wire was placed up the left ureteral orifice into the kidney and left as a safety wire. A second wire was then placed in a rigid ureteroscope was placed over this. The stone was seen in the mid ureter and a laser was used to break it into smaller fragments. A basket was then placed in at least 2 of the fragments were removed and there was no other significant fragments seen. At this point I attempted to place a 6 Spanish double-J ureteral stent but the mid ureter was quite tight. I did a retrograde pyelogram so that I could visualize where the collecting system was and was finally able to place a 5 Spanish double- J ureteral stent. The patient tolerated the procedure well was returned to the recovery room in stable condition. FLAVIA CHANDLER MD September 22, 2020 13:50
[2020-09-22 14:25] VITALS: BP 148/84
== END | disposition home or self-care (01) ==
LOC: M ED 09:41 → M SDC 10:32
PROVIDERS: ATTEND Specialist
DX: N20.1 Calculus of ureter (principal); I10 Essential (primary) hypertension; E78.00 Pure hypercholesterolemia, unspecified; E78.49 Other hyperlipidemia; K21.9 Gastro-esophageal reflux disease without esophagitis; F17.218 Nicotine dependence, cigarettes, with other nicotine-induced disorders; F41.9 Anxiety disorder, unspecified; Z79.899 Other long term (current) drug therapy
CPT/HCPCS: 52356; 74420; 81001; 82365; 85610; 85730; 86850; 86900; 86901; 87631; 88300; 96374; 96375; 99284; C2617; J0131; J0690; J1100; J1885; J2250; J2270; J2405; J3010; Q9961

== ENCOUNTER 2020-09-23 06:51 | Inpatient (IN) | payer OTHER ==
[~2020-09-23] VITALS: Ht 180.3 cm; Wt 113.6 kg
[~2020-09-23 06:51] MED LIST changes: +ONDA4TAB6 PO; +OXYC-517 PO
[2020-09-23] MEDS ORDERED: ONDA4TAB6 PO (07:03)
[2020-09-23] MEDS ORDERED: NS 1,000 ML IV ONE (07:30)
[2020-09-23] MEDS ORDERED: MORPHINE 4 MG/ML 1ML VIAL/SYRINGE (J2270) IV ONE ×2 (07:30→08:35)
[2020-09-23] MEDS ORDERED: KETOROLAC 30 MG/ML 1ML VIAL IV ONE (07:30)
[2020-09-23 07:46] LABS: BASO % 0.1 % (0.0-1.0); HEMATOCRIT 43.1 % (42.0-52.0); HEMOGLOBIN 14.1 g/dl (13.5-17.5); LYMPH # 2.5 10^3/uL (1.5-5.0); LYMPH % 11.6 % (24.0-44.0); MEAN CORPUSCULAR HEMOGLOBIN 29.6 pg (27.0-33.0); MEAN CORPUSCULAR HGB CONC 32.7 g/dl (32.0-36.5); MEAN CORPUSCULAR VOLUME 90.4 fl (80.0-96.0); MONO # 1.6 10^3/uL (0.0-0.8); MONO % 7.3 % (2.0-8.0); NEUTROPHILS # 17.5 10^3/uL (1.5-8.5); NEUTROPHILS % 80.4 % (36.0-66.0); PLATELET COUNT, AUTOMATED 350 10^3/uL (150-450); RED BLOOD COUNT 4.77 10^6/uL (4.30-6.10)
[2020-09-23 07:47] LABS: WHITE BLOOD COUNT 21.8 10^3/uL (4.0-10.0)
[2020-09-23] MEDS ORDERED: ISOVUE-370 76% 100ML VIAL As Ordered ONE (07:51)
[2020-09-23 08:07] LABS: ALBUMIN 3.9 GM/DL (3.2-5.2); BILIRUBIN,DIRECT 0.2 MG/DL (0.0-0.2); BILIRUBIN,TOTAL 0.8 MG/DL (0.2-1.0); TOTAL PROTEIN 7.7 GM/DL (6.4-8.2)
[2020-09-23] MEDS ORDERED: PIPERACILLIN/TAZOBACTAM SOD 4.5 GM in D5W MINI-BAG PLUS 50 ML IV ONE (08:15)
[2020-09-23] MEDS ORDERED: OXYC-517 PO (08:22)
[2020-09-23] MEDS ORDERED: AZO-95TA3 PO (08:22)
--- NOTE | 2020-09-23 08:47 | REP ---
INDICATION: vomiting, abdl pain COMPARISON: 07/29/2018 TECHNIQUE: Portable AP view of the chest FINDINGS: The mediastinum and cardiac silhouette are stable and within normal limits for portable technique. The lung devine are clear without acute consolidation, effusion, or pneumothorax. Skeletal structures are intact. IMPRESSION: No acute cardiopulmonary process appreciated. <Electronically signed by Adiel Bernal > 09/23/20 0853
--- NOTE | 2020-09-23 08:57 | REP ---
INDICATION: left fp, s/p stent placement last night, urogram, colitis. COMPARISON: Comparison is made with [address] study[address] TECHNIQUE: Contrast dose: 100 ML of Isovue [address] technique: Helical scanning is acquired and overlapping 1.5 mm and contiguous 3 mm axial images are reformatted. In addition, maximum intensity projection and multiplanar re-formation images are generated in sagittal and coronal imaging projections. I am told by the CT staff that the IV injection site was noted to be leaking during the initial portion of the injection. The CT acquisition was interrupted and therefore slightly delayed in the process of rectal finding this. FINDINGS: Digital preliminary barrer and tacker radiograph demonstrates a double pigtail ureteral stent in place on the left. Bowel gas pattern is unremarkable. The lung bases are clear on axial CT images. The pre contrast study today demonstrates contrast opacification of the gallbladder lumen due to the previous day's contrast injection. No filling defect. Liver and spleen remain unremarkable. Normal adrenals. There is a double pigtail stent seen to be in good position on the left. There is some postprocedure air in the urinary bladder lumen and in the renal collecting system of the left kidney. The previously noted left mid ureteral calculus is not seen. There is mild Carola ureteral edema and peripelvic edema on the left. There is no evidence of hematoma or other abnormal fluid collection. Dystrophic calcifications are seen in the prostate. No urinary tract calculus is noted on the right. The post-contrast images demonstrate symmetric renal contrast enhancement. Small and large bowel loops are unremarkable. A normal appendix is seen. No abdominal wall defect is seen. No bony destructive lesion is appreciated. IMPRESSION: Status post double pigtail left ureteral stent in good position. Post procedure air in the urinary tract collecting system on the left and in the urinary bladder. The previously noted ureteral calculus is not apparent. No complication is seen. <Electronically signed by Germán Albarado > 09/23/20 [id number]
[2020-09-23] MEDS ORDERED: oxyCODONE 5MG TAB PO ONE (09:15)
[2020-09-23] MEDS ORDERED: SENOKOT S TAB PO PRN (09:20)
[2020-09-23] MEDS ORDERED: PROMETHAZINE INJ 25 MG/ML VIAL (J2550) IV PRN (09:20)
[2020-09-23] MEDS ORDERED: MIRALAX *UNIT DOSE* 17GM PACKET PO PRN (09:20)
[2020-09-23] MEDS ORDERED: MOM 30ML SUSPENSION UDC PO PRN (09:20)
[2020-09-23] MEDS ORDERED: HYDROMORPHONE HCL 0.5 MG/ 0.5 ML SYRINGE (J1170 PER 1) IV ONE (10:05)
[2020-09-23] MEDS ORDERED: NALOXONE INJ 0.4MG/1ML VIAL (J2310 PER 1MG) IV PRN (10:05)
[2020-09-23] MEDS ORDERED: PHENAZOPYRIDINE 100 MG TAB PO ONE (10:10)
[2020-09-23] MEDS: LACTOBACILLUS ACIDOPHILUS CAP (BACID) PO SCH ×4 (10:32→21:55)
[2020-09-23] MEDS: NS 1,000 ML IV SCH ×2 (12:07→13:26)
[2020-09-23] MEDS ORDERED: KETOROLAC 30 MG/ML 1ML VIAL IV SCH (14:00)
[2020-09-23] MEDS: LOSARTAN 50MG TABLET PO SCH ×2 (14:15→21:55)
--- NOTE | 2020-09-23 14:25 | HPEPDOC ---
[facility] Medical History & Physical Date of Admission September 23, 2020 Date of Service: September 23, 2020 History and Physical CHIEF COMPLAINT: bloody urine, flank pain, fevers HISTORY OF PRESENT ILLNESS: 50 m w h/o left ureteral calculus 5 mm, s/p cystoscopy, left ureteroscopy, left laser lithotripsy, left stone basketing , an d5 spanish double j ureteral stent placement by Dr. Joyner on 09/22/20 presents to the ER with excrutiating 10/10 pain in left flank radiating along abd and back with subjective fevers at home, intractable n/v >10 x at home, and gross hematuria. Pain is better when he lays down on his right side in position without moving, worse when he lays on his back and when he ambulates, without relief w his pain meds. In the ER, he was tachypneic rr22, wbc 21.8, but afebrile. CT abd/pelvis: unremarkable. Hospitalist was asked to admit the patient for complicated UTI w recent stone extraction and stent placement, gross hematuria with dysuria and acute blood loss. PAST MEDICAL HISTORY: left ureteral calculus h/o etoh abuse tobacco abuse chronic pancreatitis mixed hyperlipidemia PAST SURGICAL HISTORY: bl knee arthroscopy appy due to rupture 1999 s/p cystoscopy, left ureteroscopy, left laser lithotripsy, left stone basketing , d5 spanish double j ureteral stent placement 09/22/20 SOCIAL HISTORY: full code. prior etoh abuse prior tobacco abuse no recreational drug use on disability worked in [employer] industry FAMILY HISTORY: mother alzheimers father unknown-do not keep in touch ALLERGIES: Please see below. REVIEW OF SYSTEMS: 10 point ros negative HOME MEDICATIONS: Please see below. PHYSICAL EXAMINATION: VITAL SIGNS: see below GENERAL APPEARANCE: leaning over stretcher railing on his right side in position no respiratory distress aaox 3 no pallor or icterus HEENT:moist mm thick neck unable to assess for jvd. no cervical lad CARDIOVASCULAR: s1s2 rrr LUNGS: ctab aebe ABDOMEN: +bs soft left flank tenderness +CVA tenderness no rebound EXTREMITIES: no edema LABORATORY DATA: See below. IMAGING:see below MICROBIOLOGY: Please see below. ASSESSMENT AND PLAN: 50 m w h/o left ureteral calculus 5 mm, s/p cystoscopy, left ureteroscopy, left laser lithotripsy, left stone basketing , an d5 spanish double j ureteral stent placement by Dr. Joyner on 09/22/20 presents to the ER with excrutiating 10/10 pain in left flank radiating along abd and back with subjective fevers at home, intractable n/v >10 x at home, and gross hematuria. Pain is better when he lays down on his right side in position without moving, worse when he lays on his back and when he ambulates, without relief w his pain meds. In the ER, he was tachypneic rr22, wbc 21.8, but afebrile. CT abd/pelvis: unremarkable. Hospitalist was asked to admit the patient as an inpatient for two midnights for complicated UTI w recent stone extraction and stent placement, gross hematuria with dysuria and acute blood loss. Complicated UTI -with recent left ureteral stone 5 mm, s/p cystoscopy, left ureteroscopy, left laser lithotripsy, left stone basketing , an d5 spanish double j ureteral stent placement by Dr. Joyner on 09/22/20 -on iv zosyn , prn pain meds, antiemetics -urine and blood cx obtained -urologist consulted Gross Hematuria --with recent left ureteral stone 5 mm, s/p cystoscopy, left ureteroscopy, left laser lithotripsy, left stone basketing , an d5 spanish double j ureteral stent placement by Dr. Joyner on 09/22/20 -no immediate indication for rbc transfusion -type and screen -repeat serial hgb and transfuse if symptomatic, or <8 hgb. -crane to check if clears with irrigation. may need cbi Left Ureteral stone 5m,m - s/p cystoscopy, left ureteroscopy, left laser lithotripsy, left stone basketing , an d5 spanish double j ureteral stent placement by Dr. Joyner on 09/22/20 -urologist consulted h/o etoh abuse h/o tobacco abuse mixed hyperlipidemia dvt prophylaxis: no antiplt or anticoagulant due to acute blood loss from gross hematuria. compression stockings Vital Signs Vital Signs Date Time Temp Pulse Resp B/P (MAP) Pulse Ox O2 Delivery O2 Flow Rate FiO2 09/23/20 13:25 98.3 87 22 179/97 99 Room Air Laboratory Data Labs 24H Laboratory Tests 2 09/23/20 07:27: Immature Granulocyte % (Auto) 0.6, Neutrophils (%) (Auto) 80.4H, Lymphocytes (%) (Auto) 11.6L, Monocytes (%) (Auto) 7.3, Eosinophils (%) (Auto) 0.0, Basophils (%) (Auto) 0.1, Neutrophils # (Auto) 17.5H, Lymphocytes # (Auto) 2.5, Monocytes # (Auto) 1.6H, Eosinophils # (Auto) 0.0, Basophils # (Auto) 0.0, Nucleated Red Blood Cells % (auto) 0.0, Total Bilirubin 0.8, Direct Bilirubin 0.2, Aspartate Amino Transf (AST/SGOT) 20, Alanine Aminotransferase (ALT/SGPT) 23, Alkaline Phosphatase 63, Total Protein 7.7, Albumin 3.9, Albumin/Globulin Ratio 1.0, Lipase 282 09/23/20 07:29: POC Glucose (Misc Panel) 131H, POC Sodium (Misc Panel) 137, POC Potassium (Misc Panel) 3.7, POC Chloride (Misc Panel) 99, POC Total CO2 (Misc Panel) 27.0, POC Blood Urea Nitrogen (Misc Panel 18, POC Ionized Calcium (Misc Panel) 4.6, POC Creatinine (Misc Panel) 1.0, POC Hematocrit (Misc Panel) 45.0 09/23/20 08:16: Urine Color REDH, Urine Appearance CLOUDYH, Urine pH 6.0, Urine Specific [place] 1.017, Urine Protein 2+H, Urine Glucose (UA) 1+H, Urine Ketones TRACEH, Urine Blood 3+H, Urine Nitrite NEGATIVE, Urine Bilirubin NEGATIVE, Urine Urobilinogen 0.2, Urine Leukocyte Esterase 1+H, Urine WBC (Auto) 29H, Urine RBC (Auto) TNTCH, Urine Hyaline Casts (Auto) 0, Urine Bacteria (Auto) 1+H, Urine Squamous Epithelial Cells 0, Urine Mucus (Auto) SMALL, Urine Sperm (Auto) 09/23/20 08:34: Lactic Acid Level 1.5 CBC/BMP Laboratory Tests 09/23/20 07:27 Microbiology Microbiology 09/23/20 Blood Culture, Received Pending 09/23/20 Blood Culture, Received Pending 09/23/20 Urine Culture, Received Pending Home Medications Scheduled Phenazopyridine HCl (Azo Urinary Pain Relief) 95 Mg Tablet, 190 MG PO TID Scheduled PRN Ondansetron (Ondansetron Odt) 4 Mg Tab.rapdis, 4 MG PO Q6H PRN for NAUSEA Oxycodone HCl (Oxycodone HCl) 5 Mg Tablet, 5 MG PO QID PRN for PAIN Allergies Coded Allergies: No Known Drug Allergies (Verified Allergy, Unknown, 10/19/19) A-FIB/CHADSVASC A-FIB History Current/History of A-Fib/PAF?: No Current PO Anticoag Therapy: No Age/Risk Factor Scoring CHADSVASC: CHADSVASC Response (Comments) Value Age Risk Factor Age < 65 years old 0 Gender Risk Factor Male 0 Hx of CHF No 0 Hx of HTN No 0 Hx of Stroke/TIA/or VTE No 0 Hx of Diabetes No 0 Hx of Vascular Disease No 0 Total 0 Treatment Treatment ordered: NONE Reason Anticoagulant not given: Current bleeding ROSANNA LOOMIS MD September 23, 2020 14:25
[2020-09-23] MEDS: ACETAMINOPHEN 500 MG TAB PO SCH ×3 (15:41→21:55)
[2020-09-23] MEDS ORDERED: BELLADONNA 16.2mg/OPIUM 60mg 1 EA SUPP PR PRN (16:25)
[2020-09-23] MEDS: PHENAZOPYRIDINE 100 MG TAB PO SCH ×2 (16:28→21:55)
--- NOTE | 2020-09-23 16:30 | IPNPDOC ---
Text Note Date of Service The patient was seen on 09/23/20. NOTE Pk is postop day #1 left ureteroscopy with laser lithotripsy stone basket ing and placement of the double-J ureteral stent. He comes back to the ER today with excruciating left flank pain and what sounds like bladder spasms from the stent with expected gross hematuria. He thinks that he had a fever at home this morning of 101 and he has severe pain with urination. His white blood count is quite elevated at 21.8 and a urinalysis shows 29 white blood cells and too numerous to count red blood cells per high-power field. A CT scan was done which showed the stent in good placement and no other worrisome findings. Physical examination: Well-developed well-nourished gentleman lying in a hospital bed. He is alert and oriented 3. His heart is regular and his lungs are clear. He has no real CVA tenderness but just diffuse abdominal tenderness. He has no cyanosis clubbing or edema. Impression: -Postprocedural UTI and bladder spasms secondary to the stent which she is not tolerating well with associated nausea and vomiting Plan: -Await blood and urine cultures but he was started on Zosyn for now -Continue supportive care -Recommend B and O suppositories for the bladder spasms -We will attempt to take the stent out sooner but I don't want it taken out to soon because he can just have obstruction afterwards. VS,Fishbone, I+O VS, Fishbone, I+O Laboratory Tests 09/23/20 07:27 Vital Signs Date Time Temp Pulse Resp B/P (MAP) Pulse Ox O2 Delivery O2 Flow Rate FiO2 09/23/20 13:25 98.3 87 22 179/97 99 Room Air CIARA CHANDLER MD September 23, 2020 16:30
[2020-09-23 16:45] VITALS: BP 125/64
[2020-09-23] MEDS: oxyCODONE 5MG TAB PO PRN (18:18)
[2020-09-23] MEDS: PIPERACILLIN/TAZOBACTAM SOD 4.5 GM in D5W MINI-BAG PLUS 50 ML IV SCH ×2 (18:18→21:54)
[2020-09-23] MEDS: HYDROMORPHONE HCL 0.5 MG/ 0.5 ML SYRINGE (J1170 PER 1) IV PRN (19:25)
[2020-09-23 19:48] LABS: HEMATOCRIT 37.6 % (42.0-52.0)
[2020-09-23 20:00] VITALS: BP 123/66
[2020-09-24] MEDS: oxyCODONE 5MG TAB PO PRN ×2 (00:21→08:45)
[2020-09-24] MEDS: HYDROMORPHONE HCL 0.5 MG/ 0.5 ML SYRINGE (J1170 PER 1) IV PRN (02:59)
[2020-09-24 04:47] VITALS: BP 125/67
[2020-09-24] MEDS: PIPERACILLIN/TAZOBACTAM SOD 4.5 GM in D5W MINI-BAG PLUS 50 ML IV SCH (04:47)
[2020-09-24 06:36] LABS: BASO # 0.1 10^3/uL (0.0-0.2); BASO % 0.5 % (0.0-1.0); EOS # 0.1 10^3/uL (0.0-0.5); EOS % 0.7 % (0.0-3.0); HEMOGLOBIN 12.6 g/dl (13.5-17.5); LYMPH # 3.8 10^3/uL (1.5-5.0); LYMPH % 32.1 % (24.0-44.0); MEAN CORPUSCULAR HEMOGLOBIN 29.6 pg (27.0-33.0); MEAN CORPUSCULAR HGB CONC 31.5 g/dl (32.0-36.5); MEAN CORPUSCULAR VOLUME 94.1 fl (80.0-96.0); MONO # 1.1 10^3/uL (0.0-0.8); MONO % 9.4 % (2.0-8.0); NEUTROPHILS # 6.7 10^3/uL (1.5-8.5); PLATELET COUNT, AUTOMATED 300 10^3/uL (150-450); RED BLOOD COUNT 4.25 10^6/uL (4.30-6.10); WHITE BLOOD COUNT 11.7 10^3/uL (4.0-10.0)
[2020-09-24 06:59] LABS: ALBUMIN 3.2 GM/DL (3.2-5.2); ALT/SGPT 45 U/L (12-78); BILIRUBIN,DIRECT 0.3 MG/DL (0.0-0.2); BILIRUBIN,TOTAL 1.2 MG/DL (0.2-1.0); BLOOD UREA NITROGEN 14 MG/DL (7-18); CALCIUM LEVEL 8.5 MG/DL (8.5-10.1); CARBON DIOXIDE LEVEL 28 MEQ/L (21-32); CHLORIDE LEVEL 106 MEQ/L (98-107); CREATININE FOR GFR 1.04 MG/DL (0.70-1.30); GLOMERULAR FILTRATION RATE > 60.0 (>56); GLUCOSE, FASTING 87 MG/DL (70-100); POTASSIUM SERUM 4.1 MEQ/L (3.5-5.1); SODIUM LEVEL 138 MEQ/L (136-145); TOTAL PROTEIN 6.5 GM/DL (6.4-8.2)
[2020-09-24 08:05] VITALS: BP 135/79
[2020-09-24] MEDS: LACTOBACILLUS ACIDOPHILUS CAP (BACID) PO SCH (08:25)
[2020-09-24] MEDS: ACETAMINOPHEN 500 MG TAB PO SCH (08:26)
[2020-09-24] MEDS: LOSARTAN 50MG TABLET PO SCH (08:27)
[2020-09-24] MEDS: PHENAZOPYRIDINE 100 MG TAB PO SCH (08:27)
[2020-09-24 08:28] VITALS: BP 135/79
[2020-09-24] MEDS ORDERED: AMLO1TAB25 PO (09:17)
[2020-09-24] MEDS ORDERED: BOSU PR (09:17)
[2020-09-24] MEDS ORDERED: SENN-52 PO (09:17)
--- NOTE | 2020-09-24 10:11 | IPNPDOC ---
Text Note Date of Service The patient was seen on 09/24/20. NOTE Patient is still having a lot of what sounds like stent irritation and bladder spasming although this is better with the B&O suppositories. His urine is still dark brown but without clots or difficulty emptying. Physical examination: Well-developed well-nourished gentleman lying in a hospital bed. He still has left flank discomfort and diffuse tenderness. Impression: -Status post left ureteroscopy with difficulty tolerating the stent and bladder spasms and an elevated white blood count which is coming back down with normal blood in urine cultures Plan: -Patient can be discharged and we will plan cystoscopy and stent removal tomorrow morning VS,Pablo, I+O VS, [place], I+O Laboratory Tests 09/23/20 19:39 09/24/20 06:14 Vital Signs Date Time Temp Pulse Resp B/P (MAP) Pulse Ox O2 Delivery O2 Flow Rate FiO2 09/24/20 09:15 18 09/24/20 08:45 Room Air 09/24/20 08:28 69 135/79 09/24/20 08:05 98.4 98 I&O- Last 24 Hours up to 6 AM 09/24/20 06:00 Intake Total 3500 ml Output Total 1727 ml Balance 1773 ml CIARA CHANDLER MD September 24, 2020 10:11
[2020-09-24] MEDS ORDERED: OXYB5TAB10 PO (10:43)
[2020-09-24] MEDS ORDERED: TRAM50TA2 PO (10:43)
--- NOTE | 2020-09-24 17:44 | ECGEPIP ---
[facility] - ED Test Date: 2020-09-23 Pat Name: SOULEYMANE TALBERT Department: Room: [place] [address] Gender: Male Land Classifier: ED : 1970 Requested By: Eunice Sharma Order Number: [id number] Reading MD: Carli Carolina Measurements Intervals [place] Rate: 69 P: 46 MS: 152 QRS: 38 QRSD: 90 T: 35 QT: 406 QTc: 435 Interpretive Statements Normal sinus rhythm increased rate 09/22/20 Electronically Signed on 09-24-2020 17:43:50 EDT by Carli Carolina
--- NOTE | 2020-09-24 21:22 | DS.PDOC ---
Discharge Summary General Date of Admission September 23, 2020 at 10:28 Date of Discharge 09/24/20 Attending Physician: Carmen Ascencio MD Discharge Summary HISTORY OF PRESENT ILLNESS: 50 m w h/o left ureteral calculus 5 mm, s/p cystoscopy, left ureteroscopy, left laser lithotripsy, left stone basketing , an d5 nicaraguan double j ureteral stent placement by Dr. Joyner on 09/22/20 presents to the ER with excrutiating 10/10 pain in left flank radiating along abd and back with subjective fevers at home, intractable n/v >10 x at home, and gross hematuria. Pain is better when he lays down on his right side in position without moving, worse when he lays on his back and when he ambulates, without relief w his pain meds. In the ER, he was tachypneic rr22, wbc 21.8, but afebrile. CT abd/pelvis: unremarkable. Hospitalist was asked to admit the patient for complicated UTI w recent stone ex traction and stent placement, gross hematuria with dysuria and acute blood loss, likely bladder spasming causing increased discomfort. HOSPITAL COURSE: Patient was started on B and O suppository, repeat UA positive with urine culture sent. Blood cultures later came back negative as well as urine culture no growth. WBC much improved to 11K by 09/24/2020. According to urology, bladder spasming can be normal and there does not appear to be any issues with the current stent in place. On evaluation 09/24/2020 the patient was uncomfortable and states that the only thing that helped was the medication we were giving him here IV. The B and O suppositories were not covered by his insurance and the decision was made to instead discharge oxybutynin 3 times a day and additional tramadol in addition to his home pain medication/opiates after speaking with Dr. Page urology. After discussing the plan for discharge the patient was insistent that he was going to be leaving even if that meant AGAINST MEDICAL ADVICE. Patient was ultimately discharged with a follow-up appointment on 09/25/2020 for stent removal by urology. Although the patient appeared uncomfortable on 09/24/2020 at discharge his vital signs were stable and he remained afebrile. PAST MEDICAL HISTORY: left ureteral calculus h/o etoh abuse tobacco abuse chronic pancreatitis mixed hyperlipidemia PAST SURGICAL HISTORY: bl knee arthroscopy appy due to rupture 1999 s/p cystoscopy, left ureteroscopy, left laser lithotripsy, left stone basketing , d5 nicaraguan double j ureteral stent placement 09/22/20 SOCIAL HISTORY: full code. prior etoh abuse prior tobacco abuse no recreational drug use on disability worked in [employer] industry FAMILY HISTORY: mother alzheimers father unknown-do not keep in touch DISCHARGE MEDS: please see below PHYSICAL EXAMINATION: VITAL SIGNS: see below GENERAL APPEARANCE: appears uncomfortable with movement especially, in bed. AAOx 3 HEENT:moist mm, AT/NC, thick neck unable to assess for jvd. no cervical lad CARDIOVASCULAR: s1s2, rrr LUNGS: ctab aebe ABDOMEN: +bs , soft,+mild CVA tenderness,no rebound EXTREMITIES: no edema LABORATORY DATA: See below. IMAGING:see below MICROBIOLOGY: UCx NG Bcx NG ASSESSMENT: 50 m w h/o left ureteral calculus 5 mm, s/p cystoscopy, left ureteroscopy, left laser lithotripsy, left stone basketing , an d5 nicaraguan double j ureteral stent placement by Dr. Joyner on 09/22/20 admitted for further evaluation of ? postprocedure UTI, hematuria, bladder spasming. PLAN: +UA, neg UCX -treated for IV abx, WBC much improved today -UCx neg, stopped abx 09/24/20 Postprocedure bladder spasming 2/2 left ureteral stent placement on 09/22/20 -Recent left ureteral stone 5 mm, s/p cystoscopy, left ureteroscopy, left laser lithotripsy, left stone basketing , an d5 nicaraguan double j ureteral stent placement by Dr. Joyner on 09/22/20 -Was on B&O suppository with little relief -per Dr. Page, can be normal stent discomfort, stent otherwise in place -At discharge, patient's insurance could not cover B&O suppository, Dr. Page recommending oxybutynin TID. I added tramadol in addition to home narcotics -F/u with urology on 09/25/20 as o/p to remove stent, appointment made prior to d/c -on iv zosyn , prn pain meds, antiemetics Gross Hematuria 2/2 to stent placement -Slightly improved -Normal after stent placement, H/H stable. -F/u with urology Left Ureteral stone 5mm -S/p cystoscopy, left ureteroscopy, left laser lithotripsy, left stone basketing , an d5 nicaraguan double j ureteral stent placement by Dr. Joyner on 09/22/20 -urologist following o/p h/o etoh abuse h/o tobacco abuse mixed hyperlipidemia DISPOSITION: D/c home today to f/u with Dr. Page as o/p TIME SPENT ON DISCHARGE: 35 minutes. Vital Signs/I&Os Vital Signs Date Time Temp Pulse Resp B/P (MAP) Pulse Ox O2 Delivery O2 Flow Rate FiO2 09/24/20 09:15 18 09/24/20 08:45 Room Air 09/24/20 08:28 69 135/79 09/24/20 08:05 98.4 98 I&O- Last 24 Hours up to 6 AM 09/24/20 06:00 Intake Total 3500 ml Output Total 1727 ml Balance 1773 ml Laboratory Data Labs 24H Laboratory Tests 2 09/24/20 06:14: Immature Granulocyte % (Auto) 0.3, Neutrophils (%) (Auto) 57.0, Lymphocytes (%) (Auto) 32.1, Monocytes (%) (Auto) 9.4H, Eosinophils (%) (Auto) 0.7, Basophils (%) (Auto) 0.5, Neutrophils # (Auto) 6.7, Lymphocytes # (Auto) 3.8, Monocytes # (Auto) 1.1H, Eosinophils # (Auto) 0.1, Basophils # (Auto) 0.1, Nucleated Red Blood Cells % (auto) 0.0, Anion Gap 4L, Glomerular Filtration Rate > 60.0, Calcium Level 8.5, Total Bilirubin 1.2H, Direct Bilirubin 0.3H, Aspartate Amino Transf (AST/SGOT) 43H, Alanine Aminotransferase (ALT/SGPT) 45, Alkaline Phosphatase 51, Total Protein 6.5, Albumin 3.2, Albumin/Globulin Ratio 1.0 CBC/BMP Laboratory Tests 09/24/20 06:14 Microbiology Microbiology 09/23/20 Blood Culture - Preliminary, Resulted No growth after 24 hours . All specim... 09/23/20 Blood Culture - Preliminary, Resulted No growth after 24 hours . All specim... 09/23/20 Urine Culture - Final, Complete Discharge Medications Scheduled Amlodipine Besylate (Amlodipine Besylate) 10 Mg Tablet, 10 MG PO DAILY Oxybutynin Chloride (Oxybutynin Chloride) 5 Mg Tablet, 5 MG PO TID for urinary discomfort Phenazopyridine HCl (Azo Urinary Pain Relief) 95 Mg Tablet, 190 MG PO TID, (Reported) Scheduled PRN Ondansetron (Ondansetron Odt) 4 Mg Tab.rapdis, 4 MG PO Q6H PRN for NAUSEA, (Reported) Oxycodone HCl (Oxycodone HCl) 5 Mg Tablet, 5 MG PO QID PRN for PAIN, (Reported) Sennosides/Docusate Sodium (Senna Plus Tablet) 1 Each Tablet, 2 TAB PO BIDP PRN for CONSTIPATION Tramadol HCl (Tramadol HCl) 50 Mg Tablet, 50 MG PO Q6HP PRN for pain Allergies Coded Allergies: No Known Drug Allergies (Verified Allergy, Unknown, 10/19/19) Carmen Ascencio MD September 24, 2020 21:22
== END 2020-09-24 11:05 | disposition home or self-care (01) | DRG 468 ==
LOC: M ED 06:51 → M ED INP 10:28 → ENRESERV 14:11 → M MS5PR 16:45
PROVIDERS: ADMIT General Practice; ATTEND Internal Medicine
DX: N32.89 Other specified disorders of bladder (principal); K86.1 Other chronic pancreatitis; R31.0 Gross hematuria; Z87.891 Personal history of nicotine dependence; E78.2 Mixed hyperlipidemia

== ENCOUNTER 2020-10-04 11:43 | Emergency (ER) | payer OTHER ==
[~2020-10-04] VITALS: Ht 180.3 cm; Wt 159.1 kg
[~2020-10-04 11:43] MED LIST changes: +AMLO1TAB25 PO; +AZO-95TA3 PO; +BOSU PR; +OXYB5TAB10 PO; +SENN-52 PO; +TRAM50TA2 PO
[2020-10-04] MEDS ORDERED: NS 1,000 ML IV ONE (12:40)
[2020-10-04] MEDS ORDERED: KETOROLAC 30 MG/ML 1ML VIAL IV ONE (12:40)
[2020-10-04 12:47] LABS: BASO # 0.1 10^3/uL (0.0-0.2); BASO % 0.5 % (0.0-1.0); EOS # 0.1 10^3/uL (0.0-0.5); EOS % 0.6 % (0.0-3.0); HEMATOCRIT 30.5 % (42.0-52.0); HEMOGLOBIN 9.9 g/dl (13.5-17.5); LYMPH # 2.7 10^3/uL (1.5-5.0); LYMPH % 21.8 % (24.0-44.0); MEAN CORPUSCULAR HGB CONC 32.5 g/dl (32.0-36.5); MEAN CORPUSCULAR VOLUME 92.4 fl (80.0-96.0); MONO # 0.7 10^3/uL (0.0-0.8); MONO % 5.9 % (2.0-8.0); NEUTROPHILS # 8.9 10^3/uL (1.5-8.5); NEUTROPHILS % 70.8 % (36.0-66.0); PLATELET COUNT, AUTOMATED 452 10^3/uL (150-450); WHITE BLOOD COUNT 12.6 10^3/uL (4.0-10.0)
[2020-10-04 13:17] LABS: ALBUMIN 3.4 GM/DL (3.2-5.2); ALT/SGPT 27 U/L (12-78); BILIRUBIN,DIRECT < 0.1 MG/DL (0.0-0.2); BILIRUBIN,TOTAL 0.4 MG/DL (0.2-1.0); BLOOD UREA NITROGEN 15 MG/DL (7-18); CARBON DIOXIDE LEVEL 27 MEQ/L (21-32); CHLORIDE LEVEL 101 MEQ/L (98-107); CREATININE FOR GFR 1.12 MG/DL (0.70-1.30); GLOMERULAR FILTRATION RATE > 60.0 (>56); GLUCOSE, FASTING 107 MG/DL (70-100); LIPASE 428 U/L (73-393); SODIUM LEVEL 133 MEQ/L (136-145); TOTAL PROTEIN 7.3 GM/DL (6.4-8.2)
[2020-10-04] MEDS ORDERED: ISOVUE-370 76% 100ML VIAL As Ordered ONE (13:22)
--- NOTE | 2020-10-04 13:51 | REP ---
INDICATION: left flank pain/recent stent removal. COMPARISON: Multiple the latest 09/23/2020 TECHNIQUE: Standard helical technique after the intravenous administration of 100 cc Isovue 370. FINDINGS: There is mild to moderate left-sided hydronephrosis and hydroureter. There is mild left-sided periureteral edema. At the level of the left ureterovesical junction there is a 6 mm sized calcific density consistent with a calculus. There are no right renal or renal collecting system abnormalities. The liver, gallbladder, spleen, pancreas, and adrenal glands are again seen to be within normal limits. There is no significant change in appearance of the bowel loops or the mesenteries. The abdominal aorta and para-aortic regions are unchanged and again seen to be within normal limits. There is no free fluid or free air. The lung bases are again seen to be clear and the osseous structures are stable and intact. IMPRESSION: Left-sided renal collecting system findings as described above. <Electronically signed by Quinton Mabry > 10/04/20 [id number]
[2020-10-04] MEDS ORDERED: HYDR-3713 PO (14:45)
[2020-10-04] MEDS ORDERED: FLOM0.4C39 PO (14:45)
[2020-10-04 14:58] VITALS: BP 170/92
[2020-10-04 15:21] LABS: CHLAMYDIA DNA AMPLIFICATION NEGATIVE (NEGATIVE); GC DNA AMPLIFICATION NEGATIVE (NEGATIVE)
== END 2020-10-04 15:02 | disposition home or self-care (01) ==
LOC: M ED 11:43
DX: N20.1 Calculus of ureter (principal); I10 Essential (primary) hypertension; E78.5 Hyperlipidemia, unspecified; G47.30 Sleep apnea, unspecified; F12.10 Cannabis abuse, uncomplicated; F17.200 Nicotine dependence, unspecified, uncomplicated
CPT/HCPCS: 74177; 80048; 80076; 81001; 83605; 83690; 85025; 87040; 87661; 96361; 96374; 99284; J1885; Q9967

== ENCOUNTER 2020-10-14 18:32 | Inpatient (IN) | payer OTHER ==
[~2020-10-14] VITALS: Ht 180.3 cm; Wt 112.1 kg
[~2020-10-14 18:32] MED LIST changes: +HYDR-3713 PO
[2020-10-14] MEDS ORDERED: NS 1,000 ML IV ONE (19:25)
[2020-10-14] MEDS ORDERED: TAMSULOSIN 0.4 MG CAP PO ONE (19:30)
[2020-10-14] MEDS ORDERED: KETOROLAC 30 MG/ML 1ML VIAL IV ONE (19:30)
--- NOTE | 2020-10-14 19:59 | REP ---
INDICATION: kidney stone COMPARISON: None. TECHNIQUE: Supine view of the abdomen and pelvis. FINDINGS: Bowel gas pattern is nonspecific and without obstruction or perforation. No organomegaly. No abnormal calcifications. Skeletal structures intact. IMPRESSION: Nonspecific abdominal radiographs. <Electronically signed by Adiel Bernal > 10/14/[id number]
[2020-10-14] MEDS ORDERED: MORPHINE 4 MG/ML 1ML VIAL/SYRINGE (J2270) IV ONE (20:00)
[2020-10-14] MEDS ORDERED: MORPHINE 2 MG/ML 1ML VIAL (J2270) IV ONE (20:00)
--- NOTE | 2020-10-14 20:00 | REP ---
INDICATION: r/o hydroureter COMPARISON: 08/24/2019 TECHNIQUE: Real time romero scale ultrasound examination using curved array transducer. FINDINGS: Right kidney measures 11.8 x 4.9 x 5.6 cm without hydroureteronephrosis, nephrolithiasis, cystic or renal mass lesion. Left kidney measures 11.1 x 4.8 x 6.4 cm and demonstrates mild hydronephrosis without obvious nephrolithiasis, cystic or renal mass lesion. Bladder is unremarkable. IMPRESSION: Mild left hydronephrosis suggested. <Electronically signed by Adiel Bernal > 10/14/[id number]
[2020-10-14 21:08] LABS: BASO # 0.1 10^3/uL (0.0-0.2); BASO % 0.5 % (0.0-1.0); EOS # 0.1 10^3/uL (0.0-0.5); EOS % 1.3 % (0.0-3.0); HEMATOCRIT 32.6 % (42.0-52.0); HEMOGLOBIN 10.2 g/dl (13.5-17.5); LYMPH # 3.3 10^3/uL (1.5-5.0); LYMPH % 31.6 % (24.0-44.0); MEAN CORPUSCULAR HGB CONC 31.3 g/dl (32.0-36.5); MEAN CORPUSCULAR VOLUME 92.6 fl (80.0-96.0); MONO # 0.9 10^3/uL (0.0-0.8); MONO % 8.1 % (2.0-8.0); NEUTROPHILS # 6.1 10^3/uL (1.5-8.5); NEUTROPHILS % 58.2 % (36.0-66.0); PLATELET COUNT, AUTOMATED 561 10^3/uL (150-450); RED BLOOD COUNT 3.52 10^6/uL (4.30-6.10); WHITE BLOOD COUNT 10.5 10^3/uL (4.0-10.0)
[2020-10-14 21:39] LABS: ALBUMIN 3.4 GM/DL (3.2-5.2); ALT/SGPT 25 U/L (12-78); BILIRUBIN,DIRECT 0.1 MG/DL (0.0-0.2); BILIRUBIN,TOTAL 0.5 MG/DL (0.2-1.0); BLOOD UREA NITROGEN 12 MG/DL (7-18); CALCIUM LEVEL 8.8 MG/DL (8.5-10.1); CARBON DIOXIDE LEVEL 28 MEQ/L (21-32); CHLORIDE LEVEL 102 MEQ/L (98-107); CREATININE FOR GFR 0.96 MG/DL (0.70-1.30); GLOMERULAR FILTRATION RATE > 60.0 (>56); GLUCOSE, FASTING 97 MG/DL (70-100); LIPASE 1112 U/L (73-393); POTASSIUM SERUM 4.3 MEQ/L (3.5-5.1); SODIUM LEVEL 137 MEQ/L (136-145); TOTAL PROTEIN 7.3 GM/DL (6.4-8.2)
[2020-10-14] MEDS ORDERED: fentaNYL 100 MCG/2 ML INJECTION (J3010) IV ONE (23:10)
[2020-10-14] MEDS ORDERED: ACETAMINOPHEN TAB 650MG DOSE (2X325MG) PO PRN (23:35)
[2020-10-14] MEDS ORDERED: MAALOX 30 ML SUSP *UDC PO PRN (23:35)
[2020-10-14] MEDS ORDERED: MOM 30ML SUSPENSION UDC PO PRN (23:35)
--- NOTE | 2020-10-14 23:38 | HPEPDOC ---
[facility] Medical History & Physical Date of Admission October 14, 2020 Date of Service: October 14, 2020 Attending Physician: NORMAN MORA MD History and Physical TIME OF SERVICE: 1154 pm CHIEF COMPLAINT: pain HISTORY OF PRESENT ILLNESS: This 50 yr old M was admitted from September 23 to for post-procedure bladder spasm 2/2 left ureteral stent that was placed on 09/22/20. Today he returned w c/o 10/10 left lower flank pain that radiates to the lower abdomen and groin and is associated with non-bloody emesis and chills. He denies having blood in the urine. 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 HOME MEDICATIONS: Please see below. PHYSICAL EXAMINATION: Vital Signs Date Time Temp Pulse Resp B/P (MAP) Pulse Ox O2 Delivery O2 Flow Rate FiO2 10/14/20 18:43 98.4 87 18 162/100 99 Room Air GENERAL APPEARANCE: well-nourished and developed/ appears to be in a lot of pain HEENT: no conjunctival injection CARDIOVASCULAR: RRR/NMRG LUNGS: CTAB on RA ABDOMEN: contour obese /soft MUSCULOSKELETAL: NCAT / EUGENE x 4 INTEGUMENT: not flushed pale or diaphoretic NEUROLOGICAL: CN 2-12 grossly intact /speech not dysarthric PSYCHIATRIC: A&O x 3 /able to understand and follow all commands LABORATORY DATA: 10/14/20 19:21 Immature Granulocyte % (Auto) 0.3, Neutrophils (%) (Auto) 58.2, Lymphocytes (%) (Auto) 31.6, Monocytes (%) (Auto) 8.1H, Eosinophils (%) (Auto) 1.3, Basophils (%) (Auto) 0.5, Neutrophils # (Auto) 6.1, Lymphocytes # (Auto) 3.3, Monocytes # (Auto) 0.9H, Eosinophils # (Auto) 0.1, Basophils # (Auto) 0.1, Nucleated Red Blood Cells % (auto) 0.0, Anion Gap 7L, Glomerular Filtration Rate > 60.0, Calcium Level 8.8, Total Bilirubin 0.5, Direct Bilirubin 0.1, Aspartate Amino Transf (AST/SGOT) 12, Alanine Aminotransferase (ALT/SGPT) 25, Alkaline Phosphatase 61, Total Protein 7.3, Albumin 3.4, Albumin/Globulin Ratio 0.9, Lipase 1112H 10/14/20 22:49: Urine Color YELLOW, Urine Appearance CLEAR, Urine pH 6.0, Urine Specific [place] 1.016, Urine Protein NEGATIVE, Urine Glucose (UA) NEGATIVE, Urine Ketones NEGATIVE, Urine Blood NEGATIVE, Urine Nitrite NEGATIVE, Urine Bilirubin NEGATIVE, Urine Urobilinogen 0.2, Urine Leukocyte Esterase TRACEH, Urine WBC (Auto) 10H, Urine RBC (Auto) 1, Urine Hyaline Casts (Auto) 0, Urine Bacteria (Auto) NEGATIVE, Urine Squamous Epithelial Cells 0, Urine Mucus (Auto) SMALL, Urine Sperm (Auto) IMAGING: XRay abdomen IMPRESSION: Nonspecific abdominal radiographs. // Renal US IMPRESSION: Mild left hydronephrosis suggested. MICROBIOLOGY: respiratory panel neg ASSESSMENT: Mr Henley is a 50 yr old w a hx of left ureteral calculus, chronic pancreatitis & mixed hyperlipidemia who will be admitted for management of obstructing UPJ stone and possibly post-procedure bladder spasm 2/2 left ureteral stent. PLAN: 1. Obstructing UPJ stone and possibly post-procedure bladder spasm 2/2 left ureteral stent Plan: admit to medical floor / morphine and toradol / NPO / IVF / f/u w 2 NN Anemia w thrombocytosis Likey ZEKE Plan: f/u Iron panel & stool occult/ will need to be referred to GI for c-scope if he hasn't recently had one 3 Chronic pancreatitis Denies mid abdominal pain His confirmed that he no longer drinks 3 Obesity Complicates care Plan: f/u A1C to screen for DM Dispo: home after at least 2 midnights stay Home Medications Scheduled Multivitamins (Thera M Plus Tablet) 1 Each Tablet, 1 TAB PO DAILY Scheduled PRN Hydrocodone/Acetaminophen (Hydrocodone-Acetamin 5-325 mg) 1 Each Tablet, 1 TAB PO Q4H PRN for PAIN Allergies Coded Allergies: No Known Drug Allergies (Verified Allergy, Unknown, 10/19/19) A-FIB/CHADSVASC A-FIB History Current/History of A-Fib/PAF?: No Current PO Anticoag Therapy: No NORMAN MORA MD October 14, 2020 23:38
[2020-10-14] MEDS ORDERED: HYDR-4571 PO (23:42)
[2020-10-14] MEDS ORDERED: VITMTA PO (23:42)
[2020-10-14 23:52] LABS: ETHYL ALCOHOL (ETHANOL) < 0.003 % (0.000-0.010)
[2020-10-14] MEDS: LR 1,000 ML IV SCH (23:58)
[2020-10-15] MEDS: KETOROLAC 30 MG/ML 1ML VIAL IV SCH ×5 (00:05→19:02)
[2020-10-15 00:25] LABS: RSV AMPLIFICATION NEGATIVE (NEGATIVE)
[2020-10-15] MEDS: MORPHINE 2 MG/ML 1ML VIAL (J2270) IV PRN ×5 (03:08→22:01)
[2020-10-15 06:40] LABS: HEMATOCRIT 28.5 % (42.0-52.0); MEAN CORPUSCULAR HEMOGLOBIN 29.5 pg (27.0-33.0); MEAN CORPUSCULAR HGB CONC 31.6 g/dl (32.0-36.5); MEAN CORPUSCULAR VOLUME 93.4 fl (80.0-96.0); PLATELET COUNT, AUTOMATED 497 10^3/uL (150-450); RED BLOOD COUNT 3.05 10^6/uL (4.30-6.10); WHITE BLOOD COUNT 8.5 10^3/uL (4.0-10.0)
[2020-10-15 06:59] LABS: BLOOD UREA NITROGEN 14 MG/DL (7-18); CALCIUM LEVEL 8.6 MG/DL (8.5-10.1); CARBON DIOXIDE LEVEL 27 MEQ/L (21-32); CHLORIDE LEVEL 106 MEQ/L (98-107); CREATININE FOR GFR 1.01 MG/DL (0.70-1.30); GLOMERULAR FILTRATION RATE > 60.0 (>56); GLUCOSE, FASTING 88 MG/DL (70-100); POTASSIUM SERUM 4.2 MEQ/L (3.5-5.1); SODIUM LEVEL 139 MEQ/L (136-145)
[2020-10-15 07:04] LABS: HEMOGLOBIN A1c 5.6 %
[2020-10-15] MEDS: LR 1,000 ML IV SCH ×2 (08:00→15:26)
[2020-10-15 08:06] LABS: INR 1.03; PROTHROMBIN TIME 13.7 SECONDS (12.5-14.3)
[2020-10-15 08:21] LABS: PERCENT SATURATION 18.6 % (19.7-50.0)
[2020-10-15] MEDS: LIDOCAINE 5% (LIDODERM) PATCH TD SCH (11:57)
[2020-10-15 14:00] VITALS: BP 159/86
--- NOTE | 2020-10-15 14:58 | IPNPDOC ---
Subjective Date Seen The patient was seen on 10/15/20. Subjective Chief Complaint/HPI Mr. Henley is a 50 year old male with recent left ureteral stent placed on 09/22/2020 who returns with worsening flank pain. This morning, he denies any chest pain or dyspnea, but still has persistent left sided flank pain. Urology, Dr. Franco evaluated patient today. Plan to take to the OR later today for retrograde pyelogram. Objective Physical Examination General Exam: Positive: Mild Distress Eye Exam: Negative: Sclera icteric Chest Exam: Positive: Clear to auscultation Heart Exam: Positive: Rate Normal, Regular Rhythm Abdomen Exam: Positive: Normal bowel sounds, Soft; Negative: Tenderness Extremity Exam: Negative: Edema Neuro Exam: Positive: Normal Speech Psych Exam: Positive: Mental status NL, Mood NL Other physical findings Musculoskeletal: Left sided flank tenderness (Positive CVA tenderness on left) Assessment /Plan Assessment Mr. Henley is a 50 year old male with recent left ureteral stent placed on 09/22/2020 who returns with worsening flank pain. Patient may have developed a ureteral stricture. Urology (Dr. Franco) consulted, recommendations appreciated. Urology plans to take patient to the OR for pyelogram. Patient may need stent. Plan/VTE VTE Prophylaxis Ordered?: Yes Plan 1. Left flank pain -Possibly secondary to stone vs stricture vs both -Urology consulted, recommendations appreciated -Plan to take to the OR later today -NPO 2. Iron deficiency anemia -Iron 55, Ferritin 39 -Occult stool ordered -Patient will need to follow up with GI outpatient for colorectal screening if has not yet had a recent colonoscopy 3. Chronic pancreatitis -Denies abdominal pain -Reports pain is left flank - reports patient no longer drinks 4. Obestiy -BMI 34.9 -HbA1c 5.6 -Complicates care 5. DVT ppx -Since going to OR, no chemical ppx -SCD and TEDs Disposition: Pending improvement in pain, OR this afternoon, and urology's recommendations VS, I&O, 24H, Fishbone Vital Signs/I&O Vital Signs Date Time Temp Pulse Resp B/P (MAP) Pulse Ox O2 Delivery O2 Flow Rate FiO2 10/15/20 10:51 18 10/15/20 04:47 66 97 10/15/20 04:30 97.7 129/74 (92) 10/14/20 18:43 Room Air Laboratory Data 24H LABS Laboratory Tests 2 10/14/20 19:21: Immature Granulocyte % (Auto) 0.3, Neutrophils (%) (Auto) 58.2, Lymphocytes (%) (Auto) 31.6, Monocytes (%) (Auto) 8.1H, Eosinophils (%) (Auto) 1.3, Basophils (%) (Auto) 0.5, Neutrophils # (Auto) 6.1, Lymphocytes # (Auto) 3.3, Monocytes # (Auto) 0.9H, Eosinophils # (Auto) 0.1, Basophils # (Auto) 0.1, Nucleated Red Blood Cells % (auto) 0.0, Anion Gap 7L, Glomerular Filtration Rate > 60.0, Calcium Level 8.8, Total Bilirubin 0.5, Direct Bilirubin 0.1, Aspartate Amino Transf (AST/SGOT) 12, Alanine Aminotransferase (ALT/SGPT) 25, Alkaline Phosphatase 61, Total Protein 7.3, Albumin 3.4, Albumin/Globulin Ratio 0.9, Lipase 1112H, Ethyl Alcohol Level < 0.003 10/14/20 22:49: Urine Color YELLOW, Urine Appearance CLEAR, Urine pH 6.0, Urine Specific [place] 1.016, Urine Protein NEGATIVE, Urine Glucose (UA) NEGATIVE, Urine Ketones NEGATIVE, Urine Blood NEGATIVE, Urine Nitrite NEGATIVE, Urine Bilirubin NEGATI VE, Urine Urobilinogen 0.2, Urine Leukocyte Esterase TRACEH, Urine WBC (Auto) 10H, Urine RBC (Auto) 1, Urine Hyaline Casts (Auto) 0, Urine Bacteria (Auto) NEGATIVE, Urine Squamous Epithelial Cells 0, Urine Mucus (Auto) SMALL, Urine Sperm (Auto) 10/14/20 23:27: Coronavirus (COVID-19)(PCR) NEGATIVE, Influenza Type A (RT-PCR) NEGATIVE, Influenza Type B (RT-PCR) NEGATIVE, Respiratory Syncytial Virus (PCR) NEGATIVE 10/15/20 05:15: Bedside Glucose (Misc Panel) 92 10/15/20 06:12: Nucleated Red Blood Cells % (auto) 0.0, Anion Gap 6L, Glomerular Filtration Rate > 60.0, Estimated Mean Plasma Glucose 114H, Hemoglobin A1c 5.6, Calcium Level 8.6 10/15/20 07:37: Prothrombin Time 13.7, Prothromb Time International Ratio 1.03, Activated Partial Thromboplast Time 29.0, Iron Level 55L, Total Iron Binding Capacity 295, Transferrin % Saturation 18.6L, Ferritin 39 10/15/20 11:49: Bedside Glucose (Misc Panel) 80 CBC/BMP Laboratory Tests 10/14/20 19:21 10/15/20 06:12 Microbiology Microbiology 10/14/20 Urine Culture, Received Pending BREE PRESLEY DO October 15, 2020 14:58
[2020-10-15] MEDS: NORCO, ANEXSIA 5/325MG TABLET (HYDROcodone/ACETAMINOPHEN) PO PRN (15:28)
[2020-10-15] MEDS ORDERED: CONRAY-60 60% 50ML VIAL (Q9961) As Ordered ONE (16:08)
--- NOTE | 2020-10-15 16:10 | SMCUROLCON ---
Urology Consultation General Date of Consultation 10/15/20 Reason For Consultation This patient is seen for Ureteral Calculus,Left. History of Present Illness The patient is a 50-year-old male with a past medical history for left ureteral calculus that was treated with ureteroscopic laser lithotripsy about a month ago. The ureteral stent was removed 2 weeks later and he was fine until yesterday when he began developing sudden onset of left flank pain he presented to the emergency room where an ultrasound showed he had left hydronephrosis but a KUB showed no stone fragments. Because of his degree of pain, urology consult was called. Past Medical History Medical History History of alcohol abuse, chronic pancreatitis, hyperlipidemia Surgical Hstory History of renal calculi, ureteroscopic laser lithotripsy Social History Alcohol: sober Drugs: denies Medications Current Medications Current Medications Medications (Trade) Dose Ordered Sig/Chandra Route PRN Reason Start Time Stop Time Status Last Admin Dose Admin Acetaminophen (Tylenol Tab) 650 mg Q4H PRN PO PAIN OR FEVER 10/14/20 23:35 10/15/20 10:53 DC Acetaminophen/ Hydrocodone Bitart ([place], Anexsia 5/325) 1 tab Q4HP PRN PO MILD/MODERATE PAIN (PS 1-7) 10/15/20 10:55 10/15/20 15:28 Al Hydrox/Mg Hydrox/Simethicone (Mylanta) 30 ml DAILY PRN PO DYSPEPSIA 10/14/20 23:35 Home Med (Med Rec Complete!) ASDIRECTED XX 10/14/20 23:45 10/14/20 23:45 DC Ketorolac Tromethamine (ToRADol) 15 mg Q6H IV 10/15/20 00:00 10/20/20 00:00 10/15/20 11:56 Lactated Ringer's 1,000 ml @ 120 mls/hr Q8H20M IV 10/14/20 23:35 10/15/20 15:26 Lidocaine (Lidoderm Patch) 1 patch DAILY TD 10/15/20 09:00 10/15/20 11:57 Magnesium Hydroxide (Milk Of Magnesia) 30 ml DAILY PRN PO CONSTIPATION 10/14/20 23:35 Morphine Sulfate (Morphine Sulfate Inj) 2 mg Q2H PRN IV SEVERE PAIN (PS 8-10) 10/14/20 23:35 10/15/20 10:41 Non-Formulary Medication ( See Comment Field Below ) REMOVE LIDODERM PATCH DAILY@21 XX 10/15/20 21:00 Tamsulosin HCl (Flomax) 0.4 mg QHS PO 10/15/20 21:00 Allergies Allergies: Coded Allergies: No Known Drug Allergies (Verified Allergy, Unknown, 10/19/19) Review of Systems General: Reports: Normal Appetite; Denies: Fatigue, Malaise Constitutional: Denies: Fever, Chills, Sweats, Weakness, Malaise Eyes: Denies: Pain, Vision change ENT: Denies: Head Aches, Sore Throat, Epistaxis Skin: Denies: Rash, Lesions, Breakdown, Nail Changes Pulmonary: Denies: Dyspnea, Cough Cardiovascular: Denies Chest Pain, Denies Palpitations Gastrointestinal: Denies: Nausea, Vomiting, Abdominal Pain Genitourinary: Denies: Dysuria, Frequency, Incontinence, Hematuria Hematologic: Denies: Bruising, Bleeding Excessively Endocrine: Denies: Polydipsia, Polyphagia, Polyuria Musculoskeletal: Denies: Neck Pain, Back Pain Neurological: Denies: Weakness, Numbness, Incoordination, Change in Speech Psych: Reports: Mood Normal; Denies: Anxiety, Depression Physical Examination General Exam: Moderate Distress EYE EXAM: PERRLA, Conjunctiva & lids normal, EOMI; No: Sclera icteric ENT EXAM: Atraumatic, Mucous membr. moist/pink, Pharynx Normal Neck Exam: Supple; No: JVD, thyromegaly Chest Exam: Clear to auscultation, Normal air movement Heart Exam: Rate Normal, Regular Rhythm, Normal S1, Normal S2; No: Murmurs, Rubs Abdomen Exam: Normal Bowel Sounds, Soft; No: Tenderness, Hepatospenomegaly Vital Signs/I&O Vital Signs Date Time Temp Pulse Resp B/P (MAP) Pulse Ox O2 Delivery O2 Flow Rate FiO2 10/15/20 15:28 18 10/15/20 14:00 97.9 66 159/86 (110) 100 Room Air Laboratory Data 24H Labs Laboratory Tests 2 10/14/20 19:21: Immature Granulocyte % (Auto) 0.3, Neutrophils (%) (Auto) 58.2, Lymphocytes (%) (Auto) 31.6, Monocytes (%) (Auto) 8.1H, Eosinophils (%) (Auto) 1.3, Basophils (%) (Auto) 0.5, Neutrophils # (Auto) 6.1, Lymphocytes # (Auto) 3.3, Monocytes # (Auto) 0.9H, Eosinophils # (Auto) 0.1, Basophils # (Auto) 0.1, Nucleated Red Blood Cells % (auto) 0.0, Anion Gap 7L, Glomerular Filtration Rate > 60.0, Calcium Level 8.8, Total Bilirubin 0.5, Direct Bilirubin 0.1, Aspartate Amino Transf (AST/SGOT) 12, Alanine Aminotransferase (ALT/SGPT) 25, Alkaline Phosphata se 61, Total Protein 7.3, Albumin 3.4, Albumin/Globulin Ratio 0.9, Lipase 1112H, Ethyl Alcohol Level < 0.003 10/14/20 22:49: Urine Color YELLOW, Urine Appearance CLEAR, Urine pH 6.0, Urine Specific [place] 1.016, Urine Protein NEGATIVE, Urine Glucose (UA) NEGATIVE, Urine Ketones NEGATIVE, Urine Blood NEGATIVE, Urine Nitrite NEGATIVE, Urine Bilirubin NEGATIVE, Urine Urobilinogen 0.2, Urine Leukocyte Esterase TRACEH, Urine WBC (Auto) 10H, Urine RBC (Auto) 1, Urine Hyaline Casts (Auto) 0, Urine Bacteria (Auto) NEGATIVE, Urine Squamous Epithelial Cells 0, Urine Mucus (Auto) SMALL, Urine Sperm (Auto) 10/14/20 23:27: Coronavirus (COVID-19)(PCR) NEGATIVE, Influenza Type A (RT-PCR) NEGATIVE, Influenza Type B (RT-PCR) NEGATIVE, Respiratory Syncytial Virus (PCR) NEGATIVE 10/15/20 05:15: Bedside Glucose (Misc Panel) 92 10/15/20 06:12: Nucleated Red Blood Cells % (auto) 0.0, Anion Gap 6L, Glomerular Filtration Rate > 60.0, Estimated Mean Plasma Glucose 114H, Hemoglobin A1c 5.6, Calcium Level 8.6 10/15/20 07:37: Prothrombin Time 13.7, Prothromb Time International Ratio 1.03, Activated [place] l Thromboplast Time 29.0, Iron Level 55L, Total Iron Binding Capacity 295, Transferrin % Saturation 18.6L, Ferritin 39 10/15/20 11:49: Bedside Glucose (Misc Panel) 80 CBC/BMP Laboratory Tests 10/14/20 19:21 10/15/20 06:12 Microbiology Microbiology 10/14/20 Urine Culture, Received Pending Assessment Left hydronephrosis with no apparent calculus Plan Patient will need to be taken to the operating room to further evaluate the left-sided hydronephrosis. At the time of his laser lithotripsy, he had a very narrow ureter that would not allow passage of a 6 Croatian double-J stent requiring the insertion of a 5 Croatian stent. Because his KUB did not show a calculus, there is a possibility that he may have a ureteral stricture because of the prolonged presence of the stone in the ureter for several months and subsequent laser lithotripsy. He'll therefore be taken to the operating room for retrograde pyelogram and stent insertion. A CT scan with and without contrast was ordered but has not yet been performed. Time Spent on Consult: Time Spent / Consult (Minutes): 55 JOCELYNE LUO MD October 15, 2020 16:10
[2020-10-15] MEDS ORDERED: DESFLURANE 240 ML INHALANT As Ordered ONE (16:15)
[2020-10-15] MEDS ORDERED: fentaNYL 100 MCG/2 ML INJECTION (J3010) As Ordered ONE (16:15)
[2020-10-15] MEDS ORDERED: MIDAZOLAM INJ 2MG/2ML VIAL (J2250 PER 1MG) As Ordered ONE (16:15)
[2020-10-15] MEDS ORDERED: propofoL 200 MG/20 ML VIAL As Ordered ONE (16:21)
[2020-10-15] MEDS ORDERED: ONDANSETRON 4MG/2ML VIAL As Ordered ONE (16:22)
[2020-10-15] MEDS ORDERED: dexameTHASONE 4 MG/ML 1ML VIAL (J1100 PER 1MG) As Ordered ONE (16:22)
[2020-10-15] MEDS ORDERED: LIDOCAINE 2% 100MG/5ML SDV (FOR ANES.) As Ordered ONE (16:22)
[2020-10-15] MEDS ORDERED: ceFAZolin 2 GM/D5W 50 ML IV BAG (J0690 PER 500MG) As Ordered ONE (16:45)
[2020-10-15] MEDS ORDERED: ePHEDrine SULFATE 25 MG/5 ML(5MG/ML) SYRINGE As Ordered ONE (16:57)
[2020-10-15] MEDS ORDERED: ACETAMINOPHEN 1000MG 100ML IV BTL (OFIRMEV) (J0131 PER 10MG) As Ordered ONE (16:58)
--- NOTE | 2020-10-15 17:21 | ROOPDOC ---
[facility] Report Of Operation Report of Operation DATE OF PROCEDURE: 10/15/20 PREPROCEDURE DIAGNOSES: Left hydronephrosis POSTPROCEDURE DIAGNOSES: Left hydronephrosis from ureteral stricture PROCEDURE: Cystoscopy, left retrograde pyelogram, ureteral stent insertion, fluoroscopy and x-ray interpretation SURGEON: Kaiden Franco MD TRANSPORTATION CONSULTANT: None ANESTHESIA: Gen. ESTIMATED BLOOD LOSS: Approximately 0 mL. COMPLICATIONS: None REMARKS: Patient had a midureteral stricture. This is aggravated by the ureteral calculus impacting it for several months. PROCEDURE NOTE: 6 Botswanan double-J stent was inserted without difficulty DESCRIPTION OF PROCEDURE: The patient was placed on the table in the supine position, given general anesthesia, placed in lithotomy position, prepped with Betadine paint, draped in aseptic manner, and timeout was performed. A 22 Botswanan cystoscope was inserted into the meatus and advanced under direct vision of a 30 lens of the bladder. The bladder was then surveyed and was normal. The left ureteral orifice was then catheterized with a 5 Botswanan open- ended catheter and retrograde injection of Conray showed the patient had a midureteral stricture. A wire guide was able to be passed through this and a 6 Botswanan double-J stent was then passed over the wire and curled well in the renal pelvis and in the bladder when the wire was removed. The bladder was then drained, cystoscope was removed and the patient was awakened and sent to recovery room stable condition having tolerated procedure well. Digital rectal exam showed a 5 g benign prostate Fluoroscopy was used and interpreted throughout the case to diagnose the patient's stricture and passed the ureteral stent. Patient should have the stent in place for 4 weeks before removal. Consideration may be given to even exchanging the stent for an 8 Botswanan to dilate the ureteral stricture. KAIDEN FRANCO MD October 15, 2020 17:21
[2020-10-15] MEDS ORDERED: oxyCODONE 5MG TAB PO PRN (17:30)
[2020-10-15] MEDS ORDERED: fentaNYL 100 MCG/2 ML INJECTION (J3010) IV PRN (17:30)
[2020-10-15] MEDS ORDERED: ONDANSETRON 4MG/2ML VIAL IV PRN (17:30)
[2020-10-15] MEDS ORDERED: LR 1,000 ML IV SCH (17:30)
--- NOTE | 2020-10-15 17:41 | REP ---
INDICATION: CYSTO, LEFT WITH STENT. COMPARISON: None. TECHNIQUE: Intraoperative fluoroscopic imaging using C-arm technique. FINDINGS: Moderate left-sided hydroureteronephrosis appreciated along with subsequent left ureteral stent placement. Total fluoroscopic time 33 seconds. IMPRESSION: Satisfactory left ureteral stent placement. <Electronically signed by Adiel Bernal > 10/15/20 [id number]
[2020-10-15 18:15] VITALS: BP 156/79
[2020-10-15 18:45] VITALS: BP 176/96
[2020-10-15] MEDS: **NOTE PATIENT COMMENT** MISC XX SCH (21:00)
[2020-10-15 22:00] VITALS: BP 165/76
[2020-10-15] MEDS: TAMSULOSIN 0.4 MG CAP PO SCH (22:01)
[2020-10-16] MEDS: KETOROLAC 30 MG/ML 1ML VIAL IV SCH ×4 (00:37→18:37)
[2020-10-16] MEDS: NORCO, ANEXSIA 5/325MG TABLET (HYDROcodone/ACETAMINOPHEN) PO PRN ×3 (00:38→15:02)
[2020-10-16] MEDS: MORPHINE 2 MG/ML 1ML VIAL (J2270) IV PRN ×2 (04:54→08:16)
[2020-10-16 06:00] VITALS: BP 141/78
[2020-10-16 06:19] LABS: HEMATOCRIT 28.9 % (42.0-52.0); HEMOGLOBIN 9.1 g/dl (13.5-17.5); MEAN CORPUSCULAR HEMOGLOBIN 29.2 pg (27.0-33.0); MEAN CORPUSCULAR HGB CONC 31.5 g/dl (32.0-36.5); MEAN CORPUSCULAR VOLUME 92.6 fl (80.0-96.0); PLATELET COUNT, AUTOMATED 481 10^3/uL (150-450); RED BLOOD COUNT 3.12 10^6/uL (4.30-6.10); WHITE BLOOD COUNT 9.9 10^3/uL (4.0-10.0)
[2020-10-16 06:31] LABS: INR 0.97; PROTHROMBIN TIME 13.1 SECONDS (12.5-14.3)
[2020-10-16 06:48] LABS: BLOOD UREA NITROGEN 18 MG/DL (7-18); CARBON DIOXIDE LEVEL 26 MEQ/L (21-32); CHLORIDE LEVEL 104 MEQ/L (98-107); CREATININE FOR GFR 1.08 MG/DL (0.70-1.30); GLOMERULAR FILTRATION RATE > 60.0 (>56); GLUCOSE, FASTING 100 MG/DL (70-100); POTASSIUM SERUM 4.5 MEQ/L (3.5-5.1); SODIUM LEVEL 137 MEQ/L (136-145)
[2020-10-16] MEDS: LIDOCAINE 5% (LIDODERM) PATCH TD SCH (08:15)
--- NOTE | 2020-10-16 10:22 | IPNPDOC ---
Subjective Date Seen The patient was seen on 10/16/20. Subjective Chief Complaint/HPI Mr. Henley is a 50 year old male with recent left ureteral stent placed on 09/22/2020 who returns with worsening flank pain. Yesterday afternoon, patient went for a left retrograde pyelogram and ureteral stent placement. This morning, he was feeling better and he looked more comfortable. He is still requiring IV morphine and IV ketorolac in addition to his PO pain medication. Will start weaning him off IV pain medication. Objective Physical Examination General Exam: Positive: Alert, Cooperative Eye Exam: Negative: Sclera icteric ENT Exam: Positive: Atraumatic Chest Exam: Positive: Clear to auscultation Heart Exam: Positive: Rate Normal, Regular Rhythm Abdomen Exam: Positive: Normal bowel sounds, Soft; Negative: Tenderness Extremity Exam: Negative: Edema Neuro Exam: Positive: Normal Speech Psych Exam: Positive: Mental status NL, Mood NL Assessment /Plan Assessment Mr. Henley is a 50 year old male with recent left ureteral stent placed on 09/22/2020 who returns with worsening flank pain. Patient may have developed a ureteral stricture. Urology (Dr. Franco) consulted, recommendations appreciated. On 10/15/2020, patient was taken to the OR for left retrograde pyelogram and ureteral stent placement for ureteral stricture. Patient will need to have the stent in place for 4 weeks before removal. Plan/VTE VTE Prophylaxis Ordered?: Yes Plan 1. Left flank pain -Secondary to ureteral stricture -Urology consulted, recommendations appreciated -Patient went to the OR for stent placement on 10/15/2020 2. Iron deficiency anemia -Iron 55, Ferritin 39 -Occult stool ordered -Patient will need to follow up with GI outpatient for colorectal screening if has not yet had a recent colonoscopy 3. Chronic pancreatitis -Denies abdominal pain -Reports pain is left flank - reports patient no longer drinks 4. Obestiy -BMI 34.9 -HbA1c 5.6 -Complicates care 5. DVT ppx -Since going to OR, no chemical ppx -SCD and TEDs Disposition: Pending improvement in pain, weaning off IV morphine VS, I&O, 24H, Fishbone Vital Signs/I&O Vital Signs Date Time Temp Pulse Resp B/P (MAP) Pulse Ox O2 Delivery O2 Flow Rate FiO2 10/16/20 08:16 18 10/16/20 06:00 97.5 99 141/78 (99) 96 Room Air 10/15/20 17:17 2.0 I&O- Last 24 Hours up to 6 AM 10/16/20 06:00 Intake Total 1080 ml Output Total 1226 ml Balance -146 ml Laboratory Data 24H LABS Laboratory Tests 2 10/15/20 11:49: Bedside Glucose (Misc Panel) 80 10/16/20 05:59: Nucleated Red Blood Cells % (auto) 0.0, Prothrombin Time 13.1, Prothromb Time International Ratio 0.97, Anion Gap 7L, Glomerular Filtration Rate > 60.0, Calcium Level 9.0 CBC/BMP Laboratory Tests 10/16/20 05:59 Microbiology Microbiology 10/14/20 Urine Culture - Final, Complete BREE PRESLEY DO October 16, 2020 10:22
--- NOTE | 2020-10-16 13:05 | IPNPDOC ---
Subjective Review oF Systems Chief Complaint The patient is a 50-year-old male admitted with a reason for visit of Ureteral Calculus,Left. Events since Last Encounter Left ureteral stent inserted General: Reports: Normal Appetite; Denies: Fatigue, Malaise Constitutional: Denies: Fever, Chills, Sweats, Weakness, Malaise Eyes: Denies: Pain, Vision change ENT: Denies: Head Aches, Sore Throat, Epistaxis Skin: Denies: Rash, Lesions, Breakdown, Nail Changes Pulmonary: Denies: Dyspnea, Cough Gastrointestinal: Denies: Nausea, Vomiting, Abdominal Pain Genitourinary: Denies: Dysuria, Frequency, Incontinence, Hematuria Musculoskeletal: Denies: Neck Pain, Back Pain Objective Physical Examination General Exam: Cooperative Eye Exam: PERRLA, Conjunctiva & lids normal, EOMI; No: Sclera icteric ENT EXAM: Atraumatic, Mucous membr. moist/pink, Pharynx Normal Heart Exam: Positive: Rate Normal, Regular Rhythm ABDOMEN EXAM: Normal bowel sounds, Soft; No: Tenderness, Hepatospenomegaly Male Exam: Normal Genital Exam Extremity Exam: Tenderness; No: Clubbing, Cyanosis, Edema Vital Signs/I&O Vital Signs Date Time Temp Pulse Resp B/P (MAP) Pulse Ox O2 Delivery O2 Flow Rate FiO2 10/16/20 08:16 18 10/16/20 06:00 97.5 99 141/78 (99) 96 Room Air 10/15/20 17:17 2.0 I&O- Last 24 Hours up to 6 AM 10/16/20 06:00 Intake Total 1080 ml Output Total 1226 ml Balance -146 ml Laboratory Data Labs 24H Laboratory Tests 2 10/16/20 05:59: Nucleated Red Blood Cells % (auto) 0.0, Prothrombin Time 13.1, Prothromb Time International Ratio 0.97, Anion Gap 7L, Glomerular Filtration Rate > 60.0, Calcium Level 9.0 CBC/BMP Laboratory Tests 10/16/20 05:59 Microbiology Microbiology 10/14/20 Urine Culture - Final, Complete Assessment/Plan Date Seen The patient was seen on 10/16/20. Patient Summary Pk tells me today that he is feeling much better since the ureteral stent was inserted. He has no more flank discomfort. Plan/VTE VTE Prophylaxis Ordered?: Yes Plan I discussed the findings with Pk. He has a left ureteral stricture which e xplains why he could not pass his ureteral stone 4 months. Plan at this point is to keep the stent indwelling for at least another 3 weeks then exchanged for an 8 Kazakh. He then may need a double stent insertion to dilate the ureteral stricture before he is allowed to go stent free. I explained this to the patient who expressed understanding. He had no further questions or complaints or concerns. From a urologic standpoint, he may be discharged home to be followed up in the clinic in 3 weeks. JOCELYNE LUO MD October 16, 2020 13:05
[2020-10-16 14:00] VITALS: BP 198/95
[2020-10-16] MEDS ORDERED: MORPHINE 2 MG/ML 1ML VIAL (J2270) IV PRN ×2 (14:00→15:25)
[2020-10-16 14:15] VITALS: BP 182/94
[2020-10-16] MEDS ORDERED: NORCO, ANEXSIA 5/325MG TABLET (HYDROcodone/ACETAMINOPHEN) PO PRN (15:35)
[2020-10-16] MEDS: TAMSULOSIN 0.4 MG CAP PO SCH (20:35)
[2020-10-16] MEDS: **NOTE PATIENT COMMENT** MISC XX SCH (20:35)
[2020-10-16 22:00] VITALS: BP 183/92
[2020-10-17] MEDS: KETOROLAC 30 MG/ML 1ML VIAL IV SCH ×2 (00:15→06:00)
[2020-10-17 06:00] VITALS: BP 174/89
[2020-10-17 07:58] LABS: HEMOGLOBIN 9.1 g/dl (13.5-17.5); MEAN CORPUSCULAR HEMOGLOBIN 29.3 pg (27.0-33.0); MEAN CORPUSCULAR HGB CONC 31.4 g/dl (32.0-36.5); MEAN CORPUSCULAR VOLUME 93.2 fl (80.0-96.0); PLATELET COUNT, AUTOMATED 460 10^3/uL (150-450); RED BLOOD COUNT 3.11 10^6/uL (4.30-6.10); WHITE BLOOD COUNT 8.3 10^3/uL (4.0-10.0)
[2020-10-17 08:18] LABS: BLOOD UREA NITROGEN 18 MG/DL (7-18); CALCIUM LEVEL 8.6 MG/DL (8.5-10.1); CARBON DIOXIDE LEVEL 29 MEQ/L (21-32); CHLORIDE LEVEL 107 MEQ/L (98-107); CREATININE FOR GFR 0.99 MG/DL (0.70-1.30); GLOMERULAR FILTRATION RATE > 60.0 (>56); GLUCOSE, FASTING 94 MG/DL (70-100); POTASSIUM SERUM 3.9 MEQ/L (3.5-5.1); SODIUM LEVEL 140 MEQ/L (136-145)
[2020-10-17] MEDS: LIDOCAINE 5% (LIDODERM) PATCH TD SCH (09:00)
[2020-10-17] MEDS ORDERED: HYDR-4571 PO (10:52)
[2020-10-17] MEDS ORDERED: FLOM0.4C39 PO (10:52)
--- NOTE | 2020-10-17 23:40 | DS.PDOC ---
Discharge Summary General Date of Admission October 14, 2020 at 23:32 Date of Discharge October 17, 2020 Specialist/Consultants [facility], Dr. Franco Discharge Summary PROCEDURES PERFORMED DURING STAY: Left retrograde pyelogram with left ureteral stent placement for ureteral stricture on 10/15/2020 ADMITTING DIAGNOSES: 1. Left flank pain possibly secondary to obstructing UPJ stone and post- procedure bladder spasm 2. Normocytic anemia 3. Chronic pancreatitis 4. Obesity DISCHARGE DIAGNOSES: 1. Left flank pain possibly secondary to left ureteral stricture from 2. Normocytic anemia 3. Chronic pancreatitis 4. Obesity COMPLICATIONS/CHIEF COMPLAINT: Ureteral Calculus,Left. HISTORY OF PRESENT ILLNESS: Coped from admitting physician's H&P " This 50 yr old M was admitted from September 23 to for post-procedure bladder spasm 2/2 left ureteral stent that was placed on 09/22/20. Today he returned w c/o 03/02 left lower flank pain that radiates to the lower abdomen and groin and is associated with non-bloody emesis and chills. He denies having blood in the urine. " HOSPITAL COURSE: Prior to surgery, patient was in distressed and pain was severe. Urology, Dr. Franco evaluated patient on 10/15/2020 and took him to the OR. Patient was found to have left ureteral stricture and a stent was placed. Patient pain improved with sent placement. Patient will need to return to urology at a later date for a larger stent to be placed. His ureters will need to be gradually stretched out. Otherwise, patient did not feel that his pain was very well controlled. I increased his pain regimen. The following day, he was very upset that he had to wait for his pain medication rather receiving them on time as scheduled. He wanted to go home. Patient appears to be much more comfortable now compared to prior to surgery. Patient was sent home with pain medication. DISCHARGE MEDICATIONS: Please see below. ALLERGIES: Please see below. PHYSICAL EXAMINATION ON DISCHARGE: VITAL SIGNS: Please see below. GENERAL: Comfortable HEENT: Head normocephalic, atraumatic NECK: Supple CARDIOVASCULAR EXAMINATION: Regular rate and rhythm RESPIRATORY EXAMINATION: Lungs clear to auscultation bilaterally ABDOMINAL EXAMINATION: Soft, non-tender, normal bowel sounds EXTREMITIES: No pitting edema bilaterally SKIN: Warm and dry NEUROLOGICAL EXAMINATION: CN 3-12 grossly intact PSYCHIATRIC EXAMINATION: Anxious LABORATORY DATA: Please see below. IMAGING: Radiologist interpretation Abdominal XR Nonspecific abdominal radiographs. Renal US Mild left hydronephrosis suggested. PROGNOSIS: Good ACTIVITY: As tolerated. DIET: As tolerated DISCHARGE PLAN: Home DISPOSITION: 01 Home, Self-Care. DISCHARGE INSTRUCTIONS: 1. Follow up with PCP within 1 week 2. Follow up with Urology in 3 weeks ITEMS TO FOLLOWUP ON ON OUTPATIENT: 1. Iron deficiency anemia. Patient may need colonoscopy if he has not had one recently 2. Urology follow up for left ureteral stent and stricture DISCHARGE CONDITION: Stable. Total time spent on discharge planning, discharge summary, and medication reconciliation: 55 minutes Vital Signs/I&Os Vital Signs Date Time Temp Pulse Resp B/P (MAP) Pulse Ox O2 Delivery O2 Flow Rate FiO2 10/17/20 06:00 97.9 65 18 174/89 (117) 96 Room Air 10/15/20 17:17 2.0 I&O- Last 24 Hours up to 6 AM 10/17/20 06:00 Intake Total 540 ml Output Total 1300 ml Balance -760 ml Laboratory Data Labs 24H Laboratory Tests 2 10/17/20 07:30: Nucleated Red Blood Cells % (auto) 0.0, Anion Gap 4L, Glomerular Filtration Rate > 60.0, Calcium Level 8.6 CBC/BMP Laboratory Tests 10/17/20 07:30 Microbiology Microbiology 10/14/20 Urine Culture - Final, Complete Discharge Medications Scheduled Multivitamins (Thera M Plus Tablet) 1 Each Tablet, 1 TAB PO DAILY, (Reported) Tamsulosin HCl (Flomax) 0.4 Mg Capsule, 0.4 MG PO QHS Scheduled PRN Hydrocodone/Acetaminophen (Hydrocodone-Acetamin 5-325 mg) 1 Each Tablet, 1 TAB PO Q4HP PRN for PAIN Ketorolac Tromethamine (Ketorolac Tromethamine) 10 Mg Tablet, 10 MG PO Q6HP PRN for pain Ondansetron (Ondansetron Odt) 4 Mg Tab.rapdis, 1 TAB PO Q6-8HP PRN for nausea/vomiting Allergies Coded Allergies: No Known Drug Allergies (Verified Allergy, Unknown, 10/19/19) BREE PRESLEY DO October 17, 2020 23:40
[2020-10-18] MEDS ORDERED: ONDA4TAB6 PO (23:51)
[2020-10-18] MEDS ORDERED: KETO10TAB PO (23:51)
== END 2020-10-17 12:40 | disposition home or self-care (01) | DRG 465 ==
LOC: M ED 18:32 → M ED INP 23:32 → ENRESERV 10-15 03:54 → M MS5PR 10-15 05:12
PROVIDERS: ADMIT Internal Medicine; ATTEND Internal Medicine
PROC: 0T778DZ Dilation of Left Ureter with Intraluminal Device, Via Natural or Artificial Opening Endoscopic (ICD-10-PCS; principal; 2020-10-15 16:30)
DX: N13.1 Hydronephrosis with ureteral stricture, not elsewhere classified (principal); K86.1 Other chronic pancreatitis; Z68.34 Body mass index [BMI] 34.0-34.9, adult; D50.9 Iron deficiency anemia, unspecified; E66.9 Obesity, unspecified; E78.2 Mixed hyperlipidemia

== ENCOUNTER 2020-10-18 21:00 | Emergency (ER) | payer OTHER ==
[~2020-10-18] VITALS: Ht 180.3 cm; Wt 100.0 kg
[~2020-10-18 21:00] MED LIST changes: +HYDR-4571 PO
[2020-10-18] MEDS ORDERED: ONDANSETRON 4MG/2ML VIAL IV ONE (22:20)
[2020-10-18] MEDS ORDERED: KETOROLAC 30 MG/ML 1ML VIAL IV ONE ×2 (22:20→22:30)
[2020-10-18 22:38] LABS: BASO # 0.1 10^3/uL (0.0-0.2); BASO % 0.5 % (0.0-1.0); EOS # 0.1 10^3/uL (0.0-0.5); EOS % 1.4 % (0.0-3.0); HEMATOCRIT 32.6 % (42.0-52.0); HEMOGLOBIN 10.4 g/dl (13.5-17.5); LYMPH % 19.7 % (24.0-44.0); MEAN CORPUSCULAR HEMOGLOBIN 29.3 pg (27.0-33.0); MEAN CORPUSCULAR HGB CONC 31.9 g/dl (32.0-36.5); MEAN CORPUSCULAR VOLUME 91.8 fl (80.0-96.0); MONO # 0.8 10^3/uL (0.0-0.8); MONO % 7.8 % (2.0-8.0); NEUTROPHILS # 7.2 10^3/uL (1.5-8.5); NEUTROPHILS % 70.3 % (36.0-66.0); PLATELET COUNT, AUTOMATED 481 10^3/uL (150-450); RED BLOOD COUNT 3.55 10^6/uL (4.30-6.10); WHITE BLOOD COUNT 10.3 10^3/uL (4.0-10.0)
[2020-10-18 23:19] LABS: ALBUMIN 3.5 GM/DL (3.2-5.2); ALT/SGPT 23 U/L (12-78); BILIRUBIN,DIRECT 0.2 MG/DL (0.0-0.2); BILIRUBIN,TOTAL 0.6 MG/DL (0.2-1.0); BLOOD UREA NITROGEN 14 MG/DL (7-18); CALCIUM LEVEL 9.7 MG/DL (8.5-10.1); CARBON DIOXIDE LEVEL 25 MEQ/L (21-32); CHLORIDE LEVEL 101 MEQ/L (98-107); CREATININE FOR GFR 0.85 MG/DL (0.70-1.30); GLOMERULAR FILTRATION RATE > 60.0 (>56); GLUCOSE, FASTING 108 MG/DL (70-100); LIPASE 49 U/L (73-393); SODIUM LEVEL 135 MEQ/L (136-145); TOTAL PROTEIN 7.2 GM/DL (6.4-8.2)
--- NOTE | 2020-10-18 23:27 | REPVR ---
PROCEDURE INFORMATION: Exam: CT Abdomen and Pelvis without Contrast Exam date and time: 10/18/20 (10:27pm) Age: 50 years old Clinical indication: Left flank pain. Prior surgery. Surgery date: 3-7 days post-operative. Surgery type: Stone removal and stent placement. Additional info: Severe left flank pain. Assess stones / stent. TECHNIQUE: Imaging protocol: Computed tomography of the abdomen and pelvis without contrast. Radiation optimization: All CT scans at this facility use at least one of these dose optimization techniques: automated exposure control; mA and/or kV adjustment per patient size (includes targeted exams where dose is matched to clinical indication); or iterative reconstruction. COMPARISON: CT ABDOMEN PELVIS of 10/04/20 FINDINGS: Liver: Normal. No solid mass. Gallbladder and bile ducts: Normal. No calcified stones. No ductal dilatation. Pancreas: Normal. No ductal dilatation. Spleen: Normal. No splenomegaly. Adrenal glands: Normal. No mass. Kidneys and ureters: Mild left hydronephrosis. Left-sided double pigtail ureteral stent. The proximal pigtail portion of the stent is coiled in the proximal left ureter, at and just below the left UPJ junction. The distal pigtail is coiled in the urinary bladder. No definite ureteral stone is seen. The right kidney appears unremarkable. Stomach and bowel: No bowel obstruction. No mucosal thickening. A few scattered sigmoid diverticuli. Appendix: No evidence of appendicitis. Intraperitoneal space: Unremarkable. No free air. No significant fluid collection. Vasculature: Unremarkable. No abdominal aortic aneurysm. Lymph nodes: Unremarkable. No enlarged lymph nodes. Urinary bladder: Unremarkable as visualized. Reproductive: Unremarkable as visualized. Bones/joints: Unremarkable. No acute fracture. Soft tissues: Unremarkable. IMPRESSION: Mild left hydronephrosis. Left-sided double pigtail ureteral stent. The proximal pigtail portion of the stent is coiled in the proximal left ureter, at and just below the left UPJ junction. The distal pigtail is coiled in the urinary bladder. No definite radiodense ureteral stone is seen. No acute bowel pathology. Electronically signed by: Myriam Bell On 10/18/2020 23:27:27 PM
[2020-10-18] MEDS ORDERED: NORCO, ANEXSIA 5/325MG TABLET (HYDROcodone/ACETAMINOPHEN) PO ONE (23:45)
[2020-10-18] MEDS ORDERED: KETO10TAB PO (23:51)
[2020-10-18] MEDS ORDERED: ONDA4TAB6 PO (23:51)
[2020-10-19 00:01] VITALS: BP 174/87
[2020-10-20] MEDS ORDERED: HYDR-3713 PO (17:39)
[2020-10-20] MEDS ORDERED: KETO10TAB PO (17:39)
[2020-10-20] MEDS ORDERED: FLOM0.4C39 PO (17:39)
[2020-10-20] MEDS ORDERED: ONDA4TAB6 PO (17:39)
== END 2020-10-19 00:03 | disposition home or self-care (01) ==
LOC: M ED 21:00
DX: N13.39 Other hydronephrosis (principal); N23 Unspecified renal colic; I10 Essential (primary) hypertension; K21.9 Gastro-esophageal reflux disease without esophagitis; E78.5 Hyperlipidemia, unspecified; Z79.899 Other long term (current) drug therapy
CPT/HCPCS: 74176; 80048; 80076; 83690; 85025; 96374; 96375; 99284; J1885; J2405

== ENCOUNTER 2020-10-20 13:56 | Inpatient (IN) | payer OTHER ==
[~2020-10-20] VITALS: Ht 180.3 cm; Wt 103.0 kg
[2020-10-20] MEDS ORDERED: NS 1,000 ML IV ONE ×2 (14:15→18:00)
[2020-10-20] MEDS: MORPHINE 2 MG/ML 1ML VIAL (J2270) IV PRN ×2 (14:28→14:59)
[2020-10-20 14:39] LABS: BASO % 0.3 % (0.0-1.0); EOS # 0.1 10^3/uL (0.0-0.5); EOS % 0.9 % (0.0-3.0); HEMATOCRIT 34.5 % (42.0-52.0); HEMOGLOBIN 11.1 g/dl (13.5-17.5); LYMPH # 2.2 10^3/uL (1.5-5.0); MEAN CORPUSCULAR HEMOGLOBIN 29.4 pg (27.0-33.0); MEAN CORPUSCULAR HGB CONC 32.2 g/dl (32.0-36.5); MEAN CORPUSCULAR VOLUME 91.5 fl (80.0-96.0); MONO # 0.7 10^3/uL (0.0-0.8); MONO % 6.5 % (2.0-8.0); NEUTROPHILS # 8.3 10^3/uL (1.5-8.5); NEUTROPHILS % 72.9 % (36.0-66.0); PLATELET COUNT, AUTOMATED 460 10^3/uL (150-450); RED BLOOD COUNT 3.77 10^6/uL (4.30-6.10); WHITE BLOOD COUNT 11.3 10^3/uL (4.0-10.0)
[2020-10-20 15:08] LABS: ALBUMIN 3.8 GM/DL (3.2-5.2); ALT/SGPT 20 U/L (12-78); BILIRUBIN,DIRECT 0.2 MG/DL (0.0-0.2); BILIRUBIN,TOTAL 0.7 MG/DL (0.2-1.0); BLOOD UREA NITROGEN 19 MG/DL (7-18); CARBON DIOXIDE LEVEL 27 MEQ/L (21-32); CHLORIDE LEVEL 97 MEQ/L (98-107); CK-MB VALUE MASS < 1.0 NG/ML (<3.6); CPK CREATINE PHOSPHOKINASE 38 U/L (39-308); CREATININE FOR GFR 0.92 MG/DL (0.70-1.30); GLOMERULAR FILTRATION RATE > 60.0 (>56); GLUCOSE, FASTING 111 MG/DL (70-100); LIPASE 37 U/L (73-393); MB/CK RELATIVE INDEX 2.63 (< OR =4); POTASSIUM SERUM 4.2 MEQ/L (3.5-5.1); SODIUM LEVEL 134 MEQ/L (136-145); TOTAL PROTEIN 7.7 GM/DL (6.4-8.2); TROPONIN I < 0.02 NG/ML (< 0.10)
[2020-10-20] MEDS ORDERED: ISOVUE-370 76% 100ML VIAL As Ordered ONE (15:31)
[2020-10-20 15:33] LABS: RSV AMPLIFICATION NEGATIVE (NEGATIVE)
[2020-10-20] MEDS: HYDROMORPHONE HCL 0.5 MG/ 0.5 ML SYRINGE (J1170 PER 1) IV PRN ×2 (16:05→17:06)
--- NOTE | 2020-10-20 16:10 | REP ---
INDICATION: abdominal pain, recent ureteral stent. COMPARISON: 10/18/2020 TECHNIQUE: Axial contrast-enhanced images from the lung bases to the pubic symphysis using 100 cc Isovue 370 intravenous contrast material. Coronal and sagittal reformations obtained. This CT examination was performed using the following dose reduction techniques: Automated exposure control, adjustment of mA and/or kv according to the patient's size, and the use of iterative reconstruction technique. FINDINGS: Mucosal thickening and subtle fat stranding involving distal stomach and 1/2 portions of the duodenum as well as very mild pericholecystic fluid in the adjacent gallbladder fossa raise the possibility duodenitis and possible cholecystitis. Correlation with physical examination and ultrasound may be warranted. Liver, spleen, pancreas, bilateral adrenal glands and kidneys are relatively normal/stable. Left ureteral stent is identified in stable position without hydronephrosis or acute perinephric stranding. Remainder of the enteric system is grossly unremarkable and without obstruction. Pelvis demonstrates normal bladder and age-appropriate prostate/seminal vesicles. Small fat containing inguinal hernias noted. No ascites. No free air. No adenopathy. Abdominal aorta and vasculature without aneurysm or dissection. Musculoskeletal structures are intact. Lung bases are clear. IMPRESSION: 1. Mild mucosal thickening and stranding involving the distal stomach and duodenum as well as mild pericholecystic fluid in the adjacent gallbladder fossa. Findings should be correlated clinically and may represent duodenitis/early acute cholecystitis. 2. Left ureteral stent in satisfactory position without acute left sided renal/ureteral findings. <Electronically signed by Adiel Bernal > 10/20/20 [id number]
[2020-10-20] MEDS ORDERED: PIPERACILLIN/TAZOBACTAM SOD 3.375 GM in D5W MINI-BAG PLUS 50 ML IV ONE (16:30)
--- NOTE | 2020-10-20 17:13 | REP ---
INDICATION: abdominal pain, abnormal ct COMPARISON: None. TECHNIQUE: Real time romero scale ultrasound examination using curved array transducer. FINDINGS: Liver is echogenic consistent with fatty infiltration. No focal hepatic lesion identified. The pancreas is incompletely evaluated due to interposed bowel gas. The gallbladder demonstrates wall thickening without gallstones. No biliary ductal dilatation is appreciated and the common bile duct measures 4.8 mm diameter. Right kidney is normal in reniform shape without hydronephrosis and measures 10.5 x 5.2 x 5.9 cm. No ascites in the visualized right upper quadrant. IMPRESSION: Gallbladder wall thickening without further sonographic evidence for acute cholecystitis. Recent CT suggested secondary gallbladder involvement related to possible peptic ulcer disease/duodenitis. <Electronically signed by Adiel Bernal > 10/20/20 [id number]
[2020-10-20] MEDS ORDERED: KETO10TAB PO (17:39)
[2020-10-20] MEDS ORDERED: FLOM0.4C39 PO (17:39)
[2020-10-20] MEDS ORDERED: HYDR-3713 PO (17:39)
[2020-10-20] MEDS ORDERED: ONDA4TAB6 PO (17:39)
[2020-10-20] MEDS ORDERED: MORPHINE 4 MG/ML 1ML VIAL/SYRINGE (J2270) IV PRN (17:50)
[2020-10-20] MEDS ORDERED: PERCOCET 5MG/325MG TAB PO PRN ×2 (17:50)
[2020-10-20] MEDS ORDERED: ACETAMINOPHEN 500 MG TAB PO PRN (17:50)
[2020-10-20] MEDS ORDERED: ONDANSETRON 4MG/2ML VIAL IV PRN (17:50)
[2020-10-20] MEDS ORDERED: NALOXONE INJ 0.4MG/1ML VIAL (J2310 PER 1MG) IV PRN (17:50)
[2020-10-20] MEDS ORDERED: GI COCKTAIL 50ML BTL(HYOSCYAMINE/MAALOX/LIDOCAINE VISCOUS)(1:3:1) PO PRN (17:50)
--- NOTE | 2020-10-20 18:14 | HPEPDOC ---
[facility] Medical History & Physical Date of Admission October 20, 2020 Date of Service: October 20, 2020 History and Physical CHIEF COMPLAINT: Epigastric abdominal pain HISTORY OF PRESENT ILLNESS: 50-year-old male with history of left ureteral calculus, chronic pancreatitis, history of alcohol abuse, recently admitted October 14 to 10/17/2020 for complaints of left-sided flank pain due to OBSTRUCTING stone status post left retrograde pyelogram and left. Stent placement for urinary terminal stricture on 10/15/2020, presents to emergency room with 2 day history of epigastric abdominal pain described as constant, achy stabbing colic ky states for a few hours and goes unchanged by a physician. Patient had not taken any medications without any fever, chills without any fever but had but accompanied with nausea, vomiting about 4-5 times a day. No diarrhea, no dysuria, urgency, frequency, hematuria, bright red blood per rectum, melena, black tarry stools, coffee-ground emesis or hematemesis. No prior episodes of epigastric abdominal pain. In the ER, patient was hemodynamically stable, not orthostatic. CT abdomen shows duodenitis. Hospitalist was called to admit the patient for treatment of duodenitis, questionable cholecystitis but ultrasound was negative and general surgeon, Dr. Krzysztof Waters did not believe that this was related to cholelithiasis. PAST MEDICAL /SURGICAL HISTORY: Ureteral stricture. 10/15/2020. Status post left ureteral stent and left retrograde pyelogram obstructing UPJ stone. Normocytic anemia, chronic pancreatitis, obesity, history of alcohol abuse, tobacco abuse next hyperlipidemia, appendectomy, cystoscopy, left uteroscopy, left laserlike of trips a left stone basketing double-J ureteral stent placement, obesity, BMI 33.5 SOCIAL HISTORY: Lives at home with his . Quit drinking alcohol use. 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 REVIEW OF SYSTEMS: 10 point review of systems negative aside from positive fi ndings in HPI HOME MEDICATIONS: Please see below. PHYSICAL EXAMINATION: VITAL SIGNS: See below GENERAL APPEARANCE: No pallor, icterus, jaundice, awake, alert, oriented 3, able to provide a history no conversational dyspnea. Able to speak in full sentences HEENT: No JVD, no thyromegaly, no cervical lymphadenopathy. Moist mucous membranes CARDIOVASCULAR: S1, S2 regular rate rhythm, no murmurs, rubs or gallops LUNGS: Air entry is equal bilaterally. No kyphosis. No scoliosis clear to auscultation without wheezing, rales or rhonchi ABDOMEN: Positive bowel sounds, soft, nondistended, obese. Tender epigastric region. No rebound or guarding. No hepatosplenomegaly. No abdominal bruit. No CVA tenderness EXTREMITIES: No cyanosis, clubbing or pitting edema LABORATORY DATA: See below. IMAGING: Gallbladder ultrasound. Liver is echogenic, consistent with fatty infiltration. Pancreas is incompletely evaluated due to post bowel gas. No focal hepatic lesion. Gallbladder demonstrates wall thickening without gallstones, no biliary ductal dilatation. Common bile duct measures 4.8 mm right kidney is normal without hydronephrosis. No ascites is noted. CT abdomen and pelvis: Axial contrast-enhanced images from the lung bases to the pubic symphysis using 100 cc Isovue 370 intravenous contrast material. Coronal and sagittal reformations obtained. This CT examination was performed using the following dose reduction techniques: Automated exposure control, adjustment of mA and/or kv according to the patient's size, and the use of iterative reconstruction technique. FINDINGS: Mucosal thickening and subtle fat stranding involving distal stomach and 1/2 portions of the duodenum as well as very mild pericholecystic fluid in the adjacent gallbladder fossa raise the possibility duodenitis and possible cholecystitis. Correlation with physical examination and ultrasound may be warranted. Liver, spleen, pancreas, bilateral adrenal glands and kidneys are relatively normal/stable. Left ureteral stent is identified in stable position without hydronephrosis or acute perinephric stranding. Remainder of the enteric system is grossly unremarkable and without obstruction. Pelvis demonstrates normal bladder and age-appropriate prostate/seminal vesicles. Small fat containing inguinal hernias noted. No ascites. No free air. No adenopathy. Abdominal aorta and vasculature without aneurysm or dissection. Musculoskeletal structures are intact. Lung bases are clear. IMPRESSION: 1. Mild mucosal thickening and stranding involving the distal stomach and duodenum as well as mild pericholecystic fluid in the adjacent gallbladder fossa. Findings should be correlated clinically and may represent duodenitis/early acute cholecystitis. 2. Left ureteral stent in satisfactory position without acute left sided renal/ureteral findings. MICROBIOLOGY: Please see below. ASSESSMENT: 50-year-old male with history of left ureteral calculus, chronic pancreatitis, history of alcohol abuse, recently admitted May 24 to 10/17/2020 for complaints of left-sided flank pain due to OBSTRUCTING stone status post left retrograde pyelogram and left. Stent placement for urinary terminal stricture on 10/15/2020, presents to emergency room with 2 day history of epigastric abdominal pain described as constant, achy stabbing colicky states for a few hours and goes unchanged by a physician. Patient had not taken any medications without any fever, chills without any fever but had but accompanied with nausea, vomiting about 4-5 times a day. No diarrhea, no dysuria, urgency, frequency, hematuria, bright red blood per rectum, melena, black tarry stools, coffee- ground emesis or hematemesis. No prior episodes of epigastric abdominal pain. In the ER, patient was hemodynamically stable, not orthostatic. CT abdomen shows duodenitis. Hospitalist was called to admit the patient for treatment of duode nitis, questionable cholecystitis but ultrasound was negative and general surgeon, Dr. Krzysztof Waters did not believe that this was related to cholelithiasis. Duodenitis -Clear liquid diet, medical surgical floor. IV fluids, antiemetics, PPI, Carafate, supportive care. Advance diet as tolerated. Patient received 1 dose of Zosyn due to questionable cholecystitis but ultrasound reviewed by general surgeon rehabilitation psychologist did not believe that this was cholecystitis No antibiotics Will be given empirically unless patient becomes febrile or has worsening white count, bandemia or neutrophil shift Ureteral stricture. 10/15/2020. Status post left ureteral stent and left retrograde pyelogram with history of obstructing UPJ stone. -Asymptomatic, resolved. Outpatient follow-up with urology, Normocytic anemia, -No acute indication for RBC transfusion. Monitor now obesity, BMI of 33.5 -Complicating care. -at risk for hypercapnic respiratory failure with probable obstructive sleep apnea -NICHELLE protocol history of alcohol abuse, -Quit History of tobacco abuse -Quit tobacco use hyperlipidemia, -Chronic Diet clear liquid diet DVT prophylaxis. Lovenox subcutaneous compression stockings CODE STATUS full code Vital Signs Vital Signs Date Time Temp Pulse Resp B/P (MAP) Pulse Ox O2 Delivery O2 Flow Rate FiO2 10/20/20 17:45 72 18 130/78 (95) 95 Room Air 10/20/20 14:02 96.5 Laboratory Data Labs 24H Laboratory Tests 2 10/20/20 14:22: Immature Granulocyte % (Auto) 0.4, Neutrophils (%) (Auto) 72.9H, Lymphocytes (%) (Auto) 19.0L, Monocytes (%) (Auto) 6.5, Eosinophils (%) (Auto) 0.9, Basophils (%) (Auto) 0.3, Neutrophils # (Auto) 8.3, Lymphocytes # (Auto) 2.2, Monocytes # (Auto) 0.7, Eosinophils # (Auto) 0.1, Basophils # (Auto) 0.0, Nucleated Red Blood Cells % (auto) 0.0, Anion Gap 10, Glomerular Filtration Rate > 60.0, Lactic Acid Level 1.2, Calcium Level 10.0, Total Bilirubin 0.7, Direct Bilirubin 0.2, Aspartate Amino Transf (AST/SGOT) 11, Alanine Aminotransferase (ALT/SGPT) 20, Alkaline Phosphatase 61, Total Creatine Kinase 38L, Creatine Kinase MB < 1.0, Creatine Kinase MB Relative Index 2.63, Troponin I < 0.02, Total Protein 7.7, Albumin 3.8, Albumin/Globulin Ratio 1.0, Lipase 37L, Coronavirus (COVID- 19)(PCR) NEGATIVE, Influenza Type A (RT-PCR) NEGATIVE, Influenza Type B (RT-PCR) NEGATIVE, Respiratory Syncytial Virus (PCR) NEGATIVE 10/20/20 15:46: Urine Color YELLOW, Urine Appearance HAZY, Urine pH 6.0, Urine Specific Mobile 1.019, Urine Protein 2+H, Urine Glucose (UA) NEGATIVE, Urine Ketones TRACEH, Urine Blood 2+H, Urine Nitrite NEGATIVE, Urine Bilirubin NEGATIVE, Urine Urobilinogen 2.0H, Urine Leukocyte Esterase 1+H, Urine WBC (Auto) 10H, Urine RBC (Auto) 68H, Urine Hyaline Casts (Auto) 0, Urine Bacteria (Auto) NEGATIVE, Urine Squamous Epithelial Cells 0, Urine Mucus (Auto) SMALL, Urine Sperm (Auto) CBC/BMP Laboratory Tests 10/20/20 14:22 Microbiology Microbiology 10/20/20 Urine Culture, Received Pending 10/20/20 Blood Culture, Received Pending 10/20/20 Blood Culture, Received Pending Home Medications Scheduled Multivitamins (Thera M Plus Tablet) 1 Each Tablet, 1 TAB PO DAILY Tamsulosin HCl (Flomax) 0.4 Mg Capsule, 0.4 MG PO DAILY Scheduled PRN Hydrocodone/Acetaminophen (Hydrocodone-Acetamin 5-325 mg) 1 Each Tablet, 1 TAB PO Q6H PRN for PAIN Ketorolac Tromethamine (Ketorolac Tromethamine) 10 Mg Tablet, 10 MG PO Q6H PRN for PAIN Ondansetron (Ondansetron Odt) 4 Mg Tab.rapdis, 4 MG PO Q6H PRN for NAUSEA OR V OMITING Allergies Coded Allergies: No Known Drug Allergies (Verified Allergy, Unknown, 10/19/19) A-FIB/CHADSVASC A-FIB History Current/History of A-Fib/PAF?: No Current PO Anticoag Therapy: No Age/Risk Factor Scoring CHADSVASC: CHADSVASC Response (Comments) Value Age Risk Factor Age < 65 years old 0 Gender Risk Factor Male 0 Hx of CHF No 0 Hx of HTN No 0 Hx of Stroke/TIA/or VTE No 0 Hx of Diabetes No 0 Hx of Vascular Disease No 0 Total 0 Treatment Treatment ordered: NONE ROSANNA LOOMIS MD October 20, 2020 18:14
[2020-10-20] MEDS: SUCRALFATE SUSP 1GM/10ML UD PO SCH ×2 (18:27→23:44)
[2020-10-20] MEDS: PERCOCET 5MG/325MG TAB PO SCH ×2 (18:28→23:44)
[2020-10-20 19:18] VITALS: BP 156/85
[2020-10-20] MEDS: KETOROLAC 30 MG/ML 1ML VIAL IV SCH (20:00)
[2020-10-20] MEDS: NS 1,000 ML IV SCH (20:00)
[2020-10-20] MEDS: PANTOPRAZOLE 40MG VIAL (C9113 PER 1) IV SCH (20:00)
[2020-10-20] MEDS ORDERED: SUCRALFATE 1 GM TAB PO SCH (21:00)
[2020-10-21] MEDS: KETOROLAC 30 MG/ML 1ML VIAL IV SCH ×4 (01:57→20:10)
[2020-10-21] MEDS: NS 1,000 ML IV SCH (02:33)
[2020-10-21] MEDS: PERCOCET 5MG/325MG TAB PO SCH (05:56)
[2020-10-21] MEDS: SUCRALFATE SUSP 1GM/10ML UD PO SCH ×4 (05:56→20:09)
[2020-10-21 06:00] VITALS: BP 153/83
[2020-10-21] MEDS: PANTOPRAZOLE 40MG VIAL (C9113 PER 1) IV SCH ×2 (07:51→20:09)
[2020-10-21] MEDS ORDERED: PERCOCET 5MG/325MG TAB PO ONE (09:10)
--- NOTE | 2020-10-21 09:28 | ECGEPIP ---
[facility] - ED Test Date: 2020-10-20 Pat Name: SOULEYMANE TALBERT Department: Room: - Gender: Male Bank Representative: Ari MONTERO : 1970 Requested By: TARA Brumfield Order Number: [id number] Reading MD: Carli Carolina Measurements Intervals [place] Rate: 68 P: 42 PA: 138 QRS: 11 QRSD: 86 T: 33 QT: 426 QTc: 452 Interpretive Statements Normal sinus rhythm similar 09/23/20 Electronically Signed on 10-21-2020 9:28:02 EDT by Carli Carolina
[2020-10-21 09:47] LABS: BASO % 0.4 % (0.0-1.0); EOS # 0.2 10^3/uL (0.0-0.5); EOS % 2.2 % (0.0-3.0); HEMATOCRIT 29.2 % (42.0-52.0); HEMOGLOBIN 9.2 g/dl (13.5-17.5); LYMPH % 29.4 % (24.0-44.0); MEAN CORPUSCULAR HEMOGLOBIN 29.4 pg (27.0-33.0); MEAN CORPUSCULAR HGB CONC 31.5 g/dl (32.0-36.5); MEAN CORPUSCULAR VOLUME 93.3 fl (80.0-96.0); MONO # 0.7 10^3/uL (0.0-0.8); MONO % 9.5 % (2.0-8.0); NEUTROPHILS % 58.2 % (36.0-66.0); PLATELET COUNT, AUTOMATED 364 10^3/uL (150-450); RED BLOOD COUNT 3.13 10^6/uL (4.30-6.10); WHITE BLOOD COUNT 6.9 10^3/uL (4.0-10.0)
[2020-10-21] MEDS ORDERED: GI COCKTAIL 50ML BTL(HYOSCYAMINE/MAALOX/LIDOCAINE VISCOUS)(1:3:1) PO ONE (10:00)
[2020-10-21] MEDS: TAMSULOSIN 0.4 MG CAP PO SCH (10:01)
[2020-10-21] MEDS: MULTIVITAMINS/MINERALS THERAP 1 TAB PO SCH (10:01)
[2020-10-21 10:07] LABS: ERYTHROCYTE SEDIMENTATION RATE 52 mm/hr (0-20)
[2020-10-21 10:24] LABS: ALBUMIN 2.8 GM/DL (3.2-5.2); ALT/SGPT 15 U/L (12-78); BILIRUBIN,TOTAL 0.4 MG/DL (0.2-1.0); BLOOD UREA NITROGEN 16 MG/DL (7-18); C REACTIVE PROTEIN QUANTITATIV 0.85 MG/DL (0.00-0.30); CALCIUM LEVEL 8.2 MG/DL (8.5-10.1); CARBON DIOXIDE LEVEL 25 MEQ/L (21-32); CHLORIDE LEVEL 106 MEQ/L (98-107); CK-MB VALUE MASS < 1.0 NG/ML (<3.6); CPK CREATINE PHOSPHOKINASE 33 U/L (39-308); GLOMERULAR FILTRATION RATE > 60.0 (>56); GLUCOSE, FASTING 72 MG/DL (70-100); HEMOGLOBIN A1c 5.1 %; LIPASE 66 U/L (73-393); MAGNESIUM LEVEL 1.9 MG/DL (1.8-2.4); MB/CK RELATIVE INDEX 3.03 (< OR =4); POTASSIUM SERUM 3.9 MEQ/L (3.5-5.1); SODIUM LEVEL 136 MEQ/L (136-145); THYROID STIMULATING HORMONE 0.889 uIU/ML (0.358-3.740); TOTAL PROTEIN 5.9 GM/DL (6.4-8.2); TROPONIN I < 0.02 NG/ML (< 0.10)
--- NOTE | 2020-10-21 13:07 | IPN ---
PROGRESS NOTE DATE: 10/21/2020 SUBJECTIVE: Patient still complains of diffuse epigastric abdominal pain, only slightly improved, rated 6/10, colicky, lasts for several hours. No nausea, vomiting, fever or chills overnight. No diarrhea or constipation. No bright red blood per rectum, melena or black tarry stools, hematemesis or coffee-ground emesis. OBJECTIVE: Temperature 98.1, pulse 68, respiratory rate 18, blood pressure 153/83, 96% on room air. GENERAL: Awake, alert, oriented times three, answering questions appropriately. HEENT: No jugular venous distention (JVD), thyromegaly or cervical lymphadenopathy. LUNGS: Clear to auscultation. No wheezing, rales or rhonchi. HEART: S1, S2. Sinus rhythm. ABDOMEN: Obese. Nondistended. Positive bowel sounds times four quadrants. No rebound or guarding. Slightly tender in the epigastric region. No hepatosplenomegaly. No costovertebral angle (CVA) tenderness. EXTREMITIES: No cyanosis or clubbing. LABORATORY DATA: Laboratory data, microbiology, imaging studies reviewed. ASSESSMENT: This is a 50-year-old male with recent obstructive kidney stone with left retrograde pyelogram stent placement and ureteral stone on 10/15/2020, presents with epigastric discomfort with CT abdomen and pelvis showing duodenitis. Dr. Krzysztof Waters, general surgeon space systems operations manager, did not believe this was acute cholecystitis. Patient was initially given intravenous (IV) Zosyn yesterday with normal white count. No fever or chills. No bandemia, with normal lactic acid, admitted for duodenitis. IMPRESSION: 1. Duodenitis. Abdominal pain, currently on IV Protonix, Carafate, clear liquid diet. Advance as tolerated. Antiemetics and IV fluid. If procalcitonin is elevated, empiric treatment with antibiotics for gram-negative coverage. 2. Ureteral stricture status post stent placement 10/15/2020. Asymptomatic. Outpatient followup with urology. 3. Normocytic anemia. No acute indication for red blood cell (RBC) transfusion. 4. Obesity complicating care. At risk for hypercarbic hypercapnic respiratory failure, respiratory acidosis. Therefore, monitor while on opioids. Obstructive sleep apnea (NICHELLE) protocol. 5. History of alcohol abuse. Quit. 6. History of tobacco abuse. Quit. 7. Hyperlipidemia. Chronic. 8. Diet. Clear liquid diet. Advance as tolerated.
[2020-10-21 14:00] VITALS: BP 130/68
[2020-10-21 22:00] VITALS: BP 128/66
[2020-10-22] MEDS: KETOROLAC 30 MG/ML 1ML VIAL IV SCH ×2 (02:33→08:35)
[2020-10-22 06:00] VITALS: BP 152/88
[2020-10-22] MEDS ORDERED: PROT1TAB2 PO (08:05)
[2020-10-22] MEDS ORDERED: CARA1TAB6 PO (08:05)
[2020-10-22] MEDS: PANTOPRAZOLE 40MG VIAL (C9113 PER 1) IV SCH (08:35)
[2020-10-22] MEDS: SUCRALFATE SUSP 1GM/10ML UD PO SCH (08:35)
[2020-10-22] MEDS: MULTIVITAMINS/MINERALS THERAP 1 TAB PO SCH (08:35)
[2020-10-22] MEDS: TAMSULOSIN 0.4 MG CAP PO SCH (08:35)
--- NOTE | 2020-10-22 11:14 | DS.PDOC ---
Discharge Summary General Date of Admission October 20, 2020 at 17:47 Date of Discharge 10/22/2020 Discharge Summary PROCEDURES PERFORMED DURING STAY: [None]. ADMITTING DIAGNOSES / DISCHARGE DIAGNOSES: s/p Abdominal pain - likely 2/2 duodenitis Ureteral stricture s/p stent placement Normocytic anemia Obesity History of alcohol abuse History of tobacco abuse DLP DVT prophylaxis COMPLICATIONS/CHIEF COMPLAINT: Abdominal pain HISTORY OF PRESENT ILLNESS: Patient is a 50-year-old male with a past medical history of left ureteral stones, chronic pancreatitis, history of alcohol abuse, recent admission 10/14-10/17 for complaints of left-sided flank pain because of an obstructing stone. Patient has had a stent placement for ureteral stricture on 10/15. Patient presented to emergency room with complaints of abdominal pain ongoing for 2 days, reported as constant achy in the emergency room, patient had CT scans which had revealed duodenitis, patient had ultrasound of his gallbladder that was negative for any evidence of cholecystitis. Patient was admitted to the hospital service for further evaluation and treatment. Patient was seen and examined at the bedside this morning. He denied any nausea, vomiting, chest pain, shortness breath, palpitations. Denies any abdominal pain, constipation or diarrhea. Patient was able to tolerate a regular diet. HOSPITAL COURSE: s/p Abdominal pain - likely 2/2 duodenitis - This morning patient had reported resolution of his nausea, vomiting, abdominal pain - Physical did not reveal any abdominal tenderness - No leukocytosis and pro-calcitonin was negative - Imaging noted below - Continue Protonix and Carafate - Patient has been advised to follow-up with gastroenterology and primary care provider within the next 7 days Ureteral stricture s/p stent placement 10/15/2020 - Patient is not experiencing any left-sided flank pain - c/w Tamsulosin - Will have outpatient follow-up with urology as scheduled Normocytic anemia - No evidence of bleeding - Will have outpatient follow-up with primary care provider within the next 7 days Obesity - BMI of 31.7 - Couple getting medical care History of alcohol abuse - Patient has reported that he has quit History of tobacco abuse - Patient has reported that he has quit DLP - Remain not on any medications DVT prophylaxis - c/w TEDs/Sequentials DISCHARGE MEDICATIONS: Please see below. ALLERGIES: Please see below. PHYSICAL EXAMINATION ON DISCHARGE: Vitals (See below) General: Lying in bed, no acute distress, comfortable, AAOx3 HEENT: NC, AT CVS: +S1S2 Lungs: Fair air entry b/l, -w/r/r Abdomen: Soft, abdomen is nondistended and nontender, bowel sounds are present in all 4 quadrants. No rigidity or rebound Extremities: no evidence of edema, - Calf tenderness LABORATORY DATA: Please see below. IMAGING: CT abdomen / pelvis 10/20: 1. Mild mucosal thickening and stranding involving the distal stomach and duodenum as well as mild pericholecystic fluid in the adjacent gallbladder fossa. Findings should be correlated clinically and may represent duodenitis/early acute cholecystitis. 2. Left ureteral stent in satisfactory position without acute left sided renal/ureteral findings. Gallbladder US 10/20: Gallbladder wall thickening without further sonographic evidence for acute ch olecystitis. Recent CT suggested secondary gallbladder involvement related to possible peptic ulcer disease/duodenitis. ACTIVITY: [As tolerated]. DISCHARGE PLAN: Follow-up with primary care provider and gastroenterology within the next 7 days Remain compliant with treatment plan and medications Return to the ER if you experience any problems DISPOSITION: Home, Self-Care. DISCHARGE CONDITION: [Stable]. TIME SPENT ON DISCHARGE: 35 minutes. Vital Signs/I&Os Vital Signs Date Time Temp Pulse Resp B/P (MAP) Pulse Ox O2 Delivery O2 Flow Rate FiO2 10/22/20 06:00 97.8 77 21 152/88 (109) 99 Room Air I&O- Last 24 Hours up to 6 AM 10/22/20 05:59 Intake Total 1540 ml Output Total 350 ml Balance 1190 ml Microbiology Microbiology 10/20/20 Urine Culture - Final, Complete 10/20/20 Blood Culture - Preliminary, Resulted No growth after 24 hours . All specim... 10/20/20 Blood Culture - Preliminary, Resulted No growth after 24 hours . All specim... Discharge Medications Scheduled Multivitamins (Thera M Plus Tablet) 1 Each Tablet, 1 TAB PO DAILY, (Reported) Pantoprazole Sodium (Protonix) 40 Mg Tablet.dr, 1 TAB PO DAILY Sucralfate (Carafate) 1 Gm Tablet, 1 TAB PO QID Tamsulosin HCl (Flomax) 0.4 Mg Capsule, 0.4 MG PO DAILY, (Reported) Scheduled PRN Hydrocodone/Acetaminophen (Hydrocodone-Acetamin 5-325 mg) 1 Each Tablet, 1 TAB PO Q6H PRN for PAIN, (Reported) Ondansetron (Ondansetron Odt) 4 Mg Tab.rapdis, 4 MG PO Q6H PRN for NAUSEA OR VOMITING, (Reported) Allergies Coded Allergies: No Known Drug Allergies (Verified Allergy, Unknown, 10/19/19) PEGGY FLOOD MD Oct 22, 2020 11:14
== END 2020-10-22 09:25 | disposition home or self-care (01) | DRG 241 ==
LOC: EDBD 13:56 → M ED 13:56 → EDSEX 13:56 → M ED INP 17:47 → ENRESERV 18:20 → M MS5PR 19:00
PROVIDERS: ADMIT General Practice; ATTEND Internal Medicine
DX: K29.80 Duodenitis without bleeding (principal); K86.1 Other chronic pancreatitis; Z68.33 Body mass index [BMI] 33.0-33.9, adult; D64.9 Anemia, unspecified; E66.9 Obesity, unspecified; Z87.442 Personal history of urinary calculi; Z79.899 Other long term (current) drug therapy; E78.5 Hyperlipidemia, unspecified

== ENCOUNTER → 2020-10-29 | Outpatient (REF) | payer OTHER | LOC: M LAB REF 19:21 | PROVIDERS: ATTEND Dermatology | DX: C44.622 Squamous cell carcinoma of skin of right upper limb, including shoulder (principal) ==

== ENCOUNTER 2020-11-02 18:26 | Inpatient (IN) | payer OTHER ==
[~2020-11-02] VITALS: Ht 180.3 cm; Wt 104.9 kg
[2020-11-02] MEDS ORDERED: NS 1,000 ML IV ONE (18:45)
[2020-11-02] MEDS ORDERED: MORPHINE 4 MG/ML 1ML VIAL/SYRINGE (J2270) IV ONE ×3 (18:45→21:10)
[2020-11-02 20:15] LABS: BASO # 0.1 10^3/uL (0.0-0.2); BASO % 0.6 % (0.0-1.0); EOS # 0.2 10^3/uL (0.0-0.5); EOS % 1.6 % (0.0-3.0); HEMATOCRIT 35.2 % (42.0-52.0); LYMPH # 2.8 10^3/uL (1.5-5.0); LYMPH % 23.8 % (24.0-44.0); MEAN CORPUSCULAR HEMOGLOBIN 28.5 pg (27.0-33.0); MEAN CORPUSCULAR HGB CONC 31.3 g/dl (32.0-36.5); MEAN CORPUSCULAR VOLUME 91.2 fl (80.0-96.0); MONO # 0.7 10^3/uL (0.0-0.8); MONO % 6.4 % (2.0-8.0); NEUTROPHILS # 7.8 10^3/uL (1.5-8.5); NEUTROPHILS % 67.3 % (36.0-66.0); PLATELET COUNT, AUTOMATED 518 10^3/uL (150-450); RED BLOOD COUNT 3.86 10^6/uL (4.30-6.10); WHITE BLOOD COUNT 11.6 10^3/uL (4.0-10.0)
--- NOTE | 2020-11-02 20:19 | REPVR ---
PROCEDURE INFORMATION: Exam: US Abdomen, Limited; Right Upper Quadrant Exam date and time: 11/02/2020 7:17 PM Age: 50 years old Clinical indication: Abdominal pain; Epigastric; Additional info: Ruq pain TECHNIQUE: Imaging protocol: US abdomen. Real time ultrasound with image documentation. Limited exam focused on the right upper quadrant. COMPARISON: GALLBLADDER US 10/20/2020 4:51 PM FINDINGS: Liver: The liver is diffusely echogenic relative to the right kidney, findings consistent with steatosis. Focal fatty sparing adjacent to the gallbladder Gallbladder: Normal. No gallstones. There is no gallbladder wall thickening. Common bile duct: The common bile duct measures 3.1 mm. No mass or choledocholithiasis. Pancreas: Visualized pancreas is unremarkable. Right kidney: Right kidney measures 11.1 x 5.7 x 5.8 cm. IMPRESSION: 1. Hepatic steatosis. 2. No acute findings. Electronically signed by: Graham Zafar On 11/02/2020 20:19:12 PM
[2020-11-02 20:41] LABS: ALBUMIN 3.6 GM/DL (3.2-5.2); ALT/SGPT 19 U/L (12-78); BILIRUBIN,DIRECT 0.1 MG/DL (0.0-0.2); BILIRUBIN,TOTAL 0.4 MG/DL (0.2-1.0); BLOOD UREA NITROGEN 15 MG/DL (7-18); CALCIUM LEVEL 9.4 MG/DL (8.5-10.1); CARBON DIOXIDE LEVEL 30 MEQ/L (21-32); CHLORIDE LEVEL 100 MEQ/L (98-107); CREATININE FOR GFR 0.94 MG/DL (0.70-1.30); GLOMERULAR FILTRATION RATE > 60.0 (>56); GLUCOSE, FASTING 117 MG/DL (70-100); LIPASE 227 U/L (73-393); POTASSIUM SERUM 4.1 MEQ/L (3.5-5.1); SODIUM LEVEL 135 MEQ/L (136-145); TOTAL PROTEIN 7.5 GM/DL (6.4-8.2)
[2020-11-02] MEDS ORDERED: ISOVUE-370 76% 100ML VIAL As Ordered ONE (21:10)
--- NOTE | 2020-11-02 21:38 | REPVR ---
PROCEDURE INFORMATION: Exam: CT Abdomen And Pelvis With Contrast Exam date and time: 11/02/2020 9:14 PM Age: 50 years old Clinical indication: Other: Right sided pain TECHNIQUE: Imaging protocol: Computed tomography of the abdomen and pelvis with contrast. Radiation optimization: All CT scans at this facility use at least one of these dose optimization techniques: automated exposure control; mA and/or kV adjustment per patient size (includes targeted exams where dose is matched to clinical indication); or iterative reconstruction. Contrast material: ISOVUE 370; Contrast volume: 100 ml; Contrast route: INTRAVENOUS (IV); COMPARISON: SR CT ABD/PEL W/IV CONTRAST ONLY 10/20/2020 3:48 PM FINDINGS: Tubes, catheters and devices: Double pigtail stent catheter demonstrated with the proximal coil located in the renal pelvis near the UV junction. Distal coil coiled in the bladder. Liver: There is a diffuse decrease in hepatic parenchymal density, consistent with steatosis. Gallbladder and bile ducts: Gallbladder not fully distended. No obvious calculi demonstrated. There is pericholecystic fluid. In the absence of any calculi demonstrated on prior ultrasound possibility of acalculous cholecystitis to be considered versus reactive changes related to adjacent duodenitis. Pancreas: Normal. No ductal dilation. Spleen: Normal. No splenomegaly. Adrenal glands: There is bilateral adrenal hyperplasia. Kidneys and ureters: Normal. No hydronephrosis. Stomach and bowel: Mild inflammatory changes in the duodenal sweep may be reactive or represent primary duodenitis. Appendix: No evidence of appendicitis. Intraperitoneal space: Unremarkable. No free air. No significant fluid collection. Vasculature: The aortoiliac vessels demonstrate mild atherosclerotic calcification. Lymph nodes: Unremarkable. No enlarged lymph nodes. Urinary bladder: See "Tubes, catheters and devices" finding. Reproductive: Unremarkable as visualized. Bones/joints: The spine demonstrates mild degenerative changes. Mild central spinal stenosis L4-L5. Soft tissues: Unremarkable. IMPRESSION: 1. There is a diffuse decrease in hepatic parenchymal density, consistent with steatosis. 2. Gallbladder not fully distended. No obvious calculi demonstrated. There is pericholecystic fluid. In the absence of any calculi demonstrated on prior ultrasound possibility of acalculous cholecystitis to be considered versus reactive changes related to adjacent duodenitis. 3. Mild inflammatory changes in the duodenal sweep may be reactive or represent primary duodenitis. 4. There is bilateral adrenal hyperplasia. 5. Double pigtail stent catheter demonstrated with the proximal coil located in the renal pelvis near the UV junction. Distal coil coiled in the bladder. Electronically signed by: Graham Zafar On 11/02/2020 21:37:50 PM
--- NOTE | 2020-11-02 21:41 | REPVR ---
PROCEDURE INFORMATION: Exam: CTA Chest With Contrast Exam date and time: 11/02/2020 9:14 PM Age: 50 years old Clinical indication: Other: Right sided pain TECHNIQUE: Imaging protocol: Computed tomographic angiography of the chest with contrast. 3D rendering (Not supervised by radiologist): MIP and/or 3D reconstructed images were created by the technologist. Radiation optimization: All CT scans at this facility use at least one of these dose optimization techniques: automated exposure control; mA and/or kV adjustment per patient size (includes targeted exams where dose is matched to clinical indication); or iterative reconstruction. Contrast material: ISOVUE 370; Contrast volume: 100 ml; Contrast route: INTRAVENOUS (IV); COMPARISON: CT ANGIO CHEST 10/10/2017 1:17 PM FINDINGS: Pulmonary arteries: Contrast density within the pulmonary arteries is insufficient in order to exclude the presence of small peripheral pulmonary emboli. That said, there are no large or medium-sized vessel emboli visualized. Aorta: There is no aortic dissection or aneurysm. Lungs: Bibasilar atelectasis. Lungs otherwise clear. Pleural spaces: Unremarkable. No pneumothorax. No pleural effusion. Heart: Unremarkable. No cardiomegaly. No pericardial effusion. Lymph nodes: Unremarkable. No enlarged lymph nodes. Bones/joints: Unremarkable. No acute fracture. Soft tissues: Unremarkable. IMPRESSION: 1. There is no aortic dissection or aneurysm. 2. Contrast density within the pulmonary arteries is insufficient in order to exclude the presence of small peripheral pulmonary emboli. That said, there are no large or medium-sized vessel emboli visualized. 3. No acute pulmonary parenchymal abnormalities. Electronically signed by: Graham Zafar On 11/02/2020 21:41:11 PM
[2020-11-02] MEDS ORDERED: PANTOPRAZOLE 40MG VIAL (C9113 PER 1) IV ONE (22:40)
[2020-11-02] MEDS ORDERED: PIPERACILLIN/TAZOBACTAM SOD 4.5 GM in D5W MINI-BAG PLUS 50 ML IV ONE (22:40)
[2020-11-02] MEDS ORDERED: PANT-23 PO (23:07)
[2020-11-02] MEDS ORDERED: SUCR1TAB56 PO (23:07)
--- NOTE | 2020-11-02 23:12 | HPEPDOC ---
[facility] Medical History & Physical Date of Admission Nov 02, 2020 Date of Service: Nov 02, 2020 Attending Physician: NORMAN MORA MD History and Physical TIME OF SERVICE: 1155pm CHIEF COMPLAINT: abdominal pain HISTORY OF PRESENT ILLNESS: This 's 4th admission to the hospital and in the last month; the first 2 admissions were due postprocedure bladder spasmi 2/2 left ureteral stent placement and ureteral stricture respectively. The third admission, at the end of September was attributed to duodenitis; during that admission US of the gallbladder had identified gallbladder wall thickening w/o acute cholecystitis. The case was discussed with who didnt feel that the pain was due to any gall bladder pathology. Today he presented w c/o of 10/10 in severity, non-radiating RUQ abdominal pain that begun yesterday afternoon. The pain is different from the pain that he had due to pancreatitis or kidney stones; he couldnt identify any aggravating or alleviating factors. He denied having n/v/d/f/c. REVIEW OF SYSTEMS: 12-point review of systems negative except as listed in HPI PAST MEDICAL/ SURGICAL HISTORY: Fatty liver, BPH, DLP, urolithasis & ureteral stricture managed with left ureteral stent and left retrograde pyelogram, ZEKE, chronic pancreatitis, class 1 obesity, appendectomy SOCIAL HISTORY: Lives at home with his . Has a history of alcohol & tobacco abuse, but quit drinking & smoking. 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 HOME MEDICATIONS: Please see below. PHYSICAL EXAMINATION: Vital Signs Date Time Temp Pulse Resp B/P (MAP) Pulse Ox O2 Delivery O2 Flow Rate FiO2 11/02/20 18:36 139/86 (103) 11/02/20 18:38 98.9 97 18 99 Room Air GENERAL APPEARANCE: well nourished and developed/ appears to be in excruciating pain HEENT: covering eyes bc he is teary CARDIOVASCULAR: RRR/NMRG LUNGS: CTAB on RA ABDOMEN: old post- appendectomy scar at mid-abdomen / no tamayo sign or turners sign / c/o pain even with auscultation of the abdomen MUSCULOSKELETAL: EUGENE x 4 INTEGUMENT: face is slightly flushed /he is not pale or diaphoretic NEUROLOGICAL: speech not dysarthric PSYCHIATRIC: A&O x 3 /able to understand and follow all commands LABORATORY DATA: Immature Granulocyte % (Auto) 0.3, Neutrophils (%) (Auto) 67.3H, Lymphocytes (%) (Auto) 23.8L, Monocytes (%) (Auto) 6.4, Eosinophils (%) (Auto) 1.6, Basophils (%) (Auto) 0.6, Neutrophils # (Auto) 7.8, Lymphocytes # (Auto) 2.8, Monocytes # (Auto) 0.7, Eosinophils # (Auto) 0.2, Basophils # (Auto) 0.1, Nucleated Red Blood Cells % (auto) 0.0, Urine Color YELLOW, Urine Appearance HAZY, Urine pH 5.0, Urine Specific [place] 1.021, Urine Protein 2+H, Urine Glucose (UA) NEGATIVE, Urine Ketones NEGATIVE, Urine Blood 1+H, Urine Nitrite NEGATIVE, Urine Bilirubin NEGATIVE, Urine Urobilinogen 0.2, Urine Leukocyte Esterase 1+H, Urine WBC (Auto) 8H, Urine RBC (Auto) 10H, Urine Hyaline Casts (Auto) 1, Urine Bacter ia (Auto) NEGATIVE, Urine Squamous Epithelial Cells 0, Urine Mucus (Auto) SMALL, Urine Sperm (Auto) , POC Glucose (Misc Panel) 128H, POC Sodium (Misc Panel) 136, POC Potassium (Misc Panel) 3.8, POC Chloride (Misc Panel) 97L, POC Total CO2 (Misc Panel) 28.0H, POC Blood Urea Nitrogen (Misc Panel 13, POC Ionized Calcium (Misc Panel) 5.0, POC Creatinine (Misc Panel) 0.9, POC Hematocrit (Misc Panel) 37.0L, Anion Gap 5L, Glomerular Filtration Rate > 60.0, Calcium Level 9.4, Total Bilirubin 0.4, Direct Bilirubin 0.1, Aspartate Amino Transf (AST/SGOT) 8, Alanine Aminotransferase (ALT/SGPT) 19, Alkaline Phosphatase 60, Total Protein 7.5, Albumin 3.6, Albumin/Globulin Ratio 0.9, Lipase 227 IMAGING: Gallbladder US IMPRESSION: 1. Hepatic steatosis. 2. No acute findings. CT abd/pelvis IMPRESSION: 1. There is a diffuse decrease in hepatic parenchymal density, consistent with steatosis. 2. Gallbladder not fully distended. No obvious calculi demonstrated. There is pericholecystic fluid. In the absence of any calculi demonstrated on prior ultrasound possibility of acalculous cholecystitis to be considered versus reactive changes related to adjacent duodenitis. 3. Mild inflammatory changes in the duodenal sweep may be reactive or represent primary duodenitis. 4. There is bilateral adrenal hyperplasia. 5. Double pigtail stent catheter demonstrated with the proximal coil located in the renal pelvis near the UV junction. Distal coil coiled in the bladder. CTA chest IMPRESSION: 1. There is no aortic dissection or aneurysm. 2. Contrast density within the pulmonary arteries is insufficient in order to exclude the presence of small peripheral pulmonary emboli. That said, there are no large or medium-sized vessel emboli visualized. 3. No acute pulmonary parenchymal abnormalities. MICROBIOLOGY: respiratory panel neg ASSESSMENT: is a 50 yr old M w Fatty liver, BPH, DLP, urolithasis & ureteral stricture managed with left ureteral stent and left retrograde pyelogram, ZEKE, chronic pancreatitis, class 1 obesity who is admitted for evaluation of abdominal pain of unclear cause. PLAN: 1 Abdominal pain Possibly due to duodenitis vs acalculous cholecystis Plan: admit to medical floor /NPO / IVF/ Dilaudid / PPI w carafate / c/w Zosyn /f/u HIDA Scan/ will ask the day time team to consult Gen Surg 2 migrating ureteral stent? Plan: will ask the day time team to consult Urology 3 ZEKE Thrombocytosis is likely reactive Recent iron panel reviewed Plan: out pt GI referral for C-scop 4 Elevated HCO3 Possibly due to OHS Plan: he can f/u with his PCP for a sleep study 5 BPH Plan: tamsulosin 6 Class 1 obesity Complicates care A1C 5.1 a few weeks ago DVT Px w SCDs (Marcell Score = 1 = pharmacological px is not indicated) Dispo: home after more than 2 midnights stay Home Medications Scheduled Multivitamins (Thera M Plus Tablet) 1 Each Tablet, 1 TAB PO DAILY Pantoprazole Sodium (Pantoprazole Sodium) 40 Mg Tablet.dr, 40 MG PO DAILY Sucralfate (Sucralfate) 1 Gm Tablet, 1 GRAM PO QID Tamsulosin HCl (Flomax) 0.4 Mg Capsule, 0.4 MG PO DAILY Scheduled PRN Hydrocodone/Acetaminophen (Hydrocodone-Acetamin 5-325 mg) 1 Each Tablet, 1 TAB PO Q6H PRN for PAIN Ondansetron (Ondansetron Odt) 4 Mg Tab.rapdis, 4 MG PO Q6H PRN for NAUSEA OR VOMITING Allergies Coded Allergies: No Known Drug Allergies (Verified Allergy, Unknown, 10/19/19) A-FIB/CHADSVASC A-FIB History Current/History of A-Fib/PAF?: No Current PO Anticoag Therapy: No NORMAN MORA MD Nov 02, 2020 23:12
[2020-11-02] MEDS ORDERED: MOM 30ML SUSPENSION UDC PO PRN (23:20)
[2020-11-02] MEDS ORDERED: ACETAMINOPHEN TAB 650MG DOSE (2X325MG) PO PRN (23:20)
[2020-11-02] MEDS ORDERED: D5W/0.9% SODIUM CHLORIDE 1,000 ML IV SCH (23:20)
[2020-11-02] MEDS ORDERED: MAALOX 30 ML SUSP *UDC PO PRN (23:20)
[2020-11-03] VITALS (10 sets, daily range): BP systolic 108–135; BP diastolic 69–80
[2020-11-03] MEDS ORDERED: HYDROmorphone HCL 2 MG/ML 1ML VIAL (J1170) IV PRN
[2020-11-03] MEDS: HYDROMORPHONE HCL 0.5 MG/ 0.5 ML SYRINGE (J1170 PER 1) IV PRN ×2 (00:13→03:06)
[2020-11-03 00:34] LABS: RSV AMPLIFICATION NEGATIVE (NEGATIVE)
[2020-11-03 06:34] LABS: HEMATOCRIT 32.5 % (42.0-52.0); HEMOGLOBIN 9.8 g/dl (13.5-17.5); MEAN CORPUSCULAR HGB CONC 30.2 g/dl (32.0-36.5); MEAN CORPUSCULAR VOLUME 92.9 fl (80.0-96.0); PLATELET COUNT, AUTOMATED 456 10^3/uL (150-450); WHITE BLOOD COUNT 8.6 10^3/uL (4.0-10.0)
[2020-11-03 07:05] LABS: HEMOGLOBIN A1c 5.5 %
[2020-11-03 08:25] LABS: BLOOD UREA NITROGEN 14 MG/DL (7-18); CALCIUM LEVEL 8.7 MG/DL (8.5-10.1); CARBON DIOXIDE LEVEL 29 MEQ/L (21-32); CHLORIDE LEVEL 104 MEQ/L (98-107); CREATININE FOR GFR 0.94 MG/DL (0.70-1.30); GLOMERULAR FILTRATION RATE > 60.0 (>56); GLUCOSE, FASTING 94 MG/DL (70-100); POTASSIUM SERUM 4.2 MEQ/L (3.5-5.1); SODIUM LEVEL 139 MEQ/L (136-145)
--- NOTE | 2020-11-03 08:27 | CR ---
CONSULTATION DATE OF CONSULATION: 11/03/2020 REASON FOR CONSULTATION: Abdominal pain. HISTORY OF PRESENT ILLNESS: Patient is a 50-year-old male who comes into the hospital with right upper quadrant abdominal pain that has been constant since . He said the pain is getting worse and that is why he came into the hospital for evaluation. He has had a similar admission for duodenitis and abdominal pain at the end of September, however he claims that this pain is worse and more to the side of the abdomen than his last episode. He denies any nausea or vomiting, no fevers or chills, no changes in bowel movements, no recent travel or trauma to the abdomen. He denies any alcohol usage, no tobacco usage. No problems with heartburn or reflux. No changes in diet or medications. No changes in his bowel movements. The only complaint is the pain. He has been in the hospital overnight. His white count has improved, however his pain on exam, he claims, is unchanged and is still severe, 10/10. PAST MEDICAL HISTORY: Fatty liver, BPH, kidney stones, chronic pancreatitis. PAST SURGICAL HISTORY: Ureteral stent placement, appendectomy. SOCIAL HISTORY: Has a history of alcohol and tobacco abuse. Denies any alcohol, drug, or tobacco usage currently. FAMILY HISTORY: Noncontributory. ALLERGIES: None. MEDICATIONS: Please see medication reconciliation. REVIEW OF SYSTEMS: Pertinent positives and negatives as stated in the history of present illness (HPI). PHYSICAL EXAMINATION: General: Alert and oriented times three, no acute distress. Vital signs: Temperature 97.1, pulse 66, respirations 20, blood pressure 121/78, pulse oximetry 99% on room air. HEENT: Pupils equally round and reactive to light and accommodation. Heart: S1, S2, regular rate and rhythm. Lungs: Clear to auscultation bilaterally. Abdomen: Soft, tender to palpation at the right upper quadrant inferior to the rib cage, no rebound or guarding, no rigidity. Extremities: No clubbing, cyanosis, or edema. LABORATORY DATA: White count 11.6 on admission, down to 8.6 this morning, hemoglobin 9.8, platelets 456, LFTs all within normal limits. IMAGING: Gallbladder ultrasound was completed which was completely normal, no gallstones, no wall thickening, no fluid around the gallbladder, and the common bile duct is normal at 3.[address] abdomen and pelvis does show fluid around the duodenal sweep, mild inflammatory changes possibly reactive to duodenitis. ASSESSMENT AND PLAN: Patient is a 50-year-old male with severe right upper quadrant pains. Imaging thus far is demonstrating duodenitis, the source of which is unknown at this time. Recommendation is to continue with IV fluids, antibiotics, can start him on a clear liquid diet and just see how he tolerates that. This is unlikely to be gallbladder pathology because with a normal ultrasound for him to have symptoms from the gallbladder it would have to be either acutely inflamed with wall thickening and pericholecystic fluid or else his pain would be from eating where there is stimulation of the gallbladder, neither of which are currently in place. HIDA scan, I was told, is ordered, however I do not believe that would be done until tomorrow at the earliest. For now, I advised him just to take it easy, give the antibiotics a chance to worse, and I will followup with the HIDA with further recommendations after that.
[2020-11-03] MEDS ORDERED: PANTOPRAZOLE 40MG VIAL (C9113 PER 1) IV SCH (09:00)
[2020-11-03] MEDS ORDERED: ONDANSETRON 4MG/2ML VIAL IV PRN (09:15)
[2020-11-03] MEDS ORDERED: diphenhydrAMINE 50MG/ML VIAL (J1200) IV PRN (09:15)
[2020-11-03] MEDS ORDERED: NALOXONE INJ 0.4MG/1ML VIAL (J2310 PER 1MG) IV PRN (09:15)
[2020-11-03] MEDS ORDERED: EPIDURAL/PCA KEYS XX PRN (09:15)
[2020-11-03] MEDS ORDERED: NS 1,000 ML IV ONE (09:15)
[2020-11-03] MEDS ORDERED: NS 1,000 ML IV SCH (09:15)
[2020-11-03] MEDS: PIPERACILLIN/TAZOBACTAM SOD 3.375 GM in D5W MINI-BAG PLUS 50 ML IV SCH ×3 (09:17→23:37)
[2020-11-03] MEDS: SUCRALFATE 1 GM TAB PO SCH ×4 (09:25→20:31)
[2020-11-03] MEDS: TAMSULOSIN 0.4 MG CAP PO SCH (09:25)
[2020-11-03] MEDS ORDERED: MORPHINE 10 MG/ML 1ML VIAL (J2270) IV ONE (09:30)
[2020-11-03] MEDS: MORPHINE 1MG/ML IN 0.9% NACL 100ML IV BAG IV PRN (10:07)
--- NOTE | 2020-11-03 12:22 | IPN ---
PROGRESS NOTE DATE: 11/03/2020 SUBJECTIVE: Patient complains of severe pain right upper quadrant without nausea, vomiting, fever or chills. Pain described as very sharp, lasts for a long time, hours at a time, better when he lays still and alleviated with position or current I.V. Dilaudid. PHYSICAL EXAMINATION: VITAL SIGNS: Temperature 97.1, pulse 66, respiratory rate 20, blood pressure 121/78, 99% on room air. GENERAL: Awake, alert, oriented x3, answering questions appropriately, no distress. HEENT: No Icterus, jaundice or pallor. LUNGS: Clear to auscultation. No wheezing, rales or rhonchi. HEART: S1, S2, sinus rhythm. ABDOMEN: Soft, tender right upper quadrant. No rebound or guarding. Positive bowel sounds. Well healed appendectomy scar noted. EXTREMITIES: No cyanosis, clubbing or pitting edema. ASSESSMENT AND PLAN: This is a 50-year-old male with history of ureteral stent placement, who presented to the Emergency Room with abdominal pain, gallbladder wall thickening found on ultrasound without acute cholecystitis. CURRENT ISSUES: 1. Biliary colic versus a calculus, cholecystitis: Patient is n.p.o. HIDA scan in the morning. On I.V. Zosyn, Carafate and Protonix. General surgeon has been consulted, recommends a HIDA scan on Wednesday. 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 2. Ureteral stent: Creatinine is normal. Questionable migrating stent. Will need to follow-up clinically. 3. Iron deficiency anemia: No acute indication of RBC transfusion. 4. Obesity hypoventilation syndrome: Oxygen at night. 5. BPH: On Tamsulosin. 6. Obesity complicating care. MTDD
[2020-11-03] MEDS: D5W/0.45% SODIUM CHLORIDE 1,000 ML IV SCH ×2 (16:53→23:37)
[2020-11-03] MEDS: PANTOPRAZOLE 40MG VIAL (C9113 PER 1) IV SCH (20:31)
[2020-11-04 02:00] VITALS: BP 132/80
[2020-11-04 06:00] VITALS: BP 129/59
[2020-11-04 06:51] LABS: BASO # 0.1 10^3/uL (0.0-0.2); BASO % 0.8 % (0.0-1.0); EOS # 0.2 10^3/uL (0.0-0.5); EOS % 2.4 % (0.0-3.0); HEMATOCRIT 30.9 % (42.0-52.0); HEMOGLOBIN 9.5 g/dl (13.5-17.5); LYMPH # 2.5 10^3/uL (1.5-5.0); LYMPH % 33.6 % (24.0-44.0); MEAN CORPUSCULAR HEMOGLOBIN 28.3 pg (27.0-33.0); MEAN CORPUSCULAR HGB CONC 30.7 g/dl (32.0-36.5); MONO # 0.7 10^3/uL (0.0-0.8); MONO % 9.5 % (2.0-8.0); NEUTROPHILS % 53.4 % (36.0-66.0); PLATELET COUNT, AUTOMATED 451 10^3/uL (150-450); RED BLOOD COUNT 3.36 10^6/uL (4.30-6.10); WHITE BLOOD COUNT 7.5 10^3/uL (4.0-10.0)
[2020-11-04 07:08] LABS: ALBUMIN 2.9 GM/DL (3.2-5.2); ALT/SGPT 18 U/L (12-78); BILIRUBIN,TOTAL 0.5 MG/DL (0.2-1.0); BLOOD UREA NITROGEN 11 MG/DL (7-18); CALCIUM LEVEL 8.3 MG/DL (8.5-10.1); CARBON DIOXIDE LEVEL 28 MEQ/L (21-32); CHLORIDE LEVEL 104 MEQ/L (98-107); CREATININE FOR GFR 0.88 MG/DL (0.70-1.30); GLOMERULAR FILTRATION RATE > 60.0 (>56); GLUCOSE, FASTING 89 MG/DL (70-100); POTASSIUM SERUM 3.8 MEQ/L (3.5-5.1); SODIUM LEVEL 138 MEQ/L (136-145); TOTAL PROTEIN 6.5 GM/DL (6.4-8.2)
--- NOTE | 2020-11-04 08:06 | IPNPDOC ---
Text Note Date of Service The patient was seen on 11/04/20. NOTE No acute events overnight. He is tolerating his liquid diet without any changes in his pain. He does feel like his pain is slightly improved. No problems with fevers or chills. VSSAF NAD abd - soft, mild tenderness in the RUQ only. labs - below A) 50y/o male with persistent RUQ pains secondary to duodenitis and less likely gallbladder disease. P) npo HIDA scan today resume reg diet after the HIDA will follow Butch Rodriguez DO VS,Pablo, I+O VS, Fishbone, I+O Laboratory Tests 11/04/20 06:10 Vital Signs Date Time Temp Pulse Resp B/P (MAP) Pulse Ox O2 Delivery O2 Flow Rate FiO2 11/04/20 06:00 97.4 58 18 129/59 (82) 94 Room Air I&O- Last 24 Hours up to 6 AM 11/04/20 06:00 Intake Total 2725 ml Output Total 1875 ml Balance 850 ml MEG RODRIGUEZ DO Nov 04, 2020 08:06
[2020-11-04] MEDS: PIPERACILLIN/TAZOBACTAM SOD 3.375 GM in D5W MINI-BAG PLUS 50 ML IV SCH ×3 (08:51→23:16)
[2020-11-04] MEDS: TAMSULOSIN 0.4 MG CAP PO SCH (08:51)
[2020-11-04] MEDS: PANTOPRAZOLE 40MG VIAL (C9113 PER 1) IV SCH (08:51)
[2020-11-04] MEDS: SUCRALFATE 1 GM TAB PO SCH ×4 (08:51→21:14)
[2020-11-04 10:00] VITALS: BP 133/59
[2020-11-04] MEDS: MORPHINE 1MG/ML IN 0.9% NACL 100ML IV BAG IV PRN (10:57)
[2020-11-04] MEDS: D5W/0.45% SODIUM CHLORIDE 1,000 ML IV SCH ×2 (13:02→23:16)
[2020-11-04 14:00] VITALS: BP 136/71
--- NOTE | 2020-11-04 16:41 | ECGEPIP ---
[facility] - ED Test Date: 2020-11-02 Pat Name: SOULEYMANE TALBERT Department: Room: [place] [address] Gender: Male [employer] Supervisor: STEPHEN : [id number] Requested By: Carli Carolina Order Number: [id number] Reading MD: Carli Carolina Measurements Intervals [place] Rate: 93 P: 48 IA: 120 QRS: 28 QRSD: 78 T: 63 QT: 366 QTc: 455 Interpretive Statements Normal sinus rhythm increased rate 10/20/20 Electronically Signed on 11-04-2020 16:41:11 EDT by Carli Carolina
--- NOTE | 2020-11-04 17:00 | REP ---
INDICATION: abdominal pain. COMPARISON: 08/28/2014 TECHNIQUE/RADIOTRACER AND DOSE: After the intravenous administration of 6.2 mCi of technetium 99 M Choletec hepatobiliary imaging was performed. FINDINGS: Once again, there is symmetric distribution of the radiotracer throughout the hepatocytes. Once again, the gallbladder is promptly visualized at 30 minutes. Biliary to bowel transit is within normal limits. IMPRESSION: The examination is again seen to be within normal limits. There is no scintigraphic evidence of acute cholecystitis. <Electronically signed by Quinton Mabry > 11/04/20 [id number]
[2020-11-04] MEDS ORDERED: PILL CUTTER 1 EACH XX PRN (17:45)
[2020-11-04] MEDS ORDERED: MORPHINE 30 MG TAB **MSIR PO PRN (17:45)
[2020-11-04] MEDS ORDERED: MORPHINE 4 MG/ML 1ML VIAL/SYRINGE (J2270) IV PRN (17:45)
[2020-11-04] MEDS ORDERED: MORPHINE 15 MG SA TAB PO SCH (21:00)
[2020-11-04 22:00] VITALS: BP 139/79
[2020-11-05 06:00] VITALS: BP 132/58
[2020-11-05 06:48] LABS: BASO % 0.5 % (0.0-1.0); EOS # 0.2 10^3/uL (0.0-0.5); EOS % 2.6 % (0.0-3.0); HEMOGLOBIN 10.2 g/dl (13.5-17.5); LYMPH # 2.3 10^3/uL (1.5-5.0); LYMPH % 29.2 % (24.0-44.0); MEAN CORPUSCULAR HEMOGLOBIN 28.6 pg (27.0-33.0); MEAN CORPUSCULAR HGB CONC 31.9 g/dl (32.0-36.5); MEAN CORPUSCULAR VOLUME 89.6 fl (80.0-96.0); MONO # 0.7 10^3/uL (0.0-0.8); MONO % 9.6 % (2.0-8.0); NEUTROPHILS # 4.5 10^3/uL (1.5-8.5); NEUTROPHILS % 57.8 % (36.0-66.0); PLATELET COUNT, AUTOMATED 489 10^3/uL (150-450); RED BLOOD COUNT 3.57 10^6/uL (4.30-6.10); WHITE BLOOD COUNT 7.7 10^3/uL (4.0-10.0)
[2020-11-05 07:20] LABS: ALBUMIN 3.1 GM/DL (3.2-5.2); ALT/SGPT 22 U/L (12-78); BILIRUBIN,TOTAL 0.5 MG/DL (0.2-1.0); BLOOD UREA NITROGEN 9 MG/DL (7-18); CALCIUM LEVEL 8.9 MG/DL (8.5-10.1); CARBON DIOXIDE LEVEL 29 MEQ/L (21-32); CHLORIDE LEVEL 104 MEQ/L (98-107); CREATININE FOR GFR 0.92 MG/DL (0.70-1.30); GLOMERULAR FILTRATION RATE > 60.0 (>56); GLUCOSE, FASTING 92 MG/DL (70-100); POTASSIUM SERUM 3.8 MEQ/L (3.5-5.1); SODIUM LEVEL 138 MEQ/L (136-145)
--- NOTE | 2020-11-05 08:01 | IPNPDOC ---
Subjective Date Seen The patient was seen on 11/05/20. Subjective Chief Complaint/HPI I was notified by nurses this morning that patient wishes to leave against medical advice. By the time I reached the floor, patient had already signed out AMA. I was not able to physically evaluate the patient. 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 This may be the reason he left against medical advice. Assessment /Plan Plan/VTE VTE Prophylaxis Ordered?: Yes VS, I&O, 24H, Fishbone Vital Signs/I&O Vital Signs Date Time Temp Pulse Resp B/P (MAP) Pulse Ox O2 Delivery O2 Flow Rate FiO2 11/05/20 06:00 97.8 69 18 132/58 (82) 98 Room Air I&O- Last 24 Hours up to 6 AM 11/05/20 06:00 Intake Total 550 ml Output Total 1450 ml Balance -900 ml Laboratory Data 24H LABS Laboratory Tests 2 11/04/20 12:07: Lab Scanned Report Miscellaneous Lab 11/05/20 06:10: Immature Granulocyte % (Auto) 0.3, Neutrophils (%) (Auto) 57.8, Lymphocytes (%) (Auto) 29.2, Monocytes (%) (Auto) 9.6H, Eosinophils (%) (Auto) 2.6, Basophils (%) (Auto) 0.5, Neutrophils # (Auto) 4.5, Lymphocytes # (Auto) 2.3, Monocytes # (Auto) 0.7, Eosinophils # (Auto) 0.2, Basophils # (Auto) 0.0, Nucleated Red Blood Cells % (auto) 0.0, Anion Gap 5L, Glomerular Filtration Rate > 60.0, Calcium Level 8.9, Total Bilirubin 0.5, Aspartate Amino Transf (AST/SGOT) 15, Alanine Aminotransferase (ALT/SGPT) 22, Alkaline Phosphatase 66, Total Protein 7.0, Albumin 3.1L, Albumin/Globulin Ratio 0.8 CBC/BMP Laboratory Tests 11/05/20 06:10 Microbiology Microbiology 11/02/20 Urine Culture - Final, Complete SAKINABREE Zuniga DO Nov 05, 2020 08:01
[2020-11-05] MEDS ORDERED: PANTOPRAZOLE 40MG TAB (PROTONIX) PO SCH (09:00)
--- NOTE | 2020-11-05 11:32 | IPN ---
PROGRESS NOTE DATE: 11/04/2020 SUBJECTIVE: Patient still complains of achy abdominal pain in the right upper quadrant, lasts for several hours without radiating to the shoulder blade, but radiates to the flank without any hematuria, nausea, vomiting. Tolerating his liquid diet overnight. 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 Patient is due for HIDA scan today. No other issues per nursing overnight. OBJECTIVE: Vital signs: Temperature 97.4, pulse 58, respiratory rate 18, blood pressure 129/59, 94% on room air. General: Awake, alert, oriented to person, place and time, in no respiratory distress, use of respiratory accessory muscles. HEENT: Anicteric, no jaundice. No pallor or cyanosis. Pupils are equal, round and reactive to light and accommodation, extraocular muscles are intact. Normocephalic, atraumatic. Moist mucous membranes. Neck: No thyromegaly or cervical lymphadenopathy. No carotid bruit or stridor. Lungs: Clear to auscultation, no wheezes, rhonchi or rales. Heart: S1 and S2 sinus rhythm, no murmurs, rubs or gallops. Abdomen: Obese, right upper quadrant is tender, no guarding or rebound. No hepatosplenomegaly or abdominal bruits. Extremities: No cyanosis or clubbing. LABORATORY DATA: White count 7.5, hemoglobin 9.5, hematocrit 30, platelet count 451. Sodium 138, potassium 3.8, chloride 104, bicarbonate 28, BUN 11, creatinine 0.88, glucose 89. Calcium 8.3, total bilirubin 0.5, AST 12, ALT 18, alkaline phosphatase 57. Lipase 227. Microbiology: Urine culture 11/02/2020 no growth. IMAGING STUDIES: CT abdomen and pelvis 11/02/2020: Duodenitis, hepatic steatosis, no gallbladder calculi. There is pericholecystic fluid, possibility of acute cholecystitis should be considered versus reactive changes related to adjacent duodenitis. Bilateral adrenal hyperplasia, double pigtail stent catheter demonstrated a proximal coil located in the renal pelvis near the UV junction. ASSESSMENT: This is a 51-year-old, obese [BMI 32.1] male admitted on 11/02/2020 with history of fatty liver, BPH, dyslipidemia, urolithiasis, urethral stricture managed with left ureteral stent, left retrograde pyelogram, iron deficiency anemia, chronic pancreatitis, class 1 obesity and appendectomy presented to the Emergency Room with complaints of abdominal pain in the right upper quadrant that started 2 days prior to presentation without fever, chills, nausea, vomiting or diarrhea. CURRENT ISSUES/PLAN: 1. Abdominal pain, probable primary duodenitis: Patient has no gallstones on ultrasound or CT abdomen and pelvis. General surgery Dr. Rodriguez has been consulted. He is currently n.p.o. for HIDA scan today on Protonix, I.V. antibiotics and I.V. fluids. 2. Iron deficiency anemia, thrombocytosis most likely reactive: No acute indication for RBC transfusion. 3. History of urolithiasis and nephrolithiasis status post ureteral stent: No hydronephrosis on renal ultrasound. Creatinine is normal. Outpatient follow up with urology. 4. Obesity complicating his care with possible obesity hyperventilation syndrome: Monitor for respiratory acidosis while on morphine COMMERCIAL MARKETING SPECIALIST pump. 5. BPH: On chronic tamsulosin. 6. Disposition: Await results of HIDA scan, advanced diet and if no problems patient may be discharged home in 24 hours. DOUG
== END 2020-11-05 07:58 | disposition left against medical advice (07) | DRG 241 ==
LOC: M ED 18:26 → M ED INP 23:16 → ENRESERV 11-03 02:06 → M MS5PR 11-03 03:12
PROVIDERS: ADMIT Internal Medicine; ATTEND General Practice
DX: K29.80 Duodenitis without bleeding (principal); K81.9 Cholecystitis, unspecified; K76.0 Fatty (change of) liver, not elsewhere classified; K86.1 Other chronic pancreatitis; E66.2 Morbid (severe) obesity with alveolar hypoventilation; N13.5 Crossing vessel and stricture of ureter without hydronephrosis; T83.122A Displacement of indwelling ureteral stent, initial encounter; D50.9 Iron deficiency anemia, unspecified; N40.0 Benign prostatic hyperplasia without lower urinary tract symptoms; Z87.891 Personal history of nicotine dependence; Z79.899 Other long term (current) drug therapy; Y84.6 Urinary catheterization as the cause of abnormal reaction of the patient, or of later complication, without mention of misadventure at the time of the procedure

== ENCOUNTER 2020-11-10 15:31 | Inpatient (IN) | payer OTHER ==
[~2020-11-10] VITALS: Ht 180.3 cm; Wt 107.4 kg
[~2020-11-10 15:31] MED LIST changes: +PANT-23 PO; +SUCR1TAB56 PO
[2020-11-10] MEDS ORDERED: MORPHINE 4 MG/ML 1ML VIAL/SYRINGE (J2270) IV ONE ×2 (15:55→16:45)
[2020-11-10] MEDS ORDERED: NS 1,000 ML IV SCH (16:00)
[2020-11-10 16:25] LABS: BASO # 0.1 10^3/uL (0.0-0.2); BASO % 0.4 % (0.0-1.0); EOS # 0.1 10^3/uL (0.0-0.5); EOS % 1.1 % (0.0-3.0); HEMOGLOBIN 11.4 g/dl (13.5-17.5); LYMPH # 2.3 10^3/uL (1.5-5.0); LYMPH % 19.7 % (24.0-44.0); MEAN CORPUSCULAR HEMOGLOBIN 28.1 pg (27.0-33.0); MEAN CORPUSCULAR HGB CONC 31.7 g/dl (32.0-36.5); MEAN CORPUSCULAR VOLUME 88.7 fl (80.0-96.0); MONO # 0.7 10^3/uL (0.0-0.8); MONO % 6.3 % (2.0-8.0); NEUTROPHILS # 8.2 10^3/uL (1.5-8.5); NEUTROPHILS % 72.1 % (36.0-66.0); PLATELET COUNT, AUTOMATED 513 10^3/uL (150-450); RED BLOOD COUNT 4.06 10^6/uL (4.30-6.10); WHITE BLOOD COUNT 11.4 10^3/uL (4.0-10.0)
[2020-11-10] MEDS ORDERED: ONDANSETRON 4MG/2ML VIAL IV ONE (16:45)
[2020-11-10] MEDS ORDERED: PANTOPRAZOLE 40MG VIAL (C9113 PER 1) IV ONE (16:50)
[2020-11-10 16:54] LABS: ALBUMIN 3.6 GM/DL (3.2-5.2); ALT/SGPT 24 U/L (12-78); BILIRUBIN,DIRECT < 0.1 MG/DL (0.0-0.2); BILIRUBIN,TOTAL 0.4 MG/DL (0.2-1.0); BLOOD UREA NITROGEN 13 MG/DL (7-18); CALCIUM LEVEL 9.2 MG/DL (8.5-10.1); CARBON DIOXIDE LEVEL 28 MEQ/L (21-32); CHLORIDE LEVEL 102 MEQ/L (98-107); CREATININE FOR GFR 0.83 MG/DL (0.70-1.30); GLOMERULAR FILTRATION RATE > 60.0 (>56); GLUCOSE, FASTING 114 MG/DL (70-100); LIPASE 67 U/L (73-393); POTASSIUM SERUM 4.2 MEQ/L (3.5-5.1); SODIUM LEVEL 135 MEQ/L (136-145); TOTAL PROTEIN 7.6 GM/DL (6.4-8.2)
[2020-11-10] MEDS: GASTROGRAFIN SOLUTION 30ML PO SCH ×2 (16:58→17:13)
[2020-11-10] MEDS ORDERED: ISOVUE-370 76% 100ML VIAL As Ordered ONE (17:48)
[2020-11-10] MEDS ORDERED: HYDROMORPHONE HCL 0.5 MG/ 0.5 ML SYRINGE (J1170 PER 1) IV PRN (19:35)
--- NOTE | 2020-11-10 20:12 | REPVR ---
PROCEDURE INFORMATION: Exam: CT Abdomen And Pelvis With Contrast Exam date and time: 11/10/2020 5:55 PM Age: 50 years old Clinical indication: Abdominal pain; Localized; Right upper quadrant (ruq); Additional info: Ruq pain TECHNIQUE: Imaging protocol: Computed tomography of the abdomen and pelvis with contrast. Radiation optimization: All CT scans at this facility use at least one of these dose optimization techniques: automated exposure control; mA and/or kV adjustment per patient size (includes targeted exams where dose is matched to clinical indication); or iterative reconstruction. Contrast material: ISOVUE 370; Contrast volume: 100 ml; Contrast route: INTRAVENOUS (IV); COMPARISON: CT ABD/PEL W/IV CONTRAST ONLY 11/02/2020 9:13 PM FINDINGS: Lungs: Clear appearing lung bases. Heart: The heart is normal in size and there is no pericardial effusion. Liver: Normal liver. Gallbladder and bile ducts: There is severe edema and thickening of the gallbladder wall with fluid identified along the upper margins probably also within the wall of gallbladder. This is all consistent with acute changes of cholecystitis. There is some thickening of the bowel wall of the duodenal C loop which is probably related to inflammation at the gallbladder. A small ulcer of the duodenal bulb is also possibility. Pancreas: Normal pancreas. Normal common bile duct. Spleen: Small spleen. Adrenal glands: Normal. No mass. Kidneys and ureters: There is enhancement of both kidneys. There is a stent within the ureter. The proximal end of the stent is coiled at the lower left renal pelvis. The distal end of the stent is coiled in the left side of the urinary bladder. Although there is a stent there is moderate left hydronephrosis. Stomach and bowel: There is contrast throughout the bowel with no evidence of obstruction. Appendix: No evidence of appendicitis. Intraperitoneal space: There is no evidence of pneumoperitoneum. There is no evidence of free fluid. Vasculature: There is opacification of the aorta. There is calcified atherosclerotic plaque along the margins of the aorta. There is opacification of the SMV and the SMA. Lymph nodes: Unremarkable. No enlarged lymph nodes. Reproductive: Normal size prostate. Bones/joints: There is osteophyte formation of the lumbar spine. There is moderate posterior disc protrusion at multiple levels lower lumbar spine. Soft tissues: Normal appearing soft tissues. IMPRESSION: 1. There is severe edema and thickening of the gallbladder wall consistent with changes of cholecystitis. 2. In addition there is thickening of the bowel wall of the duodenal bulb and 1st portion of the duodenal C loop. This may be thickened secondary to cholecystitis. A small ulcer crater of the duodenal bulb would also be a consideration. There is severe focal inflammation at the tristan hepatis neck of the gallbladder. There may be sludge and material within the gallbladder is well. There is been progression of inflammation since 11/02/2020. Electronically signed by: Jacky Dyson On 11/10/2020 20:12:25 PM
[2020-11-10] MEDS ORDERED: PIPERACILLIN/TAZOBACTAM SOD 4.5 GM in D5W MINI-BAG PLUS 50 ML IV ONE (20:35)
[2020-11-10] MEDS ORDERED: diphenhydrAMINE 50MG/ML VIAL (J1200) IV PRN (22:05)
[2020-11-10] MEDS ORDERED: NALOXONE INJ 0.4MG/1ML VIAL (J2310 PER 1MG) IV PRN (22:05)
[2020-11-10] MEDS ORDERED: ONDANSETRON 4MG/2ML VIAL IV PRN (22:05)
[2020-11-10] MEDS ORDERED: EPIDURAL/PCA KEYS XX PRN (22:05)
[2020-11-10] MEDS ORDERED: ACETAMINOPHEN TAB 650MG DOSE (2X325MG) PO PRN (22:05)
[2020-11-10 22:12] LABS: RSV AMPLIFICATION NEGATIVE (NEGATIVE)
--- NOTE | 2020-11-10 22:40 | HPEPDOC ---
[facility] Medical History & Physical Date of Admission Nov 10, 2020 Date of Service: Nov 10, 2020 Primary Care Physician: DASH RENEE Attending Physician: NORMAN MORA MD History and Physical CHIEF COMPLAINT: Abdominal pain HISTORY OF PRESENT ILLNESS: Mr. Henley is a 50-year-old male who presented to the ER with complaints of 24 hours of increasing right upper quadrant pain. He also complains of some nausea. The patient has had 4 previous admissions in the last month. The first 2 admissions were for pain and bladder spasms. Status post left ureteral stent placement and treatment for urethral stricture. The patient states it still "hurts when I'm pee". . He was scheduled to have a follow-up with urology tomorrow. The third admission, at the end of September, was attributed to duodenitis. Ultrasound of the gallbladder. During that admission had identified gallbladder wall thickening but without acute cholecystitis. He was admitted again on November [address] scan showing inflammation of the gallbladder as well as the adjacent duodenum. He had a HIDA scan during that admission which was showed a normal f unctioning gallbladder. He left AGAINST MEDICAL ADVICE because he felt his pain was not being adequately controlled. He was sent home with prescriptions for Protonix and Carafate which he states he has been taking. He saw gastroenterology last week and was scheduled for an EGD 2 weeks from now. Been doing fairly well until yesterday when the right upper quadrant pain began to bother him again. He got progressively worse, causing him to present to the ER this evening. CT scan of the abdomen and pelvis showed severe edema and thickening of the gallbladder wall consistent with changes of cholecystitis as well as severe focal inflammation at the tristan hepatis neck of the gallbladder. Radiology felt there may be sludge material within the gallbladder as well. They said that this has been a progression of inflammation since the CT done on 11/02/2020. They also noted a thickening of the bowel wall of the duodenal bulb and first portion of the duodenal C-loop. They remarked this might be secondary to cholecystitis but noted a small ulcer crater of the duodenal bulb would also be a considera tion. , general surgery, was consultative by the ER provider. He recommended that the patient be kept nothing by mouth and started on antibiotics. He also recommended that gastroenterology be consulted. , gastroenterology, recommended continuing the patient on a PPI twice daily and plans on doing an EGD in the morning. Patient was exhibiting an elevated white blood cell count of 11.4. Hemoglobin and hematocrit were 11.4 and 36 with a known history of iron deficiency anemia. Platelets were also elevated, reactively, at 513. Patient was afebrile with pulse of 79 and blood pressure 171/79. He was satting 96-99 % on room air. He was given Zosyn, Protonix, morphine and Dilaudid in the ER. PAST MEDICAL HISTORY: 1. Ureterolithiasis with stent placement. 2. Iron deficiency anemia. 3. Fatty liver. 4. Benign prostatic hypertrophy. 5. Dyslipidemia. 6. Urethral stricture. 7. Chronic pancreatitis. 8. Obesity. 9. Acute cholecystitis versus duodenitis PAST SURGICAL HISTORY: 1. Bilateral knee arthroscopy. 2. Appendectomy. 3. Cystoscopy. 4. Left ureteroscopy with stent. 5. Lithotripsy. 6. Left stone basketing SOCIAL HISTORY: Patient has a history of tobacco and alcohol abuse but states he quit sometime ago. 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 He is and lives with his . FAMILY HISTORY: Patient's mother is 72 years old and suffers from Alzheimer's. Patient does not know any of his father's medical history. REVIEW OF SYSTEMS: Complete 10 point review systems is negative except as noted above PHYSICAL EXAMINATION: Patient is seen in the ER, lying on the stretcher.. He is alert and oriented x 3 and complains of pain at the right upper quadrant. HEENT is WNL. Neck is supple. Lungs with slight expiratory wheeze on the left . Heart regular rate and rhythm without murmur. Abdomen is obese, soft, tender to palpation in the right upper and lower quadrants and the right flank with bowel sounds positive. Extremities with good ROM and strength equal bilaterally. No lower extremity edema. Pedal pulses are positive. Skin is warm and dry with no obvious rash or lesion. Neuro: grossly intact. Psych: He exhibits a rather flat affect. ASSESSMENT AND PLAN: 1. Acute cholecystitis versus duodenitis versus duodenal ulcer. General surgery and gastroenterology are consulted and will evaluate the patient in the morning. EGD in the morning. Continue on Protonix twice a day. Zosyn. Continue on gentle IV fluids. Patient with continued complaints of pain. 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 Nothing by mouth except meds with sips. 2. Anemia with known iron deficiency. Continue to monitor hemoglobin and hematocrit, but they have the labs. No signs or symptoms of active bleeding. 3. Left ureterolithiasis with double-J ureteral stent placement. Patient to follow-up with urology as outpatient. 4. Leukocytosis secondary to acute cholecystitis versus duodenitis versus duodenal ulcer. Plan as outlined above. Recheck labs in the morning. 5. Thrombocytosis, reactive. Continue to monitor platelets, with daily labs. 6. Hyponatremia. Patient continued on IV fluids. Recheck sodium in the morning. 7. Elevated blood pressure with no history of hypertension secondary to pain. Plan as noted above. Will add as needed antihypertensives if blood pressure continues to be elevated. 8. DVT prophylaxis. We'll hold anticoagulants with procedures planned. TINO leroy. CODE STATUS: CODE STATUS was discussed with the patient. He desires to be considered full code. He states his would act as a surrogate if he were unable to make his own decisions. Patient is considered high risk of further deterioration including development of possible sepsis or septic shock. He is admitted as inpatient and expected to remain at least 2-3 midnight. Vital Signs Vital Signs Date Time Temp Pulse Resp B/P (MAP) Pulse Ox O2 Delivery O2 Flow Rate FiO2 11/10/20 20:23 18 98 Room Air 11/10/20 18:12 69 171/79 (109) 11/10/20 15:43 99.1 Laboratory Data Labs 24H Laboratory Tests 2 11/10/20 15:55: Immature Granulocyte % (Auto) 0.4, Neutrophils (%) (Auto) 72.1H, Lymphocytes (%) (Auto) 19.7L, Monocytes (%) (Auto) 6.3, Eosinophils (%) (Auto) 1.1, Basophils (%) (Auto) 0.4, Neutrophils # (Auto) 8.2, Lymphocytes # (Auto) 2.3, Monocytes # (Auto) 0.7, Eosinophils # (Auto) 0.1, Basophils # (Auto) 0.1, Nucleated Red Blood Cells % (auto) 0.0, Anion Gap 5L, Glomerular Filtration Rate > 60.0, Calcium Level 9.2, Total Bilirubin 0.4, Direct Bilirubin < 0.1, Aspartate Amino Transf (AST/SGOT) 18, Alanine Aminotransferase (ALT/SGPT) 24, Alkaline Phosphatase 60, Total Protein 7.6, Albumin 3.6, Albumin/Globulin Ratio 0.9, Lipase 67L 11/10/20 21:27: Coronavirus (COVID-19)(PCR) NEGATIVE, Influenza Type A (RT-PCR) NEGATIVE, Influenza Type B (RT-PCR) NEGATIVE, Respiratory Syncytial Virus (PCR) NEGATIVE CBC/BMP Laboratory Tests 11/10/20 15:55 Home Medications Scheduled Multivitamins (Thera M Plus Tablet) 1 Each Tablet, 1 TAB PO DAILY Allergies Coded Allergies: No Known Drug Allergies (Verified Allergy, Unknown, 10/19/19) A-FIB/CHADSVASC A-FIB History Current/History of A-Fib/PAF?: No MARY FLETCHER Nov 10, 2020 22:40
[2020-11-10 23:34] VITALS: BP 160/86
[2020-11-10] MEDS: NS 1,000 ML IV SCH (23:49)
[2020-11-10] MEDS: MORPHINE 1MG/ML IN 0.9% NACL 100ML IV BAG IV PRN (23:50)
[2020-11-11] MEDS: PIPERACILLIN/TAZOBACTAM SOD 3.375 GM in D5W MINI-BAG PLUS 50 ML IV SCH ×4 (05:06→23:15)
[2020-11-11 05:46] LABS: HEMATOCRIT 31.5 % (42.0-52.0); HEMOGLOBIN 9.9 g/dl (13.5-17.5); MEAN CORPUSCULAR HGB CONC 31.4 g/dl (32.0-36.5); PLATELET COUNT, AUTOMATED 435 10^3/uL (150-450); RED BLOOD COUNT 3.54 10^6/uL (4.30-6.10); WHITE BLOOD COUNT 8.5 10^3/uL (4.0-10.0)
[2020-11-11 06:00] VITALS: BP 126/75
[2020-11-11 06:08] LABS: BLOOD UREA NITROGEN 10 MG/DL (7-18); CALCIUM LEVEL 8.7 MG/DL (8.5-10.1); CARBON DIOXIDE LEVEL 28 MEQ/L (21-32); CHLORIDE LEVEL 107 MEQ/L (98-107); GLOMERULAR FILTRATION RATE > 60.0 (>56); GLUCOSE, FASTING 88 MG/DL (70-100); POTASSIUM SERUM 3.8 MEQ/L (3.5-5.1); SODIUM LEVEL 139 MEQ/L (136-145)
[2020-11-11] MEDS: PANTOPRAZOLE 40MG VIAL (C9113 PER 1) IV SCH ×2 (09:28→20:55)
[2020-11-11] MEDS: NS 1,000 ML IV SCH (09:37)
[2020-11-11 10:00] VITALS: BP 135/76
--- NOTE | 2020-11-11 10:36 | IPNPDOC ---
Subjective Date Seen The patient was seen on 11/11/20. Subjective Chief Complaint/HPI continues to have severe abdominal pain, no nuasea at this time Objective Physical Examination General Exam: Positive: Alert, Cooperative, Mild Distress Eye Exam: Positive: PERRLA, Conjunctiva & lids normal, EOMI; Negative: Sclera icteric ENT Exam: Positive: Atraumatic, Mucous membr. moist/pink, Pharynx Normal Neck Exam: Positive: Supple; Negative: JVD, thyromegaly Chest Exam: Positive: Clear to auscultation, Normal air movement Heart Exam: Positive: Rate Normal, Regular Rhythm, Normal S1, Normal S2; Negative: Murmurs, Rubs Abdomen Exam: Positive: BS Hypoactive, Tenderness (all the quadrants), Other (rebound tenderness present on the right) Extremity Exam: Positive: Normal pulses; Negative: Clubbing, Cyanosis, Edema Assessment /Plan Assessment Mr. Henley is a 50-year-old male with PMH of Ureterolithiasis s/p lithotripsy, basket extraction and stent placement, Iron deficiency anemia, Fatty liver, Benign prostatic hypertrophy, Dyslipidemia, Urethral stricture, Chronic pancreatitis, Obesity, Acute cholecystitis versus duodenitis who presented to the ER with complaints of 24 hours of increasing right upper quadrant pain and nausea. The patient has had 4 previous admissions in the last month. The first 2 admissions were for pain and bladder spasms. Status post left ureteral stent pascual cement and treatment for urethral stricture. The patient states it still "hurts when I'm pee". . He was scheduled to have a follow-up with urology tomorrow. The third admission, at the end of September, was attributed to duodenitis. Ultrasound of the gallbladder. During that admission had identified gallbladder wall thickening but without acute cholecystitis. He was admitted again on November [address] scan showing inflammation of the gallbladder as well as the adjacent duodenum. He had a HIDA scan during that admission which was showed a normal functioning gallbladder. He left AGAINST MEDICAL ADVICE because he felt his pain was not being adequately controlled. He was sent home with prescriptions for Protonix and Carafate which he states he has been taking. He saw gastroenterology last week and was scheduled for an EGD 2 weeks from now. Been doing fairly well until yesterday when the right upper quadrant pain began to bother him again. He got progressively worse, causing him to present to the ER again. He was admitted for Acute cholecystitis and duodenitis. CT scan of the abdomen and pelvis showed severe edema and thickening of the gallbladder wall consistent with changes of cholecystitis as well as severe focal inflammation at the tristan hepatis neck of the gallbladder. Radiology felt there may be sludge material within the gallbladder as well. They said that this has been a progression of inflammation since the CT done on 11/02/2020. They also noted a thickening of the bowel wall of the duodenal bulb and first portion of the duodenal C-loop. They remarked this might be secondary to cholecystitis but noted a small ulcer crater of the duodenal bulb would also be a consideration. , general surgery, was consultative by the ER provider. He recommended that the patient be kept nothing by mouth and started on antibiotics. He also recommended that gastroenterology be consulted. , gastroenterology, recommended continuing the patient on a PPI twice daily and plans on doing an EGD in the morning. Acute cholecystitis General surgery and gastroenterology are consulted and will evaluate the patient Zosyn. Continue IV fluids. On morphine SANE RN for now. Nothing by mouth except meds with sips. CT suggestive of Duodenitis/ dueodenal ulcer Possible EGD Continue on Protonix twice a day. Anemia with known iron deficiency. Continue to monitor hemoglobin and hematocrit Left ureterolithiasis with double-J ureteral stent placement. Patient to follow-up with urology as outpatient. Plan/VTE VTE Prophylaxis Ordered?: Yes VTE Exclusion Mechanical Proph: N/A:VTE Prophy Ordered VTE Exclusion Pharmacological: Other VS, I&O, 24H, Fishbone Vital Signs/I&O Vital Signs Date Time Temp Pulse Resp B/P (MAP) Pulse Ox O2 Delivery O2 Flow Rate FiO2 11/11/20 06:00 97.9 69 15 126/75 (92) 93 Room Air I&O- Last 24 Hours up to 6 AM 11/11/20 07:00 Intake Total 1700 ml Output Total 450 ml Balance 1250 ml Laboratory Data 24H LABS Laboratory Tests 2 11/10/20 15:55: Immature Granulocyte % (Auto) 0.4, Neutrophils (%) (Auto) 72.1H, Lymphocytes (%) (Auto) 19.7L, Monocytes (%) (Auto) 6.3, Eosinophils (%) (Auto) 1.1, Basophils (%) (Auto) 0.4, Neutrophils # (Auto) 8.2, Lymphocytes # (Auto) 2.3, Monocytes # (Auto) 0.7, Eosinophils # (Auto) 0.1, Basophils # (Auto) 0.1, Nucleated Red Blood Cells % (auto) 0.0, Anion Gap 5L, Glomerular Filtration Rate > 60.0, Calcium Level 9.2, Total Bilirubin 0.4, Direct Bilirubin < 0.1, Aspartate Amino Transf (AST/SGOT) 18, Alanine Aminotransferase (ALT/SGPT) 24, Alkaline Phosphatase 60, Total Protein 7.6, Albumin 3.6, Albumin/Globulin Ratio 0.9, Lipase 67L 11/10/20 21:27: Coronavirus (COVID-19)(PCR) NEGATIVE, Influenza Type A (RT-PCR) NEGATIVE, Influenza Type B (RT-PCR) NEGATIVE, Respiratory Syncytial Virus (PCR) NEGATIVE 11/10/20 23:07: Lactic Acid Level 0.9 11/11/20 05:26: Nucleated Red Blood Cells % (auto) 0.0, Anion Gap 4L, Glomerular Filtration Rate > 60.0, Calcium Level 8.7, Magnesium Level 2.0 CBC/BMP Laboratory Tests 11/10/20 15:55 11/11/20 05:26 BRANDT AHUMADA MD Nov 11, 2020 08:03
[2020-11-11 13:53] VITALS: BP 138/76
[2020-11-11] MEDS ORDERED: propofoL 200 MG/20 ML VIAL As Ordered ONE (15:19)
[2020-11-11] MEDS ORDERED: LIDOCAINE 2% 100MG/5ML SDV (FOR ANES.) As Ordered ONE (15:19)
--- NOTE | 2020-11-11 15:53 | ROOR ---
Patient Name: Pk Henley Procedure Date: 11/11/2020 3:07 PM Date of : 1970 Age: 50 Room: [facility] Gender: Male Note Status: Finalized Procedure: Upper GI endoscopy Indications: Abdominal pain in the right upper quadrant, Iron deficiency anemia Providers: Chriss Mills MD Referring MD: 2. Inpatient 2. Inpatient, Meghan RENEE Requesting Provider: Medicines: Monitored Anesthesia Care Complications: No immediate complications. Procedure: Pre-Anesthesia Assessment: - Prior to the procedure, a History and Physical was performed, and patient medications and allergies were reviewed. The patient is competent. The risks and benefits of the procedure and the sedation options and risks were discussed with the patient. All questions were answered and informed consent was obtained. Patient identification and proposed procedure were verified by the physician, the nurse and the anesthesiologist in the procedure room. Mental Status Examination: alert and oriented. Airway Examination: normal oropharyngeal airway and neck mobility. Respiratory Examination: clear to auscultation. CV Examination: normal. Prophylactic Antibiotics: The patient does not require prophylactic antibiotics. Prior Anticoagulants: The patient has taken no previous anticoagulant or antiplatelet agents. ASA Grade Assessment: II - A patient with mild systemic disease. After reviewing the risks and benefits, the patient was deemed in satisfactory condition to undergo the procedure. The anesthesia plan was to use monitored anesthesia care (MAC). Immediately prior to administration of medications, the patient was re-assessed for adequacy to receive sedatives. The heart rate, respiratory rate, oxygen saturations, blood pressure, adequacy of pulmonary ventilation, and response to care were monitored throughout the procedure. The physical status of the patient was re-assessed after the procedure. The Endoscope was introduced through the mouth, and advanced to the second part of duodenum. The upper GI endoscopy was accomplished without difficulty. The patient tolerated the procedure well. Findings: The examined esophagus was normal. Patchy minimal inflammation characterized by erythema and granularity was found in the gastric antrum. Biopsies were taken with a cold forceps for Helicobacter pylori testing. Verification of patient identification for the specimen was done by the physician and nurse using the patient's name, date and medical record number. Estimated blood loss was minimal. One non-obstructing non-bleeding cratered duodenal ulcer with a clean ulcer base (Caleb Class III) was found in the duodenal bulb. The lesion was 12 mm in largest dimension. (suspect deep/ penetrating) Biopsies were taken with a cold forceps for histology. The second portion of the duodenum and area of the papilla were normal. Impression: - Normal esophagus. - Gastritis. Biopsied. - Non-obstructing non-bleeding duodenal ulcer with a clean ulcer base (Caleb Class III). (suspect deep/ penetrating) Biopsied. - Normal second portion of the duodenum and area of the papilla. Recommendation: - Patient has a contact number available for emergencies. The signs and symptoms of potential delayed complications were discussed with the patient. Return to normal activities tomorrow. Written discharge instructions were provided to the patient. - NPO for 1 day, then advance as tolerated to clear liquid diet. - Use Protonix (pantoprazole) 40 mg PO twice daily - to be taken in morning (1/2 hour before breakfast) and at bedtime ( atleast 3 hours after last meal) for 3 months. 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 - Use sucralfate suspension 1 gram PO QID for 3 months. - Advance diet as tolerated for 2 days. - Await pathology results. - Telephone GI clinic for pathology results in 1 week. - Refer to a surgeon if symptoms persist. - Return to primary care physician. - If Biopsy shows H. pylori will need therapy with antibiotic course.. Procedure Code(s): --- Professional --- 31093, Esophagogastroduodenoscopy, flexible, transoral; with biopsy, single or multiple Diagnosis Code(s): --- Professional --- K29.70, Gastritis, unspecified, without bleeding K26.9, Duodenal ulcer, unspecified as acute or chronic, without hemorrhage or perforation R10.11, Right upper quadrant pain D50.9, Iron deficiency anemia, unspecified CPT copyright 2019 [employer]. All rights reserved. The codes documented in this report are preliminary and upon substance abuse counselor review may be revised to meet current compliance requirements. Chriss Mills MD Chriss Mills MD 11/11/2020 3:52:35 PM Electronically signed by Chriss Mills MD Number of Addenda: 0 Note Initiated On: 11/11/2020 3:07 PM Estimated Blood Loss: Estimated blood loss was minimal.
[2020-11-11 16:02] VITALS: BP 153/90
[2020-11-11] MEDS: SUCRALFATE SUSP 1GM/10ML UD PO SCH ×2 (17:09→23:15)
[2020-11-11] MEDS: D5W/0.9% SODIUM CHLORIDE 1,000 ML IV SCH (17:09)
[2020-11-11 18:00] VITALS: BP 143/79
[2020-11-11] MEDS: FAMOTIDINE IV BAG 20 MG in IV 1 EA IV SCH (18:07)
[2020-11-11 22:00] VITALS: BP 133/77
[2020-11-12] VITALS (7 sets, daily range): BP systolic 122–138; BP diastolic 64–86
[2020-11-12] MEDS: MORPHINE 1MG/ML IN 0.9% NACL 100ML IV BAG IV PRN ×2 (00:05→23:43)
[2020-11-12] MEDS: PIPERACILLIN/TAZOBACTAM SOD 3.375 GM in D5W MINI-BAG PLUS 50 ML IV SCH ×4 (05:03→23:03)
[2020-11-12] MEDS: SUCRALFATE SUSP 1GM/10ML UD PO SCH ×4 (05:03→23:03)
[2020-11-12] MEDS: D5W/0.9% SODIUM CHLORIDE 1,000 ML IV SCH ×3 (05:03→19:50)
[2020-11-12] MEDS: FAMOTIDINE IV BAG 20 MG in IV 1 EA IV SCH ×2 (06:07→18:45)
[2020-11-12 09:09] LABS: BASO # 0.1 10^3/uL (0.0-0.2); BASO % 0.9 % (0.0-1.0); EOS # 0.2 10^3/uL (0.0-0.5); LYMPH # 2.4 10^3/uL (1.5-5.0); LYMPH % 34.2 % (24.0-44.0); MEAN CORPUSCULAR HEMOGLOBIN 28.3 pg (27.0-33.0); MEAN CORPUSCULAR HGB CONC 31.3 g/dl (32.0-36.5); MEAN CORPUSCULAR VOLUME 90.7 fl (80.0-96.0); MONO # 0.6 10^3/uL (0.0-0.8); MONO % 9.1 % (2.0-8.0); NEUTROPHILS # 3.7 10^3/uL (1.5-8.5); NEUTROPHILS % 52.5 % (36.0-66.0); PLATELET COUNT, AUTOMATED 431 10^3/uL (150-450); RED BLOOD COUNT 3.53 10^6/uL (4.30-6.10); WHITE BLOOD COUNT 7.1 10^3/uL (4.0-10.0)
[2020-11-12 09:32] LABS: BLOOD UREA NITROGEN 9 MG/DL (7-18); CARBON DIOXIDE LEVEL 30 MEQ/L (21-32); CHLORIDE LEVEL 105 MEQ/L (98-107); CREATININE FOR GFR 0.88 MG/DL (0.70-1.30); GLOMERULAR FILTRATION RATE > 60.0 (>56); GLUCOSE, FASTING 90 MG/DL (70-100); POTASSIUM SERUM 4.1 MEQ/L (3.5-5.1); SODIUM LEVEL 139 MEQ/L (136-145)
[2020-11-12] MEDS: PANTOPRAZOLE 40MG VIAL (C9113 PER 1) IV SCH ×2 (10:23→19:51)
--- NOTE | 2020-11-12 11:43 | CR ---
CONSULTATION DATE: 11/10/2020 REASON FOR CONSULTATION: Question of cholecystitis. HISTORY OF PRESENT ILLNESS: The patient is a 50-year-old male who presents with a month long history of abdominal pain, specifically epigastric pain and states this has been quite problematic for him. Reportedly, he is taking the Carafate and proton pump inhibitor as an outpatient. He was seen by Dr. Mills who has plans for an endoscopy as an outpatient. In any case, during that last admission had some mild inflammatory changes around the gallbladder but some significant thickening around the duodenum and the concern was for a cholecystitis despite having no stones and a HIDA scan was performed which showed no evidence of cystic duct obstruction. Thus, he was treated presumptively for gastroduodenitis and was discharged home. He returns for persistent pain, discomfort and progression of his pain to some extent and on his CT scan indeed shows even more inflammatory changes around his duodenum with some edema around the gallbladder which is actually touching the duodenum. I was asked to see him for recommendations concerning evaluation treatment, etc. PAST MEDICAL HISTORY: Significant for a history of kidney stones with stent placement, history of iron deficiency anemia, fatty liver, BPH, dyslipidemia, urethral stricture, chronic pancreatitis, obesity, bilateral knee surgery, appendectomy, cystoscopy, lithotripsy. MEDICATIONS: Multivitamins as his only listed home medicine but reportedly he told me he was taking his proton pump inhibitor and Carafate. PHYSICAL EXAMINATION: Patient is uncomfortable appearing in the Emergency Room bed. HEENT is unremarkable. Lungs are clear. Heart is regular. Abdomen is soft. Most of his tenderness is in the right upper quadrant/epigastric area with guarding without significant rebound. IMPRESSION/PLAN: Patient has tenderness in the epigastric/right upper quadrant area consistent with inflammatory changes in the duodenum/gallbladder area. At this point, his white count is slightly elevated and I would recommend antibiotic treatment for him, however, I anticipate his most likely diagnosis given his presentation is severe duodenitis with possibly even duodenal ulcer. When I look at the CT scan I am wondering if I see a little bit of contrast in the duodenal wall on one of the pictures suggesting a possible ulcer. I do not see any evidence of perforation in this area. Thus, the most likely diagnosis given the amount of inflammation in the duodenum is that the duodenum causing surrounding structures, i.e. the gallbladder to also appearing to be inflamed especially with his previous HIDA scan being negative. Thus, at this point I would recommend upper GI evaluation, I would recommend to consult GI and obtain recommendations from his standpoint. Dependent on the results of this, if he has a normal upper GI or upper endoscopy, we would reconsider cholecystectomy.
--- NOTE | 2020-11-12 14:39 | IPNPDOC ---
Subjective Date Seen The patient was seen on 11/12/20. Subjective Chief Complaint/HPI Remains in severe pain in the right upper quadrant. No appetite, No bowel movement here in the hospital. Objective Physical Examination General Exam: Positive: Alert, Cooperative, No Acute Distress Eye Exam: Positive: PERRLA, Conjunctiva & lids normal, EOMI; Negative: Sclera icteric ENT Exam: Positive: Atraumatic, Mucous membr. moist/pink, Pharynx Normal Neck Exam: Positive: Supple; Negative: JVD, thyromegaly Chest Exam: Positive: Clear to auscultation, Normal air movement Heart Exam: Positive: Rate Normal, Regular Rhythm, Normal S1, Normal S2; Negative: Murmurs, Rubs Abdomen Exam: Positive: Normal bowel sounds, Tenderness (all the quadrants), Other (rebound tenderness present on the right) Extremity Exam: Positive: Normal pulses; Negative: Clubbing, Cyanosis, Edema Assessment /Plan Assessment Mr. Henley is a 50-year-old male with PMH of Ureterolithiasis s/p lithotripsy, basket extraction and stent placement, Iron deficiency anemia, Fatty liver, Benign prostatic hypertrophy, Dyslipidemia, Urethral stricture, Chronic pancreatitis, Obesity, Acute cholecystitis versus duodenitis who presented to the ER with complaints of 24 hours of increasing right upper quadrant pain and nausea. The patient has had 4 previous admissions in the last month. The first 2 admissions were for pain and bladder spasms. Status post left ureteral stent placement and treatment for urethral stricture. The patient states it still "hurts when I'm pee". . He was scheduled to have a follow-up with urology to jose cruz. The third admission, at the end of September, was attributed to duodenitis. Ultrasound of the gallbladder. During that admission had identified gallbladder wall thickening but without acute cholecystitis. He was admitted again on November [address] scan showing inflammation of the gallbladder as well as the adjacent duodenum. He had a HIDA scan during that admission which was showed a normal functioning gallbladder. He left AGAINST MEDICAL ADVICE because he felt his pain was not being adequately controlled. He was sent home with prescriptions for Protonix and Carafate which he states he has been taking. He saw gastroenterology last week and was scheduled for an EGD 2 weeks from now. Been doing fairly well until yesterday when the right upper quadrant pain began to bother him again. He got progressively worse, causing him to present to the ER again. He was admitted for Acute cholecystitis and duodenitis. CT scan of the abdomen and pelvis showed severe edema and thickening of the gallbladder wall consistent with changes of cholecystitis as well as severe focal inflammation at the tristan hepatis neck of the gallbladder. Radiology felt there may be sludge material within the gallbladder as well. They said that this has been a progression of inflammation since the CT done on 11/02/2020. They also noted a thickening of the bowel wall of the duodenal bulb and first portion of the duodenal C-loop. They remarked this might be secondary to cholecystitis but noted a small ulcer crater of the duodenal bulb would also be a consideration. , general surgery, was consultative by the ER provider. He recommended that the patient be kept nothing by mouth and started on antibiotics. He also recommended that gastroenterology be consulted. , gastroenterology, recommended continuing the patient on a PPI twice daily and plans on doing an EGD in the morning. Deep duodenal ulcer in the first part of duodenum with gastritis Continue on Protonix twice a day, sucralfate and famotidine. 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 Nothing by mouth except Meds with sips. NG tube if vomiting. NPO, IVF. Unlikely Acute cholecystitis As pr Dr Waters. Anemia with known iron deficiency. Continue to monitor hemoglobin and hematocrit Left ureterolithiasis with double-J ureteral stent placement. Patient to follow-up with urology as outpatient. Plan/VTE VTE Prophylaxis Ordered?: Yes VTE Exclusion Mechanical Proph: N/A:VTE Prophy Ordered VTE Exclusion Pharmacological: Other VS, I&O, 24H, Fishbone Vital Signs/I&O Vital Signs Date Time Temp Pulse Resp B/P (MAP) Pulse Ox O2 Delivery O2 Flow Rate FiO2 11/12/20 14:00 98.1 69 12 136/85 (102) 95 Room Air I&O- Last 24 Hours up to 6 AM 11/12/20 05:59 Intake Total 2700 ml Output Total 1600 ml Balance 1100 ml Laboratory Data 24H LABS Laboratory Tests 2 11/12/20 08:45: Immature Granulocyte % (Auto) 0.3, Neutrophils (%) (Auto) 52.5, Lymphocytes (%) (Auto) 34.2, Monocytes (%) (Auto) 9.1H, Eosinophils (%) (Auto) 3.0, Basophils (%) (Auto) 0.9, Neutrophils # (Auto) 3.7, Lymphocytes # (Auto) 2.4, Monocytes # (Auto) 0.6, Eosinophils # (Auto) 0.2, Basophils # (Auto) 0.1, Nucleated Red Blood Cells % (auto) 0.0, Anion Gap 4L, Glomerular Filtration Rate > 60.0, Calcium Level 9.0 CBC/BMP Laboratory Tests 11/12/20 08:45 BRANDT AHUMADA MD Nov 12, 2020 14:39
[2020-11-12] MEDS ORDERED: PANT40TA29 PO (16:59)
[2020-11-12] MEDS ORDERED: SUCR1TAB56 PO (16:59)
[2020-11-13 02:00] VITALS: BP 141/82
[2020-11-13] MEDS: SUCRALFATE SUSP 1GM/10ML UD PO SCH ×4 (05:00→23:35)
[2020-11-13] MEDS: PIPERACILLIN/TAZOBACTAM SOD 3.375 GM in D5W MINI-BAG PLUS 50 ML IV SCH ×4 (05:00→23:36)
[2020-11-13 06:00] VITALS: BP 144/74
[2020-11-13] MEDS: FAMOTIDINE IV BAG 20 MG in IV 1 EA IV SCH ×2 (06:05→20:47)
[2020-11-13] MEDS: D5W/0.9% SODIUM CHLORIDE 1,000 ML IV SCH ×2 (06:05→17:57)
[2020-11-13 06:34] LABS: BASO # 0.1 10^3/uL (0.0-0.2); EOS # 0.2 10^3/uL (0.0-0.5); EOS % 3.7 % (0.0-3.0); HEMATOCRIT 32.5 % (42.0-52.0); LYMPH # 2.4 10^3/uL (1.5-5.0); LYMPH % 39.5 % (24.0-44.0); MEAN CORPUSCULAR HEMOGLOBIN 27.6 pg (27.0-33.0); MEAN CORPUSCULAR HGB CONC 30.8 g/dl (32.0-36.5); MEAN CORPUSCULAR VOLUME 89.8 fl (80.0-96.0); MONO # 0.7 10^3/uL (0.0-0.8); MONO % 10.8 % (2.0-8.0); NEUTROPHILS # 2.8 10^3/uL (1.5-8.5); NEUTROPHILS % 44.7 % (36.0-66.0); PLATELET COUNT, AUTOMATED 414 10^3/uL (150-450); RED BLOOD COUNT 3.62 10^6/uL (4.30-6.10); WHITE BLOOD COUNT 6.2 10^3/uL (4.0-10.0)
[2020-11-13 06:54] LABS: BLOOD UREA NITROGEN 8 MG/DL (7-18); CARBON DIOXIDE LEVEL 31 MEQ/L (21-32); CHLORIDE LEVEL 106 MEQ/L (98-107); CREATININE FOR GFR 1.01 MG/DL (0.70-1.30); GLOMERULAR FILTRATION RATE > 60.0 (>56); GLUCOSE, FASTING 90 MG/DL (70-100); SODIUM LEVEL 140 MEQ/L (136-145)
[2020-11-13] MEDS: PANTOPRAZOLE 40MG VIAL (C9113 PER 1) IV SCH ×2 (08:55→20:47)
[2020-11-13 10:00] VITALS: BP 149/90
--- NOTE | 2020-11-13 11:31 | IPNPDOC ---
Subjective Date Seen The patient was seen on 11/13/20. Subjective Chief Complaint/HPI Still complains of severe right upper quadrand and right lumber region pain. Though appears comfortable in bed and moving around in bed Objective Physical Examination General Exam: Positive: Alert, Cooperative, No Acute Distress Eye Exam: Positive: PERRLA, Conjunctiva & lids normal, EOMI; Negative: Sclera icteric ENT Exam: Positive: Atraumatic, Mucous membr. moist/pink, Pharynx Normal Neck Exam: Positive: Supple; Negative: JVD, thyromegaly Chest Exam: Positive: Clear to auscultation, Normal air movement Heart Exam: Positive: Rate Normal, Regular Rhythm, Normal S1, Normal S2; Negative: Murmurs, Rubs Abdomen Exam: Positive: Normal bowel sounds, Tenderness (all the quadrants), Other (rebound tenderness present on the right) Extremity Exam: Positive: Normal pulses; Negative: Clubbing, Cyanosis, Edema Assessment /Plan Assessment Mr. Henley is a 50-year-old male with PMH of Ureterolithiasis s/p lithotripsy, basket extraction and stent placement, Iron deficiency anemia, Fatty liver, Benign prostatic hypertrophy, Dyslipidemia, Urethral stricture, Chronic pancreatitis, Obesity, Acute cholecystitis versus duodenitis who presented to the ER with complaints of 24 hours of increasing right upper quadrant pain and nausea. The patient has had 4 previous admissions in the last month. The first 2 admissions were for pain and bladder spasms. Status post left ureteral stent placement and treatment for urethral stricture. The patient states it still "hurts when I'm pee". . He was scheduled to have a follow-up with urology tomorrow. The third admission, at the end of September, was attributed to duodenitis. Ultrasound of the gallbladder. During that admission had identified gallbladder wall thickening but without acute cholecystitis. He was admitted again on November [address] scan showing inflammation of the gallbladder as well as the adjacent duodenum. He had a HIDA scan during that admission which was showed a normal functioning gallbladder. He left AGAINST MEDICAL ADVICE because he felt his pain was not being adequately controlled. He was sent home with prescriptions for Protonix and Carafate which he states he has been taking. He saw gastroenterology last week and was scheduled for an EGD 2 weeks from now. Been doing fairly well until yesterday when the right upper quadrant pain began to bother him again. He got progressively worse, causing him to present to the ER again. He was admitted for Acute cholecystitis vs duodenitis adn duodenal ulcer . CT scan of the abdomen and pelvis showed severe edema and thickening of the gallbladder wall consistent with changes of cholecystitis as well as severe focal inflammation at the tristan hepatis neck of the gallbladder. Radiology felt there may be sludge material within the gallbladder as well. They said that this has been a progression of inflammation since the CT done on 11/02/2020. They also noted a thickening of the bowel wall of the duodenal bulb and first portion of the duodenal C-loop. They remarked this might be secondary to cholecystitis but noted a small ulcer crater of the duodenal bulb would also be a consideration. He had an EGD on 11/11/20 and found to have deep catered duodenal ulcer in the first part of duodenum. Deep duodenal ulcer in the first part of duodenum with gastritis Continue on Protonix twice a day, sucralfate and famotidine. 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 Nothing by mouth except Meds with sips and chips NPO, IVF. Unlikely Acute cholecystitis GB and portahepatis inflamed due to the duodenal ulcer and surrounding inflammation. As pr Dr Waters. Anemia with known iron deficiency. Continue to monitor hemoglobin and hematocrit Left ureterolithiasis with double-J ureteral stent placement. Patient to follow-up with urology as outpatient. Plan/VTE VTE Prophylaxis Ordered?: Yes VTE Exclusion Mechanical Proph: N/A:VTE Prophy Ordered VTE Exclusion Pharmacological: Other VS, I&O, 24H, Fishbone Vital Signs/I&O Vital Signs Date Time Temp Pulse Resp B/P (MAP) Pulse Ox O2 Delivery O2 Flow Rate FiO2 11/13/20 10:00 98.1 74 14 149/90 (109) 95 Room Air I&O- Last 24 Hours up to 6 AM 11/13/20 07:00 Intake Total 500 ml Output Total 1900 ml Balance -1400 ml Laboratory Data 24H LABS Laboratory Tests 2 11/13/20 06:07: Immature Granulocyte % (Auto) 0.3, Neutrophils (%) (Auto) 44.7, Lymphocytes (%) (Auto) 39.5, Monocytes (%) (Auto) 10.8H, Eosinophils (%) (Auto) 3.7H, Basophils (%) (Auto) 1.0, Neutrophils # (Auto) 2.8, Lymphocytes # (Auto) 2.4, Monocytes # (Auto) 0.7, Eosinophils # (Auto) 0.2, Basophils # (Auto) 0.1, Nucleated Red Blood Cells % (auto) 0.0, Anion Gap 3L, Glomerular Filtration Rate > 60.0, Calcium Level 9.0 CBC/BMP Laboratory Tests 11/13/20 06:07 BRANDT AHUMADA MD Nov 13, 2020 11:31
--- NOTE | 2020-11-13 11:54 | IPN ---
PROGRESS NOTE DATE: 11/12/2020 SUBJECTIVE: Patient still complains of abdominal pain. I was asked to reevaluate the patient because of ongoing abdominal pain. He fortunately has vital signs which have been stable. He has been afebrile. More importantly, he has not been tachycardic, his blood pressures have been good and from a laboratory standpoint white count has been normal for 48 hours at least now. Thus, given those findings it seems as though his primary abnormality is this duodenal ulcer causing ongoing pain. I had a long discussion with him concerning his current situation. He still believes it is his gallbladder and unfortunately at this time I disagree with him and do not feel this is his gallbladder and his who is present with him feels they should get his gallbladder out. Unfortunately, given the discrepancy between our opinions and I would prefer not to remove a normal gallbladder and still have persistent pain postoperatively, I have advised him to continue his current course at this time with medical treatment, however he would like some options for him and from a surgical standpoint typical operative intervention for ulcer disease is for bleeding issues, perforation, strictures, other complicated sequelae of ulcers and then last but not least is chronic intractable pain. However, he does not fit those criteria at this time from my standpoint. Thus, his options are to get a second opinion. He has been seen by another colleague in my office a few weeks ago for the same issue who felt this was secondary to duodenal disease as well and thus at this point his options are to continue with his current treatment or see if he can get a higher level of care evaluation for duodenal disease, or whether somebody would be interested in taking out his gallbladder for duodenal disease. In any case, I would recommend continue aggressive treatment and it may just be that his clinical presentation is slower to improve than his overall labs, vitals, etc. Given his presentation on his overall comfort level when he is sitting in bed or moving around, he seems much more comfortable to me, so I am thinking that although he may not appreciate the improvement there may be some subtle improvements that we are seeing that are very difficult to quantify. In any case, any further questions I would be glad to discuss this with the primary care available for this issues.
[2020-11-13 14:00] VITALS: BP 144/74
[2020-11-13 18:00] VITALS: BP 147/76
[2020-11-13 22:00] VITALS: BP 160/76
[2020-11-14] MEDS: MORPHINE 1MG/ML IN 0.9% NACL 100ML IV BAG IV PRN (01:27)
[2020-11-14 02:00] VITALS: BP 150/72
[2020-11-14] MEDS: D5W/0.9% SODIUM CHLORIDE 1,000 ML IV SCH ×2 (04:57→15:24)
[2020-11-14] MEDS: PIPERACILLIN/TAZOBACTAM SOD 3.375 GM in D5W MINI-BAG PLUS 50 ML IV SCH ×3 (04:58→18:32)
[2020-11-14 06:00] VITALS: BP 164/59
[2020-11-14] MEDS: SUCRALFATE SUSP 1GM/10ML UD PO SCH ×3 (06:20→17:10)
[2020-11-14 06:21] LABS: BASO # 0.1 10^3/uL (0.0-0.2); BASO % 0.8 % (0.0-1.0); EOS # 0.2 10^3/uL (0.0-0.5); EOS % 3.3 % (0.0-3.0); HEMATOCRIT 32.4 % (42.0-52.0); HEMOGLOBIN 10.3 g/dl (13.5-17.5); LYMPH # 2.5 10^3/uL (1.5-5.0); LYMPH % 37.7 % (24.0-44.0); MEAN CORPUSCULAR HGB CONC 31.8 g/dl (32.0-36.5); MONO # 0.7 10^3/uL (0.0-0.8); MONO % 10.3 % (2.0-8.0); NEUTROPHILS # 3.2 10^3/uL (1.5-8.5); NEUTROPHILS % 47.7 % (36.0-66.0); PLATELET COUNT, AUTOMATED 399 10^3/uL (150-450); RED BLOOD COUNT 3.68 10^6/uL (4.30-6.10); WHITE BLOOD COUNT 6.6 10^3/uL (4.0-10.0)
[2020-11-14] MEDS: FAMOTIDINE IV BAG 20 MG in IV 1 EA IV SCH ×2 (06:21→17:11)
[2020-11-14 06:53] LABS: BLOOD UREA NITROGEN 7 MG/DL (7-18); CALCIUM LEVEL 8.8 MG/DL (8.5-10.1); CARBON DIOXIDE LEVEL 27 MEQ/L (21-32); CHLORIDE LEVEL 106 MEQ/L (98-107); CREATININE FOR GFR 0.89 MG/DL (0.70-1.30); GLOMERULAR FILTRATION RATE > 60.0 (>56); GLUCOSE, FASTING 91 MG/DL (70-100); POTASSIUM SERUM 4.1 MEQ/L (3.5-5.1); SODIUM LEVEL 139 MEQ/L (136-145)
[2020-11-14] MEDS ORDERED: MORPHINE 4 MG/ML 1ML VIAL/SYRINGE (J2270) IV PRN (09:25)
[2020-11-14] MEDS: PANTOPRAZOLE 40MG VIAL (C9113 PER 1) IV SCH ×2 (10:08→21:07)
--- NOTE | 2020-11-14 11:47 | IPNPDOC ---
Subjective Date Seen The patient was seen on 11/14/20. Subjective Chief Complaint/HPI Patient reports he had a rough night . He needed 11 mg of morphine overnight. This morning seems a little better . He is moving around in bed in no discomfort and starting to feel hungry. Will start on clear liquids. Objective Physical Examination General Exam: Positive: Alert, Cooperative, No Acute Distress Eye Exam: Positive: PERRLA, Conjunctiva & lids normal, EOMI; Negative: Sclera icteric ENT Exam: Positive: Atraumatic, Mucous membr. moist/pink, Pharynx Normal Neck Exam: Positive: Supple; Negative: JVD, thyromegaly Chest Exam: Positive: Clear to auscultation, Normal air movement Heart Exam: Positive: Rate Normal, Regular Rhythm, Normal S1, Normal S2; Negative: Murmurs, Rubs Abdomen Exam: Positive: Normal bowel sounds, Tenderness (all the quadrants), Other (rebound tenderness present on the right) Extremity Exam: Positive: Normal pulses; Negative: Clubbing, Cyanosis, Edema Assessment /Plan Assessment Mr. Henley is a 50-year-old male with PMH of Ureterolithiasis s/p lithotripsy, basket extraction and stent placement, Iron deficiency anemia, Fatty liver, Benign prostatic hypertrophy, Dyslipidemia, Urethral stricture, Chronic pancreatitis, Obesity, Acute cholecystitis versus duodenitis who presented to the ER with complaints of 24 hours of increasing right upper quadrant pain and nausea. The patient has had 4 previous admissions in the last month. The first 2 admissions were for pain and bladder spasms. Status post left ureteral stent placement and treatment for urethral stricture. The patient states it still "hurts when I'm pee". . He was scheduled to have a follow-up with urology tomorrow. The third admission, at the end of September, was attributed to duodenitis. Ultrasound of the gallbladder. During that admission had identified gallbladder wall thickening but without acute cholecystitis. He was admitted again on November [address] scan showing inflammation of the gallbladder as well as the adjacent duodenum. He had a HIDA scan during that admission which was showed a normal functioning gallbladder. He left AGAINST MEDICAL ADVICE because he felt his pain was not being adequately controlled. He was sent home with prescriptions for Protonix and Carafate which he states he has been taking. He saw gastroenterology last week and was scheduled for an EGD 2 weeks from now. Been doing fairly well until yesterday when the right upper quadrant pain began to bother him again. He got progressively worse, causing him to present to the ER again. He was admitted for Acute cholecystitis vs duodenitis adn duodenal ulcer . CT scan of the abdomen and pelvis showed severe edema and thickening of the gallbladder wall consistent with changes of cholecystitis as well as severe f ocal inflammation at the tristan hepatis neck of the gallbladder. Radiology felt there may be sludge material within the gallbladder as well. They said that this has been a progression of inflammation since the CT done on 11/02/2020. They also noted a thickening of the bowel wall of the duodenal bulb and first portion of the duodenal C-loop. They remarked this might be secondary to cholecystitis but noted a small ulcer crater of the duodenal bulb would also be a consideration. He had an EGD on 11/11/20 and found to have deep catered duodenal ulcer in the first part of duodenum. Deep duodenal ulcer in the first part of duodenum with gastritis H. pylori positive in ulcer bx. Continue on Protonix twice a day, sucralfate and famotidine. continue zosyn which will cover H ylori also. Once able to tolerate oral diet will start on tripple therapy for h. pylori most likely as an outpatient. clear liquids. 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 MRI abdomen with contrast to look at jessica pancreas and the ducts as per Dr Mills. Acute cholecystitis ruled out GB and portahepatis inflamed due to the duodenal ulcer and surrounding inflammation. Anemia with known iron deficiency. Continue to monitor hemoglobin and hematocrit Left ureterolithiasis with double-J ureteral stent placement. Patient to follow-up with urology as outpatient Plan/VTE VTE Prophylaxis Ordered?: Yes VTE Exclusion Mechanical Proph: N/A:VTE Prophy Ordered VTE Exclusion Pharmacological: Other VS, I&O, 24H, Fishbone Vital Signs/I&O Vital Signs Date Time Temp Pulse Resp B/P (MAP) Pulse Ox O2 Delivery O2 Flow Rate FiO2 11/14/20 06:00 98.3 72 17 164/59 (94) 96 Room Air I&O- Last 24 Hours up to 6 AM 11/14/20 05:59 Intake Total 100 ml Output Total 2500 ml Balance -2400 ml Laboratory Data 24H LABS Laboratory Tests 2 11/14/20 06:11: Immature Granulocyte % (Auto) 0.2, Neutrophils (%) (Auto) 47.7, Lymphocytes (%) (Auto) 37.7, Monocytes (%) (Auto) 10.3H, Eosinophils (%) (Auto) 3.3H, Basophils (%) (Auto) 0.8, Neutrophils # (Auto) 3.2, Lymphocytes # (Auto) 2.5, Monocytes # (Auto) 0.7, Eosinophils # (Auto) 0.2, Basophils # (Auto) 0.1, Nucleated Red Blood Cells % (auto) 0.0, Anion Gap 6L, Glomerular Filtration Rate > 60.0, Calcium Level 8.8 CBC/BMP Laboratory Tests 11/14/20 06:11 BRANDT AHUMADA MD Nov 14, 2020 11:47
[2020-11-14] MEDS: MORPHINE 2 MG/ML 1ML VIAL (J2270) IV PRN ×2 (12:04→15:24)
[2020-11-14 14:00] VITALS: BP 136/69
[2020-11-14] MEDS ORDERED: PROHANCE 279.3MG/ML 5ML VIAL As Ordered ONE (19:32)
[2020-11-14] MEDS ORDERED: PROHANCE 279.3MG/ML 15ML VIAL As Ordered ONE (19:33)
[2020-11-14] MEDS ORDERED: LORazepam 1 MG TAB PO ONE (20:00)
[2020-11-14] MEDS ORDERED: PERCOCET 5MG/325MG TAB PO PRN (20:45)
[2020-11-14 22:00] VITALS: BP 161/81
[2020-11-15] MEDS: SUCRALFATE SUSP 1GM/10ML UD PO SCH ×3 (00:11→12:05)
[2020-11-15] MEDS: PIPERACILLIN/TAZOBACTAM SOD 3.375 GM in D5W MINI-BAG PLUS 50 ML IV SCH ×2 (00:12→05:51)
[2020-11-15 02:00] VITALS: BP 163/89
[2020-11-15] MEDS: D5W/0.9% SODIUM CHLORIDE 1,000 ML IV SCH (03:38)
[2020-11-15 06:00] VITALS: BP 156/94
[2020-11-15] MEDS: FAMOTIDINE IV BAG 20 MG in IV 1 EA IV SCH (06:59)
[2020-11-15 08:26] LABS: BASO # 0.1 10^3/uL (0.0-0.2); BASO % 0.8 % (0.0-1.0); EOS # 0.2 10^3/uL (0.0-0.5); HEMATOCRIT 34.3 % (42.0-52.0); HEMOGLOBIN 10.9 g/dl (13.5-17.5); LYMPH # 1.9 10^3/uL (1.5-5.0); LYMPH % 25.2 % (24.0-44.0); MEAN CORPUSCULAR HEMOGLOBIN 27.9 pg (27.0-33.0); MEAN CORPUSCULAR HGB CONC 31.8 g/dl (32.0-36.5); MEAN CORPUSCULAR VOLUME 87.7 fl (80.0-96.0); MONO # 0.6 10^3/uL (0.0-0.8); MONO % 8.5 % (2.0-8.0); NEUTROPHILS # 4.6 10^3/uL (1.5-8.5); NEUTROPHILS % 62.2 % (36.0-66.0); PLATELET COUNT, AUTOMATED 413 10^3/uL (150-450); RED BLOOD COUNT 3.91 10^6/uL (4.30-6.10); WHITE BLOOD COUNT 7.4 10^3/uL (4.0-10.0)
[2020-11-15 08:46] LABS: BLOOD UREA NITROGEN 6 MG/DL (7-18); CALCIUM LEVEL 9.3 MG/DL (8.5-10.1); CARBON DIOXIDE LEVEL 27 MEQ/L (21-32); CHLORIDE LEVEL 106 MEQ/L (98-107); CREATININE FOR GFR 0.95 MG/DL (0.70-1.30); GLOMERULAR FILTRATION RATE > 60.0 (>56); GLUCOSE, FASTING 90 MG/DL (70-100); SODIUM LEVEL 139 MEQ/L (136-145)
[2020-11-15] MEDS: PANTOPRAZOLE 40MG VIAL (C9113 PER 1) IV SCH (08:46)
[2020-11-15] MEDS ORDERED: AMOXICILLIN 500 MG CAP PO SCH (09:00)
[2020-11-15] MEDS ORDERED: CLARITHROMYCIN 250 MG TAB PO SCH (09:00)
--- NOTE | 2020-11-15 11:16 | IPNPDOC ---
Subjective Date Seen The patient was seen on 11/15/20. Subjective Chief Complaint/HPI Feeling much better today. pain almost resolved. Took regular diet this morning with no worsening of pain. Objective Physical Examination General Exam: Positive: Alert, Cooperative, No Acute Distress Eye Exam: Positive: PERRLA, Conjunctiva & lids normal, EOMI; Negative: Sclera icteric ENT Exam: Positive: Atraumatic, Mucous membr. moist/pink, Pharynx Normal Neck Exam: Positive: Supple; Negative: JVD, thyromegaly Chest Exam: Positive: Clear to auscultation, Normal air movement Heart Exam: Positive: Rate Normal, Regular Rhythm, Normal S1, Normal S2; Negative: Murmurs, Rubs Abdomen Exam: Positive: Normal bowel sounds, Soft; Negative: BS Hypoactive, Tenderness Extremity Exam: Positive: Normal pulses; Negative: Clubbing, Cyanosis, Edema Assessment /Plan Assessment Mr. Henley is a 50-year-old male with PMH of Ureterolithiasis s/p lithotripsy, basket extraction and stent placement, Iron deficiency anemia, Fatty liver, Benign prostatic hypertrophy, Dyslipidemia, Urethral stricture, Chronic p ancreatitis, Obesity, Acute cholecystitis versus duodenitis who presented to the ER with complaints of 24 hours of increasing right upper quadrant pain and nausea. The patient has had 4 previous admissions in the last month. The first 2 admissions were for pain and bladder spasms. Status post left ureteral stent placement and treatment for urethral stricture. The patient states it still "hurts when I'm pee". . He was scheduled to have a follow-up with urology tomorrow. The third admission, at the end of September, was attributed to duodenitis. Ultrasound of the gallbladder. During that admission had identified gallbladder wall thickening but without acute cholecystitis. He was admitted again on November [address] scan showing inflammation of the gallbladder as well as the adjacent duodenum. He had a HIDA scan during that admission which was showed a normal functioning gallbladder. He left AGAINST MEDICAL ADVICE because he felt his pain was not being adequately controlled. He was sent home with prescriptions for Protonix and Carafate which he states he has been taking. He saw gastroenterology last week and was scheduled for an EGD 2 weeks from now. Been doing fairly well until yesterday when the right upper quadrant pain began to bother him again. He got progressively worse, causing him to present to the ER again. He was admitted for Acute cholecystitis vs duodenitis adn duodenal ulcer . CT scan of the abdomen and pelvis showed severe edema and thickening of the gallbladder wall consistent with changes of cholecystitis as well as severe focal inflammation at the tristan hepatis neck of the gallbladder. Radiology felt there may be sludge material within the gallbladder as well. They said that this has been a progression of inflammation since the CT done on 11/02/2020. They also noted a thickening of the bowel wall of the duodenal bulb and first portion of the duodenal C-loop. They remarked this might be secondary to cholecystitis but noted a small ulcer crater of the duodenal bulb would also be a consideration. He had an EGD on 11/11/20 and found to have deep catered duodenal ulcer in the first part of duodenum. Deep duodenal ulcer in the first part of duodenum with gastritis H. pylori positive in gastritis. No malignancy. will start tripple therapy for h pylori. stop zosyn. MRI abdomen with contrast to look at jessica pancreas and the ducts as per Dr Mills. tolerating regular diet. Anemia with known iron deficiency. Continue to monitor hemoglobin and hematocrit Left ureterolithiasis with double-J ureteral stent placement. Patient to follow-up with urology as outpatient Plan/VTE VTE Prophylaxis Ordered?: Yes VTE Exclusion Mechanical Proph: N/A:VTE Prophy Ordered VTE Exclusion Pharmacological: Other VS, I&O, 24H, Fishbone Vital Signs/I&O Vital Signs Date Time Temp Pulse Resp B/P (MAP) Pulse Ox O2 Delivery O2 Flow Rate FiO2 11/15/20 06:00 96.9 69 18 156/94 (114) 99 Room Air I&O- Last 24 Hours up to 6 AM 11/15/20 06:00 Intake Total 2740 ml Output Total 1600 ml Balance 1140 ml Laboratory Data 24H LABS Laboratory Tests 2 11/15/20 07:43: Immature Granulocyte % (Auto) 0.3, Neutrophils (%) (Auto) 62.2, Lymphocytes (%) (Auto) 25.2, Monocytes (%) (Auto) 8.5H, Eosinophils (%) (Auto) 3.0, Basophils (%) (Auto) 0.8, Neutrophils # (Auto) 4.6, Lymphocytes # (Auto) 1.9, Monocytes # (Auto) 0.6, Eosinophils # (Auto) 0.2, Basophils # (Auto) 0.1, Nucleated Red Blood Cells % (auto) 0.0, Anion Gap 6L, Glomerular Filtration Rate > 60.0, Calcium Level 9.3 CBC/BMP Laboratory Tests 11/15/20 07:43 BRANDT AHUMADA MD Nov 15, 2020 11:16
[2020-11-15] MEDS ORDERED: PERCOCET PO (11:51)
[2020-11-15] MEDS ORDERED: CLAR250T22 PO ×2 (11:51→11:53)
[2020-11-15] MEDS ORDERED: PANT40TA29 PO (11:51)
[2020-11-15] MEDS ORDERED: AMOX500C PO (11:51)
[2020-11-15] MEDS ORDERED: PANTOPRAZOLE 40MG TAB (PROTONIX) PO SCH (21:00)
--- NOTE | 2020-11-16 06:57 | DS.PDOC ---
Discharge Summary General Date of Admission Nov 10, 2020 at 22:02 Date of Discharge 11/15/20 Discharge Summary PROCEDURES PERFORMED DURING STAY: [None]. DISCHARGE DIAGNOSES: Peptic Ulcer disease H pyrori gastritis Duodenal ulcer SECONDARY DIAGNOSIS: Ureterolithiasis s/p lithotripsy, basket extraction and stent placement, Iron deficiency anemia, Fatty liver, Benign prostatic hypertrophy, Dyslipidemia, Ur ethral stricture, Chronic pancreatitis, Obesity, COMPLICATIONS/CHIEF COMPLAINT: Abdominal Pain, Acalculous Cholecystitis. HOSPITAL COURSE: Mr. Henley is a 50-year-old male with PMH of Ureterolithiasis s/p lithotripsy, basket extraction and stent placement, Iron deficiency anemia, Fatty liver, Benign prostatic hypertrophy, Dyslipidemia, Urethral stricture, Chronic pancreatitis, Obesity, Acute cholecystitis versus duodenitis who presented to the ER with complaints of 24 hours of increasing right upper quadrant pain and nausea. The patient has had 4 previous admissions in the last month. The first 2 admissions were for pain and bladder spasms. Status post left ureteral stent placement and treatment for urethral stricture. The patient states it still "hurts when I'm pee". . He was scheduled to have a follow-up with urology tomorrow. The third admission, at the end of September, was attributed to duodenitis. Ultrasound of the gallbladder. During that admission had identified gallbladder wall thickening but without acute cholecystitis. He was admitted again on November [address] scan showing inflammation of the gallbladder as well as the adjacent duodenum. He had a HIDA scan during that admission which was showed a normal functioning gallbladder. He left AGAINST MEDICAL ADVICE because he felt his pain was not being adequately controlled. He was sent home with prescriptions for Protonix and Carafate which he states he has been taking. He saw gastroenterology last week and was scheduled for an EGD 2 weeks from now. Been doing fairly well until yesterday when the right upper quadrant pain began to bother him again. He got progressively worse, causing him to present to the ER again. He was admitted for Acute cholecystitis vs duodenitis and duodenal ulcer . CT scan of the abdomen and pelvis showed severe edema and thickening of the gallbladder wall consistent with changes of cholecystitis as well as severe focal inflammation at the tristan hepatis neck of the gallbladder. Radiology felt there may be sludge material within the gallbladder as well. They said that this has been a progression of inflammation since the CT done on 11/02/2020. They also noted a thickening of the bowel wall of the duodenal bulb and first portion of the duodenal C-loop. They remarked this might be secondary to cholecystitis but noted a small ulcer crater of the duodenal bulb would also be a considera tion. He had an EGD on 11/11/20 and found to have deep catered duodenal ulcer in the first part of duodenum. Deep duodenal ulcer in the first part of duodenum with gastritis H. pylori positive in gastritis. No malignancy. will start tripple therapy for h pylori. PPI, clarithromycin and amoxycillin. tolerating regular diet. Anemia with known iron deficiency. Continue to monitor hemoglobin and hematocrit Left ureterolithiasis with double-J ureteral stent placement. Patient to follow-up with urology as outpatient DISCHARGE MEDICATIONS: Please see below. ALLERGIES: Please see below. PHYSICAL EXAMINATION ON DISCHARGE: VITAL SIGNS: Please see below. General Exam: Positive: Alert, Cooperative, No Acute Distress Eye Exam: Positive: PERRLA, Conjunctiva & lids normal, EOMI; Negative: Sclera icteric ENT Exam: Positive: Atraumatic, Mucous membr. moist/pink, Pharynx Normal Neck Exam: Positive: Supple; Negative: JVD, thyromegaly Chest Exam: Positive: Clear to auscultation, Normal air movement Heart Exam: Positive: Rate Normal, Regular Rhythm, Normal S1, Normal S2; Negative: Murmurs, Rubs Abdomen Exam: Positive: Normal bowel sounds, Soft; Negative: BS Hypoactive, Tenderness Extremity Exam: Positive: Normal pulses; Negative: Clubbing, Cyanosis, Edema LABORATORY DATA: Please see below. ACTIVITY: [As tolerated]. DIET: [place] diet DISPOSITION: 01 Home, Self-Care. DISCHARGE INSTRUCTIONS: Dr Mills in 1 week PMD in 1 week DISCHARGE CONDITION: [Stable]. TIME SPENT ON DISCHARGE: 35 minutes. Vital Signs/I&Os Vital Signs Date Time Temp Pulse Resp B/P (MAP) Pulse Ox O2 Delivery O2 Flow Rate FiO2 11/15/20 06:00 96.9 69 18 156/94 (114) 99 Room Air I&O- Last 24 Hours up to 6 AM 11/16/20 06:00 Intake Total 345 ml Output Total 0 ml Balance 345 ml Laboratory Data Labs 24H Laboratory Tests 2 11/15/20 07:43: Immature Granulocyte % (Auto) 0.3, Neutrophils (%) (Auto) 62.2, Lymphocytes (%) (Auto) 25.2, Monocytes (%) (Auto) 8.5H, Eosinophils (%) (Auto) 3.0, Basophils (%) (Auto) 0.8, Neutrophils # (Auto) 4.6, Lymphocytes # (Auto) 1.9, Monocytes # (Auto) 0.6, Eosinophils # (Auto) 0.2, Basophils # (Auto) 0.1, Nucleated Red Blood Cells % (auto) 0.0, Anion Gap 6L, Glomerular Filtration Rate > 60.0, Calcium Level 9.3 CBC/BMP Laboratory Tests 11/15/20 07:43 Discharge Medications Scheduled Amoxicillin (Amoxicillin) 500 Mg Capsule, 1,000 MG PO BID Clarithromycin (Clarithromycin) 250 Mg Tablet, 500 MG PO BID Multivitamins (Thera M Plus Tablet) 1 Each Tablet, 1 TAB PO DAILY, (Reported) Pantoprazole Sodium (Pantoprazole Sodium) 40 Mg Tablet.dr, 40 MG PO BID Sucralfate (Sucralfate) 1 Gm Tablet, 1 GM PO ACHS, (Reported) Scheduled PRN Oxycodone/Acetaminophen (Oxycodone-Acetaminophen 5-325) 1 Each Tablet, 1 TAB PO TIDP PRN for MODERATE PAIN (PS 5-7) Allergies Coded Allergies: No Known Drug Allergies (Verified Allergy, Unknown, 10/19/19) BRANDT AHUMADA MD Nov 16, 2020 06:57
== END 2020-11-15 12:12 | disposition home or self-care (01) | DRG 241 ==
LOC: EDBD 15:31 → M ED 15:31 → M ED INP 15:32 → UNDOADMOB 15:32 → OBSVTOIN 22:02 → M ED INP 22:02 → ENRESERV 22:53 → M MSPAV 23:34
PROVIDERS: ADMIT Internal Medicine; ATTEND Internal Medicine Nephrology
PROC: 0DB68ZX Excision of Stomach, Via Natural or Artificial Opening Endoscopic, Diagnostic (ICD-10-PCS; 2020-11-11)
PROC: 0DB98ZX Excision of Duodenum, Via Natural or Artificial Opening Endoscopic, Diagnostic (ICD-10-PCS; principal; 2020-11-11 13:47)
DX: K26.9 Duodenal ulcer, unspecified as acute or chronic, without hemorrhage or perforation (principal); E87.1 Hypo-osmolality and hyponatremia; K76.0 Fatty (change of) liver, not elsewhere classified; K86.1 Other chronic pancreatitis; K29.70 Gastritis, unspecified, without bleeding; B96.81 Helicobacter pylori [H. pylori] as the cause of diseases classified elsewhere; D50.9 Iron deficiency anemia, unspecified; N40.0 Benign prostatic hyperplasia without lower urinary tract symptoms; E78.5 Hyperlipidemia, unspecified; E66.9 Obesity, unspecified

== ENCOUNTER 2021-03-18 20:35 | Emergency (ER) | payer OTHER ==
[~2021-03-18] VITALS: Ht 180.3 cm; Wt 113.6 kg
[~2021-03-18 20:35] MED LIST changes: +AMOX500C PO; +CLAR250T22 PO; +PANT40TA29 PO
--- OUTSIDE RECORDS SUMMARY | 2021-03-18 20:41 | CCD ---
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 Active confirmed 456440842 Problem Retained ureteral stent Z96.0 Active confirmed 190645019 Problem Thrombocytosis D47.3 Active confirmed 07761 09 Problem Nephrolithiasis N20.0 Active confirmed 9557 0007 Problem Skin cancer C44.90 Active confirmed 80512278 7 Problem Duodenitis K29.80 Active confirmed 79277552 ALLERGIES No Known Allergies ENCOUNTERS from 1970 to 2021-02-27 Encounter Location Date Provider Diagnosis [facility] [phone] [place] [address] Feb, 2021 James Guaman IMMUNIZATIONS Vaccine Route Administration Date Status Toradol 30mg/1mL Ketorolac IM Intramuscular Jan 16, 2021 Admi nistered Influenza 6mo & up Fluzone Unknown Feb 20, 2015 Admin istered SOCIAL HISTORY Tobacco Use: Social History Observation Description Date Details (start date - stop date) Current Smoker Sex Assigned At : Social History Observation Description Sex Assigned At Unknown Alcohol Screening: Question Answer Notes Did you have a drink containing alcohol in the past year? No Points 0 Interpretation Negative BMI Care Goal Follow-Up Question Answer Notes Above Normal BMI Follow-Up Dietary management educatio n, guidance, and counseling, Dietary needs education Tobacco Use: Question Answer Notes Are you a: current smoker Smoking Cessation Information Given 10/24/2020 Patient counseled on the dangers of tobacco use and urged to quit: 10/24/2020 How many cigarettes a day do you smoke? -05/25 ppd REASON FOR REFERRAL No Information VITAL SIGNS No information MEDICATIONS Medication SIG (Take, Route, Frequency, Duration) Notes Start Da te End Date Status Phenazopyridine HCl 100 MG 1 tablet after meals Orally twice a d ay as needed Nov, Active Baclofen 10 MG 1 tablet as needed Orally every 8 hrs for 7 day( s) Dec, Active Sucralfate 1 GM/10ML 10 ml on an empty stomach Orally Twice a day for 30 day(s) Dec, Active traMADol HCl 50 MG 1 tablet as needed Orally ev abrahan 6 hours as needed for back pain (MDD=4) for 7 day(s) severe pain 03/02Dec, Acti ve Multivitamins Orally daily Active Ondansetron 4 MG 1 tablet on the tongue and a llow to dissolve Orally q6 hours for nausea on hospital discharge 09/24/20 September, A ctive Sucralfate 1 GM 1 tablet on an empty stomach Orally Twic e a day for 30 day(s) on discharge from [facility] 10/22/20 Oct, Active HYDROcodone-Acetaminophen 5-325 MG (Schedule II Drug) TAKE 1 TABLET BY MOUTH EVERY 4 TO 6 HOURS NEEDED FOR PAIN . DO NOT EXCEED 6 PER 24 HOURS Oral every 6 hrs Active Tamsulosin HCl 0.4 MG TAKE 1 CAPSULE BY MOUTH ONCE DAILY 30 MINUTES FOLLOWING THE SAME MEAL EACH DAY Oral for 7 Not-Taking Oxybutynin Chloride 5 MG 1 tablet Orally Twice a day as needed Nov, Active Amoxicillin 1 tab Oral for 14 days A ctive Pantoprazole Sodium 40 MG 1 tablet Orally Once a day for 30 day(s) on dicharge 10/22/20 from [facility] Oct, Active PROCEDURES No Information RESULTS No Results REASON FOR VISIT No Information MEDICAL (GENERAL) HISTORY Type Description Date Medical History h/o ETOH abuse Medical History tobacco use Medical History chronic pancreatitis Medical History mixed hyperlipidemia; ASCVD 10-year risk was 9.8% Medical History Left ureteral stone Medical History Left ureteral stricture Surgical History arthroscopic knee surgery bilateral 1994 Surgical History appendectomy (midline incision after rup ture) 1999 Surgical History Left ureteroscopy with removal of ureter al stone 09/2020 Surgical History cystoscopy with stent removal in office 09/2020 Surgical History Cystoscopy with stent placement in [facility] Surgical History cysto with stent removal 11/2020 Hospitalization History acute pancreatitis/gastroenteritis ( [facility]) 06/2014 Hospitalization History ulcers/ [facility] inpatient 2 days 07/2019 Hospitalization History Ureterolithiasis - [facility] (LEFT AMA) 09/23/20-09/24/20 Goals Section No Information Health Concerns No Information MEDICAL EQUIPMENT No Information MENTAL STATUS No Information FUNCTIONAL STATUS No Information ASSESSMENTS No Information PLAN OF TREATMENT Medication Medication Name Sig Start Date Stop Date traMADol HCl 50 MG 1 tablet as needed Orally ev abrahan 6 hours as needed for back pain (MDD=4) for 7 day(s) Dec, Baclofen 10 MG 1 tablet as needed Orally every 8 hrs for 7 day( s) Dec, Sucralfate 1 GM/10ML 10 ml on an empty stomach Orally Twice a day for 30 day(s) Dec, Insurance Providers Payer Name Payer Address Payer Phone Insured Name Patient Relati onship to Insured Coverage Start Date Coverage End Date [facility] CLAIMS DEPT [address] [facility] [phone] SOULEYMANE TALBERT self
--- OUTSIDE RECORDS SUMMARY | 2021-03-18 20:41 | CCD ---
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 Active confirmed 271170508 Problem Retained ureteral stent Z96.0 Active confirmed 841222900 Problem Thrombocytosis D47.3 Active confirmed 10050 09 Problem Nephrolithiasis N20.0 Active confirmed 9557 0007 Problem Skin cancer C44.90 Active confirmed 25750751 7 Problem Duodenitis K29.80 Active confirmed 19083502 ALLERGIES No Known Allergies ENCOUNTERS from 1970 to 2021-01-22 Encounter Location Date Provider Diagnosis [address] [phone] [place] [address] Dec, Meghan Pa Acute left-sided low back pa in without sciatica M54.5 and Muscle spasm of back M62.830 IMMUNIZATIONS Vaccine Route Administration Date Status Toradol [...] REASON FOR REFERRAL No Information VITAL SIGNS Weight 222.2 lbs Dec, Height 71 in Dec, BMI 30.99 kg/m2 Dec, Heart Rate 109 /min Dec, Respiratory Rate 18 /min Dec, Temperature 98.5 degrees Fahrenheit Dec, Oximetry 99 Dec, Blood pressure systolic 149 mm Hg Dec, Blood pressure diastolic 103 mm Hg Dec, MEDICATIONS Medication SIG (Take, Route, Frequency, Duration) [...] day for 30 day(s) on discharge from [facility] 10/22/20 Oct, Active HYDROcodone-Acetaminophen 5-325 MG (Schedule [...] for 30 day(s) on dicharge 10/22/20 from [facility] Oct, Active PROCEDURES from 1970 to 2021-01-22 Procedure Date Ordered Result Body Site Medication: Toradol 60mg/2mL IM (Ketorolac) 2021-01-16 N/A RESULTS No Results REASON FOR VISIT lower back pain MEDICAL (GENERAL) HISTORY Type Description Date Medical [...] History [facility] Surgical History cysto with stent removal 11/2020 Hospitalization History acute pancreatitis/gastroenteritis ( [facility]) 06/2014 Hospitalization History ulcers/ [facility] inpatient 2 days 07/2019 Hospitalization History Ureterolithiasis - [facility] (LEFT AMA) 09/23/20-09/24/20 Goals Section No Information Health Concerns No Information MEDICAL EQUIPMENT No Information MENTAL STATUS No Information FUNCTIONAL STATUS No Information ASSESSMENTS Encounter Date Diagnosis Assessment Notes Treatment Notes Treatm ent Clinical Notes Dec, Acute left-sided low back pain without sciatica (ICD-10 - M54.5) Pt vomiting d/t pain, hardly able to walk. Plan short course tramadol and muscle relaxers. Also favor xray for further evaluation, ? disc herniation. Dec, Muscle spasm of back (ICD-10 - M62.830) see notes above PLAN OF TREATMENT Medication Medication Name Sig [...] Twice a day for 30 day(s) Dec, Treatment Notes Assessment Notes Clinical Notes Acute left-sided low back pain without sciatica Pt vomiting d/t pain, hardly able to walk. Plan short course tramadol and muscle relaxers. Also favor xray for further evaluation, ? disc herniation. Muscle spasm of back see notes above Future Test Test Name Order Date PLZ SPINE LS COMPLETE [id number] Next Appt Details 1 Week, if non-resolving Reason: Provider Name:James Guaman, 2020-10-0 6 10:30:00 AM, [id number], , [place], [address], Insurance Providers Payer Name Payer Address Payer Phone Insured Name Patient Relati onship to Insured Coverage Start Date Coverage End Date [facility] CLAIMS DEPT [address] [facility] [phone] SOULEYMANE TALBERT self
--- OUTSIDE RECORDS SUMMARY | 2021-03-18 20:41 | CCD ---
Author Author [facility] Organization [facility] Address Unknown Phone Unavailable Care Team Providers Care Data Support Specialist Name Role Phone JOHN MANUEL MD Unavailable Unavailable JOHN MANUEL MD Unavailable Unavailable JOHN MANUEL MD Unavailable Unavailable JOHN MANUEL MD Unavailable Unavailable JOHN MANUEL MD Unavailable Unavailable JOHN MANUEL MD Unavailable Unavailable JOHN MANUEL MD Unavailable Unavailable JOHN MANUEL MD Unavailable Unavailable JOHN MANUEL MD Unavailable Unavailable JOHN MANUEL MD Unavailable Unavailable JOHN MANUEL MD Unavailable Unavailable JOHN MANUEL MD Unavailable Unavailable JOHN MANUEL MD Unavailable Unavailable JOHN MANUEL MD Unavailable Unavailable JOHN MANUEL MD Unavailable Unavailable MAR, JOHN MD Unavailable [...] Unavailable Unavailable MAR, JOHN MD Unavailable Unavailable Cruzito Welch Unavailable Unavailable BirCruzito liu Unavailable Unavailable Cruzito Welch Unavailable Unavailable BirCruzito liu Unavailable Unavailable Birklin, Cruzito Madhav PA Unavailable Unavailable Birklin, Cruzito Corey PA Unavailable Unavailable Birklin, Cruzito Corey PA Unavailable Unavailable Birklin, Cruzito Gonzalezel PA Unavailable Unavailable Birklin, Cruzito Gonzalezel PA Unavailable Unavailable Birklin, Cruzito Gonzalezel PA Unavailable Unavailable Birklin, Cruzito Gonzalezel PA Unavailable Unavailable Birklin, Cruzito Gonzalezel PA Unavailable Unavailable Birklin, Cruzito Gonzalezel PA Unavailable Unavailable Birklin, Cruzito Gonzalezel PA Unavailable Unavailable Birklin, Cruzito Gonzalezel PA Unavailable Unavailable Birklin, Cruzito Amdhav PA Unavailable Unavailable Birklin, Cruzito Madhav PA Unavailable Unavailable Birklin, Cruzito Gonzalezel PA Unavailable Unavailable Birklin, Cruzito Gonzalezel PA Unavailable Unavailable Birklin, Cruzito Gonzalezel PA Unavailable Unavailable Birklin, Cruzito Gonzalezel PA Unavailable Unavailable Birklin, Cruzito Gonzalezel PA Unavailable Unavailable Birklin, Cruzito Gonzalezel PA Unavailable Unavailable Birklin, Cruzito Gonzalezel PA Unavailable Unavailable Birklin, Cruzito Gonzalezel PA Unavailable Unavailable Birklin, Cruzito Gonzalezel PA Unavailable Unavailable Birklin, Cruzito Gonzalezel PA Unavailable Unavailable Birklin, Cruzito Gonzalezel PA Unavailable Unavailable Re-disclosure Warning The records that [...] is protected by Article 27-F of the [facility] Public Health law. If you continue you may have access to information: Regarding HIV / AIDS; Provided by facilities licensed or operated by the [facility] Office of Mental Health; or Provided by the [facility] Office for People With Developmental Disabilities. If such information is present, then the following [facility] mandated warning applies: This information has [...] law may result in a fine or senior living sentence or both. A general authorization for the release of medical or other information is NOT sufficient authorization for further disc losure. Allergies and Adverse Reactions Type Description Substance Reaction Status Data Source(s ) Propensity to adverse reactions NO KNOWN ALLERGIES NO KNOWN ALLERGIES [facility] Family History Family Member Name Family Member Gender Family Member Status Date o f Status Description Data Source(s) Unknown Male Problem MEDENT ([facility], ) Encounters Encounter Providers Location Date Indications Data Source(s ) Unknown [address] [place] [id number] 02/27/2021 12:00:00 AM EDT eCW1 ([facility]) Unknown [address] [facility] [id number] 01/17/2021 12:00:00 AM EDT eCW1 ([facility]) Outpatient [address] [facility] [id number] 01/16/2021 12:00:00 AM EDT eCW1 ([facility]) Unknown [address] [facility] [id number] 01/15/2021 12:00:00 AM EDT eCW1 ([facility]) (Cysto1) Urology [address] [place] [address] 11/29/2020 12:00:00 AM EDT [facility]1 [facility] Outpatient [address] [id number] 11/26/2020 12:00:00 AM EDT eCW1 ([facility]) Outpatient [address] [id number] 11/18/2020 12:00:00 AM EDT eCW1 ([facility]) Unknown [address] [id number] 11/12/2020 12:00:00 AM EDT eCW1 ([facility]) (MMS 3) Mohs 3 [address] [facility] [place] [address] 11/07/2020 12:00:00 AM EDT eCW1 ([facility]) Unknown [address] [facility] [place] [address] 11/04/2020 12:00:00 AM EDT eCW1 ([facility]) Outpatient [address] [facility] [id number] 10/29/2020 12:00:00 AM EDT eCW1 ([facility]) Office Visit, Est Pt., Level 3 FC [address] [place] [address] 10/24/2020 12:00:00 AM EDT eCW1 ([facility]) Unknown [address] [facility] [id number] 10/23/2020 12:00:00 AM EDT eCW1 ([facility]) Unknown [address] [facility] [place] [address] 10/17/2020 12:00:00 AM EDT eCW1 ([facility]) Unknown [address] [facility] [place] [address] 10/14/2020 12:00:00 AM EDT eCW1 ([facility]) (TCM) Transition of Care Visit [address] [place] [address] 10/07/2020 12:00:00 AM EDT eCW1 ([facility]) Unknown [address] [facility] [place] [address] 10/04/2020 12:00:00 AM EDT eCW1 ([facility]) Unknown [address] [facility] [place] [address] 10/03/2020 12:00:00 AM EDT eCW1 ([facility]) Outpatient [address] [facility] [id number] 09/25/2020 12:00:00 AM EDT eCW1 ([facility]) [place] [address] [facility] [address] 09/25/2020 12:00:00 AM EDT eCW1 ([facility]) Unknown [address] [facility] [address] 09/25/2020 12:00:00 AM EDT eCW1 ([facility]) Unknown [address] [facility] [address] 09/24/2020 12:00:00 AM EDT eCW1 ([facility]) Unknown [address] [facility] [address] 09/22/2020 12:00:00 AM EDT eCW1 ([facility]) Outpatient Attender: Madhav CISNEROS 03/19/2020 12:00:00 AM [facility] Outpatient Attender: JOHN MANUEL MD 03/19/2020 12:00:00 AM E [facility] Outpatient Referrer: Madhav CISNEROS 03/11/2020 12:00:00 AM [facility] Outpatient Referrer: Madhav CISNEROS 03/11/2020 12:00:00 AM [facility] Outpatient Attender: Madhav CISNEROS 01/31/2020 12:00:00 AM [facility] Outpatient Attender: Madhav CISNEROS [id number] 01/30/2020 12 :00:00 AM EDT Pain due to internal orthopedic prosthetic devices, implants and grafts, initial encounter [facility] Pain due to internal orthopedic prosthet ic devices, implants and grafts, initial encounter Outpatient Referrer: JOHN MANUEL MD 01/30/2020 12:00:0 0 AM EDT Presence of left artificial knee joint [facility] Presence of left artificial knee joint Outpatient Attender: JOHN MANUEL MD 01/30/2020 12:00:00 AM E [facility] Outpatient Attender: JOHN MANUEL MD 01/30/2020 12:00:00 AM E [facility] Immunizations Vaccine Date Status Description Data Source(s) 01/16/2021 08:27:00 AM EDT completed e CW1 ([facility]) 01/16/2021 08:27:00 AM EDT completed e CW1 ([facility]) 01/16/2021 08:27:00 AM EDT completed e CW1 ([facility]) 01/16/2021 08:27:00 AM EDT completed e CW1 ([facility]) Medications Medication Brand Name Start Date Product Form Dose Route Admi nistrative Instructions Pharmacy Instructions Status Indications Reaction Description Data Source(s) Sucralfate 100 MG/ML Oral Suspension Sucralfate 1 GM/10ML Child cralfate 1 GM/10ML 01/17/2021 12:00:00 AM EDT 10.0 {ml_on_an_empty_stomach} active Sucralfate 1 GM/10ML eCW1 ([facility]) Sucralfate 100 MG/ML Oral Suspension Sucralfate 1 GM/10ML Child cralfate 1 GM/10ML 01/17/2021 12:00:00 AM EDT 10.0 {ml_on_an_empty_stomach} active Sucralfate 1 GM/10ML eCW1 ([facility]) Sucralfate 100 MG/ML Oral Suspension Sucralfate 1 GM/10ML Child cralfate 1 GM/10ML 01/17/2021 12:00:00 AM EDT 10.0 {ml_on_an_empty_stomach} active Sucralfate 1 GM/10ML eCW1 ([facility]) tramadol hydrochloride 50 MG Oral Tablet traMADol HCl 50 MG traMADol HCl 50 MG 01/16/2021 12:00:00 AM EDT 1.0 {tablet_as_needed} active traMADol HCl 50 MG eCW1 ([facility]) Baclofen 10 MG Oral Tablet Baclofen 10 MG 01/16/2021 12:00:00 AM ED T 1.0 {tablet_as_needed} active Baclofen 10 M G eCW1 ([facility]) Baclofen 10 MG Oral Tablet Baclofen 10 MG 01/16/2021 12:00:00 AM ED T 1.0 {tablet_as_needed} active Baclofen 10 M G eCW1 ([facility]) Baclofen 10 MG Oral Tablet Baclofen 10 MG 01/16/2021 12:00:00 AM ED T 1.0 {tablet_as_needed} active Baclofen 10 M G eCW1 ([facility]) Baclofen 10 MG Oral Tablet Baclofen 10 MG 01/16/2021 12:00:00 AM ED T 1.0 {tablet_as_needed} active Baclofen 10 M G eCW1 ([facility]) tramadol hydrochloride 50 MG Oral Tablet traMADol HCl 50 MG traMADol HCl 50 MG 01/16/2021 12:00:00 AM EDT 1.0 {tablet_as_needed} active traMADol HCl 50 MG W1 ([facility]) tramadol hydrochloride 50 MG Oral Tablet traMADol HCl 50 MG traMADol HCl 50 MG 01/16/2021 12:00:00 AM EDT 1.0 {tablet_as_needed} active traMADol HCl 50 MG W1 ([facility]) tramadol hydrochloride 50 MG Oral Tablet traMADol HCl 50 MG traMADol HCl 50 MG 01/16/2021 12:00:00 AM EDT 1.0 {tablet_as_needed} active traMADol HCl 50 MG W1 ([facility]) Phenazopyridine hydrochloride 100 MG Oral Tablet Phena zopyridine HCl 100 MG Phenazopyridine HCl 100 MG 11/26/2020 12:00:00 AM EDT 1.0 {t ablet_after_meals} active Phenazopyridine HCl 100 MG eCW1 ([facility]) Oxybutynin chloride 5 MG Oral Tablet Oxybutynin Chlori de 5 MG Oxybutynin Chloride 5 MG 11/26/2020 12:00:00 AM EDT 1.0 {tablet} active Oxybutynin Chloride 5 MG eCW1 ([facility]) Oxybutynin chloride 5 MG Oral Tablet Oxybutynin Chlori de 5 MG Oxybutynin Chloride 5 MG 11/26/2020 12:00:00 AM EDT 1.0 {tablet} active Oxybutynin Chloride 5 MG eCW1 ([facility]) Oxybutynin chloride 5 MG Oral Tablet Oxybutynin Chlori de 5 MG Oxybutynin Chloride 5 MG 11/26/2020 12:00:00 AM EDT 1.0 {tablet} active Oxybutynin Chloride 5 MG eCW1 ([facility]) Phenazopyridine hydrochloride 100 MG Oral Tablet Phena zopyridine HCl 100 MG Phenazopyridine HCl 100 MG 11/26/2020 12:00:00 AM EDT 1.0 {t ablet_after_meals} active Phenazopyridine HCl 100 MG eCW1 ([facility]) Phenazopyridine hydrochloride 100 MG Oral Tablet Phena zopyridine HCl 100 MG Phenazopyridine HCl 100 MG 11/26/2020 12:00:00 AM EDT 1.0 {t ablet_after_meals} active Phenazopyridine HCl 100 MG eCW1 ([facility]) Oxybutynin chloride 5 MG Oral Tablet Oxybutynin Chlori de 5 MG Oxybutynin Chloride 5 MG 11/26/2020 12:00:00 AM EDT 1.0 {tablet} active Oxybutynin Chloride 5 MG eCW1 ([facility]) Phenazopyridine hydrochloride 100 MG Oral Tablet Phena zopyridine HCl 100 MG Phenazopyridine HCl 100 MG 11/26/2020 12:00:00 AM EDT 1.0 {t ablet_after_meals} active Phenazopyridine HCl 100 MG eCW1 ([facility]) Oxybutynin chloride 5 MG Oral Tablet Oxybutynin Chlori de 5 MG Oxybutynin Chloride 5 MG 11/26/2020 12:00:00 AM EDT 1.0 {tablet} active Oxybutynin Chloride 5 MG eCW1 ([facility]) Phenazopyridine hydrochloride 100 MG Oral Tablet Phena zopyridine HCl 100 MG Phenazopyridine HCl 100 MG 11/26/2020 12:00:00 AM EDT 1.0 {t ablet_after_meals} active Phenazopyridine HCl 100 MG eCW1 ([facility]) Oxybutynin chloride 5 MG Oral Tablet Oxybutynin Chlori de 5 MG Oxybutynin Chloride 5 MG 11/26/2020 12:00:00 AM EDT 1.0 {tablet} active Oxybutynin Chloride 5 MG eCW1 ([facility]) Phenazopyridine hydrochloride 100 MG Oral Tablet Phena zopyridine HCl 100 MG Phenazopyridine HCl 100 MG 11/26/2020 12:00:00 AM EDT 1.0 {t ablet_after_meals} active Phenazopyridine HCl 100 MG eCW1 ([facility]) pantoprazole 40 MG Delayed Release Oral Tablet Pantopr azole Sodium 40 MG Pantoprazole Sodium 40 MG 10/22/2020 12:00:00 AM EDT 1.0 {tablet} active Pantoprazole Sodium 40 MG eCW1 ( [facility]) Sucralfate 1000 MG Oral Tablet Sucralfate 1 GM Sucralfate 1 GM 10/22/2020 12:00:00 AM EDT 1.0 {tablet_on_an_empty_stomach} active Sucralfate 1 GM eCW1 ([facility]) Sucralfate 1000 MG Oral Tablet Sucralfate 1 GM Sucralfate 1 GM 10/22/2020 12:00:00 AM EDT 1.0 {tablet_on_an_empty_stomach} active Sucralfate 1 GM eCW1 ([facility]) Sucralfate 1000 MG Oral Tablet Sucralfate 1 GM Sucralfate 1 GM 10/22/2020 12:00:00 AM EDT 1.0 {tablet_on_an_empty_stomach} active Sucralfate 1 GM eCW1 ([facility]) Sucralfate 1000 MG Oral Tablet Sucralfate 1 GM Sucralfate 1 GM 10/22/2020 12:00:00 AM EDT 1.0 {tablet_on_an_empty_stomach} active Sucralfate 1 GM eCW1 ([facility]) pantoprazole 40 MG Delayed Release Oral Tablet Pantopr azole Sodium 40 MG Pantoprazole Sodium 40 MG 10/22/2020 12:00:00 AM EDT 1.0 {tablet} active Pantoprazole Sodium 40 MG eCW1 ( [facility]) Sucralfate 1000 MG Oral Tablet Sucralfate 1 GM Sucralfate 1 GM 10/22/2020 12:00:00 AM EDT 1.0 {tablet_on_an_empty_stomach} active Sucralfate 1 GM eCW1 ([facility]) pantoprazole 40 MG Delayed Release Oral Tablet Pantopr azole Sodium 40 MG Pantoprazole Sodium 40 MG 10/22/2020 12:00:00 AM EDT 1.0 {tablet} active Pantoprazole Sodium 40 MG eCW1 ( [facility]) pantoprazole 40 MG Delayed Release Oral Tablet Pantopr azole Sodium 40 MG Pantoprazole Sodium 40 MG 10/22/2020 12:00:00 AM EDT 1.0 {tablet} active Pantoprazole Sodium 40 MG eCW1 ( [facility]) pantoprazole 40 MG Delayed Release Oral Tablet Pantopr azole Sodium 40 MG Pantoprazole Sodium 40 MG 10/22/2020 12:00:00 AM EDT 1.0 {tablet} active Pantoprazole Sodium 40 MG eCW1 ( [facility]) Sucralfate 1000 MG Oral Tablet Sucralfate 1 GM Sucralfate 1 GM 10/22/2020 12:00:00 AM EDT 1.0 {tablet_on_an_empty_stomach} active Sucralfate 1 GM eCW1 ([facility]) pantoprazole 40 MG Delayed Release Oral Tablet Pantopr azole Sodium 40 MG Pantoprazole Sodium 40 MG 10/22/2020 12:00:00 AM EDT 1.0 {tablet} active Pantoprazole Sodium 40 MG eCW1 ( [facility]) pantoprazole 40 MG Delayed Release Oral Tablet Pantopr azole Sodium 40 MG Pantoprazole Sodium 40 MG 10/22/2020 12:00:00 AM EDT 1.0 {tablet} active Pantoprazole Sodium 40 MG eCW1 ( [facility]) Sucralfate 1000 MG Oral Tablet Sucralfate 1 GM Sucralfate 1 GM 10/22/2020 12:00:00 AM EDT 1.0 {tablet_on_an_empty_stomach} active Sucralfate 1 GM eCW1 ([facility]) pantoprazole 40 MG Delayed Release Oral Tablet Pantopr azole Sodium 40 MG Pantoprazole Sodium 40 MG 10/22/2020 12:00:00 AM EDT 1.0 {tablet} active Pantoprazole Sodium 40 MG eCW1 ( [facility]) Sucralfate 1000 MG Oral Tablet Sucralfate 1 GM Sucralfate 1 GM 10/22/2020 12:00:00 AM EDT 1.0 {tablet_on_an_empty_stomach} active Sucralfate 1 GM eCW1 ([facility]) Sucralfate 1000 MG Oral Tablet Sucralfate 1 GM Sucralfate 1 GM 10/22/2020 12:00:00 AM EDT 1.0 {tablet_on_an_empty_stomach} active Sucralfate 1 GM eCW1 ([facility]) pantoprazole 40 MG Delayed Release Oral Tablet Pantopr azole Sodium 40 MG Pantoprazole Sodium 40 MG 10/22/2020 12:00:00 AM EDT 1.0 {tablet} active Pantoprazole Sodium 40 MG eCW1 ( [facility]) Sucralfate 1000 MG Oral Tablet Sucralfate 1 GM Sucralfate 1 GM 10/22/2020 12:00:00 AM EDT 1.0 {tablet_on_an_empty_stomach} active Sucralfate 1 GM eCW1 ([facility]) pantoprazole 40 MG Delayed Release Oral Tablet Pantopr azole Sodium 40 MG Pantoprazole Sodium 40 MG 10/22/2020 12:00:00 AM EDT 1.0 {tablet} active Pantoprazole Sodium 40 MG eCW1 ( [facility]) pantoprazole 40 MG Delayed Release Oral Tablet Pantopr azole Sodium 40 MG Pantoprazole Sodium 40 MG 10/22/2020 12:00:00 AM EDT 1.0 {tablet} active Pantoprazole Sodium 40 MG eCW1 ( [facility]) pantoprazole 40 MG Delayed Release Oral Tablet Pantopr azole Sodium 40 MG Pantoprazole Sodium 40 MG 10/22/2020 12:00:00 AM EDT 1.0 {tablet} active Pantoprazole Sodium 40 MG eCW1 ( [facility]) Sucralfate 1000 MG Oral Tablet Sucralfate 1 GM Sucralfate 1 GM 10/22/2020 12:00:00 AM EDT 1.0 {tablet_on_an_empty_stomach} active Sucralfate 1 GM eCW1 ([facility]) Sucralfate 1000 MG Oral Tablet Sucralfate 1 GM Sucralfate 1 GM 10/22/2020 12:00:00 AM EDT 1.0 {tablet_on_an_empty_stomach} active Sucralfate 1 GM eCW1 ([facility]) Sucralfate 1000 MG Oral Tablet Sucralfate 1 GM Sucralfate 1 GM 10/22/2020 12:00:00 AM EDT 1.0 {tablet_on_an_empty_stomach} active Sucralfate 1 GM eCW1 ([facility]) Sucralfate 1000 MG Oral Tablet Sucralfate 1 GM Sucralfate 1 10/22/2020 12:00:00 AM EDT 1.0 {tablet_on_an_empty_stomach} active Sucralfate 1 GM eCW1 ([facility]) Sucralfate 1000 MG Oral Tablet Sucralfate 1 GM Sucralfate 1 10/22/2020 12:00:00 AM EDT 1.0 {tablet_on_an_empty_stomach} active Sucralfate 1 GM eCW1 ([facility]) pantoprazole 40 MG Delayed Release Oral Tablet Pantopr azole Sodium 40 MG Pantoprazole Sodium 40 MG 10/22/2020 12:00:00 AM EDT 1.0 {tablet} active Pantoprazole Sodium 40 MG W1 ( [facility]) pantoprazole 40 MG Delayed Release Oral Tablet Pantopr azole Sodium 40 MG Pantoprazole Sodium 40 MG 10/22/2020 12:00:00 AM EDT 1.0 {tablet} active Pantoprazole Sodium 40 MG eCW1 ( [facility]) pantoprazole 40 MG Delayed Release Oral Tablet Pantopr azole Sodium 40 MG Pantoprazole Sodium 40 MG 10/22/2020 12:00:00 AM EDT 1.0 {tablet} active Pantoprazole Sodium 40 MG W1 ( [facility]) Prochlorperazine 25 MG Rectal Suppository Prochlorperazine 2 5 MG 09/25/2020 12:00:00 AM EDT 1.0 {suppository_as_needed} susp ended Prochlorperazine 25 MG eCW1 ([facility]) Prochlorperazine 25 MG Rectal Suppository Prochlorperazine 2 5 MG 09/25/2020 12:00:00 AM EDT 1.0 {suppository_as_needed} acti ve Prochlorperazine 25 MG eCW1 ([facility]) Prochlorperazine 25 MG Rectal Suppository Prochlorperazine 2 5 MG 09/25/2020 12:00:00 AM EDT 1.0 {suppository_as_needed} acti ve Prochlorperazine 25 MG eCW1 ([facility]) Prochlorperazine 25 MG Rectal Suppository Prochlorperazine 2 5 MG 09/25/2020 12:00:00 AM EDT 1.0 {suppository_as_needed} susp ended Prochlorperazine 25 MG eCW1 ([facility]) Prochlorperazine 25 MG Rectal Suppository Prochlorperazine 2 5 MG 09/25/2020 12:00:00 AM EDT 1.0 {suppository_as_needed} acti ve Prochlorperazine 25 MG eCW1 ([facility]) Prochlorperazine 25 MG Rectal Suppository Prochlorperazine 2 5 MG 09/25/2020 12:00:00 AM EDT 1.0 {suppository_as_needed} acti ve Prochlorperazine 25 MG eCW1 ([facility]) Prochlorperazine 25 MG Rectal Suppository Prochlorperazine 2 5 MG 09/25/2020 12:00:00 AM EDT 1.0 {suppository_as_needed} acti ve Prochlorperazine 25 MG eCW1 ([facility]) Prochlorperazine 25 MG Rectal Suppository Prochlorperazine 2 5 MG 09/25/2020 12:00:00 AM EDT 1.0 {suppository_as_needed} acti ve Prochlorperazine 25 MG eCW1 ([facility]) Ondansetron 4 MG Disintegrating Oral Tablet Ondansetron 4 MG 09/24/2020 12:00:00 AM EDT 1.0 {tablet_on_the_tongue_and_allow_to_dissolve} active Ondansetron 4 MG eCW1 ([facility]) Ondansetron 4 MG Disintegrating Oral Tablet Ondansetron 4 MG 09/24/2020 12:00:00 AM EDT 1.0 {tablet_on_the_tongue_and_allow_to_dissolve} active Ondansetron 4 MG eCW1 ([facility]) Ondansetron 4 MG Disintegrating Oral Tablet Ondansetron 4 MG 09/24/2020 12:00:00 AM EDT 1.0 {tablet_on_the_tongue_and_allow_to_dissolve} active Ondansetron 4 MG eCW1 ([facility]) Ondansetron 4 MG Disintegrating Oral Tablet Ondansetron 4 MG 09/24/2020 12:00:00 AM EDT 1.0 {tablet_on_the_tongue_and_allow_to_dissolve} active Ondansetron 4 MG eCW1 ([facility]) Senna-Docusate Sodium 8.6-50 MG Senna-Docusate Sodium 8.6-50 MG 09/24/2020 12:00:00 AM EDT 1.0 {tablet_in_the_evening_as_needed} active Senna- Docusate Sodium 8.6-50 MG eCW1 ([facility]) Ondansetron 4 MG Disintegrating Oral Tablet Ondansetron 4 MG 09/24/2020 12:00:00 AM EDT 1.0 {tablet_on_the_tongue_and_allow_to_dissolve} active Ondansetron 4 MG eCW1 ([facility]) Ondansetron 4 MG Disintegrating Oral Tablet Ondansetron 4 MG 09/24/2020 12:00:00 AM EDT 1.0 {tablet_on_the_tongue_and_allow_to_dissolve} active Ondansetron 4 MG eCW1 ([facility]) Amlodipine 10 MG / valsartan 160 MG Oral Tablet Amlodipine Besylate-Valsartan 10-160 MG Amlodipine Besylate-Valsartan 10-160 MG 09/24/2020 12:00:00 AM E DT 1.0 {tablet} active Amlodipine Besylate -Valsartan 10-160 MG eCW1 ([facility]) Ondansetron 4 MG Disintegrating Oral Tablet Ondansetron 4 MG 09/24/2020 12:00:00 AM EDT 1.0 {tablet_on_the_tongue_and_allow_to_dissolve} active Ondansetron 4 MG eCW1 ([facility]) Senna-Docusate Sodium 8.6-50 MG Senna-Docusate Sodium 8.6-50 MG 09/24/2020 12:00:00 AM EDT 1.0 {tablet_in_the_evening_as_needed} active Senna- Docusate Sodium 8.6-50 MG eCW1 ([facility]) Ondansetron 4 MG Disintegrating Oral Tablet Ondansetron 4 MG 09/24/2020 12:00:00 AM EDT 1.0 {tablet_on_the_tongue_and_allow_to_dissolve} active Ondansetron 4 MG eCW1 ([facility]) Ondansetron 4 MG Disintegrating Oral Tablet Ondansetron 4 MG 09/24/2020 12:00:00 AM EDT 1.0 {tablet_on_the_tongue_and_allow_to_dissolve} active Ondansetron 4 MG eCW1 ([facility]) Amlodipine 10 MG / valsartan 160 MG Oral Tablet Amlodipine Besylate-Valsartan 10-160 MG Amlodipine Besylate-Valsartan 10-160 MG 09/24/2020 12:00:00 AM E DT 1.0 {tablet} active Amlodipine Besylate -Valsartan 10-160 MG eCW1 ([facility]) Ondansetron 4 MG Disintegrating Oral Tablet Ondansetron 4 MG 09/24/2020 12:00:00 AM EDT 1.0 {tablet_on_the_tongue_and_allow_to_dissolve} active Ondansetron 4 MG eCW1 ([facility]) Oxybutynin chloride 5 MG Oral Tablet Oxybutynin Chlori de 5 MG Oxybutynin Chloride 5 MG 09/24/2020 12:00:00 AM EDT acti ve Oxybutynin Chloride 5 MG eCW1 ([facility]) Ondansetron 4 MG Disintegrating Oral Tablet Ondansetron 4 MG 09/24/2020 12:00:00 AM EDT 1.0 {tablet_on_the_tongue_and_allow_to_dissolve} active Ondansetron 4 MG eCW1 ([facility]) Ondansetron 4 MG Disintegrating Oral Tablet Ondansetron 4 MG 09/24/2020 12:00:00 AM EDT 1.0 {tablet_on_the_tongue_and_allow_to_dissolve} active Ondansetron 4 MG eCW1 ([facility]) Ondansetron 4 MG Disintegrating Oral Tablet Ondansetron 4 MG 09/24/2020 12:00:00 AM EDT 1.0 {tablet_on_the_tongue_and_allow_to_dissolve} active Ondansetron 4 MG eCW1 ([facility]) Ondansetron 4 MG Disintegrating Oral Tablet Ondansetron 4 MG 09/24/2020 12:00:00 AM EDT 1.0 {tablet_on_the_tongue_and_allow_to_dissolve} active Ondansetron 4 MG eCW1 ([facility]) Senna-Docusate Sodium 8.6-50 MG Senna-Docusate Sodium 8.6-50 MG 09/24/2020 12:00:00 AM EDT 1.0 {tablet_in_the_evening_as_needed} active Senna- Docusate Sodium 8.6-50 MG eCW1 ([facility]) tramadol hydrochloride 50 MG Oral Tablet Tramadol HCl 50 MG Tramadol HCl 50 MG 09/24/2020 12:00:00 AM EDT 1.0 {tablet_as_needed} active Tramadol HCl 50 MG eCW1 ([facility]) Oxybutynin chloride 5 MG Oral Tablet Oxybutynin Chlori de 5 MG Oxybutynin Chloride 5 MG 09/24/2020 12:00:00 AM EDT acti ve Oxybutynin Chloride 5 MG eCW1 ([facility]) Amlodipine 10 MG / valsartan 160 MG Oral Tablet Amlodipine Besylate-Valsartan 10-160 MG Amlodipine Besylate-Valsartan 10-160 MG 09/24/2020 12:00:00 AM E DT 1.0 {tablet} active Amlodipine Besylate -Valsartan 10-160 MG eCW1 ([facility]) Ondansetron 4 MG Disintegrating Oral Tablet Ondansetron 4 MG 09/24/2020 12:00:00 AM EDT 1.0 {tablet_on_the_tongue_and_allow_to_dissolve} active Ondansetron 4 MG eCW1 ([facility]) tramadol hydrochloride 50 MG Oral Tablet Tramadol HCl 50 MG Tramadol HCl 50 MG 09/24/2020 12:00:00 AM EDT 1.0 {tablet_as_needed} active Tramadol HCl 50 MG eCW1 ([facility]) Ondansetron 4 MG Disintegrating Oral Tablet Ondansetron 4 MG 09/24/2020 12:00:00 AM EDT 1.0 {tablet_on_the_tongue_and_allow_to_dissolve} active Ondansetron 4 MG eCW1 ([facility]) Oxybutynin chloride 5 MG Oral Tablet Oxybutynin Chlori de 5 MG Oxybutynin Chloride 5 MG 09/24/2020 12:00:00 AM EDT acti ve Oxybutynin Chloride 5 MG eCW1 ([facility]) Ondansetron 4 MG Disintegrating Oral Tablet Ondansetron 4 MG 09/24/2020 12:00:00 AM EDT 1.0 {tablet_on_the_tongue_and_allow_to_dissolve} active Ondansetron 4 MG eCW1 ([facility]) Ondansetron 4 MG Disintegrating Oral Tablet Ondansetron 4 MG 09/24/2020 12:00:00 AM EDT 1.0 {tablet_on_the_tongue_and_allow_to_dissolve} active Ondansetron 4 MG eCW1 ([facility]) Oxybutynin chloride 5 MG Oral Tablet Oxybutynin Chlori de 5 MG Oxybutynin Chloride 5 MG 09/24/2020 12:00:00 AM EDT acti ve Oxybutynin Chloride 5 MG eCW1 ([facility]) Ondansetron 4 MG Disintegrating Oral Tablet Ondansetron 4 MG 09/24/2020 12:00:00 AM EDT 1.0 {tablet_on_the_tongue_and_allow_to_dissolve} active Ondansetron 4 MG eCW1 ([facility]) Ondansetron 4 MG Disintegrating Oral Tablet Ondansetron 4 MG 09/24/2020 12:00:00 AM EDT 1.0 {tablet_on_the_tongue_and_allow_to_dissolve} active Ondansetron 4 MG eCW1 ([facility]) Senna-Docusate Sodium 8.6-50 MG Senna-Docusate Sodium 8.6-50 MG 09/24/2020 12:00:00 AM EDT 1.0 {tablet_in_the_evening_as_needed} active Senna- Docusate Sodium 8.6-50 MG eCW1 ([facility]) tramadol hydrochloride 50 MG Oral Tablet Tramadol HCl 50 MG Tramadol HCl 50 MG 09/24/2020 12:00:00 AM EDT 1.0 {tablet_as_needed} active Tramadol HCl 50 MG eCW1 ([facility]) Amlodipine 10 MG / valsartan 160 MG Oral Tablet Amlodipine Besylate-Valsartan 10-160 MG Amlodipine Besylate-Valsartan 10-160 MG 09/24/2020 12:00:00 AM E DT 1.0 {tablet} active Amlodipine Besylate -Valsartan 10-160 MG eCW1 ([facility]) Ondansetron 4 MG Disintegrating Oral Tablet Ondansetron 4 MG 09/24/2020 12:00:00 AM EDT 1.0 {tablet_on_the_tongue_and_allow_to_dissolve} active Ondansetron 4 MG eCW1 ([facility]) Ondansetron 4 MG Disintegrating Oral Tablet Ondansetron 4 MG 09/24/2020 12:00:00 AM EDT 1.0 {tablet_on_the_tongue_and_allow_to_dissolve} active Ondansetron 4 MG eCW1 ([facility]) Ondansetron 4 MG Disintegrating Oral Tablet Ondansetron 4 MG 09/24/2020 12:00:00 AM EDT 1.0 {tablet_on_the_tongue_and_allow_to_dissolve} active Ondansetron 4 MG eCW1 ([facility]) Insurance Providers Payer name Policy type / Coverage type Policy ID Covered democrat ID Covered democrat's relationship to vega Policy Vega Plan Information [facility] I [id number] Self [id number] [facility] I [id number] Self [id number] [facility] I [id number] Self [id number] [facility] [place] Medicaid [id number] Self [id number] [facility] [id number] WORKERS COMPENSATION GENERIC W [id number] Empl [id number] [facility] I [id number] Self [id number] 700 Medicaid [place] Medigap Part B [id number] Self [id number] Medicaid [place] Medicaid [id number] Self [id number] [facility] [id number] SP [id number] [facility] O [id number] S [id number] SELF PAY ONLY 00 SP 00 MEDICAID M [id number] S [id number] SELF PAY UNAVAILABLE SP UNAVAILA BLE [employer] DAIRY [id number] SP [id number] [employer] BENEFIT [id number] SELF PAY POLICY # [id number] SP P OLICY # [id number] DESHAUN [id number] SP [id number] [place] [id number] S [id number] DESHAUN [id number] SP [id number] SELF PAY ONLY [id number] SP [id number] MEDICAID [id number] SP [id number] [place] O [id number] S [id number] [place]ARE OF [place] [facility] -RECURR[facility] [id number] Problems, Conditions, and Diagnoses Code Display Name Description Problem Type Effective Dates Data Source(s) Z96.652 Presence of left artificial knee joint P resence of left artificial knee joint Diagnosis 01/30/2020 10:46:09 AM EDT [facility] T84.84XA Pain due to internal orthope dic prosthetic devices, implants and grafts, initial encounter Pain due to internal orthopedic prosthet ic devices, implants and grafts, initial encounter Diagnosis 01/30/2020 10:46:09 A M [facility] Z96.0 Retained ureteral stent Retained ureteral stent Proble m 11/26/2020 12:00:00 AM EDT eCW1 ([facility]) 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 Problem 11/07/2020 12:00:00 AM EDT eCW1 ([facility]) C44.90 [id number] Skin cancer Problem 10/29/2020 12:00:00 AM E DT eCW1 ([facility]) K29.80 [id number] Duodenitis Problem 10/24/2020 12:00:00 AM ED T eCW1 ([facility]) N20.0 [id number] Nephrolithiasis Problem 09/25/2020 12:00:00 AM EDT eCW1 ([facility]) Surgeries/Procedures Procedure Description Date Indications Data Source(s) Medication: Toradol 60mg/2mL IM (Ketorolac) 01/16/2021 12:00:00 AM EDT eCW1 ([facility]) Med: Lidocaine Jelly 2% 6ml Intravesically (Glydo) 11/29/2020 12:00:00 AM EDT eCW1 ([facility]) Suture Removal 11/18/2020 12:00:00 AM EDT eCW1 ([facility]) Med: Derm Lidocaine with Epinephrine Inj ection 1% with 2 ml sodium bicarbonate Intradermally to marked areas 11/07/2020 12:00:00 AM EDT eCW1 ([facility]) Med: Derm 1% Lidocaine with Epinephrine Injection Intr adermally to marked areas 10/29/2020 12:00:00 AM EDT eCW1 ([facility]) Medication: Lidocaine HCl 2% Jelly 5mL Intravesically 09/25/2020 12:00:00 AM EDT eCW1 ([facility]) uro PVR (Post Voiding Residual) Bladder Scan 12:00:00 AM EDT eCW1 ([facility]) Results ID Date Data Source [id number] 11/10/2020 09:27:[address] [facility] ([facility], ) Name Value Range Interpretation Code Description Data Carrol rce(s) Supporting Document(s) Influenza A Amplification Laboratory test result Normal (applies to non- numeric results) [facility] ([facility], ) Negative results do not preclude influen za or RSV virus infection and should not be used as the sole basis for treatment or other patient management decisions. Influenza B Amplification Laboratory test result Normal (applies to non- numeric results) [facility] ([facility], ) Negative results do not preclude influen za or RSV virus infection and should not be used as the sole basis for treatment or other patient management decisions. RSV Amplification Laboratory test result Normal (applies to non-numeric results) [facility] ([facility], ) Negative results do not preclude influen za or RSV virus infection and should not be used as the sole basis for treatment or other patient management decisions. Laboratory test finding (navigational concept) Laboratory test r esult Normal (applies to non-numeric results) [facility] A false negative result may occur if a s pecimen is improperly collected, transported or handled. False negative results may also occur if inadequate numbers of organisms are present in the specimen. As with any molecular test, mutations within the target regions of Xpert Xpress SARS-CoV-2 could affect primer and/or probe binding resulting in failure to detect the presence of virus. This test cannot rule out diseases caused by other bacterial or viral pathogens. DISCLAIMER: Testing was performed using the [employer] SARS-CoV-2 test. This test was developed and its performance characteristics determined by [employer]. This test has not been FDA cleared or approved. This test has been authorized by FDA under an Emergency Use Authorization (EUA). This test is only authorized for the duration of time the declaration that circumstances exist justifying the authorization of the emergency use of in vitro diagnostic tests for detection of SARS-CoV-2 virus and/or diagnosis of COVID-19 infection under section 564(b)(1) of the Act, 21 U.S.C. 360bbb-3(b)(1), unless the authorization is terminated or revoked sooner. ID Date Data Source [id number] 11/10/2020 09:27:00 PM EDT [facility] Name Value Range Interpretation Code Description Data Carrol rce(s) Supporting Document(s) SARS coronavirus 2 RNA [Presence] in Res piratory specimen by KATHIA with probe detection NEGATIVE [facility] This lab was ordered by [facility] a nd reported by [facility]. ID Date Data Source [id number] 11/02/2020 11:48:00 PM EDT [facility], [facility] Name Value Range Interpretation Code Description Data Carrol rce(s) Supporting Document(s) Influenza A Amplification Laboratory test result Normal (applies to non- numeric results) [facility] ([facility], ) Negative results do not preclude influen za or RSV virus infection and should not be used as the sole basis for treatment or other patient management decisions. RSV Amplification Laboratory test result Normal (applies to non-numeric results) [facility] ([facility], ) Negative results do not preclude influen za or RSV virus infection and should not be used as the sole basis for treatment or other patient management decisions. Influenza B Amplification Laboratory test result Normal (applies to non- numeric results) [facility] ([facility], ) Negative results do not preclude influen za or RSV virus infection and should not be used as the sole basis for treatment or other patient management decisions. Laboratory test finding (navigational concept) Laboratory test r esult Normal (applies to non-numeric results) [facility] ([facility], ) A false negative result may occur if a s pecimen is improperly collected, transported or handled. False negative results may also occur if inadequate numbers of organisms are present in the specimen. As with any molecular test, mutations within the target regions of Xpert Xpress SARS-CoV-2 could affect primer and/or probe binding resulting in failure to detect the presence of virus. This test cannot rule out diseases caused by other bacterial or viral pathogens. DISCLAIMER: Testing was performed using the [employer] SARS-CoV-2 test. This test was developed and its performance characteristics determined by [employer]. This test has not been FDA cleared or approved. This test has been authorized by FDA under an Emergency Use Authorization (EUA). This test is only authorized for the duration of time the declaration that circumstances exist justifying the authorization of the emergency use of in vitro diagnostic tests for detection of SARS-CoV-2 virus and/or diagnosis of COVID-19 infection under section 564(b)(1) of the Act, 21 U.S.C. 360bbb-3(b)(1), unless the authorization is terminated or revoked sooner. ID Date Data Source [id number] 11/02/2020 11:48:00 PM EDT [facility] Name Value Range Interpretation Code Description Data Carrol rce(s) Supporting Document(s) SARS coronavirus 2 RNA [Presence] in Res piratory specimen by KATHIA with probe detection NEGATIVE [facility] This lab was ordered by [facility] a nd reported by [facility]. ID Date Data Source [id number] 10/20/2020 02:22:00 PM EDT [facility] Name Value Range Interpretation Code Description Data Carrol rce(s) Supporting Document(s) SARS coronavirus 2 RNA [Presence] in Res piratory specimen by KATHIA with probe detection NEGATIVE [facility] This lab was ordered by [facility] a nd reported by [facility]. ID Date Data Source [id number] 10/14/2020 11:27:00 PM EDT [facility] Name Value Range Interpretation Code Description Data Carrol rce(s) Supporting Document(s) SARS coronavirus 2 RNA [Presence] in Res piratory specimen by KATHIA with probe detection NEGATIVE [facility] This lab was ordered by [facility] a nd reported by [facility]. ID Date Data Source [id number] 09/22/2020 10:25:00 AM EDT [facility] Name Value Range Interpretation Code Description Data Carrol rce(s) Supporting Document(s) SARS coronavirus 2 RNA [Presence] in Res piratory specimen by KATHIA with probe detection NEGATIVE [facility] This lab was ordered by [facility] a nd reported by [facility]. ID Date Data Source [id number] 01/30/2020 01:57:51 PM EDT [facility] XR KNEE 4 OR MORE VIEWS [id number] RESUL TInterpreted by:WILFREDO Boothlinical history: Status post [...] rce(s) Supporting Document(s) ID Date Data Source [id number] 01/30/2020 01:53:24 PM EDT [facility] Name Value Range Interpretation Code Description Data Carrol rce(s) Supporting Document(s) Progress Note 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 [file] ICAgICAgICAgICAgICAgICAgICAgICAgICAgICAgICAgICAgICAgICAgICAgICAgICAgICAgICAgICAg ICAgICAgICAgICAgICAgICAgICAgICAgICAgICAgICAgICAgDQogICAgICAgICAgICAgICAgICAgICAg ICAgICAgICAgICAgICAgICAgICAgICAgICAgICAgIC AgICAgICAgICAgICAgICAgICAgICAgICAgICAgICAgICAgICAgICAgICAgICAgDQogICAgICAgICAgIC AgICAgICAgICAgICAgICAgICAgICAgICAgICAgICAgICAgICAgICAgICAgICAgICAgICAgICAgICAgIC AgICAgICAgICAgICAgICAgICAgICAgICAgICAgDQog ICAgICAgICAgICAgICAgICAgICAgICAgICAgICAgICAgICAgICAgICAgICAgICAgICAgICAgICAgICAg ICAgICAgICAgICAgICAgICAgICAgICAgICAgICAgICAgICAgICAgDQogICAgICAgICAgICAgICAgICAg ICAgICAgICAgICAgICAgICAgICAgICAgICAgICAgIC AgICAgICAgICAgICAgICAgICAgICAgICAgICAgICAgICAgICAgICAgICAgICAgICAgDQogICAgICAgIC AgICAgICAgICAgICAgICAgICAgICAgICAgICAgICAgICAgICAgICAgICAgICAgICAgICAgICAgICAgIC AgICAgICAgICAgICAgICAgICAgICAgICAgICAgICAg DQogICAgICAgICAgICAgICAgICAgICAgICAgICAgICAgICAgICAgICAgICAgICAgICAgICAgICAgICAg ICAgICAgICAgICAgICAgICAgICAgICAgICAgICAgICAgICAgICAgICAgDQogICAgICAgICAgICAgICAg ICAgICAgICAgICAgICAgICAgICAgICAgICAgICAgIC AgICAgICAgICAgICAgICAgICAgICAgICAgICAgICAgICAgICAgICAgICAgICAgICAgICAgDQogICAgIC AgICAgICAgICAgICAgICAgICAgICAgICAgICAgICAgICAgICAgICAgICAgICAgICAgICAgICAgICAgIC AgICAgICAgICAgICAgICAgICAgICAgICAgICAgICAg ICAgDQogICAgICAgICAgICAgICAgICAgICAgICAgICAgICAgICAgICAgICAgICAgICAgICAgICAgICAg SDMoMXNbBONpXUZbOGIaBKQmQDReVNGnJKIyYUZwGMMrOWIdMVThVQZtRPTtGWg7M6urXHQkWCLwCQ4b UMc6Ln7+NZxZZgIwPLN9xlJwaY2ZWC1au1EjXQboOG Saw5AqCGf4SR2EFKMlAJmrEM2HYWqiwt5XEUEdITIyrORKc4crZmYpBXI0LRWtSluhLY8JCJWcX9kgrc VsSBYoDCOMSGmyGOVIMY1MWvOuL3DgeH19OXXVHi4+WEnabrFxKmzCQnU1AXHxr7OqJIe2FM5HPERcTx sma3PdJroeIMVITDqkMQ8JQTJ8TRE7FSDlRw0CXGPj C790szMoLW2ZHi2SVtAvQV4pdr5XPsofWZBePojNEus9BDdoZF4XoZJwPYsXrd2tllGortAKx9LaowOg oQDCIP6fJQslSJD2tLWgWuqxc7lnovpeSWXiFVAkJA18FvWjYjAdMYB9TsFwSR7hCLkwPW7LKZS2WYre HQTgNLCyE7xTLwRnUWIiRmGycMlfDB2APtQvK8Psru VudCAzOCAwIFINCj4+CBrosvLiXolMWyYiHKHga3GkUEg7BI4BMGQlQFkqNC4OFLXgyD6pFMbcZP7PSa GpEnYwMWIQZlDcW02drULiZNy4K0DvOqJeNUZnOejyVOUpARpnEsPhZKOgMeGdKOilVZ3+ID4+DQogIC 2JWTgsviGeDZPmFb7SOIXuCEVgOR9rATUwRASrO0E0 dSaqHDJXIkDgZ4kzvrjkOH8bUVAdB207yYpdbjAqFCZ2CTCwFt0EKDDbFPO2ERBnjRZeQdjoBGDJCClk RP4RfITnNRT9cU3pYMvmAXUhAZVaA1sREyNfrCzrES17rCwndiSkfYVtHYn+Ju8EHG3qe5RcSSu6rkUs EUnpJLSlFEmxBQJnKNJeGVFbBDX6PTB0BDSNTnWjVS XyNSQyQCuiYYMwIKUuzb2ZHFQcQGSqMdP4DxZiKJTxGERjEGfjJYDkXVF2RZe4SZLlGJTrLN8BAuEbIJ SlFXSmITnpWVAgOXKmff3YDOZuJOSnLFMeOKGoYZGcWFLaORxqNFHyCBD2XjVfTPSiOUPjGT1MBlMjWO LdONI1EOUeGYXkBCNpoz6HIAWzHPNaXga1UPXwKJHs EVSgEAqiBVSfPVF5SNRuEMDnWOUlRE9YYhZkPPPbKAvbLUruTUIkXLEdds3DZRSoIRQsMRNmAHIfUIIx DVAfALmsFNOcCMM3BTg2MRRwZOQtDF7JAuEoWMRwKVckOJFjMUBpHAQkqy0TLYZvBEFyJSR1EEZkEOXq ZDEdPIgyFHXvLZFxHKH4CQMqQRTnER5LWpCfHLXxDq CpIdVeAYNvZWEbhl3EMXUwBQGmELS6UhOnMKErORJxEDpqHCEyWDCuVcunOVQkPOBqIP7XZtZfANJxBo U1AfmaMRGhZBFdjt1BHKUaGQXuIoz1McWwDXXsLYXfJBziELVvTBTuOBo5GIMsANMaQA6CHbYoWCVtWc BjYMurWIHkBPPenm8FBINjXCOaILWuVIEsBPCyHVTd VSyrWQBrVVO7Lnt7OLDnMDTfQH6JDgMxXQTuCwR9VviuZDMjDELzqc7VZSRuWJGlOMWpVDQfAPOgKVHa NLphZTXcVGC0AyDvDCBaEJScRE4UGkXnFJGtFwK1KkAgQRSdBVPfjg8AKJCmUDCsMLbvYHQxPVZzSUQh WKajLTTfSBOdVWSaQZLxTKCjGZ8FDeGxOHOhFfFbOe tjCKIrBCApkn9JMIIxQHGsRTKeMlQtBDYqCDVoFKxyBLKxBZSzEeW6OPHpGWBpPR1WJyFsVQJrIdA3Lr szYXIlKYVrky3FILNfTDWgGzUmGeQmZFMjSUOfAJaxSRXhTGMwCrG0CZLdXACdXI1LSvNjEEErCwU6PV TtMZYuVTHdon3ESXDwPYCjOQJ5BDYzXPRsYSGgFOil ECUtDAS3WsQxVLHiWWAyGM9PMzSiWTMvCqQ7ANOnCYZiLLCnen3CySTvnRjdxq5NQApNUa6IpStcIFIt SHjoDa8jgGE1FNFeJJXYDd9XfpGbVBQxGZFJWOshKHPjAJNpCTn5YTB8QeYpVSPaGMYaJZXbRUFyHEhz HvLaDpC2RfF1DTQ9SQWdVaswESIvIrV4G1XrMKKaXa E8HFYaHRHuWSx+FY0wKMm+Nx1Vg0QnnhK6uqEcJXfaBVX4ZR3GLGWLR1LBHl== Procedure Social History Code Duration Value Status Description Data Source(s ) Smoking 01/16/2021 12:00:00 AM EDT Current Smoker completed Curre nt Smoker eCW1 ([facility]) Smoking 01/16/2021 12:00:00 AM EDT Current Smoker completed Curre nt Smoker eCW1 ([facility]) Smoking 01/16/2021 12:00:00 AM EDT Current Smoker completed Curre nt Smoker eCW1 ([facility]) Smoking 01/16/2021 12:00:00 AM EDT Current Smoker completed Curre nt Smoker eCW1 ([facility]) Smoking 11/29/2020 12:00:00 AM EDT Current Smoker completed Curre nt Smoker eCW1 ([facility]) Smoking 11/29/2020 12:00:00 AM EDT Current Smoker completed Curre nt Smoker eCW1 ([facility]) Smoking 11/07/2020 12:00:00 AM EDT Current Smoker completed Curre nt Smoker eCW1 ([facility]) Smoking 11/07/2020 12:00:00 AM EDT Current Smoker completed Curre nt Smoker eCW1 ([facility]) Smoking 11/07/2020 12:00:00 AM EDT Current Smoker completed Curre nt Smoker eCW1 ([facility]) Smoking 10/29/2020 12:00:00 AM EDT Current Smoker completed Curre nt Smoker eCW1 ([facility]) Smoking 10/29/2020 12:00:00 AM EDT Current Smoker completed Curre nt Smoker eCW1 ([facility]) Smoking 10/24/2020 12:00:00 AM EDT Current Smoker completed Curre nt Smoker eCW1 ([facility]) Smoking 10/24/2020 12:00:00 AM EDT Current Smoker completed Curre nt Smoker eCW1 ([facility]) Smoking 10/24/2020 12:00:00 AM EDT Current Smoker completed Curre nt Smoker eCW1 ([facility]) Smoking 10/24/2020 12:00:00 AM EDT Current Smoker completed Curre nt Smoker eCW1 ([facility]) Smoking 10/07/2020 12:00:00 AM EDT Current Smoker completed Curre nt Smoker eCW1 ([facility]) Smoking 10/07/2020 12:00:00 AM EDT Current Smoker completed Curre nt Smoker eCW1 ([facility]) Alcohol intake 01/30/2020 12:00:00 AM EDT Current non-d dago of alcohol (finding) completed Current non-drinker of alcohol (finding) [facility] Tobacco use and exposure 01/30/2020 12:00:00 AM EDT Never used co mpleted Never used [facility] Cigarette pack-years 01/30/2020 12:00:00 AM EDT UNK completed [facility] Cigarettes smoked current (pack per day) - Reported 01/30/20 20 12:00:00 AM EDT UNK completed [facility] Smoking 01/30/2020 12:00:00 AM EDT Current every day smoker co mpleted Current every day smoker [facility] Vital Signs ID Date Data Source UNK Name Value Range Interpretation Code Description Data Source(s) Body weight 222.2 [lb_av] 222.2 [lb_av] eCW1 ([facility]) Body mass index (BMI) [Ratio] 30.99 kg/m2 30.99 kg/m2 W1 ([facility]) Heart rate 109 /min 109 /min eCW1 [facility] Respiratory rate 18 /min 18 /min eCW1 ([facility]) Body temperature 98.5 [degF] 98.5 [degF] eCW1 ( [facility]) Systolic blood pressure 149 mm[Hg] 149 mm[Hg] e CW1 ([facility]) Diastolic blood pressure 103 mm[Hg] 103 mm[Hg] eCW1 ([facility]) Body height 71 [in_i] 71 [in_i] eCW1 ([facility]) Body weight 226 [lb_av] 226 [lb_av] eCW1 ([facility]) Body height 71 [in_i] 71 [in_i] eCW1 ([facility]) Body mass index (BMI) [Ratio] 31.52 kg/m2 31.52 kg/m2 eCW1 ([facility]) Heart rate 111 /min 111 /min eCW1 ([facility] Respiratory rate 18 /min 18 /min eCW1 ([facility]) Systolic blood pressure 136 mm[Hg] 136 mm[Hg] e CW1 ([facility]) Diastolic blood pressure 80 mm[Hg] 80 mm[Hg] eCW1 ([facility]) Body weight 226 [lb_av] 226 [lb_av] eCW1 ([facility]) Body height 71 [in_i] 71 [in_i] eCW1 ([facility]) Body mass index (BMI) [Ratio] 31.52 kg/m2 31.52 kg/m2 eCW1 ([facility]) Heart rate 111 /min 111 /min eCW1 ([facility]) Respiratory rate 18 /min 18 /min eCW1 ([facility]) Body temperature 98.0 [degF] 98.0 [degF] eCW1 ( [facility]) Body weight 238.8 [lb_av] 238.8 [lb_av] eCW1 ([facility]) Body height 71 [in_i] 71 [in_i] eCW1 ([facility]) Body mass index (BMI) [Ratio] 33.30 kg/m2 33.30 kg/m2 eCW1 ([facility]) Systolic blood pressure 148 mm[Hg] 148 mm[Hg] e CW1 ([facility]) Diastolic blood pressure 78 mm[Hg] 78 mm[Hg] eCW1 ([facility]) Body weight 230.00 [lb_av] 230.00 [lb_av] MEDEN T ([facility]) Body height 71 [in_i] 71 [in_i] MEDENT ([facility]) 5'11" Diastolic blood pressure 68 mm[Hg] 68 mm[Hg] [facility] ([facility]) Body mass index (BMI) [Ratio] 32.1 kg/m2 32.1 k g/m2 [facility] [place] body weight 172 [lb_av] 172 [lb_av] MEDEN T ([facility]) Body weight 104.[address] [facility] ([facility]) Body surface area Derived from formula 2.[address] [facility] ([facility]) Systolic blood pressure 132 mm[Hg] 132 mm[Hg] M EDENT ([facility]) Body weight 232.0 [lb_av] 232.0 [lb_av] eCW1 ([facility]) Body height 71 [in_i] 71 [in_i] eCW1 ([facility]) Body mass index (BMI) [Ratio] 32.35 kg/m2 32.35 kg/m2 eCW1 ([facility]) Systolic blood pressure 143 mm[Hg] 143 mm[Hg] e CW1 ([facility]) Diastolic blood pressure 85 mm[Hg] 85 mm[Hg] eCW1 ([facility]) Body weight 237.2 [lb_av] 237.2 [lb_av] eCW1 ([facility]) Body height 71 [in_i] 71 [in_i] eCW1 ([facility]) Body mass index (BMI) [Ratio] 33.08 kg/m2 33.08 kg/m2 W1 ([facility]) Heart rate 85 /min 85 /min eCW1 ([facility]) Respiratory rate 17 /min 17 /min eCW1 ([facility]) Body temperature 98.4 [degF] 98.4 [degF] eCW1 ( [facility]) Systolic blood pressure 154 mm[Hg] 154 mm[Hg] e CW1 ([facility]) Diastolic blood pressure 79 mm[Hg] 79 mm[Hg] eCW1 ([facility]) Body mass index (BMI) [Ratio] 33.75 kg/m2 33.75 kg/m2 eCW1 ([facility]) Heart rate 90 /min 90 /min eCW1 ([facility]) Respiratory rate 18 /min 18 /min eCW1 ([facility]) Diastolic blood pressure 75 mm[Hg] 75 mm[Hg] eCW1 ([facility]) Body weight 242 [lb_av] 242 [lb_av] eCW1 ([facility]) Body height 71 [in_i] 71 [in_i] eCW1 ([facility]) Body temperature 98.4 [degF] 98.4 [degF] eCW1 ( [facility]) Systolic blood pressure 128 mm[Hg] 128 mm[Hg] e CW1 ([facility]) Patient Treatment Plan of Care Planned Activity Planned Date Details Description Data Source (s) Sucralfate 100 MG/ML Oral Suspension 01/17/2021 12:00:00 AM EDT eCW1 ([facility]) Sucralfate 100 MG/ML Oral Suspension 01/17/2021 12:00:00 AM EDT eCW1 ([facility]) Sucralfate 100 MG/ML Oral Suspension 01/17/2021 12:00:00 AM EDT eCW1 ([facility]) tramadol hydrochloride 50 MG Oral Tablet 01/16/2021 12:00:00 AM EDT eCW1 ([facility]) Baclofen 10 MG Oral Tablet 01/16/2021 12:00:00 AM EDT eCW1 ([facility]) tramadol hydrochloride 50 MG Oral Tablet 01/16/2021 12:00:00 AM EDT eCW1 ([facility]) Baclofen 10 MG Oral Tablet 01/16/2021 12:00:00 AM EDT eCW1 ([facility]) tramadol hydrochloride 50 MG Oral Tablet 01/16/2021 12:00:00 AM EDT eCW1 ([facility]) Baclofen 10 MG Oral Tablet 01/16/2021 12:00:00 AM EDT eCW1 ([facility]) tramadol hydrochloride 50 MG Oral Tablet 01/16/2021 12:00:00 AM EDT eCW1 ([facility]) Baclofen 10 MG Oral Tablet 01/16/2021 12:00:00 AM EDT eCW1 ([facility]) Prochlorperazine 25 MG Rectal Suppository 09/25/2020 12:00:00 AM ED T eCW1 ([facility]) Prochlorperazine 25 MG Rectal Suppository 09/25/2020 12:00:00 AM ED T eCW1 ([facility]) Prochlorperazine 25 MG Rectal Suppository 09/25/2020 12:00:00 AM ED T eCW1 ([facility]) Prochlorperazine 25 MG Rectal Suppository 09/25/2020 12:00:00 AM ED T eCW1 ([facility]) Prochlorperazine 25 MG Rectal Suppository 09/25/2020 12:00:00 AM ED T eCW1 ([facility]) Prochlorperazine 25 MG Rectal Suppository 09/25/2020 12:00:00 AM ED T eCW1 ([facility])
--- OUTSIDE RECORDS SUMMARY | 2021-03-18 20:41 | CCD ---
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 Active confirmed 219167695 Problem Retained ureteral stent Z96.0 Active confirmed 939059510 Problem Thrombocytosis D47.3 Active confirmed 34558 09 Problem Nephrolithiasis N20.0 Active confirmed 9557 0007 Problem Skin cancer C44.90 Active confirmed 74717819 7 Problem Duodenitis K29.80 Active confirmed 19186989 ALLERGIES No Known Allergies ENCOUNTERS from 1970 to 2021-01-17 Encounter Location Date Provider Diagnosis [address] [phone] [place] [address] Dec, Meghan Pa IMMUNIZATIONS Vaccine Route Administration Date Status Toradol [...] day for 30 day(s) on discharge from [facility] 10/22/20 Oct, Active HYDROcodone-Acetaminophen 5-325 MG (Schedule [...] for 30 day(s) on dicharge 10/22/20 from [facility] Oct, Active PROCEDURES No Information RESULTS No Results REASON FOR VISIT liquid sucralfate MEDICAL (GENERAL) HISTORY Type Description Date Medical [...] History Cystoscopy with stent placement in [facility] Surgical History cysto with stent removal 11/2020 [...] Twice a day for 30 day(s) Dec, Next Appt Details Provider Name: Hi Guaman, 2020-10-0 6 10:30:00 AM, [id number], , [place], [address], Insurance Providers Payer Name Payer Address Payer Phone Insured Name Patient Relati onship to Insured Coverage Start Date Coverage End Date [facility] [employer] CLAIM[facility] DEPT [address] [facility] [phone] SOULEYMANE TALBERT self
--- OUTSIDE RECORDS SUMMARY | 2021-03-18 20:41 | CCD ---
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 10-31 ppd REASON FOR REFERRAL No Information VITAL SIGNS No information MEDICATIONS Medication SIG (Take, Route, Frequency, Duration) Notes Start Da te End Date Status Phenazopyridine HCl 100 MG 1 tablet after meals Orally twice a d ay as needed Nov, Active Baclofen 10 MG 1 tablet as needed Orally every 8 hrs for 7 day( s) Dec, Active Tamsulosin HCl 0.4 MG TAKE 1 CAPSULE BY MOUTH ONCE DAILY 30 MINUTES FOLLOWING THE SAME MEAL EACH DAY Oral for 7 Not-Taking traMADol HCl 50 MG 1 tablet as [...] day for 30 day(s) on discharge from [facility] 10/22/20 Oct, Active HYDROcodone-Acetaminophen 5-325 MG (Schedule II Drug) TAKE 1 TABLET BY MOUTH EVERY 4 TO 6 HOURS NEEDED FOR PAIN . DO NOT EXCEED 6 PER 24 HOURS Oral every 6 hrs Active Oxybutynin Chloride 5 MG 1 tablet Orally Twice a day as needed Nov, Active Amoxicillin 1 tab Oral for 14 days A ctive Pantoprazole Sodium 40 MG 1 tablet Orally Once a day for 30 day(s) on dicharge 10/22/20 from [facility] Oct, Active PROCEDURES No Information RESULTS No Results REASON FOR VISIT lower MEDICAL (GENERAL) HISTORY Type Description Date Medical [...] History Cystoscopy with stent placement in [facility] Surgical History cysto with [...] 8 hrs for 7 day( s) Dec, Next Appt Details Provider Name:James Do Kusumkaterin, 2020-10-0 6 10:30:00 AM, [address], , [place], [address], Insurance Providers Payer Name Payer Address Payer Phone Insured Name Patient Relati onship to Insured Coverage Start Date Coverage End Date [facility] [employer] CLAIMS DEPT [address] [place] [phone] SOULEYMANE TALBERT self
[2021-03-18 20:49] VITALS: BP 154/86
[2021-03-18] MEDS ORDERED: PANTOPRAZOLE 40MG VIAL (C9113 PER 1) IV ONE (21:15)
[2021-03-18] MEDS ORDERED: GI COCKTAIL 50ML BTL(HYOSCYAMINE/MAALOX/LIDOCAINE VISCOUS)(1:3:1) PO ONE (21:15)
[2021-03-18] MEDS ORDERED: ONDANSETRON 4MG/2ML VIAL IV ONE (21:15)
--- OUTSIDE RECORDS SUMMARY | 2021-03-18 21:27 | CCD ---
Author Author [facility] Organization [facility] Address Unknown Phone Unavailable Care Team Providers Care Pmo Project Manager Name Role Phone JOHN MANUEL MD Unavailable Unavailable JOHN MANUEL MD Unavailable Unavailable JOHN MANUEL MD Unavailable Unavailable JOHN MANULE MD Unavailable Unavailable JOHN MANUEL MD Unavailable Unavailable JOHN MANUEL MD Unavailable Unavailable JOHN MANUEL MD Unavailable Unavailable JOHN MANUEL MD Unavailable Unavailable JOHN MANUEL MD Unavailable Unavailable JOHN MANUEL MD Unavailable Unavailable JOHN MANUEL MD Unavailable Unavailable JOHN MANUEL MD Unavailable Unavailable JOHN MANUEL MD Unavailable Unavailable JOHN MANUEL MD Unavailable Unavailable JOHN MAUNEL MD Unavailable Unavailable MAR, JOHN MD Unavailable [...] Cruzito Gonzalezel PA Unavailable Unavailable Birklin, Cruzito Madhav PA Unavailable Unavailable Birklin, Cruzito Madhav PA [...] by Article 27-F of the [facility] Public Health law. If you continue you may have access to information: Regarding HIV / AIDS; Provided by facilities licensed or operated by the [facility] Office of Mental Health; or Provided by the [facility] Office for People With Developmental Disabilities. If such information is present, then the following [facility] mandated warning applies: This information has [...] law may result in a fine or assisted sentence or both. A general authorization for the release of medical or other information is NOT sufficient authorization for further disc losure. Allergies and Adverse Reactions Type Description Substance Reaction Status Data Source(s ) Propensity to adverse reactions NO KNOWN ALLERGIES NO KNOWN ALLERGIES [facility] Family History Family Member Name Family Member Gender Family Member Status Date o f Status Description Data Source(s) Unknown Male Problem MEDENT ([facility], ) Encounters Encounter Providers Location Date Indications Data Source(s ) Unknown [address] [place] [id number] 02/27/2021 12:00:00 AM EDT eCW1 (formerly [facility]) Unknown [address] [facility] [id number] 01/17/2021 12:00:00 AM EDT eCW1 (formerly [facility]) Outpatient [address] [facility] [id number] 01/16/2021 12:00:00 AM EDT eCW1 (formerly [facility]) Unknown [address] [facility] [id number] 01/15/2021 12:00:00 AM EDT eCW1 (formerly [facility]) (Cysto1) Urology [address] [place] [address] 11/29/2020 12:00:00 AM EDT eCW1 ([facility]) Outpatient [address] [facility] [id number] 11/26/2020 12:00:00 AM EDT eCW1 (formerly [facility]) Outpatient [address] [facility] [id number] 11/18/2020 12:00:00 AM EDT eCW1 (formerly [facility]) Unknown [address] [facility] [id number] 11/12/2020 12:00:00 AM EDT eCW1 ([facility]) (MMS 3) Mohs 3 [address] [facility] [place] [address] 11/07/2020 12:00:00 AM EDT eCW1 ([facility]) [place] [address] [facility] [place] [address] 11/04/2020 12:00:00 AM EDT eCW1 ([facility]) Outpatient [address] [facility] [id number] 10/29/2020 12:00:00 AM EDT eCW1 ([facility]) Office Visit, Est Pt., Level 3 FC [address] [place] [address] 10/24/2020 12:00:00 AM EDT eCW1 ([facility]) Unknown [address] [facility] [id number] 10/23/2020 12:00:00 AM EDT eCW1 ([facility]) Unknown [address] [facility] [place] [address] 10/17/2020 12:00:00 AM EDT eCW1 ([facility]) Unknown [address] [facility] [place] [address] 10/14/2020 12:00:00 AM EDT eCW1 ([facility]) (TCM) Transition of Care Visit [address] [place] [address] 10/07/2020 12:00:00 AM EDT eCW1 ([facility]) Unknown [address] [facility] [place] [address] 10/04/2020 12:00:00 AM EDT eCW1 ([facility]) Unknown [address] [facility] [place] [address] 10/03/2020 12:00:00 AM EDT eCW1 ([facility]) Outpatient [address] [facility] [id number] 09/25/2020 12:00:00 AM EDT eCW1 (formerly [facility]) [place] [address] [facility] [address] 09/25/2020 12:00:00 AM EDT eCW1 (formerly [facility]) [place] [address] [facility] [address] 09/25/2020 12:00:00 AM EDT eCW1 ([facility]) [place] [address] [facility] [place] [address] 09/24/2020 12:00:00 AM EDT eCW1 (formerly [facility]) [place] [address] [facility] [place] [address] 09/22/2020 12:00:00 AM EDT eCW1 (formerly [facility]) Outpatient Attender: Madhav CISNEROS 03/19/2020 12:00:00 AM [facility] Outpatient Attender: JOHN MANUEL MD 03/19/2020 12:00:00 AM E [facility] Outpatient Referrer: Madhav CISNEROS 03/11/2020 12:00:00 AM [facility] Outpatient Referrer: Madhav CISNEROS 03/11/2020 12:00:00 AM [facility] Outpatient Attender: Madhav CISNEROS 01/31/2020 12:00:00 AM [facility] Outpatient Attender: Madhav CISNEROS [id number] 01/30/2020 12 :00:00 AM EDT Pain due to internal orthopedic prosthetic devices, implants and grafts, initial encounter [facility] Pain due to internal orthopedic prosthet ic devices, implants and grafts, initial encounter Outpatient Referrer: JOHN MANUEL MD 01/30/2020 12:00:0 0 AM EDT Presence of left artificial knee joint [facility] Presence of left artificial knee joint Outpatient Attender: JOHN MANUEL MD 01/30/2020 12:00:00 AM E [facility] Outpatient Attender: JOHN MANUEL MD 01/30/2020 12:00:00 AM E [facility] Immunizations Vaccine Date Status Description Data Source(s) 01/16/2021 08:27:00 AM EDT completed e CW1 ([facility]) 01/16/2021 08:27:00 AM EDT completed e CW1 ([facility]) 01/16/2021 08:27:00 AM EDT completed e CW1 ([facility]) 01/16/2021 08:27:00 AM EDT completed e CW1 ([facility]) Medications Medication Brand Name Start Date Product Form Dose Route Admi nistrative Instructions Pharmacy Instructions Status Indications Reaction Description Data Source(s) Sucralfate 100 MG/ML Oral Suspension Sucralfate 1 GM/10ML Child cralfate 1 GM/10ML 01/17/2021 12:00:00 AM EDT 10.0 {ml_on_an_empty_stomach} active Sucralfate 1 GM/10ML eCW1 ([facility]) Sucralfate 100 MG/ML Oral Suspension Sucralfate 1 GM/10ML Child cralfate 1 GM/10ML 01/17/2021 12:00:00 AM EDT 10.0 {ml_on_an_empty_stomach} active Sucralfate 1 GM/10ML eCW1 ([facility]) Sucralfate 100 MG/ML Oral Suspension Sucralfate 1 GM/10ML Child cralfate 1 GM/10ML 01/17/2021 12:00:00 AM EDT 10.0 {ml_on_an_empty_stomach} active Sucralfate 1 GM/10ML eCW1 ([facility]) tramadol hydrochloride 50 MG Oral Tablet traMADol HCl 50 MG traMADol HCl 50 MG 01/16/2021 12:00:00 AM EDT 1.0 {tablet_as_needed} active traMADol HCl 50 MG eCW1 ([facility]) Baclofen 10 MG Oral Tablet Baclofen 10 MG 01/16/2021 12:00:00 AM ED T 1.0 {tablet_as_needed} active Baclofen 10 M G eCW1 ([facility]) Baclofen 10 MG Oral Tablet Baclofen 10 MG 01/16/2021 12:00:00 AM ED T 1.0 {tablet_as_needed} active Baclofen 10 M G eCW1 ([facility]) Baclofen 10 MG Oral Tablet Baclofen 10 MG 01/16/2021 12:00:00 AM ED T 1.0 {tablet_as_needed} active Baclofen 10 M G eCW1 ([facility]) Baclofen 10 MG Oral Tablet Baclofen 10 MG 01/16/2021 12:00:00 AM ED T 1.0 {tablet_as_needed} active Baclofen 10 M G eCW1 ([facility]) tramadol hydrochloride 50 MG Oral Tablet traMADol HCl 50 MG traMADol HCl 50 MG 01/16/2021 12:00:00 AM EDT 1.0 {tablet_as_needed} active traMADol HCl 50 MG W1 ([facility]) tramadol hydrochloride 50 MG Oral Tablet traMADol HCl 50 MG traMADol HCl 50 MG 01/16/2021 12:00:00 AM EDT 1.0 {tablet_as_needed} active traMADol HCl 50 MG W1 ([facility]) tramadol hydrochloride 50 MG Oral Tablet traMADol HCl 50 MG traMADol HCl 50 MG 01/16/2021 12:00:00 AM EDT 1.0 {tablet_as_needed} active traMADol HCl 50 MG W1 ([facility]) Phenazopyridine hydrochloride 100 MG Oral Tablet Phena zopyridine HCl 100 MG Phenazopyridine HCl 100 MG 11/26/2020 12:00:00 AM EDT 1.0 {t ablet_after_meals} active Phenazopyridine HCl 100 MG eCW1 ([facility]) Oxybutynin chloride 5 MG Oral Tablet Oxybutynin Chlori de 5 MG Oxybutynin Chloride 5 MG 11/26/2020 12:00:00 AM EDT 1.0 {tablet} active Oxybutynin Chloride 5 MG eCW1 ([facility]) Oxybutynin chloride 5 MG Oral Tablet Oxybutynin Chlori de 5 MG Oxybutynin Chloride 5 MG 11/26/2020 12:00:00 AM EDT 1.0 {tablet} active Oxybutynin Chloride 5 MG eCW1 ([facility]) Oxybutynin chloride 5 MG Oral Tablet Oxybutynin Chlori de 5 MG Oxybutynin Chloride 5 MG 11/26/2020 12:00:00 AM EDT 1.0 {tablet} active Oxybutynin Chloride 5 MG eCW1 ([facility]) Phenazopyridine hydrochloride 100 MG Oral Tablet Phena zopyridine HCl 100 MG Phenazopyridine HCl 100 MG 11/26/2020 12:00:00 AM EDT 1.0 {t ablet_after_meals} active Phenazopyridine HCl 100 MG eCW1 ([facility]) Phenazopyridine hydrochloride 100 MG Oral Tablet Phena zopyridine HCl 100 MG Phenazopyridine HCl 100 MG 11/26/2020 12:00:00 AM EDT 1.0 {t ablet_after_meals} active Phenazopyridine HCl 100 MG eCW1 ([facility]) Oxybutynin chloride 5 MG Oral Tablet Oxybutynin Chlori de 5 MG Oxybutynin Chloride 5 MG 11/26/2020 12:00:00 AM EDT 1.0 {tablet} active Oxybutynin Chloride 5 MG eCW1 ([facility]) Phenazopyridine hydrochloride 100 MG Oral Tablet Phena zopyridine HCl 100 MG Phenazopyridine HCl 100 MG 11/26/2020 12:00:00 AM EDT 1.0 {t ablet_after_meals} active Phenazopyridine HCl 100 MG eCW1 ([facility]) Oxybutynin chloride 5 MG Oral Tablet Oxybutynin Chlori de 5 MG Oxybutynin Chloride 5 MG 11/26/2020 12:00:00 AM EDT 1.0 {tablet} active Oxybutynin Chloride 5 MG eCW1 ([facility]) Phenazopyridine hydrochloride 100 MG Oral Tablet Phena zopyridine HCl 100 MG Phenazopyridine HCl 100 MG 11/26/2020 12:00:00 AM EDT 1.0 {t ablet_after_meals} active Phenazopyridine HCl 100 MG eCW1 ([facility]) Oxybutynin chloride 5 MG Oral Tablet Oxybutynin Chlori de 5 MG Oxybutynin Chloride 5 MG 11/26/2020 12:00:00 AM EDT 1.0 {tablet} active Oxybutynin Chloride 5 MG eCW1 ([facility]) Phenazopyridine hydrochloride 100 MG Oral Tablet Phena zopyridine HCl 100 MG Phenazopyridine HCl 100 MG 11/26/2020 12:00:00 AM EDT 1.0 {t ablet_after_meals} active Phenazopyridine HCl 100 MG eCW1 ([facility]) pantoprazole 40 MG Delayed Release Oral Tablet Pantopr azole Sodium 40 MG Pantoprazole Sodium 40 MG 10/22/2020 12:00:00 AM EDT 1.0 {tablet} active Pantoprazole Sodium 40 MG eCW1 ( [facility]) Sucralfate 1000 MG Oral Tablet Sucralfate 1 GM Sucralfate 1 GM 10/22/2020 12:00:00 AM EDT 1.0 {tablet_on_an_empty_stomach} active Sucralfate 1 GM eCW1 ([facility]) Sucralfate 1000 MG Oral Tablet Sucralfate 1 GM Sucralfate 1 GM 10/22/2020 12:00:00 AM EDT 1.0 {tablet_on_an_empty_stomach} active Sucralfate 1 GM eCW1 ([facility]) Sucralfate 1000 MG Oral Tablet Sucralfate 1 GM Sucralfate 1 GM 10/22/2020 12:00:00 AM EDT 1.0 {tablet_on_an_empty_stomach} active Sucralfate 1 GM eCW1 ([facility]) Sucralfate 1000 MG Oral Tablet Sucralfate 1 GM Sucralfate 1 GM 10/22/2020 12:00:00 AM EDT 1.0 {tablet_on_an_empty_stomach} active Sucralfate 1 GM eCW1 ([facility]) pantoprazole 40 MG Delayed Release Oral Tablet Pantopr azole Sodium 40 MG Pantoprazole Sodium 40 MG 10/22/2020 12:00:00 AM EDT 1.0 {tablet} active Pantoprazole Sodium 40 MG eCW1 ( [facility]) Sucralfate 1000 MG Oral Tablet Sucralfate 1 GM Sucralfate 1 GM 10/22/2020 12:00:00 AM EDT 1.0 {tablet_on_an_empty_stomach} active Sucralfate 1 GM eCW1 ([facility]) pantoprazole 40 MG Delayed Release Oral Tablet Pantopr azole Sodium 40 MG Pantoprazole Sodium 40 MG 10/22/2020 12:00:00 AM EDT 1.0 {tablet} active Pantoprazole Sodium 40 MG eCW1 ( [facility]) pantoprazole 40 MG Delayed Release Oral Tablet Pantopr azole Sodium 40 MG Pantoprazole Sodium 40 MG 10/22/2020 12:00:00 AM EDT 1.0 {tablet} active Pantoprazole Sodium 40 MG eCW1 ( [facility]) pantoprazole 40 MG Delayed Release Oral Tablet Pantopr azole Sodium 40 MG Pantoprazole Sodium 40 MG 10/22/2020 12:00:00 AM EDT 1.0 {tablet} active Pantoprazole Sodium 40 MG eCW1 ( [facility]) Sucralfate 1000 MG Oral Tablet Sucralfate 1 GM Sucralfate 1 GM 10/22/2020 12:00:00 AM EDT 1.0 {tablet_on_an_empty_stomach} active Sucralfate 1 GM eCW1 ([facility]) pantoprazole 40 MG Delayed Release Oral Tablet Pantopr azole Sodium 40 MG Pantoprazole Sodium 40 MG 10/22/2020 12:00:00 AM EDT 1.0 {tablet} active Pantoprazole Sodium 40 MG eCW1 ( [facility]) pantoprazole 40 MG Delayed Release Oral Tablet Pantopr azole Sodium 40 MG Pantoprazole Sodium 40 MG 10/22/2020 12:00:00 AM EDT 1.0 {tablet} active Pantoprazole Sodium 40 MG eCW1 ( [facility]) Sucralfate 1000 MG Oral Tablet Sucralfate 1 GM Sucralfate 1 GM 10/22/2020 12:00:00 AM EDT 1.0 {tablet_on_an_empty_stomach} active Sucralfate 1 GM eCW1 ([facility]) pantoprazole 40 MG Delayed Release Oral Tablet Pantopr azole Sodium 40 MG Pantoprazole Sodium 40 MG 10/22/2020 12:00:00 AM EDT 1.0 {tablet} active Pantoprazole Sodium 40 MG eCW1 ( [facility]) Sucralfate 1000 MG Oral Tablet Sucralfate 1 GM Sucralfate 1 GM 10/22/2020 12:00:00 AM EDT 1.0 {tablet_on_an_empty_stomach} active Sucralfate 1 GM eCW1 ([facility]) Sucralfate 1000 MG Oral Tablet Sucralfate 1 GM Sucralfate 1 GM 10/22/2020 12:00:00 AM EDT 1.0 {tablet_on_an_empty_stomach} active Sucralfate 1 GM eCW1 ([facility]) pantoprazole 40 MG Delayed Release Oral Tablet Pantopr azole Sodium 40 MG Pantoprazole Sodium 40 MG 10/22/2020 12:00:00 AM EDT 1.0 {tablet} active Pantoprazole Sodium 40 MG eCW1 ( [facility]) Sucralfate 1000 MG Oral Tablet Sucralfate 1 GM Sucralfate 1 GM 10/22/2020 12:00:00 AM EDT 1.0 {tablet_on_an_empty_stomach} active Sucralfate 1 GM eCW1 ([facility]) pantoprazole 40 MG Delayed Release Oral Tablet Pantopr azole Sodium 40 MG Pantoprazole Sodium 40 MG 10/22/2020 12:00:00 AM EDT 1.0 {tablet} active Pantoprazole Sodium 40 MG eCW1 ( [facility]) pantoprazole 40 MG Delayed Release Oral Tablet Pantopr azole Sodium 40 MG Pantoprazole Sodium 40 MG 10/22/2020 12:00:00 AM EDT 1.0 {tablet} active Pantoprazole Sodium 40 MG eCW1 ( [facility]) pantoprazole 40 MG Delayed Release Oral Tablet Pantopr azole Sodium 40 MG Pantoprazole Sodium 40 MG 10/22/2020 12:00:00 AM EDT 1.0 {tablet} active Pantoprazole Sodium 40 MG eCW1 ( [facility]) Sucralfate 1000 MG Oral Tablet Sucralfate 1 GM Sucralfate 1 GM 10/22/2020 12:00:00 AM EDT 1.0 {tablet_on_an_empty_stomach} active Sucralfate 1 GM eCW1 ([facility]) Sucralfate 1000 MG Oral Tablet Sucralfate 1 GM Sucralfate 1 GM 10/22/2020 12:00:00 AM EDT 1.0 {tablet_on_an_empty_stomach} active Sucralfate 1 GM eCW1 ([facility]) Sucralfate 1000 MG Oral Tablet Sucralfate 1 GM Sucralfate 1 GM 10/22/2020 12:00:00 AM EDT 1.0 {tablet_on_an_empty_stomach} active Sucralfate 1 GM eCW1 ([facility]) Sucralfate 1000 MG Oral Tablet Sucralfate 1 GM Sucralfate 1 10/22/2020 12:00:00 AM EDT 1.0 {tablet_on_an_empty_stomach} active Sucralfate 1 GM eCW1 ([facility]) Sucralfate 1000 MG Oral Tablet Sucralfate 1 GM Sucralfate 1 10/22/2020 12:00:00 AM EDT 1.0 {tablet_on_an_empty_stomach} active Sucralfate 1 GM eCW1 ([facility]) pantoprazole 40 MG Delayed Release Oral Tablet Pantopr azole Sodium 40 MG Pantoprazole Sodium 40 MG 10/22/2020 12:00:00 AM EDT 1.0 {tablet} active Pantoprazole Sodium 40 MG W1 ( [facility]) pantoprazole 40 MG Delayed Release Oral Tablet Pantopr azole Sodium 40 MG Pantoprazole Sodium 40 MG 10/22/2020 12:00:00 AM EDT 1.0 {tablet} active Pantoprazole Sodium 40 MG eCW1 ( [facility]) pantoprazole 40 MG Delayed Release Oral Tablet Pantopr azole Sodium 40 MG Pantoprazole Sodium 40 MG 10/22/2020 12:00:00 AM EDT 1.0 {tablet} active Pantoprazole Sodium 40 MG W1 ( [facility]) Prochlorperazine 25 MG Rectal Suppository Prochlorperazine 2 5 MG 09/25/2020 12:00:00 AM EDT 1.0 {suppository_as_needed} susp ended Prochlorperazine 25 MG eCW1 ([facility]) Prochlorperazine 25 MG Rectal Suppository Prochlorperazine 2 5 MG 09/25/2020 12:00:00 AM EDT 1.0 {suppository_as_needed} acti ve Prochlorperazine 25 MG eCW1 ([facility]) Prochlorperazine 25 MG Rectal Suppository Prochlorperazine 2 5 MG 09/25/2020 12:00:00 AM EDT 1.0 {suppository_as_needed} acti ve Prochlorperazine 25 MG eCW1 ([facility]) Prochlorperazine 25 MG Rectal Suppository Prochlorperazine 2 5 MG 09/25/2020 12:00:00 AM EDT 1.0 {suppository_as_needed} susp ended Prochlorperazine 25 MG eCW1 ([facility]) Prochlorperazine 25 MG Rectal Suppository Prochlorperazine 2 5 MG 09/25/2020 12:00:00 AM EDT 1.0 {suppository_as_needed} acti ve Prochlorperazine 25 MG eCW1 ([facility]) Prochlorperazine 25 MG Rectal Suppository Prochlorperazine 2 5 MG 09/25/2020 12:00:00 AM EDT 1.0 {suppository_as_needed} acti ve Prochlorperazine 25 MG eCW1 ([facility]) Prochlorperazine 25 MG Rectal Suppository Prochlorperazine 2 5 MG 09/25/2020 12:00:00 AM EDT 1.0 {suppository_as_needed} acti ve Prochlorperazine 25 MG eCW1 ([facility]) Prochlorperazine 25 MG Rectal Suppository Prochlorperazine 2 5 MG 09/25/2020 12:00:00 AM EDT 1.0 {suppository_as_needed} acti ve Prochlorperazine 25 MG eCW1 ([facility]) Ondansetron 4 MG Disintegrating Oral Tablet Ondansetron 4 MG 09/24/2020 12:00:00 AM EDT 1.0 {tablet_on_the_tongue_and_allow_to_dissolve} active Ondansetron 4 MG eCW1 ([facility]) Ondansetron 4 MG Disintegrating Oral Tablet Ondansetron 4 MG 09/24/2020 12:00:00 AM EDT 1.0 {tablet_on_the_tongue_and_allow_to_dissolve} active Ondansetron 4 MG eCW1 ([facility]) Ondansetron 4 MG Disintegrating Oral Tablet Ondansetron 4 MG 09/24/2020 12:00:00 AM EDT 1.0 {tablet_on_the_tongue_and_allow_to_dissolve} active Ondansetron 4 MG eCW1 ([facility]) Ondansetron 4 MG Disintegrating Oral Tablet Ondansetron 4 MG 09/24/2020 12:00:00 AM EDT 1.0 {tablet_on_the_tongue_and_allow_to_dissolve} active Ondansetron 4 MG eCW1 ([facility]) Senna-Docusate Sodium 8.6-50 MG Senna-Docusate Sodium 8.6-50 MG 09/24/2020 12:00:00 AM EDT 1.0 {tablet_in_the_evening_as_needed} active Senna- Docusate Sodium 8.6-50 MG eCW1 ([facility]) Ondansetron 4 MG Disintegrating Oral Tablet Ondansetron 4 MG 09/24/2020 12:00:00 AM EDT 1.0 {tablet_on_the_tongue_and_allow_to_dissolve} active Ondansetron 4 MG eCW1 ([facility]) Ondansetron 4 MG Disintegrating Oral Tablet Ondansetron 4 MG 09/24/2020 12:00:00 AM EDT 1.0 {tablet_on_the_tongue_and_allow_to_dissolve} active Ondansetron 4 MG eCW1 ([facility]) Amlodipine 10 MG / valsartan 160 MG Oral Tablet Amlodipine Besylate-Valsartan 10-160 MG Amlodipine Besylate-Valsartan 10-160 MG 09/24/2020 12:00:00 AM E DT 1.0 {tablet} active Amlodipine Besylate -Valsartan 10-160 MG eCW1 ([facility]) Ondansetron 4 MG Disintegrating Oral Tablet Ondansetron 4 MG 09/24/2020 12:00:00 AM EDT 1.0 {tablet_on_the_tongue_and_allow_to_dissolve} active Ondansetron 4 MG eCW1 ([facility]) Senna-Docusate Sodium 8.6-50 MG Senna-Docusate Sodium 8.6-50 MG 09/24/2020 12:00:00 AM EDT 1.0 {tablet_in_the_evening_as_needed} active Senna- Docusate Sodium 8.6-50 MG eCW1 ([facility]) Ondansetron 4 MG Disintegrating Oral Tablet Ondansetron 4 MG 09/24/2020 12:00:00 AM EDT 1.0 {tablet_on_the_tongue_and_allow_to_dissolve} active Ondansetron 4 MG eCW1 ([facility]) Ondansetron 4 MG Disintegrating Oral Tablet Ondansetron 4 MG 09/24/2020 12:00:00 AM EDT 1.0 {tablet_on_the_tongue_and_allow_to_dissolve} active Ondansetron 4 MG eCW1 ([facility]) Amlodipine 10 MG / valsartan 160 MG Oral Tablet Amlodipine Besylate-Valsartan 10-160 MG Amlodipine Besylate-Valsartan 10-160 MG 09/24/2020 12:00:00 AM E DT 1.0 {tablet} active Amlodipine Besylate -Valsartan 10-160 MG eCW1 ([facility]) Ondansetron 4 MG Disintegrating Oral Tablet Ondansetron 4 MG 09/24/2020 12:00:00 AM EDT 1.0 {tablet_on_the_tongue_and_allow_to_dissolve} active Ondansetron 4 MG eCW1 ([facility]) Oxybutynin chloride 5 MG Oral Tablet Oxybutynin Chlori de 5 MG Oxybutynin Chloride 5 MG 09/24/2020 12:00:00 AM EDT acti ve Oxybutynin Chloride 5 MG eCW1 ([facility]) Ondansetron 4 MG Disintegrating Oral Tablet Ondansetron 4 MG 09/24/2020 12:00:00 AM EDT 1.0 {tablet_on_the_tongue_and_allow_to_dissolve} active Ondansetron 4 MG eCW1 ([facility]) Ondansetron 4 MG Disintegrating Oral Tablet Ondansetron 4 MG 09/24/2020 12:00:00 AM EDT 1.0 {tablet_on_the_tongue_and_allow_to_dissolve} active Ondansetron 4 MG eCW1 ([facility]) Ondansetron 4 MG Disintegrating Oral Tablet Ondansetron 4 MG 09/24/2020 12:00:00 AM EDT 1.0 {tablet_on_the_tongue_and_allow_to_dissolve} active Ondansetron 4 MG eCW1 ([facility]) Ondansetron 4 MG Disintegrating Oral Tablet Ondansetron 4 MG 09/24/2020 12:00:00 AM EDT 1.0 {tablet_on_the_tongue_and_allow_to_dissolve} active Ondansetron 4 MG eCW1 ([facility]) Senna-Docusate Sodium 8.6-50 MG Senna-Docusate Sodium 8.6-50 MG 09/24/2020 12:00:00 AM EDT 1.0 {tablet_in_the_evening_as_needed} active Senna- Docusate Sodium 8.6-50 MG eCW1 ([facility]) tramadol hydrochloride 50 MG Oral Tablet Tramadol HCl 50 MG Tramadol HCl 50 MG 09/24/2020 12:00:00 AM EDT 1.0 {tablet_as_needed} active Tramadol HCl 50 MG eCW1 ([facility]) Oxybutynin chloride 5 MG Oral Tablet Oxybutynin Chlori de 5 MG Oxybutynin Chloride 5 MG 09/24/2020 12:00:00 AM EDT acti ve Oxybutynin Chloride 5 MG eCW1 ([facility]) Amlodipine 10 MG / valsartan 160 MG Oral Tablet Amlodipine Besylate-Valsartan 10-160 MG Amlodipine Besylate-Valsartan 10-160 MG 09/24/2020 12:00:00 AM E DT 1.0 {tablet} active Amlodipine Besylate -Valsartan 10-160 MG eCW1 ([facility]) Ondansetron 4 MG Disintegrating Oral Tablet Ondansetron 4 MG 09/24/2020 12:00:00 AM EDT 1.0 {tablet_on_the_tongue_and_allow_to_dissolve} active Ondansetron 4 MG eCW1 ([facility]) tramadol hydrochloride 50 MG Oral Tablet Tramadol HCl 50 MG Tramadol HCl 50 MG 09/24/2020 12:00:00 AM EDT 1.0 {tablet_as_needed} active Tramadol HCl 50 MG eCW1 ([facility]) Ondansetron 4 MG Disintegrating Oral Tablet Ondansetron 4 MG 09/24/2020 12:00:00 AM EDT 1.0 {tablet_on_the_tongue_and_allow_to_dissolve} active Ondansetron 4 MG eCW1 ([facility]) Oxybutynin chloride 5 MG Oral Tablet Oxybutynin Chlori de 5 MG Oxybutynin Chloride 5 MG 09/24/2020 12:00:00 AM EDT acti ve Oxybutynin Chloride 5 MG eCW1 ([facility]) Ondansetron 4 MG Disintegrating Oral Tablet Ondansetron 4 MG 09/24/2020 12:00:00 AM EDT 1.0 {tablet_on_the_tongue_and_allow_to_dissolve} active Ondansetron 4 MG eCW1 ([facility]) Ondansetron 4 MG Disintegrating Oral Tablet Ondansetron 4 MG 09/24/2020 12:00:00 AM EDT 1.0 {tablet_on_the_tongue_and_allow_to_dissolve} active Ondansetron 4 MG eCW1 ([facility]) Oxybutynin chloride 5 MG Oral Tablet Oxybutynin Chlori de 5 MG Oxybutynin Chloride 5 MG 09/24/2020 12:00:00 AM EDT acti ve Oxybutynin Chloride 5 MG eCW1 ([facility]) Ondansetron 4 MG Disintegrating Oral Tablet Ondansetron 4 MG 09/24/2020 12:00:00 AM EDT 1.0 {tablet_on_the_tongue_and_allow_to_dissolve} active Ondansetron 4 MG eCW1 ([facility]) Ondansetron 4 MG Disintegrating Oral Tablet Ondansetron 4 MG 09/24/2020 12:00:00 AM EDT 1.0 {tablet_on_the_tongue_and_allow_to_dissolve} active Ondansetron 4 MG eCW1 ([facility]) Senna-Docusate Sodium 8.6-50 MG Senna-Docusate Sodium 8.6-50 MG 09/24/2020 12:00:00 AM EDT 1.0 {tablet_in_the_evening_as_needed} active Senna- Docusate Sodium 8.6-50 MG eCW1 ([facility]) tramadol hydrochloride 50 MG Oral Tablet Tramadol HCl 50 MG Tramadol HCl 50 MG 09/24/2020 12:00:00 AM EDT 1.0 {tablet_as_needed} active Tramadol HCl 50 MG eCW1 ([facility]) Amlodipine 10 MG / valsartan 160 MG Oral Tablet Amlodipine Besylate-Valsartan 10-160 MG Amlodipine Besylate-Valsartan 10-160 MG 09/24/2020 12:00:00 AM E DT 1.0 {tablet} active Amlodipine Besylate -Valsartan 10-160 MG eCW1 ([facility]) Ondansetron 4 MG Disintegrating Oral Tablet Ondansetron 4 MG 09/24/2020 12:00:00 AM EDT 1.0 {tablet_on_the_tongue_and_allow_to_dissolve} active Ondansetron 4 MG eCW1 ([facility]) Ondansetron 4 MG Disintegrating Oral Tablet Ondansetron 4 MG 09/24/2020 12:00:00 AM EDT 1.0 {tablet_on_the_tongue_and_allow_to_dissolve} active Ondansetron 4 MG eCW1 ([facility]) Ondansetron 4 MG Disintegrating Oral Tablet Ondansetron 4 MG 09/24/2020 12:00:00 AM EDT 1.0 {tablet_on_the_tongue_and_allow_to_dissolve} active Ondansetron 4 MG eCW1 ([facility]) Insurance Providers Payer name Policy type / Coverage type Policy ID Covered constitution party ID Covered constitution party's relationship to vega Policy Vega Plan Information [facility] I [id number] Self [id number] [facility] I [id number] Self [id number] [facility] I [id number] Self [id number] [facility] [place] Medicaid [id number] Self [id number] [facility] [id number] WORKERS COMPENSATION GENERIC W [id number] Empl [id number] [facility] I [id number] Self [id number] Medicaid [place] Medigap Part B [id number] Self [id number] Medicaid [place] Medicaid [id number] Self [id number] [facility] [id number] SP [id number] [facility] O [id number] S [id number] SELF PAY ONLY 00 SP 00 MEDICAID M [id number] S [id number] SELF PAY UNAVAILABLE SP UNAVAILA BLE [employer] DAIRY [id number] SP [id number] [employer] BENEFIT [id number] SELF PAY POLICY # [id number] SP P OLICY # [id number] DESHAUN [id number] SP [id number] [place] [id number] S [id number] DESHAUN [id number] SP [id number] SELF PAY ONLY [id number] SP [id number] MEDICAID [id number] SP [id number] [place] [id number] S [id number] [facility] OF [place] [facility] -RECURRING [id number] Problems, Conditions, and Diagnoses Code Display Name Description Problem Type Effective Dates Data Source(s) Z96.652 Presence of left artificial knee joint P resence of left artificial knee joint Diagnosis 01/30/2020 10:46:09 AM EDT [facility] T84.84XA Pain due to internal orthope dic prosthetic devices, implants and grafts, initial encounter Pain due to internal orthopedic prosthet ic devices, implants and grafts, initial encounter Diagnosis 01/30/2020 10:46:09 A M [facility] Z96.0 Retained ureteral stent Retained ureteral stent Proble m 11/26/2020 12:00:00 AM EDT eCW1 ([facility]) 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 Problem 11/07/2020 12:00:00 AM EDT eCW1 ([facility]) C44.90 [id number] Skin cancer Problem 10/29/2020 12:00:00 AM E DT eCW1 ([facility]) K29.80 [id number] Duodenitis Problem 10/24/2020 12:00:00 AM ED T eCW1 ([facility]) N20.0 [id number] Nephrolithiasis Problem 09/25/2020 12:00:00 AM EDT eCW1 ([facility]) Surgeries/Procedures Procedure Description Date Indications Data Source(s) Medication: Toradol 60mg/2mL IM (Ketorolac) 01/16/2021 12:00:00 AM EDT eCW1 ([facility]) Med: Lidocaine Jelly 2% 6ml Intravesically (Glydo) 11/29/2020 12:00:00 AM EDT eCW1 ([facility]) Suture Removal 11/18/2020 12:00:00 AM EDT eCW1 ([facility]) Med: Derm Lidocaine with Epinephrine Inj ection 1% with 2 ml sodium bicarbonate Intradermally to marked areas 11/07/2020 12:00:00 AM EDT eCW1 ([facility]) Med: Derm 1% Lidocaine with Epinephrine Injection Intr adermally to marked areas 10/29/2020 12:00:00 AM EDT eCW1 ([facility]) Medication: Lidocaine HCl 2% Jelly 5mL Intravesically 09/25/2020 12:00:00 AM EDT eCW1 (formerly [facility]) uro PVR (Post Voiding Residual) Bladder Scan 12:00:00 AM EDT eCW1 ([facility]) Results ID Date Data Source [id number] 11/10/2020 09:27:00 PM EDT [facility] ([facility], ) Name Value Range Interpretation Code Description Data Carrol rce(s) Supporting Document(s) Influenza A Amplification Laboratory test result Normal (applies to non- numeric results) [facility] ([facility], ) Negative results do not preclude influen za or RSV virus infection and should not be used as the sole basis for treatment or other patient management decisions. Influenza B Amplification Laboratory test result Normal (applies to non- numeric results) [facility] ([facility], ) Negative results do not preclude influen za or RSV virus infection and should not be used as the sole basis for treatment or other patient management decisions. RSV Amplification Laboratory test result Normal (applies to non-numeric results) [facility] ([facility], ) Negative results do not preclude influen za or RSV virus infection and should not be used as the sole basis for treatment or other patient management decisions. Laboratory test finding (navigational concept) Laboratory test r esult Normal (applies to non-numeric results) [facility] ([facility]) A false negative result may [...] pathogens. DISCLAIMER: Testing was performed using the [employer] SARS-CoV-2 test. This test was developed and its performance characteristics determined by [employer]. This test has not been FDA cleared [...] or revoked sooner. ID Date Data Source [id number] 11/10/2020 09:27:00 PM EDT [facility] Name Value Range Interpretation Code Description Data Carrol rce(s) Supporting Document(s) SARS coronavirus 2 RNA [Presence] in Res piratory specimen by KATHIA with probe detection NEGATIVE [facility] This lab was ordered by [facility] a nd reported by [facility]. ID Date Data Source [id number] 11/02/2020 11:48:00 PM EDT [facility] ([facility], ) Name Value Range Interpretation Code Description Data Carrol rce(s) Supporting Document(s) Influenza A Amplification Laboratory test result Normal (applies to non- numeric results) [facility] ([facility], ) Negative results do not preclude influen za or RSV virus infection and should not be used as the sole basis for treatment or other patient management decisions. RSV Amplification Laboratory test result Normal (applies to non-numeric results) [facility] ([facility], ) Negative results do not preclude influen za or RSV virus infection and should not be used as the sole basis for treatment or other patient management decisions. Influenza B Amplification Laboratory test result Normal (applies to non- numeric results) [facility] ([facility], ) Negative results do not preclude influen za or RSV virus infection and should not be used as the sole basis for treatment or other patient management decisions. Laboratory test finding (navigational concept) Laboratory test r esult Normal (applies to non-numeric results) [facility] ([facility], ) A false negative result may occur [...] pathogens. DISCLAIMER: Testing was performed using the [employer] SARS-CoV-2 test. This test was developed and its performance characteristics determined by [employer]. This test has not been FDA cleared [...] or revoked sooner. ID Date Data Source [id number] 11/02/2020 11:48:00 PM EDT [facility] Name Value Range Interpretation Code Description Data Carrol rce(s) Supporting Document(s) SARS coronavirus 2 RNA [Presence] in Res piratory specimen by KATHIA with probe detection NEGATIVE [facility] This lab was ordered by [facility] a nd reported by [facility]. ID Date Data Source [id number] 10/20/2020 02:22:00 PM EDT [facility] Name Value Range Interpretation Code Description Data Carrol rce(s) Supporting Document(s) SARS coronavirus 2 RNA [Presence] in Res piratory specimen by KATHIA with probe detection NEGATIVE [facility] This lab was ordered by [facility] a nd reported by [facility]. ID Date Data Source [id number] 10/14/2020 11:27:00 PM EDT [facility] Name Value Range Interpretation Code Description Data Carrol rce(s) Supporting Document(s) SARS coronavirus 2 RNA [Presence] in Res piratory specimen by KATHIA with probe detection NEGATIVE [facility] This lab was ordered by [facility] a nd reported by [facility]. ID Date Data Source [id number] 09/22/2020 10:25:00 AM EDT [facility] Name Value Range Interpretation Code Description Data Carrol rce(s) Supporting Document(s) SARS coronavirus 2 RNA [Presence] in Res piratory specimen by KATHIA with probe detection NEGATIVE [facility] This lab was ordered by [facility] a nd reported by [facility]. ID Date Data Source [id number] 01/30/2020 01:57:51 PM EDT [facility] XR KNEE 4 OR MORE VIEWS [id number] RESUL TInterpreted by:WILFREDO Boothlinical history: Status post [...] rce(s) Supporting Document(s) ID Date Data Source [id number] 01/30/2020 01:53:24 PM EDT [facility] Name Value Range Interpretation Code Description Data Carrol rce(s) Supporting Document(s) Progress Note 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 [file] ICAgICAgICAgICAgICAgICAgICAgICAgICAgICAgICAgICAgICAgICAgICAgICAgICAgICAgICAgICAg ICAgICAgICAgICAgICAgICAgICAgICAgICAgICAgICAgICAgDQogICAgICAgICAgICAgICAgICAgICAg ICAgICAgICAgICAgICAgICAgICAgICAgICAgICAgIC AgICAgICAgICAgICAgICAgICAgICAgICAgICAgICAgICAgICAgICAgICAgICAgDQogICAgICAgICAgIC AgICAgICAgICAgICAgICAgICAgICAgICAgICAgICAgICAgICAgICAgICAgICAgICAgICAgICAgICAgIC AgICAgICAgICAgICAgICAgICAgICAgICAgICAgDQog ICAgICAgICAgICAgICAgICAgICAgICAgICAgICAgICAgICAgICAgICAgICAgICAgICAgICAgICAgICAg ICAgICAgICAgICAgICAgICAgICAgICAgICAgICAgICAgICAgICAgDQogICAgICAgICAgICAgICAgICAg ICAgICAgICAgICAgICAgICAgICAgICAgICAgICAgIC AgICAgICAgICAgICAgICAgICAgICAgICAgICAgICAgICAgICAgICAgICAgICAgICAgDQogICAgICAgIC AgICAgICAgICAgICAgICAgICAgICAgICAgICAgICAgICAgICAgICAgICAgICAgICAgICAgICAgICAgIC AgICAgICAgICAgICAgICAgICAgICAgICAgICAgICAg DQogICAgICAgICAgICAgICAgICAgICAgICAgICAgICAgICAgICAgICAgICAgICAgICAgICAgICAgICAg ICAgICAgICAgICAgICAgICAgICAgICAgICAgICAgICAgICAgICAgICAgDQogICAgICAgICAgICAgICAg ICAgICAgICAgICAgICAgICAgICAgICAgICAgICAgIC AgICAgICAgICAgICAgICAgICAgICAgICAgICAgICAgICAgICAgICAgICAgICAgICAgICAgDQogICAgIC AgICAgICAgICAgICAgICAgICAgICAgICAgICAgICAgICAgICAgICAgICAgICAgICAgICAgICAgICAgIC AgICAgICAgICAgICAgICAgICAgICAgICAgICAgICAg ICAgDQogICAgICAgICAgICAgICAgICAgICAgICAgICAgICAgICAgICAgICAgICAgICAgICAgICAgICAg ULYnSCXuCPCxFWCcVYOjLKCeFIEnPUTsQCGwWMQhNBQvPMWeUGVdEGXoGTRyWFv3A1iqBUWhAPKvDN0h UXr6Ox8+JHrHRiQjVZM7rlUrgU6MXI2hf5IvPVqjTV Tei1SxXEq7DZ2OHTQiKTdaUZ0LWLegsv2IMROiBXJeuEWRd1zdMiBbCCA9HKYhAztbVQ8EEFNoZ6uywu LtAXGgYYWYINnsJXZKML4AIgSxJ8JvgQ22SEYQGn8+MPempbWlXwmMSkP8XFOzn8IgWTg0XK3CWZFaHc ctd2IbFpntLJGREOtvLH7ENZN7JHR9AURsSf2FKVXr I037vaBsAA7MQf2MHrNjWH2cpd9XAyqsQCEsNmlUJbm8XTdbXI6TkQXiFWkXgu7mmmDnecIEd8HizcUv fDPQJN4cNRfpAJC8xGAfKqhwp2oydhohXYOwTYKxVZ42SkTbKjWuKKR5WiGhWK5bXLdmXC1AMWJ4OCiq GTIdNNJjN4yKYuFhQTHtPwEmiZvmMB5JNjFhS9Aaal VudCAzOCAwIFINCj4+ILrapkOoIreMLoStELMtz8OpHQh3HE8SAQFoMSaeHX3HOUVdbS6cRKctPE0JYd SaEhIbHPFGJkHqN29duKFsIQo4A7XxGqPqGDOoFobmOHPgGMpkHwJaLINyPrJrIXfnBF9+ID4+DQogIC 0VEKletqZbAGRsJj3ZXLJiNIHpPM3qLROiXHXnS4A2 cEnnJZIBHtWcW5iufpnvRR4qYYIbB562bZpkihGfXGG8DVAkXs9EWMEeTWN9GEWwqOGkQnvbIFFQLIag SR2XpLFnCFS3zO7rUQanWZWyNAXqS1xFQsGfqGcfWE05yDclqeCvpJVcLZq+En4OGB7oa0CfIWs8clLf THuhMGFkWRjbAIZyVDVwFVTpFAG8CKC9SSRIIyMuOF TnQWSoVUemAXAoKCGqqz0JBQJwDBVyVdO1UbTzFXHzOGHpBZaaXWNeFGC1YTm5EPVoKAAtYH8INnUmUE MgHSRrJHolEDEtUPUezq9KNPDjXXIlTJJjWPHbNSByEQVpWOysSRHcSAR1NlMnZTZwJFWgGM0RWoUpEM LyNBE3QPUjXOTrIPOufo4PIEWqOAItSvw0XLYpRRYx NKGeWTogBRZhNKE2YMQbLVDhHDPmJC1PJjGpOWQiQKmoZGtuERUkZUOrdq3KGRCpOUMeESMjOMAdJDXr ATQnHJysKESlHBL8CNn1WRGlPJWuYP0PGhXgPMUqARgvDHQnUTSkTVXluu6NJSEgURWrLJB8DOGyMUQr EXBjBGalGJEsQYIyXLI5WJQbNOGpUZ6QAhRrMRTcYc ZoHdRkUFLwBPKlpd0KOZSkHHVlDSX7HyFiKRGqBLToZYuvTRCcIGCjRyzjPVMgVGWhCZ1AHrSuQCXcSl T1RpgcCLGwPFTvhz6QBDUjRMMqFzs8DmDgPSRdVRDrZYmfCEWwWZJdUUd3VKAsMIOcNY2MSxWpHXKcRu KsTItlIKGeXNXwqx9RCMFlFMJsZVXxAHVbNNYfMWMr INzrCXCxENU6Fmg2QJPmQWVyOV2NWcNwSHHcEdR7VuugUJDoXVChcd0USHXhEWYsYEPhHOJmEPWuGXQg GFckQPMqHOL8OmQtCQIhSXVvIX3GYcWwCBHoOmM6YqWgSBLfPPRmyi0PHLNfNEZnPXovZYRqVGSsKSVn JJojDRNmIMNdSLFuPFXzEVPiVX4OZdPrWDKwKeKvJj ieRKLfNQGsgt8ERRFvBKGqHJMbZcInTGPfGDDkAOpxPAOnSDXrGhA6YWNfSMDoAR8XQfZjTGWuBjT4Wp goTWStSVTbga0TNRMwADKvQmEmRlRyEGHuLPCsOPlhFWHcRJWaTuV7RMFjTFVdRN9GSxMxNUFwAkF9DQ LaTQGpIDZaml8GZFMxFRYbFAC7WICvAMZvKJRyDQhv RMIpPJJ4HaBtQDKkQMPtXX8QBfQsZLYrWsV3MEVkVKPtMMUtgt0FpCHwnHlrqu1GJEsKRa0IxDmpAUMc JOxcIm4cbZE4OJIrWZUZWu8LddIaXENfKBWKKSztSZUxDNFdANp6PLG8ItCgGUKdXSVdSPEqZBPsCGnr SaGtWuZ4UbB3XOW6WDXjQvhdUFJbArF6Y6DoOVFmYv V4KNYrBEJdUKp+EJ3kHSi+Qe6Yi6PxdrR4wdXyZGbmXCD5LJ1BYNQRF6EJEz== Procedure Social History Code Duration Value Status Description Data Source(s ) Smoking 01/16/2021 12:00:00 AM EDT Current Smoker completed Curre nt Smoker eCW1 ([facility]) Smoking 01/16/2021 12:00:00 AM EDT Current Smoker completed Curre nt Smoker eCW1 ([facility]) Smoking 01/16/2021 12:00:00 AM EDT Current Smoker completed Curre nt Smoker eCW1 ([facility]) Smoking 01/16/2021 12:00:00 AM EDT Current Smoker completed Curre nt Smoker eCW1 ([facility]) Smoking 11/29/2020 12:00:00 AM EDT Current Smoker completed Curre nt Smoker eCW1 ([facility]) Smoking 11/29/2020 12:00:00 AM EDT Current Smoker completed Curre nt Smoker eCW1 ([facility]) Smoking 11/07/2020 12:00:00 AM EDT Current Smoker completed Curre nt Smoker eCW1 ([facility]) Smoking 11/07/2020 12:00:00 AM EDT Current Smoker completed Curre nt Smoker eCW1 ([facility]) Smoking 11/07/2020 12:00:00 AM EDT Current Smoker completed Curre nt Smoker eCW1 ([facility]) Smoking 10/29/2020 12:00:00 AM EDT Current Smoker completed Curre nt Smoker eCW1 ([facility]) Smoking 10/29/2020 12:00:00 AM EDT Current Smoker completed Curre nt Smoker eCW1 ([facility]) Smoking 10/24/2020 12:00:00 AM EDT Current Smoker completed Curre nt Smoker eCW1 ([facility]) Smoking 10/24/2020 12:00:00 AM EDT Current Smoker completed Curre nt Smoker eCW1 ([facility]) Smoking 10/24/2020 12:00:00 AM EDT Current Smoker completed Curre nt Smoker eCW1 ([facility]) Smoking 10/24/2020 12:00:00 AM EDT Current Smoker completed Curre nt Smoker eCW1 ([facility]) Smoking 10/07/2020 12:00:00 AM EDT Current Smoker completed Curre nt Smoker eCW1 ([facility]) Smoking 10/07/2020 12:00:00 AM EDT Current Smoker completed Curre nt Smoker eCW1 ([facility]) Alcohol intake 01/30/2020 12:00:00 AM EDT Current non-d dago of alcohol (finding) completed Current non-drinker of alcohol (finding) [facility] Tobacco use and exposure 01/30/2020 12:00:00 AM EDT Never used co mpleted Never used [facility] Cigarette pack-years 01/30/2020 12:00:00 AM EDT UNK completed [facility] Cigarettes smoked current (pack per day) - Reported 01/30/20 20 12:00:00 AM EDT UNK completed [facility] Smoking 01/30/2020 12:00:00 AM EDT Current every day smoker co mpleted Current every day smoker [facility] Vital Signs ID Date Data Source UNK Name Value Range Interpretation Code Description Data Source(s) Body mass index (BMI) [Ratio] 30.99 kg/m2 30.99 kg/m2 eCW1 ([facility]) Body weight 222.2 [lb_av] 222.2 [lb_av] eCW1 ([facility]) Body height 71 [in_i] 71 [in_i] eCW1 ([facility]) Heart rate 109 /min 109 /min eCW1 ([facility]) Respiratory rate 18 /min 18 /min W1 ([facility]) Body temperature 98.5 [degF] 98.5 [degF] eCW1 ( [facility]) Systolic blood pressure 149 mm[Hg] 149 mm[Hg] e CW1 ([facility]) Diastolic blood pressure 103 mm[Hg] 103 mm[Hg] eCW1 ([facility]) Body weight 226 [lb_av] 226 [lb_av] eCW1 ([facility] Body height 71 [in_i] 71 [in_i] eCW1 ([facility]) Body mass index (BMI) [Ratio] 31.52 kg/m2 31.52 kg/m2 eCW1 ([facility]) Heart rate 111 /min 111 /min eCW1 ([facility]) Respiratory rate 18 /min 18 /min eCW1 ([facility]) Systolic blood pressure 136 mm[Hg] 136 mm[Hg] e CW1 ([facility]) Diastolic blood pressure 80 mm[Hg] 80 mm[Hg] eCW1 ([facility]) Body weight 226 [lb_av] 226 [lb_av] eCW1 ([facility] Body height 71 [in_i] 71 [in_i] eCW1 ([facility]) Body mass index (BMI) [Ratio] 31.52 kg/m2 31.52 kg/m2 eCW1 ([facility]) Heart rate 111 /min 111 /min eCW1 ([facility]) Respiratory rate 18 /min 18 /min eCW1 ([facility]) Body temperature 98.0 [degF] 98.0 [degF] eCW1 ( [facility]) Body weight 238.8 [lb_av] 238.8 [lb_av] eCW1 ([facility]) Body mass index (BMI) [Ratio] 33.30 kg/m2 33.30 kg/m2 eCW1 ([facility]) Systolic blood pressure 148 mm[Hg] 148 mm[Hg] e CW1 ([facility]) Body height 71 [in_i] 71 [in_i] eCW1 ([facility]) Diastolic blood pressure 78 mm[Hg] 78 mm[Hg] eCW1 ([facility]) Diastolic blood pressure 68 mm[Hg] 68 mm[Hg] [facility] ([facility]) Body mass index (BMI) [Ratio] 32.1 kg/m2 32.1 k g/m2 [facility] ([facility]) [place] body weight 172 [lb_av] 172 [lb_av] MED[facility] T ([facility]) Body weight 104.328 kg 104.328 kg [facility] ([facility]) Body surface area Derived from formula 2.24 m2 2.24 m2 [facility] ([facility]) Body weight 230.00 [lb_av] 230.00 [lb_av] MED[facility] T ([facility]) Body height 71 [in_i] 71 [in_i] [facility] ([facility]) 5'11" Systolic blood pressure 132 mm[Hg] 132 mm[Hg] M [facility] ([facility]) Body weight 232.0 [lb_av] 232.0 [lb_av] W1 ([facility]) Body height 71 [in_i] 71 [in_i] eCW1 ([facility]) Body mass index (BMI) [Ratio] 32.35 kg/m2 32.35 kg/m2 eCW1 ([facility]) Systolic blood pressure 143 mm[Hg] 143 mm[Hg] e CW1 ([facility]) Diastolic blood pressure 85 mm[Hg] 85 mm[Hg] eCW1 ([facility]) Body weight 237.2 [lb_av] 237.2 [lb_av] eCW1 ([facility]) Body height 71 [in_i] 71 [in_i] eCW1 ([facility]) Body mass index (BMI) [Ratio] 33.08 kg/m2 33.08 kg/m2 eCW1 ([facility]) Heart rate 85 /min 85 /min eCW1 ([facility]) Respiratory rate 17 /min 17 /min eCW1 ([facility]) Body temperature 98.4 [degF] 98.4 [degF] eCW1 ( [facility]) Systolic blood pressure 154 mm[Hg] 154 mm[Hg] e CW1 ([facility]) Diastolic blood pressure 79 mm[Hg] 79 mm[Hg] eCW1 ([facility]) Body weight 242 [lb_av] 242 [lb_av] eCW1 ([facility]) Body height 71 [in_i] 71 [in_i] eCW1 ([facility]) Diastolic blood pressure 75 mm[Hg] 75 mm[Hg] eCW1 ([facility]) Body mass index (BMI) [Ratio] 33.75 kg/m2 33.75 kg/m2 eCW1 ([facility]) Heart rate 90 /min 90 /min eCW1 ([facility]) Respiratory rate 18 /min 18 /min eCW1 ([facility]) Body temperature 98.4 [degF] 98.4 [degF] eCW1 ( [facility]) Systolic blood pressure 128 mm[Hg] 128 mm[Hg] e CW1 ([facility]) Patient Treatment Plan of Care Planned Activity Planned Date Details Description Data Source (s) Sucralfate 100 MG/ML Oral Suspension 01/17/2021 12:00:00 AM EDT eCW1 ([facility]) Sucralfate 100 MG/ML Oral Suspension 01/17/2021 12:00:00 AM EDT eCW1 ([facility]) Sucralfate 100 MG/ML Oral Suspension 01/17/2021 12:00:00 AM EDT eCW1 ([facility]) tramadol hydrochloride 50 MG Oral Tablet 01/16/2021 12:00:00 AM EDT [email or web address] ([facility]) Baclofen 10 MG Oral Tablet 01/16/2021 12:00:00 AM EDT [email or web address] ([facility]) tramadol hydrochloride 50 MG Oral Tablet 01/16/2021 12:00:00 AM EDT [email or web address] ([facility]) Baclofen 10 MG Oral Tablet 01/16/2021 12:00:00 AM EDT [email or web address] ([facility]) tramadol hydrochloride 50 MG Oral Tablet 01/16/2021 12:00:00 AM EDT [email or web address] ([facility]) Baclofen 10 MG Oral Tablet 01/16/2021 12:00:00 AM EDT [email or web address] ([facility]) tramadol hydrochloride 50 MG Oral Tablet 01/16/2021 12:00:00 AM [facility]T [email or web address] [facility] Baclofen 10 MG Oral Tablet 01/16/2021 12:00:00 AM EDT eCW1 ([facility]) Prochlorperazine 25 MG Rectal Suppository 09/25/2020 12:00:00 AM ED T eCW1 ([facility]) Prochlorperazine 25 MG Rectal Suppository 09/25/2020 12:00:00 AM ED T eCW1 ([facility]) Prochlorperazine 25 MG Rectal Suppository 09/25/2020 12:00:00 AM ED T eCW1 ([facility]) Prochlorperazine 25 MG Rectal Suppository 09/25/2020 12:00:00 AM ED T eCW1 ([facility]) Prochlorperazine 25 MG Rectal Suppository 09/25/2020 12:00:00 AM ED T eCW1 ([facility]) Prochlorperazine 25 MG Rectal Suppository 09/25/2020 12:00:00 AM ED T eCW1 ([facility])
[2021-03-18] MEDS ORDERED: NS 1,000 ML IV ONE (21:45)
[2021-03-18 22:13] LABS: BASO # 0.1 10^3/uL (0.0-0.2); BASO % 0.5 % (0.0-1.0); EOS # 0.1 10^3/uL (0.0-0.5); EOS % 0.9 % (0.0-3.0); HEMATOCRIT 43.9 % (42.0-52.0); HEMOGLOBIN 14.2 g/dl (13.5-17.5); LYMPH # 3.1 10^3/uL (1.5-5.0); LYMPH % 26.6 % (24.0-44.0); MEAN CORPUSCULAR HGB CONC 32.3 g/dl (32.0-36.5); MEAN CORPUSCULAR VOLUME 86.6 fl (80.0-96.0); MONO # 0.9 10^3/uL (0.0-0.8); NEUTROPHILS # 7.5 10^3/uL (1.5-8.5); NEUTROPHILS % 63.7 % (36.0-66.0); PLATELET COUNT, AUTOMATED 395 10^3/uL (150-450); RED BLOOD COUNT 5.07 10^6/uL (4.30-6.10); WHITE BLOOD COUNT 11.8 10^3/uL (4.0-10.0)
[2021-03-18] MEDS ORDERED: ISOVUE-370 76% 100ML VIAL As Ordered ONE (22:24)
[2021-03-18 22:40] LABS: ALBUMIN 3.9 GM/DL (3.2-5.2); ALT/SGPT 19 U/L (12-78); BILIRUBIN,DIRECT 0.2 MG/DL (0.0-0.2); BILIRUBIN,TOTAL 0.9 MG/DL (0.2-1.0); CK-MB VALUE MASS < 1.0 NG/ML (<3.6); CPK CREATINE PHOSPHOKINASE 62 U/L (39-308); LIPASE 762 U/L (73-393); MB/CK RELATIVE INDEX 1.61 (< OR =4); TOTAL PROTEIN 8.1 GM/DL (6.4-8.2); TROPONIN I < 0.02 NG/ML (< 0.10)
[2021-03-18] MEDS ORDERED: MORPHINE 4 MG/ML 1ML VIAL/SYRINGE (J2270) IV ONE (22:45)
--- NOTE | 2021-03-18 23:32 | REPVR ---
PROCEDURE INFORMATION: Exam: CT Abdomen And Pelvis With Contrast Exam date and time: 03/18/2021 10:39 PM Age: 50 years old Clinical indication: Abdominal pain; Localized; Upper; Additional info: Severe upper abdominal pain TECHNIQUE: Imaging protocol: Computed tomography of the abdomen and pelvis with contrast. Radiation optimization: All CT scans at this facility use at least one of these dose optimization techniques: automated exposure control; mA and/or kV adjustment per patient size (includes targeted exams where dose is matched to clinical indication); or iterative reconstruction. Contrast material: ISOVUE 370; Contrast volume: 100 ml; Contrast route: INTRAVENOUS (IV); COMPARISON: CT ABD/PEL W/IV ORAL CONTRAS 11/10/2020 5:54 PM FINDINGS: Lungs: No suspicious mass or airspace process in the visualized lung bases. Liver: Liver appears normal with no focal abnormality. Gallbladder and bile ducts: Gallbladder is present and shows no evidence of gallstone. Pancreas: Pancreas appears normal. No focal mass or peripancreatic inflammation. Spleen: Spleen appears homogeneous without focal mass. Adrenal glands: Adrenal glands are normal in appearance. Kidneys and ureters: Kidneys appear normal, with no stone, solid mass or hydronephrosis. Stomach and bowel: Edematous appearance of the proximal duodenum and distal gastric antrum without evidence of a perforated ulcer. No evidence of small bowel obstruction. Diverticular changes are present within the colon without inflammation. Appendix: Normal caliber appendix is identified, with no adjacent inflammation. Intraperitoneal space: No pneumoperitoneum. Vasculature: No aortic aneurysm. Main portal and splenic veins enhance normally. Lymph nodes: No enlarged lymph nodes. Urinary bladder: Urinary bladder appears normal. Reproductive: Dystrophic prostate calcifications are noted. Bones/joints: Bony structures show no acute fracture or destructive process. Soft tissues: Bilateral fat-containing inguinal hernias are present. No concerning focal abnormality of the extra-abdominal and pelvic soft tissues. IMPRESSION: Edematous appearance of the distal gastric antrum and proximal duodenum suggesting duodenitis or peptic ulcer disease without evidence of perforation or obstruction. Electronically signed by: Mauricio Vaughan On 03/18/2021 23:31:58 PM
[2021-03-18] MEDS ORDERED: SUCRALFATE 1 GM TAB PO ONE (23:50)
[2021-03-18] MEDS ORDERED: CARA1TAB6 PO (23:51)
[2021-03-18] MEDS ORDERED: PANT40TA29 PO (23:51)
--- NOTE | 2021-03-20 19:59 | ECGEPIP ---
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
== END 2021-03-19 00:10 | disposition home or self-care (01) ==
LOC: M ED 20:35
DX: K27.9 Peptic ulcer, site unspecified, unspecified as acute or chronic, without hemorrhage or perforation (principal); R11.2 Nausea with vomiting, unspecified; E78.5 Hyperlipidemia, unspecified; K21.9 Gastro-esophageal reflux disease without esophagitis; F41.9 Anxiety disorder, unspecified; Z79.899 Other long term (current) drug therapy
CPT/HCPCS: 74177; 80047; 80076; 82550; 82553; 83690; 85025; 93005; 93041; 96361; 96374; 96375; 99285; C9113; J2270; J2405; Q9967

== ENCOUNTER 2021-03-20 10:37 | Inpatient (IN) | payer OTHER ==
[~2021-03-20] VITALS: Ht 180.3 cm; Wt 97.0 kg
[2021-03-20] MEDS ORDERED: ONDANSETRON 4MG/2ML VIAL IV ONE (11:10)
[2021-03-20] MEDS ORDERED: MORPHINE 4 MG/ML 1ML VIAL/SYRINGE (J2270) IV ONE (11:10)
[2021-03-20] MEDS ORDERED: NS 1,000 ML IV ONE ×2 (11:10→13:15)
[2021-03-20 12:03] LABS: BASO # 0.1 10^3/uL (0.0-0.2); BASO % 0.6 % (0.0-1.0); EOS # 0.1 10^3/uL (0.0-0.5); EOS % 0.6 % (0.0-3.0); HEMATOCRIT 33.6 % (42.0-52.0); LYMPH # 1.6 10^3/uL (1.5-5.0); LYMPH % 20.2 % (24.0-44.0); MEAN CORPUSCULAR HGB CONC 32.1 g/dl (32.0-36.5); MONO # 0.6 10^3/uL (0.0-0.8); MONO % 7.7 % (2.0-8.0); NEUTROPHILS # 5.6 10^3/uL (1.5-8.5); NEUTROPHILS % 70.6 % (36.0-66.0); PLATELET COUNT, AUTOMATED 273 10^3/uL (150-450); RED BLOOD COUNT 3.86 10^6/uL (4.30-6.10); WHITE BLOOD COUNT 7.9 10^3/uL (4.0-10.0)
[2021-03-20 12:13] LABS: HEMOGLOBIN 10.8 g/dl (13.5-17.5)
[2021-03-20 12:27] LABS: ALBUMIN 3.6 GM/DL (3.2-5.2); ALT/SGPT 17 U/L (12-78); AMYLASE 104 U/L (25-115); BILIRUBIN,DIRECT 0.1 MG/DL (0.0-0.2); BILIRUBIN,TOTAL 0.5 MG/DL (0.2-1.0); BLOOD UREA NITROGEN 17 MG/DL (7-18); CALCIUM LEVEL 8.7 MG/DL (8.5-10.1); CARBON DIOXIDE LEVEL 25 MEQ/L (21-32); CHLORIDE LEVEL 105 MEQ/L (98-107); CREATININE FOR GFR 0.86 MG/DL (0.70-1.30); GLOMERULAR FILTRATION RATE > 60.0 (>56); GLUCOSE, FASTING 112 MG/DL (70-100); LIPASE 380 U/L (73-393); SODIUM LEVEL 137 MEQ/L (136-145); TOTAL PROTEIN 7.1 GM/DL (6.4-8.2)
[2021-03-20] MEDS ORDERED: HYDROMORPHONE HCL 0.5 MG/ 0.5 ML SYRINGE (J1170 PER 1) IV ONE ×2 (12:30→18:30)
[2021-03-20] MEDS ORDERED: ISOVUE-370 76% 100ML VIAL As Ordered ONE (12:44)
[2021-03-20] MEDS ORDERED: PANTOPRAZOLE 40MG VIAL (C9113 PER 1) IV ONE ×2 (12:55→15:20)
[2021-03-20] MEDS ORDERED: GLUCAGON INJ 1MG VIAL SC PRN (13:15)
[2021-03-20] MEDS ORDERED: DEXTROSE 50% 50 ML SYRINGE IV PRN (13:15)
[2021-03-20] MEDS ORDERED: GLUCOSE 4GM CHEW TABLET PO PRN (13:15)
--- NOTE | 2021-03-20 13:16 | REP ---
INDICATION: pud, drop in hb/hct. COMPARISON: KUB of 10/14/2020. Frontal view the chest of 09/23/2020. TECHNIQUE: Three views FINDINGS: Supine and upright views of the abdomen show the intestinal gas pattern to be nonspecific. Gas and stool is seen throughout the colon within the rectosigmoid region. The organ silhouettes insofar as delineated appear unremarkable. No abdominal calcific densities are seen within the abdomen or pelvis. There is a moderate amount of stool in the colon. The accompanying single frontal view of the chest shows no free subdiaphragmatic air, cardiomegaly, infiltrates or effusions. IMPRESSION: Nonspecific intestinal gas pattern. No evidence of acute disease. <Electronically signed by Quinton Mabry > 03/20/21 [id number]
[2021-03-20] MEDS ORDERED: MORPHINE 4 MG/ML 1ML VIAL/SYRINGE (J2270) IV PRN (13:20)
--- OUTSIDE RECORDS SUMMARY | 2021-03-20 13:24 | CCD ---
Author Author [facility] Organization [facility] Address Unknown Phone Unavailable Care Team Providers Care Waxer Name Role Phone JOHN MANUEL MD Unavailable [...] Unavailable MAR, JOHN MD Unavailable Unavailable MAR, JHON MD Unavailable Unavailable MAR, JOHN MD Unavailable [...] is protected by Article 27-F of the [facility] Public Health law. If you continue you may have access to information: Regarding HIV / AIDS; Provided by facilities licensed or operated by the [facility] Office of Mental Health; or Provided by the [facility] Office for People With Developmental Disabilities. If such information is present, then the following [facility] mandated warning applies: This information has been [...] law may result in a fine or intermediate sentence or both. A general authorization for the release of medical or other information is NOT sufficient authorization for further disc losure. Allergies and Adverse Reactions Type Description Substance Reaction Status Data Source(s ) Propensity to adverse reactions NO KNOWN ALLERGIES NO KNOWN ALLERGIES [facility] Family History Family Member Name Family Member Gender Family Member Status Date o f Status Description Data Source(s) Unknown Male Problem MEDENT ([facility], ) Encounters Encounter Providers Location Date Indications Data Source(s ) Unknown [address] [place] [id number] 02/27/2021 12:00:00 AM EDT eCW1 ([facility]) Unknown [address] [facility] [address] 01/17/2021 12:00:00 AM EDT eCW1 ([facility]) Outpatient [address] [facility] [address] 01/16/2021 12:00:00 AM EDT eCW1 ([facility]) Unknown [address] [facility] [address] 01/15/2021 12:00:00 AM EDT eCW1 ([facility]) (Cysto1) Urology [address] [place] [address] 11/29/2020 12:00:00 AM EDT eCW1 ([facility]) Outpatient [address] [facility] [address] 11/26/2020 12:00:00 AM EDT eCW1 ([facility]) Outpatient [address] [facility] [address] 11/18/2020 12:00:00 AM EDT eCW1 ([facility]) Unknown [address] [facility] [address] 11/12/2020 12:00:00 AM EDT eCW1 ([facility]) (MMS 3) Mohs 3 [address] [facility] [place] [address] 11/07/2020 12:00:00 AM EDT eCW1 ([facility]) Unknown [address] [facility] [place] [address] 11/04/2020 12:00:00 AM EDT eCW1 ([facility]) Outpatient [address] [facility] [address] 10/29/2020 12:00:00 AM EDT eCW1 ([facility]) Office Visit, Est Pt., Level 3 FC [address] [place] [address] 10/24/2020 12:00:00 AM EDT eCW1 ([facility]) Unknown [address] [facility] [address] 10/23/2020 12:00:00 AM EDT eCW1 ([facility]) Unknown [address] [facility] [place] [address] 10/17/2020 12:00:00 AM EDT eCW1 ([facility]) Unknown [address] [facility] [place] [address] 10/14/2020 12:00:00 AM EDT eCW1 ([facility]) (TCM) Transition of Care Visit [address] [place] [address] 10/07/2020 12:00:00 AM EDT eCW1 ([facility]) Unknown [address] [facility] [place] [address] 10/04/2020 12:00:00 AM EDT eCW1 ([facility]) Unknown [address] [facility] [place] [address] 10/03/2020 12:00:00 AM EDT eCW1 ([facility]) Outpatient [address] [facility] [address] 09/25/2020 12:00:00 AM EDT eCW1 ([facility]) Unknown [address] [facility] [place] [address] 09/25/2020 12:00:00 AM EDT eCW1 ([facility]) Unknown [address] [facility] [place] [address] 09/25/2020 12:00:00 AM EDT eCW1 ([facility]) Unknown [address] [facility] [place] [address] 09/24/2020 12:00:00 AM EDT eCW1 ([facility]) Unknown [address] [facility] [place] [address] 09/22/2020 12:00:00 AM EDT eCW1 ([facility]) Outpatient Attender: Madhav CISNEROS 03/19/2020 12:00:00 AM [facility] Outpatient Attender: JOHN MANUEL MD 03/19/2020 12:00:[address] [facility] Outpatient Referrer: Madhav CISNEROS 03/11/2020 12:00:00 AM [facility] Outpatient Referrer: Madhav CISNEROS 03/11/2020 12:00:00 AM [facility] Outpatient Attender: Madhav CISNEROS 01/31/2020 12:00:00 AM [facility] Outpatient Attender: Madhav CISNEROS [id number] 01/30/2020 12 :00:00 AM EDT Pain due to internal orthopedic prosthetic devices, implants and grafts, initial encounter [facility] Pain due to internal orthopedic prosthet ic devices, implants and grafts, initial encounter Outpatient Referrer: JOHN MANUEL MD 01/30/2020 12:00:0 0 AM EDT Presence of left artificial knee joint [facility] Presence of left artificial knee joint Outpatient Attender: JOHN MANUEL MD 01/30/2020 12:00:[address] [facility] Outpatient Attender: JOHN MANUEL MD 01/30/2020 12:00:[address] [facility] Immunizations Vaccine Date Status Description Data Source(s) 01/16/2021 08:27:00 AM EDT completed e CW1 ([facility]) 01/16/2021 08:27:00 AM EDT completed e CW1 ([facility]) 01/16/2021 08:27:00 AM EDT completed e CW1 ([facility]) 01/16/2021 08:27:00 AM EDT completed e CW1 ([facility]) Medications Medication Brand Name Start Date Product Form Dose Route Admi nistrative Instructions Pharmacy Instructions Status Indications Reaction Description Data Source(s) Sucralfate 100 MG/ML Oral Suspension Sucralfate 1 GM/10ML Child cralfate 1 GM/10ML 01/17/2021 12:00:00 AM EDT 10.0 {ml_on_an_empty_stomach} active Sucralfate 1 GM/10ML eCW1 ([facility]) Sucralfate 100 MG/ML Oral Suspension Sucralfate 1 GM/10ML Child cralfate 1 GM/10ML 01/17/2021 12:00:00 AM EDT 10.0 {ml_on_an_empty_stomach} active Sucralfate 1 GM/10ML eCW1 ([facility]) Sucralfate 100 MG/ML Oral Suspension Sucralfate 1 GM/10ML Child cralfate 1 GM/10ML 01/17/2021 12:00:00 AM EDT 10.0 {ml_on_an_empty_stomach} active Sucralfate 1 GM/10ML eCW1 ([facility]) tramadol hydrochloride 50 MG Oral Tablet traMADol HCl 50 MG traMADol HCl 50 MG 01/16/2021 12:00:00 AM EDT 1.0 {tablet_as_needed} active traMADol HCl 50 MG eCW1 ([facility]) Baclofen 10 MG Oral Tablet Baclofen 10 MG 01/16/2021 12:00:00 AM ED T 1.0 {tablet_as_needed} active Baclofen 10 M G eCW1 ([facility]) Baclofen 10 MG Oral Tablet Baclofen 10 MG 01/16/2021 12:00:00 AM ED T 1.0 {tablet_as_needed} active Baclofen 10 M G eCW1 ([facility]) Baclofen 10 MG Oral Tablet Baclofen 10 MG 01/16/2021 12:00:00 AM ED T 1.0 {tablet_as_needed} active Baclofen 10 M G eCW1 ([facility]) Baclofen 10 MG Oral Tablet Baclofen 10 MG 01/16/2021 12:00:00 AM ED T 1.0 {tablet_as_needed} active Baclofen 10 M G eCW1 ([facility]) tramadol hydrochloride 50 MG Oral Tablet traMADol HCl 50 MG traMADol HCl 50 MG 01/16/2021 12:00:00 AM EDT 1.0 {tablet_as_needed} active traMADol HCl 50 MG W1 ([facility]) tramadol hydrochloride 50 MG Oral Tablet traMADol HCl 50 MG traMADol HCl 50 MG 01/16/2021 12:00:00 AM EDT 1.0 {tablet_as_needed} active traMADol HCl 50 MG W1 ([facility]) tramadol hydrochloride 50 MG Oral Tablet traMADol HCl 50 MG traMADol HCl 50 MG 01/16/2021 12:00:00 AM EDT 1.0 {tablet_as_needed} active traMADol HCl 50 MG W1 ([facility]) Phenazopyridine hydrochloride 100 MG Oral Tablet Phena zopyridine HCl 100 MG Phenazopyridine HCl 100 MG 11/26/2020 12:00:00 AM EDT 1.0 {t ablet_after_meals} active Phenazopyridine HCl 100 MG eCW1 ([facility]) Oxybutynin chloride 5 MG Oral Tablet Oxybutynin Chlori de 5 MG Oxybutynin Chloride 5 MG 11/26/2020 12:00:00 AM EDT 1.0 {tablet} active Oxybutynin Chloride 5 MG eCW1 ([facility]) Oxybutynin chloride 5 MG Oral Tablet Oxybutynin Chlori de 5 MG Oxybutynin Chloride 5 MG 11/26/2020 12:00:00 AM EDT 1.0 {tablet} active Oxybutynin Chloride 5 MG eCW1 ([facility]) Oxybutynin chloride 5 MG Oral Tablet Oxybutynin Chlori de 5 MG Oxybutynin Chloride 5 MG 11/26/2020 12:00:00 AM EDT 1.0 {tablet} active Oxybutynin Chloride 5 MG eCW1 ([facility]) Phenazopyridine hydrochloride 100 MG Oral Tablet Phena zopyridine HCl 100 MG Phenazopyridine HCl 100 MG 11/26/2020 12:00:00 AM EDT 1.0 {t ablet_after_meals} active Phenazopyridine HCl 100 MG eCW1 ([facility]) Phenazopyridine hydrochloride 100 MG Oral Tablet Phena zopyridine HCl 100 MG Phenazopyridine HCl 100 MG 11/26/2020 12:00:00 AM EDT 1.0 {t ablet_after_meals} active Phenazopyridine HCl 100 MG eCW1 ([facility]) Oxybutynin chloride 5 MG Oral Tablet Oxybutynin Chlori de 5 MG Oxybutynin Chloride 5 MG 11/26/2020 12:00:00 AM EDT 1.0 {tablet} active Oxybutynin Chloride 5 MG eCW1 ([facility]) Phenazopyridine hydrochloride 100 MG Oral Tablet Phena zopyridine HCl 100 MG Phenazopyridine HCl 100 MG 11/26/2020 12:00:00 AM EDT 1.0 {t ablet_after_meals} active Phenazopyridine HCl 100 MG eCW1 ([facility]) Oxybutynin chloride 5 MG Oral Tablet Oxybutynin Chlori de 5 MG Oxybutynin Chloride 5 MG 11/26/2020 12:00:00 AM EDT 1.0 {tablet} active Oxybutynin Chloride 5 MG eCW1 ([facility]) Phenazopyridine hydrochloride 100 MG Oral Tablet Phena zopyridine HCl 100 MG Phenazopyridine HCl 100 MG 11/26/2020 12:00:00 AM EDT 1.0 {t ablet_after_meals} active Phenazopyridine HCl 100 MG eCW1 ([facility]) Oxybutynin chloride 5 MG Oral Tablet Oxybutynin Chlori de 5 MG Oxybutynin Chloride 5 MG 11/26/2020 12:00:00 AM EDT 1.0 {tablet} active Oxybutynin Chloride 5 MG eCW1 ([facility]) Phenazopyridine hydrochloride 100 MG Oral Tablet Phena zopyridine HCl 100 MG Phenazopyridine HCl 100 MG 11/26/2020 12:00:00 AM EDT 1.0 {t ablet_after_meals} active Phenazopyridine HCl 100 MG eCW1 ([facility]) pantoprazole 40 MG Delayed Release Oral Tablet Pantopr azole Sodium 40 MG Pantoprazole Sodium 40 MG 10/22/2020 12:00:00 AM EDT 1.0 {tablet} active Pantoprazole Sodium 40 MG eCW1 ( [facility]) Sucralfate 1000 MG Oral Tablet Sucralfate 1 GM Sucralfate 1 GM 10/22/2020 12:00:00 AM EDT 1.0 {tablet_on_an_empty_stomach} active Sucralfate 1 GM eCW1 ([facility]) Sucralfate 1000 MG Oral Tablet Sucralfate 1 GM Sucralfate 1 GM 10/22/2020 12:00:00 AM EDT 1.0 {tablet_on_an_empty_stomach} active Sucralfate 1 GM eCW1 ([facility]) Sucralfate 1000 MG Oral Tablet Sucralfate 1 GM Sucralfate 1 GM 10/22/2020 12:00:00 AM EDT 1.0 {tablet_on_an_empty_stomach} active Sucralfate 1 GM eCW1 ([facility]) Sucralfate 1000 MG Oral Tablet Sucralfate 1 GM Sucralfate 1 GM 10/22/2020 12:00:00 AM EDT 1.0 {tablet_on_an_empty_stomach} active Sucralfate 1 GM eCW1 ([facility]) pantoprazole 40 MG Delayed Release Oral Tablet Pantopr azole Sodium 40 MG Pantoprazole Sodium 40 MG 10/22/2020 12:00:00 AM EDT 1.0 {tablet} active Pantoprazole Sodium 40 MG eCW1 ( [facility]) Sucralfate 1000 MG Oral Tablet Sucralfate 1 GM Sucralfate 1 GM 10/22/2020 12:00:00 AM EDT 1.0 {tablet_on_an_empty_stomach} active Sucralfate 1 GM eCW1 ([facility]) pantoprazole 40 MG Delayed Release Oral Tablet Pantopr azole Sodium 40 MG Pantoprazole Sodium 40 MG 10/22/2020 12:00:00 AM EDT 1.0 {tablet} active Pantoprazole Sodium 40 MG eCW1 ( [facility]) pantoprazole 40 MG Delayed Release Oral Tablet Pantopr azole Sodium 40 MG Pantoprazole Sodium 40 MG 10/22/2020 12:00:00 AM EDT 1.0 {tablet} active Pantoprazole Sodium 40 MG eCW1 ( [facility]) pantoprazole 40 MG Delayed Release Oral Tablet Pantopr azole Sodium 40 MG Pantoprazole Sodium 40 MG 10/22/2020 12:00:00 AM EDT 1.0 {tablet} active Pantoprazole Sodium 40 MG eCW1 ( [facility]) Sucralfate 1000 MG Oral Tablet Sucralfate 1 GM Sucralfate 1 GM 10/22/2020 12:00:00 AM EDT 1.0 {tablet_on_an_empty_stomach} active Sucralfate 1 GM eCW1 ([facility]) pantoprazole 40 MG Delayed Release Oral Tablet Pantopr azole Sodium 40 MG Pantoprazole Sodium 40 MG 10/22/2020 12:00:00 AM EDT 1.0 {tablet} active Pantoprazole Sodium 40 MG eCW1 ( [facility]) pantoprazole 40 MG Delayed Release Oral Tablet Pantopr azole Sodium 40 MG Pantoprazole Sodium 40 MG 10/22/2020 12:00:00 AM EDT 1.0 {tablet} active Pantoprazole Sodium 40 MG eCW1 ( [facility]) Sucralfate 1000 MG Oral Tablet Sucralfate 1 GM Sucralfate 1 GM 10/22/2020 12:00:00 AM EDT 1.0 {tablet_on_an_empty_stomach} active Sucralfate 1 GM eCW1 ([facility]) pantoprazole 40 MG Delayed Release Oral Tablet Pantopr azole Sodium 40 MG Pantoprazole Sodium 40 MG 10/22/2020 12:00:00 AM EDT 1.0 {tablet} active Pantoprazole Sodium 40 MG eCW1 ( [facility]) Sucralfate 1000 MG Oral Tablet Sucralfate 1 GM Sucralfate 1 GM 10/22/2020 12:00:00 AM EDT 1.0 {tablet_on_an_empty_stomach} active Sucralfate 1 GM eCW1 ([facility]) Sucralfate 1000 MG Oral Tablet Sucralfate 1 GM Sucralfate 1 GM 10/22/2020 12:00:00 AM EDT 1.0 {tablet_on_an_empty_stomach} active Sucralfate 1 GM eCW1 ([facility]) pantoprazole 40 MG Delayed Release Oral Tablet Pantopr azole Sodium 40 MG Pantoprazole Sodium 40 MG 10/22/2020 12:00:00 AM EDT 1.0 {tablet} active Pantoprazole Sodium 40 MG eCW1 ( [facility]) Sucralfate 1000 MG Oral Tablet Sucralfate 1 GM Sucralfate 1 GM 10/22/2020 12:00:00 AM EDT 1.0 {tablet_on_an_empty_stomach} active Sucralfate 1 GM eCW1 ([facility]) pantoprazole 40 MG Delayed Release Oral Tablet Pantopr azole Sodium 40 MG Pantoprazole Sodium 40 MG 10/22/2020 12:00:00 AM EDT 1.0 {tablet} active Pantoprazole Sodium 40 MG eCW1 ( [facility]) pantoprazole 40 MG Delayed Release Oral Tablet Pantopr azole Sodium 40 MG Pantoprazole Sodium 40 MG 10/22/2020 12:00:00 AM EDT 1.0 {tablet} active Pantoprazole Sodium 40 MG eCW1 ( [facility]) pantoprazole 40 MG Delayed Release Oral Tablet Pantopr azole Sodium 40 MG Pantoprazole Sodium 40 MG 10/22/2020 12:00:00 AM EDT 1.0 {tablet} active Pantoprazole Sodium 40 MG eCW1 ( [facility]) Sucralfate 1000 MG Oral Tablet Sucralfate 1 GM Sucralfate 1 GM 10/22/2020 12:00:00 AM EDT 1.0 {tablet_on_an_empty_stomach} active Sucralfate 1 GM eCW1 ([facility]) Sucralfate 1000 MG Oral Tablet Sucralfate 1 GM Sucralfate 1 GM 10/22/2020 12:00:00 AM EDT 1.0 {tablet_on_an_empty_stomach} active Sucralfate 1 GM eCW1 ([facility]) Sucralfate 1000 MG Oral Tablet Sucralfate 1 GM Sucralfate 1 GM 10/22/2020 12:00:00 AM EDT 1.0 {tablet_on_an_empty_stomach} active Sucralfate 1 GM eCW1 ([facility]) Sucralfate 1000 MG Oral Tablet Sucralfate 1 GM Sucralfate 1 10/22/2020 12:00:00 AM EDT 1.0 {tablet_on_an_empty_stomach} active Sucralfate 1 GM eCW1 ([facility]) Sucralfate 1000 MG Oral Tablet Sucralfate 1 GM Sucralfate 1 10/22/2020 12:00:00 AM EDT 1.0 {tablet_on_an_empty_stomach} active Sucralfate 1 GM eCW1 ([facility]) pantoprazole 40 MG Delayed Release Oral Tablet Pantopr azole Sodium 40 MG Pantoprazole Sodium 40 MG 10/22/2020 12:00:00 AM EDT 1.0 {tablet} active Pantoprazole Sodium 40 MG W1 ( [facility]) pantoprazole 40 MG Delayed Release Oral Tablet Pantopr azole Sodium 40 MG Pantoprazole Sodium 40 MG 10/22/2020 12:00:00 AM EDT 1.0 {tablet} active Pantoprazole Sodium 40 MG eCW1 ( [facility]) pantoprazole 40 MG Delayed Release Oral Tablet Pantopr azole Sodium 40 MG Pantoprazole Sodium 40 MG 10/22/2020 12:00:00 AM EDT 1.0 {tablet} active Pantoprazole Sodium 40 MG W1 ( [facility]) Prochlorperazine 25 MG Rectal Suppository Prochlorperazine 2 5 MG 09/25/2020 12:00:00 AM EDT 1.0 {suppository_as_needed} susp ended Prochlorperazine 25 MG eCW1 ([facility]) Prochlorperazine 25 MG Rectal Suppository Prochlorperazine 2 5 MG 09/25/2020 12:00:00 AM EDT 1.0 {suppository_as_needed} acti ve Prochlorperazine 25 MG eCW1 ([facility]) Prochlorperazine 25 MG Rectal Suppository Prochlorperazine 2 5 MG 09/25/2020 12:00:00 AM EDT 1.0 {suppository_as_needed} acti ve Prochlorperazine 25 MG eCW1 ([facility]) Prochlorperazine 25 MG Rectal Suppository Prochlorperazine 2 5 MG 09/25/2020 12:00:00 AM EDT 1.0 {suppository_as_needed} susp ended Prochlorperazine 25 MG eCW1 ([facility]) Prochlorperazine 25 MG Rectal Suppository Prochlorperazine 2 5 MG 09/25/2020 12:00:00 AM EDT 1.0 {suppository_as_needed} acti ve Prochlorperazine 25 MG eCW1 ([facility]) Prochlorperazine 25 MG Rectal Suppository Prochlorperazine 2 5 MG 09/25/2020 12:00:00 AM EDT 1.0 {suppository_as_needed} acti ve Prochlorperazine 25 MG eCW1 ([facility]) Prochlorperazine 25 MG Rectal Suppository Prochlorperazine 2 5 MG 09/25/2020 12:00:00 AM EDT 1.0 {suppository_as_needed} acti ve Prochlorperazine 25 MG eCW1 ([facility]) Prochlorperazine 25 MG Rectal Suppository Prochlorperazine 2 5 MG 09/25/2020 12:00:00 AM EDT 1.0 {suppository_as_needed} acti ve Prochlorperazine 25 MG eCW1 ([facility]) Ondansetron 4 MG Disintegrating Oral Tablet Ondansetron 4 MG 09/24/2020 12:00:00 AM EDT 1.0 {tablet_on_the_tongue_and_allow_to_dissolve} active Ondansetron 4 MG eCW1 ([facility]) Ondansetron 4 MG Disintegrating Oral Tablet Ondansetron 4 MG 09/24/2020 12:00:00 AM EDT 1.0 {tablet_on_the_tongue_and_allow_to_dissolve} active Ondansetron 4 MG eCW1 ([facility]) Ondansetron 4 MG Disintegrating Oral Tablet Ondansetron 4 MG 09/24/2020 12:00:00 AM EDT 1.0 {tablet_on_the_tongue_and_allow_to_dissolve} active Ondansetron 4 MG eCW1 ([facility]) Ondansetron 4 MG Disintegrating Oral Tablet Ondansetron 4 MG 09/24/2020 12:00:00 AM EDT 1.0 {tablet_on_the_tongue_and_allow_to_dissolve} active Ondansetron 4 MG eCW1 ([facility]) Senna-Docusate Sodium 8.6-50 MG Senna-Docusate Sodium 8.6-50 MG 09/24/2020 12:00:00 AM EDT 1.0 {tablet_in_the_evening_as_needed} active Senna- Docusate Sodium 8.6-50 MG eCW1 ([facility]) Ondansetron 4 MG Disintegrating Oral Tablet Ondansetron 4 MG 09/24/2020 12:00:00 AM EDT 1.0 {tablet_on_the_tongue_and_allow_to_dissolve} active Ondansetron 4 MG eCW1 ([facility]) Ondansetron 4 MG Disintegrating Oral Tablet Ondansetron 4 MG 09/24/2020 12:00:00 AM EDT 1.0 {tablet_on_the_tongue_and_allow_to_dissolve} active Ondansetron 4 MG eCW1 ([facility]) Amlodipine 10 MG / valsartan 160 MG Oral Tablet Amlodipine Besylate-Valsartan 10-160 MG Amlodipine Besylate-Valsartan 10-160 MG 09/24/2020 12:00:00 AM E DT 1.0 {tablet} active Amlodipine Besylate -Valsartan 10-160 MG eCW1 ([facility]) Ondansetron 4 MG Disintegrating Oral Tablet Ondansetron 4 MG 09/24/2020 12:00:00 AM EDT 1.0 {tablet_on_the_tongue_and_allow_to_dissolve} active Ondansetron 4 MG eCW1 ([facility]) Senna-Docusate Sodium 8.6-50 MG Senna-Docusate Sodium 8.6-50 MG 09/24/2020 12:00:00 AM EDT 1.0 {tablet_in_the_evening_as_needed} active Senna- Docusate Sodium 8.6-50 MG eCW1 ([facility]) Ondansetron 4 MG Disintegrating Oral Tablet Ondansetron 4 MG 09/24/2020 12:00:00 AM EDT 1.0 {tablet_on_the_tongue_and_allow_to_dissolve} active Ondansetron 4 MG eCW1 ([facility]) Ondansetron 4 MG Disintegrating Oral Tablet Ondansetron 4 MG 09/24/2020 12:00:00 AM EDT 1.0 {tablet_on_the_tongue_and_allow_to_dissolve} active Ondansetron 4 MG eCW1 ([facility]) Amlodipine 10 MG / valsartan 160 MG Oral Tablet Amlodipine Besylate-Valsartan 10-160 MG Amlodipine Besylate-Valsartan 10-160 MG 09/24/2020 12:00:00 AM E DT 1.0 {tablet} active Amlodipine Besylate -Valsartan 10-160 MG eCW1 ([facility]) Ondansetron 4 MG Disintegrating Oral Tablet Ondansetron 4 MG 09/24/2020 12:00:00 AM EDT 1.0 {tablet_on_the_tongue_and_allow_to_dissolve} active Ondansetron 4 MG eCW1 ([facility]) Oxybutynin chloride 5 MG Oral Tablet Oxybutynin Chlori de 5 MG Oxybutynin Chloride 5 MG 09/24/2020 12:00:00 AM EDT acti ve Oxybutynin Chloride 5 MG eCW1 ([facility]) Ondansetron 4 MG Disintegrating Oral Tablet Ondansetron 4 MG 09/24/2020 12:00:00 AM EDT 1.0 {tablet_on_the_tongue_and_allow_to_dissolve} active Ondansetron 4 MG eCW1 ([facility]) Ondansetron 4 MG Disintegrating Oral Tablet Ondansetron 4 MG 09/24/2020 12:00:00 AM EDT 1.0 {tablet_on_the_tongue_and_allow_to_dissolve} active Ondansetron 4 MG eCW1 ([facility]) Ondansetron 4 MG Disintegrating Oral Tablet Ondansetron 4 MG 09/24/2020 12:00:00 AM EDT 1.0 {tablet_on_the_tongue_and_allow_to_dissolve} active Ondansetron 4 MG eCW1 [facility] [facility]) Ondansetron 4 MG Disintegrating Oral Tablet Ondansetron 4 MG 09/24/2020 12:00:00 AM EDT 1.0 {tablet_on_the_tongue_and_allow_to_dissolve} active Ondansetron 4 MG eCW1 ([facility]) Senna-Docusate Sodium 8.6-50 MG Senna-Docusate Sodium 8.6-50 MG 09/24/2020 12:00:00 AM EDT 1.0 {tablet_in_the_evening_as_needed} active Senna- Docusate Sodium 8.6-50 MG eCW1 ([facility]) tramadol hydrochloride 50 MG Oral Tablet Tramadol HCl 50 MG Tramadol HCl 50 MG 09/24/2020 12:00:00 AM EDT 1.0 {tablet_as_needed} active Tramadol HCl 50 MG eCW1 ([facility]) Oxybutynin chloride 5 MG Oral Tablet Oxybutynin Chlori de 5 MG Oxybutynin Chloride 5 MG 09/24/2020 12:00:00 AM EDT acti ve Oxybutynin Chloride 5 MG eCW1 ([facility]) Amlodipine 10 MG / valsartan 160 MG Oral Tablet Amlodipine Besylate-Valsartan 10-160 MG Amlodipine Besylate-Valsartan 10-160 MG 09/24/2020 12:00:00 AM E DT 1.0 {tablet} active Amlodipine Besylate -Valsartan 10-160 MG eCW1 ([facility]) Ondansetron 4 MG Disintegrating Oral Tablet Ondansetron 4 MG 09/24/2020 12:00:00 AM EDT 1.0 {tablet_on_the_tongue_and_allow_to_dissolve} active Ondansetron 4 MG eCW1 ([facility]) tramadol hydrochloride 50 MG Oral Tablet Tramadol HCl 50 MG Tramadol HCl 50 MG 09/24/2020 12:00:00 AM EDT 1.0 {tablet_as_needed} active Tramadol HCl 50 MG eCW1 ([facility]) Ondansetron 4 MG Disintegrating Oral Tablet Ondansetron 4 MG 09/24/2020 12:00:00 AM EDT 1.0 {tablet_on_the_tongue_and_allow_to_dissolve} active Ondansetron 4 MG eCW1 ([facility]) Oxybutynin chloride 5 MG Oral Tablet Oxybutynin Chlori de 5 MG Oxybutynin Chloride 5 MG 09/24/2020 12:00:00 AM EDT acti ve Oxybutynin Chloride 5 MG eCW1 ([facility]) Ondansetron 4 MG Disintegrating Oral Tablet Ondansetron 4 MG 09/24/2020 12:00:00 AM EDT 1.0 {tablet_on_the_tongue_and_allow_to_dissolve} active Ondansetron 4 MG eCW1 ([facility]) Ondansetron 4 MG Disintegrating Oral Tablet Ondansetron 4 MG 09/24/2020 12:00:00 AM EDT 1.0 {tablet_on_the_tongue_and_allow_to_dissolve} active Ondansetron 4 MG eCW1 ([facility]) Oxybutynin chloride 5 MG Oral Tablet Oxybutynin Chlori de 5 MG Oxybutynin Chloride 5 MG 09/24/2020 12:00:00 AM EDT acti ve Oxybutynin Chloride 5 MG eCW1 ([facility]) Ondansetron 4 MG Disintegrating Oral Tablet Ondansetron 4 MG 09/24/2020 12:00:00 AM EDT 1.0 {tablet_on_the_tongue_and_allow_to_dissolve} active Ondansetron 4 MG eCW1 ([facility]) Ondansetron 4 MG Disintegrating Oral Tablet Ondansetron 4 MG 09/24/2020 12:00:00 AM EDT 1.0 {tablet_on_the_tongue_and_allow_to_dissolve} active Ondansetron 4 MG eCW1 ([facility]) Senna-Docusate Sodium 8.6-50 MG Senna-Docusate Sodium 8.6-50 MG 09/24/2020 12:00:00 AM EDT 1.0 {tablet_in_the_evening_as_needed} active Senna- Docusate Sodium 8.6-50 MG eCW1 ([facility]) tramadol hydrochloride 50 MG Oral Tablet Tramadol HCl 50 MG Tramadol HCl 50 MG 09/24/2020 12:00:00 AM EDT 1.0 {tablet_as_needed} active Tramadol HCl 50 MG eCW1 ([facility]) Amlodipine 10 MG / valsartan 160 MG Oral Tablet Amlodipine Besylate-Valsartan 10-160 MG Amlodipine Besylate-Valsartan 10-160 MG 09/24/2020 12:00:00 AM E DT 1.0 {tablet} active Amlodipine Besylate -Valsartan 10-160 MG eCW1 ([facility]) Ondansetron 4 MG Disintegrating Oral Tablet Ondansetron 4 MG 09/24/2020 12:00:00 AM EDT 1.0 {tablet_on_the_tongue_and_allow_to_dissolve} active Ondansetron 4 MG eCW1 ([facility]) Ondansetron 4 MG Disintegrating Oral Tablet Ondansetron 4 MG 09/24/2020 12:00:00 AM EDT 1.0 {tablet_on_the_tongue_and_allow_to_dissolve} active Ondansetron 4 MG eCW1 ([facility]) Ondansetron 4 MG Disintegrating Oral Tablet Ondansetron 4 MG 09/24/2020 12:00:00 AM EDT 1.0 {tablet_on_the_tongue_and_allow_to_dissolve} active Ondansetron 4 MG eCW1 ([facility]) Insurance Providers Payer name Policy type / Coverage type Policy ID Covered alliance party ID Covered alliance party's relationship to vega Policy Vega Plan Information [facility] I [id number] Self [id number] [facility] I [id number] Self [id number] [facility] I [id number] Self [id number] [facility] [place] [id number] Self [id number] [facility] [id number] WORKERS COMPENSATION GENERIC W [id number] Empl [id number] [facility] I [id number] Self [id number] Medicaid [place] Medigap Part B [id number] Self [id number] Medicaid [place] Medicaid [id number] Self [id number] [facility]AN [facility] [id number] SP [id number] [facility] O [id number] S [id number] SELF PAY ONLY 00 SP 00 MEDICAID M [id number] S [id number] SELF PAY UNAVAILABLE SP UNAVAILA BLE [employer] DAIRY [id number] SP [id number] LIMITED BENEFIT [id number] SELF PAY POLICY # [id number] SP P OLICY # [id number] DESHAUN [id number] SP [id number] [place] [id number] S [id number] DESHAUN [id number] SP [id number] SELF PAY ONLY [id number] SP [id number] MEDICAID [id number] SP [id number] [place] O [id number] S [id number] [place] XIX MAN -RECURRING [id number] Problems, Conditions, and Diagnoses Code Display Name Description Problem Type Effective Dates Data Source(s) Z96.652 Presence of left artificial knee joint P resence of left artificial knee joint Diagnosis 01/30/2020 10:46:09 AM EDT [facility] T84.84XA Pain due to internal orthope dic prosthetic devices, implants and grafts, initial encounter Pain due to internal orthopedic prosthet ic devices, implants and grafts, initial encounter Diagnosis 01/30/2020 10:46:09 A M [facility] Z96.0 Retained ureteral stent Retained ureteral stent Proble m 11/26/2020 12:00:00 AM EDT eCW1 ([facility]) C44.622 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 Problem 11/07/2020 12:00:00 AM EDT eCW1 ([facility]) C44.90 [id number] Skin cancer Problem 10/29/2020 12:00:00 AM E DT eCW1 ([facility]) K29.80 [id number] Duodenitis Problem 10/24/2020 12:00:00 AM ED T eCW1 ([facility]) N20.0 [id number] Nephrolithiasis Problem 09/25/2020 12:00:00 AM EDT eCW1 ([facility]) Surgeries/Procedures Procedure Description Date Indications Data Source(s) Medication: Toradol 60mg/2mL IM (Ketorolac) 01/16/2021 12:00:00 AM EDT eCW1 ([facility]) Med: Lidocaine Jelly 2% 6ml Intravesically (Glydo) 11/29/2020 12:00:00 AM EDT eCW1 ([facility]) Suture Removal 11/18/2020 12:00:00 AM EDT eCW1 ([facility]) Med: Derm Lidocaine with Epinephrine Inj ection 1% with 2 ml sodium bicarbonate Intradermally to marked areas 11/07/2020 12:00:00 AM EDT eCW1 ([facility]) Med: Derm 1% Lidocaine with Epinephrine Injection Intr adermally to marked areas 10/29/2020 12:00:00 AM EDT eCW1 ([facility]) Medication: Lidocaine HCl 2% Jelly 5mL Intravesically 09/25/2020 12:00:00 AM EDT eCW1 ([facility]) uro PVR (Post Voiding Residual) Bladder Scan 12:00:00 AM EDT eCW1 ([facility]) Results ID Date Data Source [id number] 11/10/2020 09:27:00 PM EDT [facility] ([facility], ) Name Value Range Interpretation Code Description Data Carrol rce(s) Supporting Document(s) Influenza A Amplification Laboratory test result Normal (applies to non- numeric results) [facility] ([facility], ) Negative results do not preclude influen za or RSV virus infection and should not be used as the sole basis for treatment or other patient management decisions. Influenza B Amplification Laboratory test result Normal (applies to non- numeric results) [facility] ([facility], ) Negative results do not preclude influen za or RSV virus infection and should not be used as the sole basis for treatment or other patient management decisions. RSV Amplification Laboratory test result Normal (applies to non-numeric results) [facility] ([facility], ) Negative results do not preclude influen za or RSV virus infection and should not be used as the sole basis for treatment or other patient management decisions. Laboratory test finding (navigational concept) Laboratory test r esult Normal (applies to non-numeric results) [facility] ([facility]) A false negative result may [...] pathogens. DISCLAIMER: Testing was performed using the [employer] SARS-CoV-2 test. This test was developed and its performance characteristics determined by [employer]. This test has not been FDA cleared [...] or revoked sooner. ID Date Data Source [id number] 11/10/2020 09:27:00 PM EDT [facility] Name Value Range Interpretation Code Description Data Carrol rce(s) Supporting Document(s) SARS coronavirus 2 RNA [Presence] in Res piratory specimen by KATHIA with probe detection NEGATIVE [facility] This lab was ordered by [facility] a nd reported by [facility]. ID Date Data Source [id number] 11/02/2020 11:48:00 PM EDT [facility] ([facility], ) Name Value Range Interpretation Code Description Data Carrol rce(s) Supporting Document(s) Influenza A Amplification Laboratory test result Normal (applies to non- numeric results) [facility] ([facility], ) Negative results do not preclude influen za or RSV virus infection and should not be used as the sole basis for treatment or other patient management decisions. RSV Amplification Laboratory test result Normal (applies to non-numeric results) [facility] ([facility], ) Negative results do not preclude influen za or RSV virus infection and should not be used as the sole basis for treatment or other patient management decisions. Influenza B Amplification Laboratory test result Normal (applies to non- numeric results) [facility] ([facility], ) Negative results do not preclude influen za or RSV virus infection and should not be used as the sole basis for treatment or other patient management decisions. Laboratory test finding (navigational concept) Laboratory test r esult Normal (applies to non-numeric results) [facility] ([facility], ) A false negative result may occur [...] pathogens. DISCLAIMER: Testing was performed using the [employer] SARS-CoV-2 test. This test was developed and its performance characteristics determined by [employer]. This test has not been FDA cleared [...] or revoked sooner. ID Date Data Source [id number] 11/02/2020 11:48:00 PM EDT [facility] Name Value Range Interpretation Code Description Data Carrol rce(s) Supporting Document(s) SARS coronavirus 2 RNA [Presence] in Res piratory specimen by KATHIA with probe detection NEGATIVE [facility] This lab was ordered by [facility] a nd reported by [facility]. ID Date Data Source [id number] 10/20/2020 02:22:00 PM EDT [facility] Name Value Range Interpretation Code Description Data Carrol rce(s) Supporting Document(s) SARS coronavirus 2 RNA [Presence] in Res piratory specimen by KATHIA with probe detection NEGATIVE [facility] This lab was ordered by [facility] a nd reported by [facility]. ID Date Data Source [id number] 10/14/2020 11:27:00 PM EDT [facility] Name Value Range Interpretation Code Description Data Carrol rce(s) Supporting Document(s) SARS coronavirus 2 RNA [Presence] in Res piratory specimen by KATHIA with probe detection NEGATIVE [facility] This lab was ordered by [facility] a nd reported by [facility]. ID Date Data Source [id number] 09/22/2020 10:25:00 AM EDT [facility] Name Value Range Interpretation Code Description Data Carrol rce(s) Supporting Document(s) SARS coronavirus 2 RNA [Presence] in Res piratory specimen by KATHIA with probe detection NEGATIVE [facility] This lab was ordered by [facility] a nd reported by [facility]. 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 [file] ICAgICAgICAgICAgICAgICAgICAgICAgICAgICAgICAgICAgICAgICAgICAgICAgICAgICAgICAgICAg ICAgICAgICAgICAgICAgICAgICAgICAgICAgICAgICAgICAgDQogICAgICAgICAgICAgICAgICAgICAg ICAgICAgICAgICAgICAgICAgICAgICAgICAgICAgIC AgICAgICAgICAgICAgICAgICAgICAgICAgICAgICAgICAgICAgICAgICAgICAgDQogICAgICAgICAgIC AgICAgICAgICAgICAgICAgICAgICAgICAgICAgICAgICAgICAgICAgICAgICAgICAgICAgICAgICAgIC AgICAgICAgICAgICAgICAgICAgICAgICAgICAgDQog ICAgICAgICAgICAgICAgICAgICAgICAgICAgICAgICAgICAgICAgICAgICAgICAgICAgICAgICAgICAg ICAgICAgICAgICAgICAgICAgICAgICAgICAgICAgICAgICAgICAgDQogICAgICAgICAgICAgICAgICAg ICAgICAgICAgICAgICAgICAgICAgICAgICAgICAgIC AgICAgICAgICAgICAgICAgICAgICAgICAgICAgICAgICAgICAgICAgICAgICAgICAgDQogICAgICAgIC AgICAgICAgICAgICAgICAgICAgICAgICAgICAgICAgICAgICAgICAgICAgICAgICAgICAgICAgICAgIC AgICAgICAgICAgICAgICAgICAgICAgICAgICAgICAg DQogICAgICAgICAgICAgICAgICAgICAgICAgICAgICAgICAgICAgICAgICAgICAgICAgICAgICAgICAg ICAgICAgICAgICAgICAgICAgICAgICAgICAgICAgICAgICAgICAgICAgDQogICAgICAgICAgICAgICAg ICAgICAgICAgICAgICAgICAgICAgICAgICAgICAgIC AgICAgICAgICAgICAgICAgICAgICAgICAgICAgICAgICAgICAgICAgICAgICAgICAgICAgDQogICAgIC AgICAgICAgICAgICAgICAgICAgICAgICAgICAgICAgICAgICAgICAgICAgICAgICAgICAgICAgICAgIC AgICAgICAgICAgICAgICAgICAgICAgICAgICAgICAg ICAgDQogICAgICAgICAgICAgICAgICAgICAgICAgICAgICAgICAgICAgICAgICAgICAgICAgICAgICAg BPYxNEXaUZLiNCAeLMUxYWMdLKSuJVLrSEXkZAHkTNDrPJQoRFLuLULwKFExJGc3X3liXQYaRTRrLK6p OJg4Ab4+ZVyEMtGiTQO3jvUzaG4OER8xw0ThTKcpUV Jlu6WfVNy9SM9IGVIlBRypYP1GLVnlqp6SNHAyWJEmnDTXn1yqHuWqUEK7ZRMsKptjZY7GFJIeI3teqk YvFPJrZNHBCGocTQFSJA0YIcJzZ8SphO05ISUVJp6+CUyvauZuDayEDiK4UPZjf4XaORu8OX4TGQCmBw mkx3NyAcfyQYDKZZolYT4OGAV0ERA7YNBlNt3JAAOu Z648ciAcOL7BKg6UQpJbNL7kgo2VQcihPYVqUrqCVdm5OQudCY8GsTEyRQmCxm2xpdVhmcFBw3FqmnKc oKPZVI1dKOtmVXA0aWQjMiywx8vugjevIAFsCVPzDF98McNiHaRkZVX9BeMtSB3gODkiUA1RFNM5FSlw WCGoOFGeL5hGEkBwDBUhRdPamPquRZ9XKfJwS3Nned VudCAzOCAwIFINCj4+HSjomvYwUykGMfUpHBDar7EzDQd6UY6QYHZaKPkoLC1OTXMffJ4nUFejXK9EVh OuIaIjUSYZDoJwD57pqGTlAHp3U1LcEkJsFXXlJkbvAAWgCQduXsHvBKVvWgPlYTlrSN8+ID4+DQogIC 3LMTsfbvGkYIZtJz1MDRLgVPCpFK4uGIYbFZYqH1V0 mHftLIGIGdKpQ5yhnfwsHN9oCEHxV703iQajrjSrWCY6TPNhJy3BSCZiKJY9BLKowNJkUkqnLBWLGRhe OU0TxREuKJN4vA6hYCytTFCtNEXaN7yNDfBkvSgkDV59iDlauyLbbPPhZXl+Ii7PKH3ab2OcKNd7utHs CAhhFQMzJXbyPXPvKGIgEQLyQEZ5ENH8ANSGViPyND QuWZYxKPkqIVEzKUAfer3FAWBhNHZcWoA3YbGzRHFdXEIvAOcaSLXuIEK6YYt2JBYyLCEjBV4RXfPvWK XfKXAeLPijTMYcYSVjmf2JZXFiETKfWPVdOGNxJIAjDJVgCPlyBJFvVHK4QqLaJLWdZQVdIV0GHsOxWB IaYAI5MXLbQZZkCIRiuu4YMNOrKQSgGwo6SCVhXXUk SHExCFsfYUUbGTZ7APPaFZYtFNPmZA8TWfCuEVBaHGvvQZwvCOTjGIYjmh1SZJMkOJEmOJSpHTYzYPQo UNXdYVotQPFzNXL3WBe0IQDxUXIdMC4FUnRdLMOmQHhyRCNkEQFlAJIftp5MHSGnSPChOST3KWDgFJRw CSBjMBlgCOGzVXMsWXL3OZIiQSAfJR3XGrCeEGVkEf YgIaCaKJBzNYBxzy5WJBVaLAFlFCF6ZrVaNRZzNIGtNUcgNZDgLVGuFpziYLHbHMOtPS9CZfGoESWnEs I2BljfZXVkATTmwk9JMJBxPMIfMoq1RgFcJVZzRBAgMXesBLFcTXFlOMc9GTKkHGKpHC3MEmOpCGBiHo SmBYjsBIRcDWMolq8YVYAhEPOmEYMqBOCgXRXrOMIk NSojFBPeLGL8Ofu7ZZBxKHEoQW5HZwVaDOKgQyT9OzlaRYWrWNQezw7GPQKqNJKeWMVjSCLtMEGpOBJm ZOveKIAtHBN6BfUtTCTeZMCfRS0PCiTxWMRuMwX7FxClFXRnKLMfzs7FBRDoYTNaUVhcNFQtZVHgCQCx AEitMIBoLCRlXFBvBPAuEKInBA3ZMkLbMKNpJjKyNg mqYEIyGIXssv7AJWBcDGWqRXFmUdWmFDTlIUPaFHnlPSRqYJVsPvI9NMXdSBChAH4FPxNfRXYiOcP8Nk kuFOTfIAXipd3QPLAiLABfXfBbAcDsNVWxLSRwMMqtFZRcDQIsDyI7KZGqCCTxEH2RLgJmJTTwJrQ0AU KhONXjUUMrrf4QMTFqNATwDPZ2CYUiODMxPTXvPCpu CWUaBGK8TiRoGVIlXRYzNS1KQtVkHKYvDhS4XKFmRFKvRLDpiw3EqVRohSojzd4EVVpEWu5VcTfsNLLm MPxzDi0pzLO1YOIsGVXUBi7WcuTxZSTuYBILQKjmQERvVEDaEYn8GYR3WfZwSLEgBMLfCVYpEKIhREhe JiErQyF6MjD5RGS4MHSjFcsxLCVnUtT0K6WzZUSaKw R9WFXxHINeKNy+SO2qCKq+Lt1Qn8RupkK2caZhCSfoXWD6FV4LLEPAX8ECIu== Procedure Social History Code Duration Value Status Description Data Source(s ) Smoking 01/16/2021 12:00:00 AM EDT Current Smoker completed Curre nt Smoker eCW1 ([facility]) Smoking 01/16/2021 12:00:00 AM EDT Current Smoker completed Curre nt Smoker eCW1 ([facility]) Smoking 01/16/2021 12:00:00 AM EDT Current Smoker completed Curre nt Smoker eCW1 ([facility]) Smoking 01/16/2021 12:00:00 AM EDT Current Smoker completed Curre nt Smoker eCW1 ([facility]) Smoking 11/29/2020 12:00:00 AM EDT Current Smoker completed Curre nt Smoker eCW1 ([facility]) Smoking 11/29/2020 12:00:00 AM EDT Current Smoker completed Curre nt Smoker eCW1 ([facility]) Smoking 11/07/2020 12:00:00 AM EDT Current Smoker completed Curre nt Smoker eCW1 ([facility]) Smoking 11/07/2020 12:00:00 AM EDT Current Smoker completed Curre nt Smoker eCW1 ([facility]) Smoking 11/07/2020 12:00:00 AM EDT Current Smoker completed Curre nt Smoker eCW1 ([facility]) Smoking 10/29/2020 12:00:00 AM EDT Current Smoker completed Curre nt Smoker eCW1 ([facility]) Smoking 10/29/2020 12:00:00 AM EDT Current Smoker completed Curre nt Smoker eCW1 ([facility]) Smoking 10/24/2020 12:00:00 AM EDT Current Smoker completed Curre nt Smoker eCW1 ([facility]) Smoking 10/24/2020 12:00:00 AM EDT Current Smoker completed Curre nt Smoker eCW1 ([facility]) Smoking 10/24/2020 12:00:00 AM EDT Current Smoker completed Curre nt Smoker eCW1 ([facility]) Smoking 10/24/2020 12:00:00 AM EDT Current Smoker completed Curre nt Smoker eCW1 ([facility]) Smoking 10/07/2020 12:00:00 AM EDT Current Smoker completed Curre nt Smoker eCW1 ([facility]) Smoking 10/07/2020 12:00:00 AM EDT Current Smoker completed Curre nt Smoker eCW1 ([facility]) Alcohol intake 01/30/2020 12:00:00 AM EDT Current non-d dago of alcohol (finding) completed Current non-drinker of alcohol (finding) [facility] Tobacco use and exposure 01/30/2020 12:00:00 AM EDT Never used co mpleted Never used [facility] Cigarette pack-years 01/30/2020 12:00:00 AM EDT UNK completed [facility] Cigarettes smoked current (pack per day) - Reported 01/30/20 20 12:00:00 AM EDT UNK completed [facility] Smoking 01/30/2020 12:00:00 AM EDT Current every day smoker co mpleted Current every day smoker [facility] Vital Signs ID Date Data Source UNK Name Value Range Interpretation Code Description Data Source(s) Body height 71 [in_i] 71 [in_i] eCW1 ([facility]) Body weight 222.2 [lb_av] 222.2 [lb_av] eCW1 ([facility]) Body mass index (BMI) [Ratio] 30.99 kg/m2 30.99 kg/m2 W1 ([facility]) Heart rate 109 /min 109 /min eCW1 ([facility]) Respiratory rate 18 /min 18 /min W1 ([facility]) Body temperature 98.5 [degF] 98.5 [degF] eCW1 ( [facility]) Systolic blood pressure 149 mm[Hg] 149 mm[Hg] e CW1 ([facility]) Diastolic blood pressure 103 mm[Hg] 103 mm[Hg] eCW1 ([facility]) Body weight 226 [lb_av] 226 [lb_av] eCW1 ([facility]) Body height 71 [in_i] 71 [in_i] eCW1 ([facility]) Body mass index (BMI) [Ratio] 31.52 kg/m2 31.52 kg/m2 eCW1 ([facility]) Heart rate 111 /min 111 /min eCW1 ([facility]) Respiratory rate 18 /min 18 /min eCW1 ([facility]) Systolic blood pressure 136 mm[Hg] 136 mm[Hg] e CW1 ([facility]) Diastolic blood pressure 80 mm[Hg] 80 mm[Hg] eCW1 ([facility]) Body weight 226 [lb_av] 226 [lb_av] eCW1 ([facility]) Body height 71 [in_i] 71 [in_i] eCW1 ([facility]) Body mass index (BMI) [Ratio] 31.52 kg/m2 31.52 kg/m2 eCW1 ([facility]) Heart rate 111 /min 111 /min eCW1 ([facility]) Respiratory rate 18 /min 18 /min eCW1 ([facility]) Body temperature 98.0 [degF] 98.0 [degF] eCW1 ( [facility]) Body weight 238.8 [lb_av] 238.8 [lb_av] eCW1 ([facility]) Body height 71 [in_i] 71 [in_i] eCW1 ([facility]) Body mass index (BMI) [Ratio] 33.30 kg/m2 33.30 kg/m2 eCW1 ([facility]) Systolic blood pressure 148 mm[Hg] 148 mm[Hg] e CW1 ([facility]) Diastolic blood pressure 78 mm[Hg] 78 mm[Hg] eCW1 ([facility]) Diastolic blood pressure 68 mm[Hg] 68 mm[Hg] [facility] ([facility]) Body weight 230.00 [lb_av] 230.00 [lb_av] MEDEN T ([facility]) Body mass index (BMI) [Ratio] 32.1 kg/m2 32.1 k g/m2 [facility] ([facility]) [place] body weight 172 [lb_av] 172 [lb_av] MED[facility] T ([facility]) Body weight 104.328 kg 104.328 kg [facility] ([facility]) Body surface area Derived from formula 2.24 m2 2.24 m2 [facility] ([facility]) Body height 71 [in_i] 71 [in_i] [facility] ([facility]) 5'11" Systolic blood pressure 132 mm[Hg] 132 mm[Hg] [facility] Body weight 232.0 [lb_av] 232.0 [lb_av] eCW1 ([facility]) Body height 71 [in_i] 71 [in_i] eCW1 ([facility]) Body mass index (BMI) [Ratio] 32.35 kg/m2 32.35 kg/m2 eCW1 ([facility]) Systolic blood pressure 143 mm[Hg] 143 mm[Hg] e CW1 ([facility]) Diastolic blood pressure 85 mm[Hg] 85 mm[Hg] eCW1 ([facility]) Body weight 237.2 [lb_av] 237.2 [lb_av] eCW1 ([facility]) Body height 71 [in_i] 71 [in_i] eCW1 ([facility]) Body mass index (BMI) [Ratio] 33.08 kg/m2 33.08 kg/m2 eCW1 ([facility]) Heart rate 85 /min 85 /min eCW1 ([facility]) Respiratory rate 17 /min 17 /min eCW1 ([facility]) Body temperature 98.4 [degF] 98.4 [degF] eCW1 ( [facility]) Systolic blood pressure 154 mm[Hg] 154 mm[Hg] e CW1 ([facility]) Diastolic blood pressure 79 mm[Hg] 79 mm[Hg] eCW1 ([facility]) Body mass index (BMI) [Ratio] 33.75 kg/m2 33.75 kg/m2 eCW1 ([facility]) Body weight 242 [lb_av] 242 [lb_av] eCW1 ([facility]) Body height 71 [in_i] 71 [in_i] eCW1 ([facility]) Body temperature 98.4 [degF] 98.4 [degF] eCW1 ( [facility]) Systolic blood pressure 128 mm[Hg] 128 mm[Hg] e CW1 ([facility]) Diastolic blood pressure 75 mm[Hg] 75 mm[Hg] eCW1 ([facility]) Heart rate 90 /min 90 /min eCW1 ([facility]) Respiratory rate 18 /min 18 /min eCW1 ([facility]) Patient Treatment Plan of Care Planned Activity Planned Date Details Description Data Source (s) Sucralfate 100 MG/ML Oral Suspension 01/17/2021 12:00:00 AM EDT eCW1 ([facility]) Sucralfate 100 MG/ML Oral Suspension 01/17/2021 12:00:00 AM EDT eCW1 ([facility]) Sucralfate 100 MG/ML Oral Suspension 01/17/2021 12:00:00 AM EDT eCW1 ([facility]) tramadol hydrochloride 50 MG Oral Tablet 01/16/2021 12:00:00 AM EDT eCW1 ([facility]) Baclofen 10 MG Oral Tablet 01/16/2021 12:00:00 AM EDT eCW1 ([facility]) tramadol hydrochloride 50 MG Oral Tablet 01/16/2021 12:00:00 AM EDT eCW1 ([facility]) Baclofen 10 MG Oral Tablet 01/16/2021 12:00:00 AM EDT eCW1 ([facility]) tramadol hydrochloride 50 MG Oral Tablet 01/16/2021 12:00:00 AM EDT eCW1 ([facility]) Baclofen 10 MG Oral Tablet 01/16/2021 12:00:00 AM EDT eCW1 ([facility]) tramadol hydrochloride 50 MG Oral Tablet 01/16/2021 12:00:00 AM EDT eCW1 ([facility]) Baclofen 10 MG Oral Tablet 01/16/2021 12:00:00 AM EDT eCW1 ([facility]) Prochlorperazine 25 MG Rectal Suppository 09/25/2020 12:00:00 AM ED T eCW1 ([facility]) Prochlorperazine 25 MG Rectal Suppository 09/25/2020 12:00:00 AM ED T eCW1 ([facility]) Prochlorperazine 25 MG Rectal Suppository 09/25/2020 12:00:00 AM ED T eCW1 ([facility]) Prochlorperazine 25 MG Rectal Suppository 09/25/2020 12:00:00 AM ED T eCW1 ([facility]) Prochlorperazine 25 MG Rectal Suppository 09/25/2020 12:00:00 AM ED T eCW1 ([facility]) Prochlorperazine 25 MG Rectal Suppository 09/25/2020 12:00:00 AM ED T eCW1 ([facility])
[2021-03-20 14:21] LABS: INR 1.03; PROTHROMBIN TIME 13.9 SECONDS (12.7-14.5)
[2021-03-20 14:22] LABS: PARTIAL THROMBOPLASTIN TIME 31.3 SECONDS (25.9-37.0)
[2021-03-20] MEDS ORDERED: HOME MED LIST COMPLETE! XX SCH (15:30)
[2021-03-20] MEDS: PANTOPRAZOLE SODIUM 40 MG in D5W 50 ML IV SCH ×2 (15:37→21:25)
--- NOTE | 2021-03-20 17:53 | HPEPDOC ---
[facility] Medical History & Physical Date of Admission Mar 20, 2021 Date of Service: Mar 20, 2021 History and Physical CHIEF COMPLAINT: Bright red blood per rectum epigastric abdominal pain HISTORY OF PRESENT ILLNESS: 50-year-old male with history of H. pylori gastritis duodenal ulcer chronic pancreatitis presents to emergency room with a few day history of bright red blood per rectum epigastric abdominal pain described as sharp constant radiating across the abdomen without hematemesis coffee-ground emesis melena or black tarry stools. He denies any dizziness lightheadedness chest pain shortness of breath palpitations near syncope at home. Due to prior history of H. pylori gastritis duodenal ulcer . patient was worried about upper GI bleed and presented to the emergency room for evaluation. Patient was not orthostatic, but with decreasing hormone hemoglobin of 2 g from prior blood tests. Hemoglobin is 10 currently without overt hematemesis. Patient says that he is compliant with his Protonix and Carafate as outpatient and denies any recent use of nonsteroidal anti-inflammatories. He denies any fever chills diarrhea constipation. He has developed nausea vomiting and decreased oral intake without weight loss. Patient has been kept n.p.o. and IV fluids hypoglycemic protocol general surgeon Dr. Feliciano has been consulted for EGD. PAST MEDICAL HISTORY: Peptic ulcer disease Duodenal ulcer H. 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 Full code FAMILY HISTORY: Mother 72 with Alzheimer's dementia Father unknown medical history ALLERGIES: Please see below. REVIEW OF SYSTEMS: 10 point system negative aside from positive findings in HPI HOME MEDICATIONS: Please see below. PHYSICAL EXAMINATION: VITAL SIGNS: See below GENERAL APPEARANCE: No pallor or distress no cyanosis or icterus HEENT: No JVD thyromegaly cervical lymphadenopathy CARDIOVASCULAR: S1-S2 sinus rhythm LUNGS: Clear to auscultation no wheezing or rales ABDOMEN: Positive bowel sounds soft slightly tender in the epigastric region nondistended no hepatosplenomegaly EXTREMITIES: No cyanosis or clubbing no pitting edema LABORATORY DATA: See below. IMAGING: See below MICROBIOLOGY: Please see below. ASSESSMENT: 50-year-old male with history of H. pylori gastritis duodenal ulcer chronic pancreatitis presents to emergency room with a few day history of bright red blood per rectum epigastric abdominal pain described as sharp constant radiating across the abdomen without hematemesis coffee-ground emesis melena or black tarry stools. He denies any dizziness lightheadedness chest pain shortness of breath palpitations near syncope at home. Due to prior history of H. pylori gastritis duodenal ulcer . patient was worried about upper GI bleed and presented to the emergency room for evaluation. Patient was not orthostatic, but with decreasing hormone hemoglobin of 2 g from prior blood tests. Hemoglobin is 10 currently without overt hematemesis. Patient says that he is compliant with his Protonix and Carafate as outpatient and denies any recent use of nonsteroidal anti-inflammatories. He denies any fever chills diarrhea constipation. He has developed nausea vomiting and decreased oral intake wit hout weight loss. Patient has been kept n.p.o. and IV fluids hypoglycemic protocol general surgeon Dr. Feliciano has been consulted for EGD. Acute GI bleed History of peptic ulcer disease/Duodenal ulcer/H. pylori gastritis N.p.o.. General surgery Dr. Rodriguez has been consulted for EGD. Protonix drip after 80 mg intravenous bolus. Hypoglycemic protocol and IV fluids. Type and screen. Transfuse for symptomatic anemia, overt upper or lower GI bleed, or hemoglobin less than 7 Cycle cardiac markers and H&H every 6 hourly while n.p.o. Chronic pancreatitis NPO. IV fluids. Iron deficiency anemia Transfuse as needed Fatty liver, chronic BPH,, chronic Dyslipidemia,, chronic Hold meds while n.p.o. History of urethral stricture,Urolithiasis status post lithotripsy basket extraction and stent placement Diet: N.p.o. IV fluids hypoglycemic protocol fingersticks every 6 hourly to prevent hypoglycemia while n.p.o. CODE STATUS: Full code Vital Signs Vital Signs Date Time Temp Pulse Resp B/P (MAP) Pulse Ox O2 Delivery O2 Flow Rate FiO2 03/20/21 12:54 90 138/81 (100) 03/20/21 12:51 20 03/20/21 11:10 Room Air 03/20/21 10:46 99.0 97 Laboratory Data Labs 24H Laboratory Tests 2 03/20/21 11:09: Immature Granulocyte % (Auto) 0.3, Neutrophils (%) (Auto) 70.6H, Lymphocytes (%) (Auto) 20.2L, Monocytes (%) (Auto) 7.7, Eosinophils (%) (Auto) 0.6, Basophils (%) (Auto) 0.6, Neutrophils # (Auto) 5.6, Lymphocytes # (Auto) 1.6, Monocytes # (Auto) 0.6, Eosinophils # (Auto) 0.1, Basophils # (Auto) 0.1, Nucleated Red Blood Cells % (auto) 0.0, Anion Gap 7L, Glomerular Filtration Rate > 60.0, Lactic Acid Level 1.2, Calcium Level 8.7, Total Bilirubin 0.5, Direct Bilirubin 0.1, Aspartate Amino Transf (AST/SGOT) 11, Alanine Aminotransferase (ALT/SGPT) 17, Alkaline Phosphatase 58, Total Protein 7.1, Albumin 3.6, Albumin/Globulin Ratio 1.0, Amylase Level 104, Lipase 380 03/20/21 12:37: Prothrombin Time 13.9, Prothromb Time International Ratio 1.03, Activated Partial Thromboplast Time 31.3 03/20/21 13:03: CBC/BMP Laboratory Tests 03/20/21 11:09 Home Medications Scheduled Pantoprazole Sodium (Pantoprazole Sodium) 40 Mg Tablet.dr, 40 MG PO BID Sucralfate (Sucralfate) 1 Gm Tablet, 1 GM PO QID Allergies Coded Allergies: No Known Drug Allergies (Verified Allergy, Unknown, 10/19/19) A-FIB/CHADSVASC A-FIB History Current/History of A-Fib/PAF?: No Current PO Anticoag Therapy: No Age/Risk Factor Scoring CHADSVASC: CHADSVASC Response (Comments) Value Age Risk Factor Age < 65 years old 0 Gender Risk Factor Male 0 Hx of CHF No 0 Hx of HTN No 0 Hx of Stroke/TIA/or VTE No 0 Hx of Diabetes No 0 Hx of Vascular Disease No 0 Total 0 Treatment Treatment ordered: NONE ROSANNA LOOMIS MD Mar 20, 2021 14:49
[2021-03-20 18:00] VITALS: BP 122/77
[2021-03-20] MEDS ORDERED: HYDROMORPHONE HCL 0.5 MG/ 0.5 ML SYRINGE (J1170 PER 1) IV PRN (18:30)
[2021-03-20] MEDS ORDERED: PROMETHAZINE INJ 25 MG/ML VIAL (J2550) IV ONE (18:30)
[2021-03-20] MEDS: SUCRALFATE SUSP 1GM/10ML UD PO SCH ×2 (19:00→23:53)
[2021-03-20] MEDS: KCL 10MEQ IN D5/0.45NS 1000ML 1,000 ML IV SCH ×2 (19:00→21:24)
--- NOTE | 2021-03-20 21:10 | CR ---
CONSULTATION DATE: 03/20/2021 REASON FOR CONSULTATION: Hematochezia. HISTORY OF PRESENT ILLNESS: The patient is a 50-year-old male with a history of gastritis and duodenal ulcers. He presents to the Emergency Room with a couple day history of bright red blood in his stool. He has also been having sharp epigastric pains radiating across his upper abdomen. He denies any vomiting up of any blood. No black or tarry stools, but he has had maroon colored stools for 2 days. He was in the Emergency Room a few days ago for evaluation and was discharged home. He returns today and his hemoglobin has dropped about 4 grams from 2 days ago. However when you do look back over the past year, he is still at his baseline from previous. No other complaints other than the bloody bowel movements and epigastric pains. PAST MEDICAL HISTORY: The patient's past medical history is significant for: 1. Peptic ulcer disease. 2. Duodenal ulcer. 3. H-pylori. 4. Gastritis. 5. Chronic pancreatitis. 6. Iron deficiency anemia. 7. Fatty liver. 8. Benign prostatic hypertrophy. 9. Dyslipidemia. 10. Urethral strictures. 11. Obesity. 12. Urolithiasis. PAST SURGICAL HISTORY: The patient's past surgical history is significant for: 1. Bilateral knee scopes. 2. Appendectomy. 3. Cystoscopy with lithotripsy. FAMILY HISTORY: Noncontributory. SOCIAL HISTORY: He denies drug, alcohol or tobacco abuse. ALLERGIES: None. MEDICATIONS: Please see Med Rec. REVIEW OF SYSTEMS: Pertinent positives and negatives as stated in the HPI. PHYSICAL EXAMINATION: GENERAL APPEARANCE: Alert and oriented x3, in no acute distress. VITAL SIGNS: Temperature 98.1, pulse 67, respirations 22, blood pressure 122/77, pulse oximetry 98% on room air. HEENT: Pupils are equal, round and reactive to light and accommodation. HEART: S1, S2, regular rate and rhythm. LUNGS: Clear to auscultation bilaterally. ABDOMEN: Soft, tender to palpation in the epigastric and right upper quadrants bilaterally. No guarding or rigidity. EXTREMITIES: No clubbing, cyanosis, or edema. LABORATORY STUDIES: White count 7.9, hemoglobin 10.8, and again if you look back 2 days ago, it was 14.2. Back and October and September of 2020 it ranged from 9 to 11. IMAGING: Abdominal x-ray was done to rule out free air and perforated ulcer. X-ray showed nonspecific intestinal gas pattern and no evidence of acute disease. No signs of free air. ASSESSMENT AND PLAN: The patient again is a 50-year-old male with epigastric pains, bloody stools, likely secondary to bleeding ulcer. I discussed the causes of ulcers with him including spicy foods, acidic foods, [id number] medications, caffeine, alcohol and tobacco. He understands the risks and for now we will put him on IV fluids, keep him n.p.o., start him on Protonix and Carafate and monitor him closely. If he continues to drop, then he may benefit from an upper endoscopy in the next 24-48 hours. Otherwise he can be discharged home once stable, with Protonix and Carafate for a couple of weeks and then slowly wean off those in the future.
[2021-03-20 21:30] VITALS: BP 127/80
[2021-03-21 00:14] LABS: HEMOGLOBIN 11.3 g/dl (13.5-17.5)
[2021-03-21] MEDS: HYDROMORPHONE HCL 0.5 MG/ 0.5 ML SYRINGE (J1170 PER 1) IV PRN ×2 (00:39→05:52)
[2021-03-21] MEDS: PANTOPRAZOLE SODIUM 40 MG in D5W 50 ML IV SCH ×4 (00:54→16:21)
[2021-03-21 02:42] VITALS: BP 126/74
[2021-03-21] MEDS: SUCRALFATE SUSP 1GM/10ML UD PO SCH ×3 (05:43→19:01)
[2021-03-21 06:28] VITALS: BP 118/66
[2021-03-21 06:56] LABS: HEMATOCRIT 35.8 % (42.0-52.0); HEMOGLOBIN 11.4 g/dl (13.5-17.5); MEAN CORPUSCULAR HEMOGLOBIN 28.3 pg (27.0-33.0); MEAN CORPUSCULAR HGB CONC 31.8 g/dl (32.0-36.5); MEAN CORPUSCULAR VOLUME 88.8 fl (80.0-96.0); PLATELET COUNT, AUTOMATED 301 10^3/uL (150-450); RED BLOOD COUNT 4.03 10^6/uL (4.30-6.10)
[2021-03-21 07:17] LABS: BLOOD UREA NITROGEN 13 MG/DL (7-18); CALCIUM LEVEL 8.7 MG/DL (8.5-10.1); CARBON DIOXIDE LEVEL 30 MEQ/L (21-32); CHLORIDE LEVEL 107 MEQ/L (98-107); CREATININE FOR GFR 0.97 MG/DL (0.70-1.30); GLOMERULAR FILTRATION RATE > 60.0 (>56); GLUCOSE, FASTING 100 MG/DL (70-100); POTASSIUM SERUM 4.3 MEQ/L (3.5-5.1); SODIUM LEVEL 139 MEQ/L (136-145)
--- NOTE | 2021-03-21 07:34 | IPNPDOC ---
Text Note Date of Service The patient was seen on 03/21/21. NOTE No acute events overnight. Hgb is stable. No more bleeding, and his epigastric pain is improving. We had a long discussion that he likely had a bleeding ulcer. After a long discussion it seems like he has been taking medications frequently on an empty stomach. This could very well be the cause of his ulcer. I will also check him for H.Pylori again to be sure. VSSAF NAD abd - soft, NT, nd, slight epigastric pain w/out rebound or guarding labs - below A) 50y/o male with gastric vs. duodenal ulcer that was bleeding, but has likely stopped. Hgb is stable P) sips and chips today, advance to clq diet tomorrow PPI carafate f/u with me outpatient for egd will check h.Pylori. Butch Rodriguez DO VS,Pablo, I+O VS, Pablo, I+O Laboratory Tests 03/20/21 11:09 03/20/21 23:58 03/21/21 06:34 Vital Signs Date Time Temp Pulse Resp B/P (MAP) Pulse Ox O2 Delivery O2 Flow Rate FiO2 03/21/21 06:28 98.2 59 18 118/66 (83) 95 Room Air I&O- Last 24 Hours up to 6 AM 03/21/21 06:00 Intake Total 2200 ml Output Total 1000 ml Balance 1200 ml MEG RODRIGUEZ DO Mar 21, 2021 07:34
[2021-03-21] MEDS: KCL 10MEQ IN D5/0.45NS 1000ML 1,000 ML IV SCH ×2 (08:48→10:00)
--- NOTE | 2021-03-21 10:00 | IPNPDOC ---
Date Seen The patient was seen on 03/21/21. Progress Note SUBJECTIVE: Patient still complains of epigastric abdominal discomfort rated a 4 out of 10, but better than yesterday Since he has been on Protonix drip he is remain n.p.o. and IV fluids without shortness of breath. Surgery has decided not to do an EGD and to keep the patient n.p.o. with ice ch ips. Hemoglobin remained stable overnight and hemodynamically stable. He denies lightheadedness, Dyspnea on exertion, near syncope, nausea, vomiting, diarrhea, constipation, dizziness, hematemesis, coffee-ground emesis, bright red blood per rectum, melena, or black tarry stools PHYSICAL EXAMINATION: VITAL SIGNS: See below GENERAL APPEARANCE: No distress no pallor no cyanosis or icterus HEENT: No JVD thyromegaly cervical lymphadenopathy CARDIOVASCULAR: S1-S2 sinus rhythm no S3 no carotid bruit LUNGS: Clear to auscultation no wheezing or rales inspiratory expiratory ratio 1:2 ABDOMEN: Positive bowel sounds soft slightly tender in the epigastric region nondistended no hepatosplenomegaly EXTREMITIES: No cyanosis or clubbing no pitting edema LABORATORY DATA: See below. IMAGING: See below MICROBIOLOGY: Please see below. ASSESSMENT: 50-year-old male with history of H. pylori gastritis duodenal ulcer chronic pancreatitis presents to emergency room with a few day history of bright red blood per rectum epigastric abdominal pain described as sharp constant radiating across the abdomen without hematemesis coffee-ground emesis melena or black tarry stools. He denies any dizziness lightheadedness chest pain shortness of breath palpitations near syncope at home. Due to prior history of H. pylori gastritis duodenal ulcer . patient was worried about upper GI bleed and presented to the emergency room for evaluation. Patient was not orthostatic, but with decreasing hormone hemoglobin of 2 g from prior blood tests. Hemoglobin is 10 currently without overt hematemesis. Patient says that he is compliant with his Protonix and Carafate as outpatient and denies any recent use of nonsteroidal anti-inflammatories. He denies any fever chills diarrhea constipation. He has developed nausea vomiting and decreased oral intake without weight loss. Patient has been kept n.p.o. and IV fluids hypoglycemic protocol general surgeon Dr. Feliciano has been consulted for EGD. Acute GI bleed History of peptic ulcer disease/Duodenal ulcer/H. pylori gastritis N.p.o with ice chips per surgical recommendations. General surgery Dr. Rodriguez has been consulted, but does not recommend EGD at this time. On Protonix drip after 80 mg intravenous bolus was given in the ER on admission Hypoglycemic protocol and IV fluids. Type and screen. Transfuse for symptomatic anemia, overt upper or lower GI bleed, or hemoglobin less than 7 Cycle cardiac markers and H&H every 6 hourly while n.p.o. Advance to clear liquid diet on 03/22/2021. Avoid nonsteroidal anti-inflammatories and hold antiplatelets and anticoagulants. Chronic pancreatitis NPO. IV fluids. Iron deficiency anemia Transfuse as needed Fatty liver, chronic BPH,, chronic Dyslipidemia,, chronic Hold meds while n.p.o. History of urethral stricture,Urolithiasis status post lithotripsy basket extraction and stent placement Diet: N.p.o. IV fluids hypoglycemic protocol fingersticks every 6 hourly to prevent hypoglycemia while n.p.o. CODE STATUS: Full code VS, I&O, 24H, [facility] Vital Signs/I&O Vital Signs Date Time Temp Pulse Resp B/P (MAP) Pulse Ox O2 Delivery O2 Flow Rate FiO2 03/21/21 06:28 98.2 59 18 118/66 (83) 95 Room Air I&O- Last 24 Hours up to 6 AM 03/21/21 05:59 Intake Total 2200 ml Output Total 1000 ml Balance 1200 ml Laboratory Data 24H LABS Laboratory Tests 2 03/20/21 11:09: Immature Granulocyte % (Auto) 0.3, Neutrophils (%) (Auto) 70.6H, Lymphocytes (%) (Auto) 20.2L, Monocytes (%) (Auto) 7.7, Eosinophils (%) (Auto) 0.6, Basophils (%) (Auto) 0.6, Neutrophils # (Auto) 5.6, Lymphocytes # (Auto) 1.6, Monocytes # (Auto) 0.6, Eosinophils # (Auto) 0.1, Basophils # (Auto) 0.1, Nucleated Red Blood Cells % (auto) 0.0, Anion Gap 7L, Glomerular Filtration Rate > 60.0, Lactic Acid Level 1.2, Calcium Level 8.7, Total Bilirubin 0.5, Direct Bilirubin 0.1, Aspartate Amino Transf (AST/SGOT) 11, Alanine Aminotransferase (ALT/SGPT) 17, Alkaline Phosphatase 58, Total Protein 7.1, Albumin 3.6, Albumin/Globulin Ratio 1.0, Amylase Level 104, Lipase 380 03/20/21 12:37: Prothrombin Time 13.9, Prothromb Time International Ratio 1.03, Activated Partial Thromboplast Time 31.3 03/20/21 13:03: Coronavirus (COVID-19)(PCR) NEGATIVE 03/21/21 00:12: Bedside Glucose (Misc Panel) 96 03/21/21 06:34: Nucleated Red Blood Cells % (auto) 0.0, Anion Gap 2L, Glomerular Filtration Rate > 60.0, Calcium Level 8.7 03/21/21 06:38: Bedside Glucose (Misc Panel) 111H CBC/BMP Laboratory Tests 03/20/21 11:09 03/20/21 23:58 03/21/21 06:34 ROSANNA LOOMIS MD Mar 21, 2021 10:00
[2021-03-21 14:00] VITALS: BP 137/85
--- NOTE | 2021-03-21 19:42 | IPNPDOC ---
Text Note Date of Service The patient was seen on 03/21/21. NOTE Alerted by nursing staff at approx 1915 that patient was upset and threatening to LEAVE AGAINST MEDICAL ADVICE. Apparently, patient was upset surrounding the rapid changes in diet orders that he believes were going on throughout the day for him. I saw patient at this time who told me that he was non interested in discussing his care further, and simply wanted to go home. I explained to patient the risks patient would face if he chose to LEAVE AGAINST MEDICAL ADVICE, including worsening of abdominal pain, gastric perforation, sepsis, intra-abdominal hemorrhage, and . Patient voiced understanding and still wished to LEAVE AGAINST MEDICAL ADVICE. Patient appears to me as being competent of making decisions. AMA form to be signed. VS,Pablo, I+O VS, Pablo, I+O Laboratory Tests 03/20/21 23:58 03/21/21 06:34 Vital Signs Date Time Temp Pulse Resp B/P (MAP) Pulse Ox O2 Delivery O2 Flow Rate FiO2 03/21/21 14:33 16 03/21/21 14:00 98.6 59 137/85 (102) 97 Room Air I&O- Last 24 Hours up to 6 AM 03/21/21 06:00 Intake Total 2200 ml Output Total 1000 ml Balance 1200 ml MALOU MEDRANO Mar 21, 2021 19:42
== END 2021-03-21 19:37 | disposition left against medical advice (07) | DRG 241 ==
LOC: EDBD 10:37 → M ED 10:37 → M ED INP 13:19 → M MSPAV 18:03 → OBSVTOIN 03-21 09:55
PROVIDERS: ADMIT General Practice; ATTEND General Practice
DX: K26.0 Acute duodenal ulcer with hemorrhage (principal); K86.1 Other chronic pancreatitis; K76.0 Fatty (change of) liver, not elsewhere classified; D50.9 Iron deficiency anemia, unspecified; N40.0 Benign prostatic hyperplasia without lower urinary tract symptoms; E78.5 Hyperlipidemia, unspecified; Z79.899 Other long term (current) drug therapy

== ENCOUNTER 2021-06-30 16:35 | Inpatient (IN) | payer OTHER ==
[~2021-06-30] VITALS: Ht 177.8 cm; Wt 108.7 kg
[~2021-06-30 16:35] MED LIST changes: -CEFD1CAP8 PO; +CEFD300C41 PO
[2021-06-30] MEDS ORDERED: diphenhydrAMINE 50MG/ML VIAL (J1200) IV STA (16:39)
[2021-06-30] MEDS ORDERED: NS 1,000 ML IV ONE (16:40)
[2021-06-30] MEDS ORDERED: ISOVUE-370 76% 100ML VIAL As Ordered ONE (17:03)
[2021-06-30 17:20] LABS: BASO % 0.2 % (0.0-1.0); EOS # 0.1 10^3/uL (0.0-0.5); EOS % 0.4 % (0.0-3.0); HEMATOCRIT 48.1 % (42.0-52.0); HEMOGLOBIN 16.4 g/dl (13.5-17.5); LYMPH # 2.6 10^3/uL (1.5-5.0); LYMPH % 14.5 % (24.0-44.0); MEAN CORPUSCULAR HEMOGLOBIN 29.3 pg (27.0-33.0); MEAN CORPUSCULAR HGB CONC 34.1 g/dl (32.0-36.5); MEAN CORPUSCULAR VOLUME 85.9 fl (80.0-96.0); MONO % 8.8 % (2.0-8.0); NEUTROPHILS # 13.7 10^3/uL (1.5-8.5); NEUTROPHILS % 75.7 % (36.0-66.0); PLATELET COUNT, AUTOMATED 365 10^3/uL (150-450); WHITE BLOOD COUNT 18.1 10^3/uL (4.0-10.0)
[2021-06-30 17:31] LABS: INR 0.97; PROTHROMBIN TIME 13.3 SECONDS (12.7-14.5)
[2021-06-30 17:32] LABS: PARTIAL THROMBOPLASTIN TIME 28.1 SECONDS (25.9-37.0)
[2021-06-30 17:49] LABS: MONO # 1.6 10^3/uL (0.0-0.8)
[2021-06-30 17:59] LABS: ALBUMIN 3.9 GM/DL (3.2-5.2); ALT/SGPT 23 U/L (12-78); BILIRUBIN,DIRECT 0.2 MG/DL (0.0-0.2); BILIRUBIN,TOTAL 1.4 MG/DL (0.2-1.0); BLOOD UREA NITROGEN 20 MG/DL (7-18); CALCIUM LEVEL 9.3 MG/DL (8.5-10.1); CARBON DIOXIDE LEVEL 23 MEQ/L (21-32); CHLORIDE LEVEL 97 MEQ/L (98-107); CREATININE FOR GFR 1.25 MG/DL (0.70-1.30); GLOMERULAR FILTRATION RATE > 60.0 (>56); GLUCOSE, FASTING 122 MG/DL (70-100); LIPASE 890 U/L (73-393); SODIUM LEVEL 133 MEQ/L (136-145); TOTAL PROTEIN 8.2 GM/DL (6.4-8.2)
[2021-06-30] MEDS ORDERED: PIPERACILLIN/TAZOBACTAM SOD 3.375 GM in D5W MINI-BAG PLUS 50 ML IV ONE (18:35)
[2021-06-30] MEDS: MORPHINE 2 MG/ML 1ML VIAL (J2270) IV PRN ×2 (18:37→21:47)
[2021-06-30] MEDS ORDERED: HOME MED LIST COMPLETE! XX SCH (18:55)
[2021-06-30 20:11] LABS: RSV AMPLIFICATION NEGATIVE (NEGATIVE)
[2021-06-30] MEDS ORDERED: MOM 30ML SUSPENSION UDC PO PRN (23:25)
[2021-06-30] MEDS ORDERED: MAALOX 30 ML SUSP *UDC PO PRN (23:25)
[2021-06-30] MEDS ORDERED: ACETAMINOPHEN TAB 650MG DOSE (2X325MG) PO PRN (23:25)
[2021-06-30] MEDS: NS 1,000 ML IV SCH (23:35)
[2021-07-01] VITALS (7 sets, daily range): BP systolic 107–180; BP diastolic 62–108
[2021-07-01] MEDS: PIPERACILLIN/TAZOBACTAM SOD 4.5 GM in D5W MINI-BAG PLUS 50 ML IV SCH ×4 (01:44→21:03)
[2021-07-01] MEDS ORDERED: MORPHINE 4 MG/ML 1ML VIAL/SYRINGE (J2270) IV PRN (02:25)
[2021-07-01] MEDS ORDERED: hydrALAZINE 20MG/ML 1ML VIAL (J0360 PER 20MG) IV STA (02:43)
[2021-07-01] MEDS ORDERED: LORazepam 2 MG TAB PO PRN (02:45)
[2021-07-01] MEDS ORDERED: MORPHINE 2 MG/ML 1ML VIAL (J2270) IV PRN (04:30)
[2021-07-01] MEDS: THIAMINE 100 MG TAB PO SCH ×2 (04:39→21:04)
[2021-07-01] MEDS ORDERED: KETOROLAC 30 MG/ML 1ML VIAL IV ONE (05:00)
[2021-07-01 05:50] LABS: BASO # 0.1 10^3/uL (0.0-0.2); BASO % 0.3 % (0.0-1.0); EOS # 0.1 10^3/uL (0.0-0.5); EOS % 0.5 % (0.0-3.0); HEMATOCRIT 45.4 % (42.0-52.0); LYMPH % 12.9 % (24.0-44.0); MEAN CORPUSCULAR HEMOGLOBIN 28.7 pg (27.0-33.0); MEAN CORPUSCULAR VOLUME 86.8 fl (80.0-96.0); MONO # 1.5 10^3/uL (0.0-0.8); MONO % 9.4 % (2.0-8.0); NEUTROPHILS % 76.5 % (36.0-66.0); PLATELET COUNT, AUTOMATED 324 10^3/uL (150-450); RED BLOOD COUNT 5.23 10^6/uL (4.30-6.10); WHITE BLOOD COUNT 15.7 10^3/uL (4.0-10.0)
[2021-07-01 06:11] LABS: ALBUMIN 3.4 GM/DL (3.2-5.2); ALT/SGPT 23 U/L (12-78); AMYLASE 114 U/L (25-115); BILIRUBIN,TOTAL 1.4 MG/DL (0.2-1.0); BLOOD UREA NITROGEN 23 MG/DL (7-18); C REACTIVE PROTEIN QUANTITATIV 5.57 MG/DL (0.00-0.30); CALCIUM LEVEL 8.7 MG/DL (8.5-10.1); CARBON DIOXIDE LEVEL 25 MEQ/L (21-32); CHLORIDE LEVEL 100 MEQ/L (98-107); CREATININE FOR GFR 1.03 MG/DL (0.70-1.30); GLOMERULAR FILTRATION RATE > 60.0 (>56); GLUCOSE, FASTING 117 MG/DL (70-100); POTASSIUM SERUM 3.6 MEQ/L (3.5-5.1); SODIUM LEVEL 133 MEQ/L (136-145); TOTAL PROTEIN 7.2 GM/DL (6.4-8.2)
[2021-07-01 06:48] LABS: ERYTHROCYTE SEDIMENTATION RATE 12 mm/hr (0-20)
[2021-07-01] MEDS: MULTIVITAMINS/MINERALS THERAP 1 TAB PO SCH (08:42)
[2021-07-01] MEDS: NS 1,000 ML IV SCH ×2 (08:42→17:12)
[2021-07-01] MEDS: TAMSULOSIN 0.4 MG CAP PO SCH (08:42)
[2021-07-01] MEDS: FOLIC ACID 1 MG TAB PO SCH (08:42)
[2021-07-01] MEDS ORDERED: SUCRALFATE 1 GM TAB PO SCH (09:00)
[2021-07-01] MEDS ORDERED: PANTOPRAZOLE 40MG VIAL (C9113 PER 1) IV SCH (09:00)
[2021-07-01] MEDS: MORPHINE 4 MG/ML 1ML VIAL/SYRINGE (J2270) IV PRN ×3 (09:47→18:29)
[2021-07-01] MEDS ORDERED: **hydrALAZINE** 50 MG TAB PO PRN (11:00)
[2021-07-01] MEDS: SUCRALFATE 1 GM TAB PO SCH ×2 (11:43→17:12)
[2021-07-01 17:36] LABS: MAGNESIUM LEVEL 1.8 MG/DL (1.7-2.2)
[2021-07-01] MEDS ORDERED: MORPHINE 2 MG/ML 1ML VIAL (J2270) IV ONE (20:55)
[2021-07-01] MEDS: PANTOPRAZOLE 40MG VIAL (C9113 PER 1) IV SCH (21:04)
[2021-07-02 00:24] VITALS: BP 113/65
[2021-07-02] MEDS: SUCRALFATE 1 GM TAB PO SCH ×3 (00:26→12:38)
[2021-07-02] MEDS: MORPHINE 4 MG/ML 1ML VIAL/SYRINGE (J2270) IV PRN ×2 (00:27→04:32)
[2021-07-02] MEDS: PIPERACILLIN/TAZOBACTAM SOD 4.5 GM in D5W MINI-BAG PLUS 50 ML IV SCH ×3 (02:20→14:00)
[2021-07-02] MEDS: NS 1,000 ML IV SCH ×2 (02:21→08:53)
[2021-07-02 04:00] VITALS: BP 113/61
[2021-07-02 04:36] VITALS: BP 113/61
[2021-07-02 08:33] LABS: HEMATOCRIT 37.9 % (42.0-52.0); MEAN CORPUSCULAR HEMOGLOBIN 29.1 pg (27.0-33.0); MEAN CORPUSCULAR HGB CONC 32.2 g/dl (32.0-36.5); MEAN CORPUSCULAR VOLUME 90.5 fl (80.0-96.0); PLATELET COUNT, AUTOMATED 280 10^3/uL (150-450); RED BLOOD COUNT 4.19 10^6/uL (4.30-6.10); WHITE BLOOD COUNT 8.8 10^3/uL (4.0-10.0)
[2021-07-02 08:40] LABS: HEMOGLOBIN 12.2 g/dl (13.5-17.5)
[2021-07-02] MEDS: PANTOPRAZOLE 40MG VIAL (C9113 PER 1) IV SCH (08:53)
[2021-07-02] MEDS: TAMSULOSIN 0.4 MG CAP PO SCH (08:53)
[2021-07-02] MEDS: THIAMINE 100 MG TAB PO SCH (08:54)
[2021-07-02] MEDS: MULTIVITAMINS/MINERALS THERAP 1 TAB PO SCH (08:54)
[2021-07-02] MEDS: FOLIC ACID 1 MG TAB PO SCH (08:54)
[2021-07-02 09:12] LABS: BLOOD UREA NITROGEN 19 MG/DL (7-18); CALCIUM LEVEL 8.3 MG/DL (8.5-10.1); CARBON DIOXIDE LEVEL 29 MEQ/L (21-32); CHLORIDE LEVEL 106 MEQ/L (98-107); CREATININE FOR GFR 1.01 MG/DL (0.70-1.30); GLOMERULAR FILTRATION RATE > 60.0 (>56); GLUCOSE, FASTING 88 MG/DL (70-100); POTASSIUM SERUM 3.8 MEQ/L (3.5-5.1); SODIUM LEVEL 140 MEQ/L (136-145)
[2021-07-02] MEDS ORDERED: PERCOCET 5MG/325MG TAB PO PRN (11:30)
[2021-07-02] MEDS ORDERED: OXYC1TAB23 PO (13:00)
[2021-07-02] MEDS ORDERED: METR-265 PO (13:00)
[2021-07-02] MEDS ORDERED: CIPR500T39 PO (13:00)
[2021-07-02 14:00] VITALS: BP 125/64
[2021-07-02] MEDS ORDERED: PROT1TAB2 PO (15:46)
[2021-07-02] MEDS ORDERED: CARA1TAB6 PO (15:46)
[2021-07-02] MEDS ORDERED: BACI1CAP4 PO (17:17)
[2021-07-02] MEDS ORDERED: MIRA3350 PO (17:17)
[2021-07-03] MEDS ORDERED: OMEP40CA4 PO (09:54)
== END 2021-07-02 15:10 | disposition home health service (06) | DRG 241 ==
LOC: M ED 16:35 → M ED INP 23:25 → ENRESERV 07-01 03:07 → M MS5PR 07-01 03:24
PROVIDERS: ADMIT Family Medicine; ATTEND Internal Medicine
DX: K26.9 Duodenal ulcer, unspecified as acute or chronic, without hemorrhage or perforation (principal); K86.1 Other chronic pancreatitis; K76.0 Fatty (change of) liver, not elsewhere classified; E66.9 Obesity, unspecified; D50.9 Iron deficiency anemia, unspecified; K27.9 Peptic ulcer, site unspecified, unspecified as acute or chronic, without hemorrhage or perforation; R10.31 Right lower quadrant pain; Z68.34 Body mass index [BMI] 34.0-34.9, adult; N40.0 Benign prostatic hyperplasia without lower urinary tract symptoms; Z79.899 Other long term (current) drug therapy; Z87.891 Personal history of nicotine dependence; E78.5 Hyperlipidemia, unspecified

== ENCOUNTER 2021-07-08 21:50 | Inpatient (IN) | payer OTHER ==
[~2021-07-08] VITALS: Ht 180.3 cm; Wt 105.0 kg
[~2021-07-08 21:50] MED LIST changes: +BACI1CAP4 PO; +CIPR500T39 PO; +METR-265 PO; +OMEP40CA4 PO; +OXYC1TAB23 PO
[2021-07-08 22:34] LABS: BASO # 0.1 10^3/uL (0.0-0.2); BASO % 0.3 % (0.0-1.0); EOS # 0.1 10^3/uL (0.0-0.5); EOS % 0.7 % (0.0-3.0); HEMATOCRIT 39.7 % (42.0-52.0); HEMOGLOBIN 13.2 g/dl (13.5-17.5); LYMPH # 2.2 10^3/uL (1.5-5.0); LYMPH % 14.6 % (24.0-44.0); MEAN CORPUSCULAR HGB CONC 33.2 g/dl (32.0-36.5); MEAN CORPUSCULAR VOLUME 87.3 fl (80.0-96.0); MONO # 0.9 10^3/uL (0.0-0.8); MONO % 5.6 % (2.0-8.0); NEUTROPHILS % 78.3 % (36.0-66.0); PLATELET COUNT, AUTOMATED 364 10^3/uL (150-450); RED BLOOD COUNT 4.55 10^6/uL (4.30-6.10); WHITE BLOOD COUNT 15.3 10^3/uL (4.0-10.0)
[2021-07-08 22:45] LABS: INR 0.92; PROTHROMBIN TIME 12.8 SECONDS (12.7-14.5)
[2021-07-08 22:46] LABS: PARTIAL THROMBOPLASTIN TIME 28.7 SECONDS (25.9-37.0)
[2021-07-08 22:56] LABS: ALBUMIN 3.6 GM/DL (3.2-5.2); ALT/SGPT 23 U/L (12-78); BILIRUBIN,DIRECT < 0.1 MG/DL (0.0-0.2); BILIRUBIN,TOTAL 0.3 MG/DL (0.2-1.0); LIPASE 648 U/L (73-393); TOTAL PROTEIN 7.2 GM/DL (6.4-8.2)
[2021-07-08] MEDS ORDERED: diphenhydrAMINE 50MG/ML VIAL (J1200) IV STA (23:53)
[2021-07-08] MEDS ORDERED: HALOPERIDOL 5MG/ML VIAL (J1630 PER 1) IV ONE (23:55)
[2021-07-08] MEDS ORDERED: ISOVUE-370 76% 100ML VIAL As Ordered ONE (23:59)
[2021-07-09] MEDS: MORPHINE 2 MG/ML 1ML VIAL (J2270) IV PRN ×2 (00:01→04:47)
[2021-07-09] MEDS ORDERED: PIPERACILLIN/TAZOBACTAM SOD 3.375 GM in D5W MINI-BAG PLUS 50 ML IV ONE (02:00)
[2021-07-09 02:32] LABS: RSV AMPLIFICATION NEGATIVE (NEGATIVE)
[2021-07-09] MEDS ORDERED: HYDROMORPHONE HCL 0.5 MG/ 0.5 ML SYRINGE (J1170 PER 1) IV PRN (03:10)
[2021-07-09] MEDS ORDERED: NS 1,000 ML IV ONE (03:10)
[2021-07-09] MEDS ORDERED: HYDROmorphone HCL 2MG/ML 1ML VIAL IV PRN (03:10)
[2021-07-09] MEDS ORDERED: NS 1,000 ML IV SCH (03:10)
[2021-07-09] MEDS ORDERED: ACETAMINOPHEN *IV* 650 MG in IV 1 EA IV PRN (03:45)
[2021-07-09] MEDS ORDERED: KETOROLAC 30 MG/ML 1ML VIAL IV PRN (03:45)
[2021-07-09] MEDS: HEPARIN SOD (PORCINE) 5000UNITS/ML 1ML VIAL/SYRINGE SC SCH ×3 (05:04→20:33)
[2021-07-09 06:38] LABS: CALCIUM LEVEL 8.2 MG/DL (8.5-10.1); CREATININE FOR GFR 1.36 MG/DL (0.70-1.30); GLOMERULAR FILTRATION RATE 58.4 (>56); POTASSIUM SERUM 4.1 MEQ/L (3.5-5.1)
[2021-07-09] MEDS ORDERED: MIRA3350 PO (07:44)
[2021-07-09] MEDS ORDERED: BACITAB PO (07:44)
[2021-07-09] MEDS ORDERED: SUCR1TAB56 PO (07:44)
[2021-07-09] MEDS ORDERED: OMEP40CA5 PO (07:44)
[2021-07-09] MEDS ORDERED: HOME MED LIST COMPLETE! XX SCH (07:45)
[2021-07-09] MEDS: PIPERACILLIN/TAZOBACTAM SOD 3.375 GM in D5W MINI-BAG PLUS 50 ML IV SCH ×3 (07:58→20:33)
[2021-07-09] MEDS: PANTOPRAZOLE 40MG VIAL (C9113 PER 1) IV SCH (07:58)
[2021-07-09] MEDS ORDERED: ACETAMINOPHEN TAB 650MG DOSE (2X325MG) PO PRN (09:35)
[2021-07-09] MEDS ORDERED: MORPHINE 4 MG/ML 1ML VIAL/SYRINGE (J2270) IV PRN ×3 (09:35→16:00)
[2021-07-09] MEDS: TAMSULOSIN 0.4 MG CAP PO SCH (14:34)
[2021-07-09 14:53] VITALS: BP 158/98
[2021-07-09] MEDS ORDERED: oxyCODONE 10 MG CR TAB PO ONE (16:00)
[2021-07-09] MEDS: NS 1,000 ML IV SCH (17:03)
[2021-07-09] MEDS: MORPHINE 4 MG/ML 1ML VIAL/SYRINGE (J2270) IV PRN ×2 (17:42→22:59)
[2021-07-09 22:00] VITALS: BP 159/96
[2021-07-10] MEDS: PIPERACILLIN/TAZOBACTAM SOD 3.375 GM in D5W MINI-BAG PLUS 50 ML IV SCH ×4 (02:13→20:16)
[2021-07-10] MEDS: NS 1,000 ML IV SCH ×3 (02:15→23:23)
[2021-07-10] MEDS: HEPARIN SOD (PORCINE) 5000UNITS/ML 1ML VIAL/SYRINGE SC SCH ×3 (05:38→21:11)
[2021-07-10 06:00] VITALS: BP 157/94
[2021-07-10 06:50] LABS: BASO # 0.1 10^3/uL (0.0-0.2); BASO % 0.6 % (0.0-1.0); EOS # 0.2 10^3/uL (0.0-0.5); EOS % 2.2 % (0.0-3.0); HEMATOCRIT 36.4 % (42.0-52.0); HEMOGLOBIN 11.9 g/dl (13.5-17.5); LYMPH % 35.2 % (24.0-44.0); MEAN CORPUSCULAR HEMOGLOBIN 28.8 pg (27.0-33.0); MEAN CORPUSCULAR HGB CONC 32.7 g/dl (32.0-36.5); MEAN CORPUSCULAR VOLUME 88.1 fl (80.0-96.0); MONO # 0.7 10^3/uL (0.0-0.8); MONO % 8.3 % (2.0-8.0); NEUTROPHILS # 4.6 10^3/uL (1.5-8.5); NEUTROPHILS % 53.5 % (36.0-66.0); PLATELET COUNT, AUTOMATED 348 10^3/uL (150-450); RED BLOOD COUNT 4.13 10^6/uL (4.30-6.10); WHITE BLOOD COUNT 8.6 10^3/uL (4.0-10.0)
[2021-07-10 07:13] LABS: ALBUMIN 2.8 GM/DL (3.2-5.2); ALT/SGPT 17 U/L (12-78); BILIRUBIN,TOTAL 0.7 MG/DL (0.2-1.0); BLOOD UREA NITROGEN 12 MG/DL (7-18); CALCIUM LEVEL 8.2 MG/DL (8.5-10.1); CARBON DIOXIDE LEVEL 26 MEQ/L (21-32); CHLORIDE LEVEL 106 MEQ/L (98-107); CREATININE FOR GFR 1.11 MG/DL (0.70-1.30); GLOMERULAR FILTRATION RATE > 60.0 (>56); GLUCOSE, FASTING 85 MG/DL (70-100); MAGNESIUM LEVEL 2.2 MG/DL (1.8-2.4); PHOSPHORUS LEVEL 3.1 MG/DL (2.5-4.9); POTASSIUM SERUM 3.8 MEQ/L (3.5-5.1); SODIUM LEVEL 138 MEQ/L (136-145); TOTAL PROTEIN 6.3 GM/DL (6.4-8.2)
[2021-07-10 07:46] VITALS: BP 157/100
[2021-07-10] MEDS: PANTOPRAZOLE 40MG VIAL (C9113 PER 1) IV SCH (07:51)
[2021-07-10] MEDS: TAMSULOSIN 0.4 MG CAP PO SCH (07:51)
[2021-07-10] MEDS: MORPHINE 4 MG/ML 1ML VIAL/SYRINGE (J2270) IV PRN ×4 (07:51→20:16)
[2021-07-10] MEDS ORDERED: CONRAY-60 60% 50ML VIAL (Q9961) As Ordered ONE (08:15)
[2021-07-10] MEDS ORDERED: LIDOCAINE 2% 5ML JELLY UROJET As Ordered ONE (08:31)
[2021-07-10] MEDS ORDERED: fentaNYL 100 MCG/2 ML INJECTION As Ordered ONE (09:14)
[2021-07-10] MEDS ORDERED: MIDAZOLAM INJ 2MG/2ML VIAL (J2250 PER 1MG) As Ordered ONE (09:14)
[2021-07-10] MEDS ORDERED: KETAMINE HCL 200 MG/20 ML VIAL As Ordered ONE (09:14)
[2021-07-10] MEDS ORDERED: ONDANSETRON 4MG/2ML VIAL As Ordered ONE (09:14)
[2021-07-10] MEDS ORDERED: GLYCOPYRROLATE INJ 0.2 MG/ML 2 ML VIAL As Ordered ONE (09:14)
[2021-07-10] MEDS ORDERED: propofoL 200 MG/20 ML VIAL As Ordered ONE (09:14)
[2021-07-10] MEDS ORDERED: fentaNYL 100 MCG/2 ML INJECTION IV PRN (09:35)
[2021-07-10] MEDS ORDERED: LR 1,000 ML IV SCH (09:35)
[2021-07-10] MEDS ORDERED: ONDANSETRON 4MG/2ML VIAL IV PRN (09:35)
[2021-07-10] MEDS ORDERED: oxyCODONE 5MG TAB PO PRN (09:35)
[2021-07-10 09:57] VITALS: BP 153/89
[2021-07-10 14:00] VITALS: BP 136/74
[2021-07-10 21:00] VITALS: BP 146/79
[2021-07-11] MEDS: MORPHINE 4 MG/ML 1ML VIAL/SYRINGE (J2270) IV PRN (00:58)
[2021-07-11] MEDS: PIPERACILLIN/TAZOBACTAM SOD 3.375 GM in D5W MINI-BAG PLUS 50 ML IV SCH ×2 (01:22→09:13)
[2021-07-11] MEDS: HEPARIN SOD (PORCINE) 5000UNITS/ML 1ML VIAL/SYRINGE SC SCH (05:23)
[2021-07-11 06:00] VITALS: BP 158/84
[2021-07-11 06:32] LABS: BASO # 0.1 10^3/uL (0.0-0.2); BASO % 0.6 % (0.0-1.0); EOS # 0.2 10^3/uL (0.0-0.5); EOS % 2.4 % (0.0-3.0); HEMATOCRIT 34.9 % (42.0-52.0); HEMOGLOBIN 11.4 g/dl (13.5-17.5); LYMPH # 3.1 10^3/uL (1.5-5.0); LYMPH % 39.4 % (24.0-44.0); MEAN CORPUSCULAR HGB CONC 32.7 g/dl (32.0-36.5); MEAN CORPUSCULAR VOLUME 88.8 fl (80.0-96.0); MONO # 0.7 10^3/uL (0.0-0.8); MONO % 8.3 % (2.0-8.0); NEUTROPHILS # 3.9 10^3/uL (1.5-8.5); PLATELET COUNT, AUTOMATED 349 10^3/uL (150-450); RED BLOOD COUNT 3.93 10^6/uL (4.30-6.10); WHITE BLOOD COUNT 7.9 10^3/uL (4.0-10.0)
[2021-07-11 06:48] LABS: BLOOD UREA NITROGEN 11 MG/DL (7-18); CALCIUM LEVEL 8.6 MG/DL (8.5-10.1); CARBON DIOXIDE LEVEL 28 MEQ/L (21-32); CHLORIDE LEVEL 106 MEQ/L (98-107); CREATININE FOR GFR 1.06 MG/DL (0.70-1.30); GLOMERULAR FILTRATION RATE > 60.0 (>56); GLUCOSE, FASTING 87 MG/DL (70-100); PHOSPHORUS LEVEL 3.4 MG/DL (2.5-4.9); POTASSIUM SERUM 3.8 MEQ/L (3.5-5.1); SODIUM LEVEL 139 MEQ/L (136-145)
[2021-07-11] MEDS: NS 1,000 ML IV SCH (08:35)
[2021-07-11] MEDS ORDERED: LEVO750T13 PO (08:44)
[2021-07-11] MEDS: PANTOPRAZOLE 40MG VIAL (C9113 PER 1) IV SCH (09:13)
== END 2021-07-11 11:04 | disposition home or self-care (01) | DRG 720 ==
LOC: M ED 21:50 → M ED INP 07-09 03:09 → ENRESERV 07-09 13:00 → M MSPAV 07-09 14:49
PROVIDERS: ADMIT Internal Medicine; ATTEND Internal Medicine
PROC: 0T778DZ Dilation of Left Ureter with Intraluminal Device, Via Natural or Artificial Opening Endoscopic (ICD-10-PCS; principal; 2021-07-09)
DX: A41.9 Sepsis, unspecified organism (principal); N11.1 Chronic obstructive pyelonephritis; K76.0 Fatty (change of) liver, not elsewhere classified; N10 Acute pyelonephritis; D64.9 Anemia, unspecified; N40.0 Benign prostatic hyperplasia without lower urinary tract symptoms; E78.5 Hyperlipidemia, unspecified; E66.9 Obesity, unspecified; F17.210 Nicotine dependence, cigarettes, uncomplicated; Z96.652 Presence of left artificial knee joint; K21.9 Gastro-esophageal reflux disease without esophagitis

== ENCOUNTER 2021-07-17 21:38 | Observation (INO) | payer OTHER ==
[~2021-07-17] VITALS: Ht 180.3 cm; Wt 103.6 kg
[~2021-07-17 21:38] MED LIST changes: +BACITAB PO; +LEVO750T13 PO; +OMEP40CA5 PO
[2021-07-17] MEDS ORDERED: KETOROLAC 30 MG/ML 1ML VIAL IV ONE (22:10)
[2021-07-17] MEDS ORDERED: ONDANSETRON 4MG/2ML VIAL IV ONE (22:10)
[2021-07-17] MEDS ORDERED: NS 1,000 ML IV ONE (22:10)
[2021-07-17 22:33] LABS: BASO # 0.1 10^3/uL (0.0-0.2); BASO % 0.9 % (0.0-1.0); EOS # 0.1 10^3/uL (0.0-0.5); EOS % 1.1 % (0.0-3.0); HEMATOCRIT 42.3 % (42.0-52.0); HEMOGLOBIN 14.1 g/dl (13.5-17.5); LYMPH # 2.2 10^3/uL (1.5-5.0); LYMPH % 39.3 % (24.0-44.0); MEAN CORPUSCULAR HEMOGLOBIN 28.5 pg (27.0-33.0); MEAN CORPUSCULAR HGB CONC 33.3 g/dl (32.0-36.5); MEAN CORPUSCULAR VOLUME 85.5 fl (80.0-96.0); MONO # 0.9 10^3/uL (0.0-0.8); MONO % 16.1 % (2.0-8.0); NEUTROPHILS # 2.4 10^3/uL (1.5-8.5); NEUTROPHILS % 42.2 % (36.0-66.0); PLATELET COUNT, AUTOMATED 425 10^3/uL (150-450); RED BLOOD COUNT 4.95 10^6/uL (4.30-6.10); WHITE BLOOD COUNT 5.6 10^3/uL (4.0-10.0)
[2021-07-17 23:14] LABS: ALBUMIN 3.7 GM/DL (3.2-5.2); BILIRUBIN,DIRECT 0.1 MG/DL (0.0-0.2); BILIRUBIN,TOTAL 0.5 MG/DL (0.2-1.0); TOTAL PROTEIN 7.6 GM/DL (6.4-8.2)
[2021-07-17] MEDS ORDERED: ISOVUE-370 76% 100ML VIAL As Ordered ONE (23:29)
[2021-07-18] MEDS ORDERED: SUCRALFATE SUSP 1GM/10ML UD PO SCH
[2021-07-18] MEDS ORDERED: PANTOPRAZOLE 40MG VIAL (C9113 PER 1) IV ONE (00:20)
[2021-07-18] MEDS ORDERED: VITMTA PO (01:29)
[2021-07-18] MEDS ORDERED: HOME MED LIST COMPLETE! XX SCH (01:30)
[2021-07-18] MEDS ORDERED: MAALOX 30 ML SUSP *UDC PO PRN (01:40)
[2021-07-18] MEDS ORDERED: NS 1,000 ML IV SCH (01:45)
[2021-07-18 03:18] LABS: RSV AMPLIFICATION NEGATIVE (NEGATIVE)
[2021-07-18 03:27] VITALS: BP 131/66
[2021-07-18] MEDS ORDERED: PANTOPRAZOLE 40MG VIAL (C9113 PER 1) IV SCH (12:00)
== END 2021-07-18 03:42 | disposition left against medical advice (07) ==
LOC: M ED 21:38 → M ED INP 21:39
PROVIDERS: ADMIT Internal Medicine; ATTEND Internal Medicine
DX: K29.70 Gastritis, unspecified, without bleeding (principal); Z53.29 Procedure and treatment not carried out because of patient's decision for other reasons; K27.9 Peptic ulcer, site unspecified, unspecified as acute or chronic, without hemorrhage or perforation; K26.9 Duodenal ulcer, unspecified as acute or chronic, without hemorrhage or perforation; U07.1 COVID-19; K86.1 Other chronic pancreatitis; K76.0 Fatty (change of) liver, not elsewhere classified; N40.0 Benign prostatic hyperplasia without lower urinary tract symptoms; E78.5 Hyperlipidemia, unspecified; F17.218 Nicotine dependence, cigarettes, with other nicotine-induced disorders; F10.21 Alcohol dependence, in remission; F12.10 Cannabis abuse, uncomplicated
CPT/HCPCS: 74177; 76705; 80047; 80076; 83605; 83690; 85025; 87631; 96361; 96374; 96375; 99284; C9113; J1885; J2405; Q9967

== ENCOUNTER → 2021-07-30 | Outpatient (CLI) | payer OTHER ==
[2021-07-30 14:54] LABS: HEMATOCRIT 35.5 % (42.0-52.0); HEMOGLOBIN 11.7 g/dl (13.5-17.5); MEAN CORPUSCULAR VOLUME 88.1 fl (80.0-96.0); PLATELET COUNT, AUTOMATED 341 10^3/uL (150-450); RED BLOOD COUNT 4.03 10^6/uL (4.30-6.10); WHITE BLOOD COUNT 8.4 10^3/uL (4.0-10.0)
[2021-07-30 15:00] LABS: APPEARANCE, URINE HAZY (CLEAR); BACTERIA, URINE AUTO NEGATIVE (NEGATIVE); BILIRUBIN, URINE AUTO NEGATIVE (NEGATIVE); BLOOD, URINE BLOOD 2+ (NEGATIVE); COLOR, URINE YELLOW (YELLOW); GLUCOSE, URINE (UA) AUTO NEGATIVE (NEGATIVE); KETONE, URINE AUTO NEGATIVE (NEGATIVE); LEUKOCYTE ESTERASE, URINE AUTO 1+ (NEGATIVE); MUCUS, URINE SMALL (NEGATIVE); NITRITE, URINE AUTO NEGATIVE (NEGATIVE); PROTEIN, URINE AUTO 1+ mg/dL (NEGATIVE); RBC, URINE AUTO 58 /HPF (0-3); SPECIFIC GRAVITY URINE AUTO 1.016 (1.002-1.035); SQUAMOUS EPITHELIAL CELL UR AU 0 /HPF (0-6); UROBILINOGEN, URINE AUTO 0.2 mg/dL (0.0-2.0); WBC, URINE AUTO 4 /HPF (0-3)
[2021-07-30 15:08] LABS: INR 0.95; PARTIAL THROMBOPLASTIN TIME 31.7 SECONDS (25.9-37.0); PROTHROMBIN TIME 13.1 SECONDS (12.7-14.5)
[2021-07-30 15:16] LABS: BLOOD UREA NITROGEN 9 MG/DL (7-18); CALCIUM LEVEL 9.2 MG/DL (8.5-10.1); CARBON DIOXIDE LEVEL 30 MEQ/L (21-32); CHLORIDE LEVEL 107 MEQ/L (98-107); CREATININE FOR GFR 0.88 MG/DL (0.70-1.30); GLOMERULAR FILTRATION RATE > 60.0 (>56); GLUCOSE, FASTING 89 MG/DL (70-100); POTASSIUM SERUM 4.2 MEQ/L (3.5-5.1); SODIUM LEVEL 140 MEQ/L (136-145)
== END ==
LOC: M LAB 14:09
PROVIDERS: ATTEND Nurse Practitioner Women's Health
DX: Z01.818 Encounter for other preprocedural examination (principal); N13.1 Hydronephrosis with ureteral stricture, not elsewhere classified

== ENCOUNTER 2021-08-08 10:29 | Day surgery (SDC) | payer OTHER ==
[~2021-08-08] VITALS: Ht 180.3 cm; Wt 104.3 kg
[~2021-08-08 10:29] MED LIST changes: +LR 1,000 ML IV ONE; +ceFAZolin SOD 2 GM in IV 1 EA IV ONE
[2021-08-08] MEDS ORDERED: KETOROLAC 30 MG/ML 1ML VIAL As Ordered ONE (10:45)
[2021-08-08] MEDS ORDERED: ONDANSETRON 4MG/2ML VIAL As Ordered ONE (12:32)
[2021-08-08] MEDS ORDERED: dexameTHASONE 4 MG/ML 1ML VIAL (J1100 PER 1MG) As Ordered ONE (12:32)
[2021-08-08] MEDS ORDERED: MIDAZOLAM INJ 2MG/2ML VIAL (J2250 PER 1MG) As Ordered ONE (12:32)
[2021-08-08] MEDS ORDERED: LIDOCAINE 2% 100MG/5ML SDV (FOR ANES.) As Ordered ONE (12:32)
[2021-08-08] MEDS ORDERED: propofoL 200 MG/20 ML VIAL As Ordered ONE (12:32)
[2021-08-08] MEDS ORDERED: fentaNYL 100 MCG/2 ML INJECTION As Ordered ONE ×3 (12:32→14:39)
[2021-08-08] MEDS ORDERED: CONRAY-60 60% 50ML VIAL (Q9961) As Ordered ONE (12:57)
[2021-08-08] MEDS ORDERED: ACETAMINOPHEN 1000MG 100ML IV BTL (OFIRMEV) (J0131 PER 10MG) As Ordered ONE (13:23)
[2021-08-08] MEDS ORDERED: KETOROLAC 60MG 2ML VIAL As Ordered ONE (13:45)
[2021-08-08] MEDS ORDERED: LABETALOL 100MG/20ML VIAL As Ordered ONE ×2 (14:09→14:47)
[2021-08-08] MEDS ORDERED: PROMETHAZINE 25MG/ML 1ML VIAL IV PRN (14:55)
[2021-08-08] MEDS: fentaNYL 100 MCG/2 ML INJECTION IV PRN ×4 (14:55→15:12)
[2021-08-08] MEDS ORDERED: MEPERIDINE INJ 25 MG/ML VIAL (J2175) IV PRN (14:55)
[2021-08-08] MEDS ORDERED: ONDANSETRON 4MG/2ML VIAL IV PRN (14:55)
[2021-08-08] MEDS ORDERED: LR 1,000 ML IV SCH (14:55)
[2021-08-08] MEDS ORDERED: HYDROMORPHONE HCL 0.5 MG/ 0.5 ML SYRINGE (J1170 PER 1) IV PRN (14:55)
[2021-08-08] MEDS ORDERED: METOCLOPRAMIDE INJ 10MG/2ML VIAL (J2765 PER 1) IV PRN (14:55)
[2021-08-08] MEDS ORDERED: PERCOCET 5MG/325MG TAB PO PRN (14:55)
[2021-08-08] MEDS: LABETALOL 100MG/20ML VIAL IV PRN ×2 (14:57→15:03)
[2021-08-08] MEDS ORDERED: hydrALAZINE 20MG/ML 1ML VIAL (J0360 PER 20MG) IV PRN (15:00)
[2021-08-08 15:03] VITALS: BP 176/106
[2021-08-08 16:58] VITALS: BP 154/86
== END 2021-08-08 17:10 | disposition home or self-care (01) ==
LOC: M SDC 10:29
PROVIDERS: ATTEND Urology
DX: N13.1 Hydronephrosis with ureteral stricture, not elsewhere classified (principal); F12.10 Cannabis abuse, uncomplicated; F17.218 Nicotine dependence, cigarettes, with other nicotine-induced disorders; Z86.16 Personal history of COVID-19; Z79.899 Other long term (current) drug therapy
CPT/HCPCS: 52356; 74420; 87428; C1769; C2617; J0131; J0360; J0690; J1100; J1170; J1885; J2250; J2405; J3010; Q9961

== ENCOUNTER → 2021-09-08 | Outpatient (REF) | payer OTHER ==
[~2021-09-08] MED LIST changes: -LR 1,000 ML IV ONE; -ceFAZolin SOD 2 GM in IV 1 EA IV ONE
== END ==
LOC: M SMT 16:41
PROVIDERS: ATTEND Urology
DX: R30.0 Dysuria (principal)

== ENCOUNTER 2021-09-09 14:06 | Inpatient (IN) | payer OTHER ==
[~2021-09-09] VITALS: Ht 180.3 cm; Wt 104.5 kg
[2021-09-09 16:10] LABS: BASO % 0.3 % (0.0-1.0); EOS % 0.1 % (0.0-3.0); HEMATOCRIT 40.2 % (42.0-52.0); HEMOGLOBIN 13.5 g/dl (13.5-17.5); LYMPH # 1.5 10^3/uL (1.5-5.0); LYMPH % 10.8 % (24.0-44.0); MEAN CORPUSCULAR HEMOGLOBIN 29.4 pg (27.0-33.0); MEAN CORPUSCULAR HGB CONC 33.6 g/dl (32.0-36.5); MEAN CORPUSCULAR VOLUME 87.6 fl (80.0-96.0); MONO # 0.6 10^3/uL (0.0-0.8); MONO % 4.4 % (2.0-8.0); NEUTROPHILS # 11.5 10^3/uL (1.5-8.5); NEUTROPHILS % 83.8 % (36.0-66.0); PLATELET COUNT, AUTOMATED 374 10^3/uL (150-450); RED BLOOD COUNT 4.59 10^6/uL (4.30-6.10); WHITE BLOOD COUNT 13.7 10^3/uL (4.0-10.0)
[2021-09-09 16:28] LABS: BLOOD UREA NITROGEN 12 MG/DL (7-18); CALCIUM LEVEL 9.5 MG/DL (8.5-10.1); CARBON DIOXIDE LEVEL 25 MEQ/L (21-32); CHLORIDE LEVEL 106 MEQ/L (98-107); GLOMERULAR FILTRATION RATE > 60.0 (>56); GLUCOSE, FASTING 132 MG/DL (70-100); POTASSIUM SERUM 4.1 MEQ/L (3.5-5.1); SODIUM LEVEL 138 MEQ/L (136-145)
[2021-09-09] MEDS ORDERED: ONDANSETRON 4MG/2ML VIAL IV ONE (17:40)
[2021-09-09] MEDS ORDERED: MORPHINE 4 MG/ML 1ML VIAL/SYRINGE IV ONE ×2 (17:40→19:30)
[2021-09-09] MEDS ORDERED: NS 1,000 ML IV ONE (17:40)
[2021-09-09] MEDS ORDERED: ISOVUE-370 76% 100ML VIAL As Ordered ONE (17:49)
[2021-09-09] MEDS ORDERED: ACETAMINOPHEN TAB 650MG DOSE (2X325MG) PO PRN (20:15)
[2021-09-09] MEDS ORDERED: ONDANSETRON 4MG/2ML VIAL IV PRN (20:15)
[2021-09-09] MEDS ORDERED: MORPHINE 2 MG/ML 1ML VIAL IV PRN (20:15)
[2021-09-09] MEDS ORDERED: HOME MED LIST COMPLETE! XX SCH (20:50)
[2021-09-09] MEDS ORDERED: cefTRIAXone SOD 1 GM in D5W MINI-BAG PLUS 50 ML IV SCH (21:00)
[2021-09-09] MEDS ORDERED: BISACODYL 5 MG TAB PO PRN (21:15)
[2021-09-09] MEDS ORDERED: MORPHINE 2 MG/ML 1ML VIAL IV ONE (21:15)
[2021-09-09 21:22] LABS: RSV AMPLIFICATION NEGATIVE (NEGATIVE)
[2021-09-09] MEDS: KETOROLAC 30 MG/ML 1ML VIAL IV PRN (21:53)
[2021-09-09] MEDS: SUCRALFATE 1 GM TAB PO SCH (21:53)
[2021-09-09] MEDS ORDERED: CIPROFLOXACIN 400 MG in IV 1 EA IV SCH (22:00)
[2021-09-09] MEDS: LIDOCAINE 5% (LIDODERM) PATCH TD SCH (22:08)
[2021-09-09] MEDS: DOCUSATE SODIUM 100MG CAPSULE PO SCH (22:09)
[2021-09-10 01:00] VITALS: BP 140/84
[2021-09-10] MEDS: MORPHINE 4 MG/ML 1ML VIAL/SYRINGE IV PRN ×2 (01:03→05:17)
[2021-09-10] MEDS: NS 1,000 ML IV SCH ×3 (01:22→22:16)
[2021-09-10] MEDS ORDERED: MORPHINE 2 MG/ML 1ML VIAL IV PRN (01:45)
[2021-09-10] MEDS ORDERED: diphenhydrAMINE 50MG/ML VIAL (J1200) IV PRN (01:45)
[2021-09-10] MEDS ORDERED: NALOXONE INJ 0.4MG/1ML VIAL (J2310 PER 1MG) IV PRN (05:45)
[2021-09-10 06:00] VITALS: BP 133/79
[2021-09-10 07:09] LABS: BASO % 0.3 % (0.0-1.0); EOS # 0.1 10^3/uL (0.0-0.5); EOS % 1.3 % (0.0-3.0); HEMATOCRIT 38.2 % (42.0-52.0); HEMOGLOBIN 12.5 g/dl (13.5-17.5); LYMPH # 3.2 10^3/uL (1.5-5.0); LYMPH % 33.9 % (24.0-44.0); MEAN CORPUSCULAR HEMOGLOBIN 29.8 pg (27.0-33.0); MEAN CORPUSCULAR HGB CONC 32.7 g/dl (32.0-36.5); MONO % 10.9 % (2.0-8.0); NEUTROPHILS % 53.3 % (36.0-66.0); PLATELET COUNT, AUTOMATED 323 10^3/uL (150-450); WHITE BLOOD COUNT 9.4 10^3/uL (4.0-10.0)
[2021-09-10 07:30] LABS: CALCIUM LEVEL 8.7 MG/DL (8.5-10.1); CREATININE FOR GFR 1.37 MG/DL (0.70-1.30); GLOMERULAR FILTRATION RATE 57.9 (>56); POTASSIUM SERUM 4.1 MEQ/L (3.5-5.1)
[2021-09-10] MEDS: SUCRALFATE 1 GM TAB PO SCH ×4 (07:30→20:23)
[2021-09-10] MEDS: KETOROLAC 30 MG/ML 1ML VIAL IV PRN ×2 (08:04→20:08)
[2021-09-10] MEDS: cefTRIAXone SOD 1 GM in D5W MINI-BAG PLUS 50 ML IV SCH (08:14)
[2021-09-10] MEDS: MIRALAX *UNIT DOSE* 17GM PACKET PO SCH (09:00)
[2021-09-10] MEDS: **NOTE PATIENT COMMENT** MISC XX SCH (09:00)
[2021-09-10] MEDS ORDERED: ENOXAPARIN 40MG/0.4ML SYRINGE (J1650 PER 10MG) SC SCH (09:00)
[2021-09-10] MEDS: MULTIVITAMINS/MINERALS THERAP 1 TAB PO SCH (09:00)
[2021-09-10] MEDS: DOCUSATE SODIUM 100MG CAPSULE PO SCH ×2 (09:00→20:23)
[2021-09-10] MEDS ORDERED: ACETAMINOPHEN 1000MG 100ML IV BTL (OFIRMEV) (J0131 PER 10MG) As Ordered ONE (09:59)
[2021-09-10] MEDS ORDERED: dexameTHASONE 4 MG/ML 1ML VIAL (J1100 PER 1MG) As Ordered ONE (09:59)
[2021-09-10] MEDS ORDERED: propofoL 200 MG/20 ML VIAL As Ordered ONE (09:59)
[2021-09-10] MEDS ORDERED: ONDANSETRON 4MG/2ML VIAL As Ordered ONE (09:59)
[2021-09-10] MEDS ORDERED: MIDAZOLAM INJ 2MG/2ML VIAL (J2250 PER 1MG) As Ordered ONE (09:59)
[2021-09-10] MEDS ORDERED: SUGAMMADEX SODIUM 500 MG/5 ML VIAL (BRIDION) As Ordered ONE (09:59)
[2021-09-10] MEDS ORDERED: LIDOCAINE 2% 100MG/5ML SDV (FOR ANES.) As Ordered ONE (09:59)
[2021-09-10] MEDS ORDERED: HYDROmorphone HCL 2MG/ML 1ML VIAL As Ordered ONE (09:59)
[2021-09-10] MEDS ORDERED: fentaNYL 100 MCG/2 ML INJECTION As Ordered ONE (10:00)
[2021-09-10] MEDS ORDERED: ROCURONIUM BROMIDE 50 MG/5 ML VIAL As Ordered ONE ×4 (10:04→16:44)
[2021-09-10 10:45] VITALS: BP 132/79
[2021-09-10] MEDS ORDERED: BUPIVACAINE HCL 0.25% 30ML VIAL As Ordered ONE (11:20)
[2021-09-10] MEDS ORDERED: LIDOCAINE 1% SDV 30ML VIAL As Ordered ONE (11:20)
[2021-09-10] MEDS ORDERED: ceFAZolin 2 GM/D5W 50 ML IV BAG (J0690 PER 500MG) As Ordered ONE (11:21)
[2021-09-10] MEDS ORDERED: PHENYLephrine 500MCG 5ML (100MCG/ML) SYRINGE As Ordered ONE (11:27)
[2021-09-10] MEDS ORDERED: LABETALOL 100MG/20ML VIAL As Ordered ONE (13:18)
[2021-09-10] MEDS ORDERED: PERCOCET 5MG/325MG TAB PO PRN ×2 (18:20→18:50)
[2021-09-10] MEDS ORDERED: ONDANSETRON 4MG/2ML VIAL IV PRN (18:50)
[2021-09-10] MEDS ORDERED: LR 1,000 ML IV SCH (18:50)
[2021-09-10] MEDS ORDERED: fentaNYL 100 MCG/2 ML INJECTION IV PRN (18:50)
[2021-09-10 19:01] LABS: HEMATOCRIT 39.8 % (42.0-52.0); HEMOGLOBIN 12.8 g/dl (13.5-17.5); MEAN CORPUSCULAR HEMOGLOBIN 29.4 pg (27.0-33.0); MEAN CORPUSCULAR HGB CONC 32.2 g/dl (32.0-36.5); MEAN CORPUSCULAR VOLUME 91.3 fl (80.0-96.0); PLATELET COUNT, AUTOMATED 320 10^3/uL (150-450); RED BLOOD COUNT 4.36 10^6/uL (4.30-6.10); WHITE BLOOD COUNT 11.3 10^3/uL (4.0-10.0)
[2021-09-10 19:09] VITALS: BP 153/94
[2021-09-10 19:20] LABS: CREATININE FOR GFR 1.73 MG/DL (0.70-1.30); GLOMERULAR FILTRATION RATE 44.2 (>56); POTASSIUM SERUM 4.9 MEQ/L (3.5-5.1)
[2021-09-10 20:00] VITALS: BP 147/84
[2021-09-10] MEDS: LIDOCAINE 5% (LIDODERM) PATCH TD SCH (20:08)
[2021-09-10 21:00] VITALS: BP 136/70
[2021-09-10] MEDS: HEPARIN SOD (PORCINE) 5000UNITS/ML 1ML VIAL/SYRINGE SQ SCH (22:16)
[2021-09-11] MEDS: PERCOCET 5MG/325MG TAB PO PRN ×3 (01:25→12:31)
[2021-09-11 05:48] LABS: HEMATOCRIT 35.9 % (42.0-52.0); HEMOGLOBIN 11.7 g/dl (13.5-17.5); MEAN CORPUSCULAR HEMOGLOBIN 29.7 pg (27.0-33.0); MEAN CORPUSCULAR HGB CONC 32.6 g/dl (32.0-36.5); MEAN CORPUSCULAR VOLUME 91.1 fl (80.0-96.0); PLATELET COUNT, AUTOMATED 293 10^3/uL (150-450); RED BLOOD COUNT 3.94 10^6/uL (4.30-6.10); WHITE BLOOD COUNT 14.2 10^3/uL (4.0-10.0)
[2021-09-11 06:00] VITALS: BP 155/89
[2021-09-11] MEDS: HEPARIN SOD (PORCINE) 5000UNITS/ML 1ML VIAL/SYRINGE SQ SCH ×2 (06:16→14:40)
[2021-09-11 06:24] LABS: BLOOD UREA NITROGEN 18 MG/DL (7-18); CALCIUM LEVEL 8.2 MG/DL (8.5-10.1); CARBON DIOXIDE LEVEL 27 MEQ/L (21-32); CHLORIDE LEVEL 107 MEQ/L (98-107); CREATININE FOR GFR 1.17 MG/DL (0.70-1.30); GLOMERULAR FILTRATION RATE > 60.0 (>56); GLUCOSE, FASTING 90 MG/DL (70-100); POTASSIUM SERUM 4.2 MEQ/L (3.5-5.1); SODIUM LEVEL 139 MEQ/L (136-145)
[2021-09-11] MEDS ORDERED: KETOROLAC 30 MG/ML 1ML VIAL IV ONE (07:20)
[2021-09-11] MEDS: MIRALAX *UNIT DOSE* 17GM PACKET PO SCH (07:44)
[2021-09-11] MEDS: MULTIVITAMINS/MINERALS THERAP 1 TAB PO SCH (07:44)
[2021-09-11] MEDS: SUCRALFATE 1 GM TAB PO SCH ×4 (07:44→20:53)
[2021-09-11] MEDS: cefTRIAXone SOD 1 GM in D5W MINI-BAG PLUS 50 ML IV SCH (07:44)
[2021-09-11] MEDS: DOCUSATE SODIUM 100MG CAPSULE PO SCH ×2 (07:44→20:53)
[2021-09-11] MEDS: **NOTE PATIENT COMMENT** MISC XX SCH (07:45)
[2021-09-11] MEDS ORDERED: MORPHINE 4 MG/ML 1ML VIAL/SYRINGE IV ONE (08:45)
[2021-09-11] MEDS ORDERED: ACETAMINOPHEN TAB 650MG DOSE (2X325MG) PO PRN (13:15)
[2021-09-11] MEDS: MORPHINE 4 MG/ML 1ML VIAL/SYRINGE IV PRN ×2 (14:39→20:53)
[2021-09-11 15:06] VITALS: BP 146/80
[2021-09-11] MEDS: KETOROLAC 30 MG/ML 1ML VIAL IV PRN (18:00)
[2021-09-11 20:00] VITALS: BP 153/79
[2021-09-11] MEDS: LIDOCAINE 5% (LIDODERM) PATCH TD SCH (20:53)
[2021-09-12 02:00] VITALS: BP 148/76
[2021-09-12 06:00] VITALS: BP 161/73
[2021-09-12] MEDS ORDERED: IBUPROFEN 600MG TAB PO SCH (06:00)
[2021-09-12] MEDS ORDERED: PERCOCET 5MG/325MG TAB PO PRN (07:15)
[2021-09-12] MEDS ORDERED: PERCOCET PO (07:37)
[2021-09-12] MEDS ORDERED: COLA100C5 PO (07:37)
[2021-09-12 08:37] LABS: HEMATOCRIT 36.3 % (42.0-52.0); HEMOGLOBIN 11.9 g/dl (13.5-17.5); MEAN CORPUSCULAR HEMOGLOBIN 29.7 pg (27.0-33.0); MEAN CORPUSCULAR HGB CONC 32.8 g/dl (32.0-36.5); MEAN CORPUSCULAR VOLUME 90.5 fl (80.0-96.0); PLATELET COUNT, AUTOMATED 285 10^3/uL (150-450); RED BLOOD COUNT 4.01 10^6/uL (4.30-6.10)
[2021-09-12 08:58] LABS: BLOOD UREA NITROGEN 15 MG/DL (7-18); CALCIUM LEVEL 8.8 MG/DL (8.5-10.1); CARBON DIOXIDE LEVEL 25 MEQ/L (21-32); CHLORIDE LEVEL 107 MEQ/L (98-107); CREATININE FOR GFR 0.74 MG/DL (0.70-1.30); GLOMERULAR FILTRATION RATE > 60.0 (>56); GLUCOSE, FASTING 104 MG/DL (70-100); POTASSIUM SERUM 4.2 MEQ/L (3.5-5.1); SODIUM LEVEL 140 MEQ/L (136-145)
[2021-09-12] MEDS ORDERED: ENOXAPARIN 40MG/0.4ML SYRINGE (J1650 PER 10MG) SC SCH (09:00)
[2021-09-12] MEDS: **NOTE PATIENT COMMENT** MISC XX SCH (09:27)
[2021-09-12] MEDS: MIRALAX *UNIT DOSE* 17GM PACKET PO SCH (09:27)
[2021-09-12] MEDS: MULTIVITAMINS/MINERALS THERAP 1 TAB PO SCH (09:27)
[2021-09-12] MEDS: SUCRALFATE 1 GM TAB PO SCH ×2 (09:27→12:32)
[2021-09-12] MEDS: DOCUSATE SODIUM 100MG CAPSULE PO SCH (09:27)
[2021-09-12] MEDS ORDERED: SENNA 8.6 MG TAB (SENOKOT) PO SCH (21:00)
== END 2021-09-12 13:50 | disposition home or self-care (01) | DRG 443 ==
LOC: M ED 14:06 → M ED INP 14:07 → ENRESERV 23:49 → M MS5PR 09-10 00:50 → OBSVTOIN 09-11 20:03
PROVIDERS: ADMIT Internal Medicine; ATTEND Internal Medicine
PROC: 0T773DZ Dilation of Left Ureter with Intraluminal Device, Percutaneous Approach (ICD-10-PCS; 2021-09-10)
PROC: 8E0W4CZ Robotic Assisted Procedure of Trunk Region, Percutaneous Endoscopic Approach (ICD-10-PCS; 2021-09-10)
PROC: 0T174Z7 Bypass Left Ureter to Left Ureter, Percutaneous Endoscopic Approach (ICD-10-PCS; principal; 2021-09-10 13:00)
DX: N13.1 Hydronephrosis with ureteral stricture, not elsewhere classified (principal); E66.9 Obesity, unspecified; N39.0 Urinary tract infection, site not specified; G47.33 Obstructive sleep apnea (adult) (pediatric); K21.9 Gastro-esophageal reflux disease without esophagitis; R31.9 Hematuria, unspecified; K59.00 Constipation, unspecified; F17.200 Nicotine dependence, unspecified, uncomplicated

== ENCOUNTER 2022-01-06 16:07 | Emergency (ER) | payer OTHER ==
[~2022-01-06] VITALS: Ht 180.3 cm; Wt 98.8 kg
[~2022-01-06 16:07] MED LIST changes: +COLA100C5 PO; +LEVO1TAB40 PO; -LEVO750T13 PO
[2022-01-06] MEDS ORDERED: NS 1,000 ML IV ONE (17:55)
[2022-01-06] MEDS ORDERED: MORPHINE 4 MG/ML 1ML VIAL/SYRINGE IV ONE (17:55)
[2022-01-06] MEDS ORDERED: ONDANSETRON 4MG 2ML VIAL IV ONE (17:55)
[2022-01-06 18:05] LABS: RBC, URINE NONE SEEN /hpf (0-3); SQUAMOUS EPITHELIAL CELL URINE SMALL AMOUNT /hpf (SMALL AMT); WBC, URINE NONE SEEN /hpf (0-3)
[2022-01-06 18:06] LABS: AMORPHOUS SEDIMENT, URINE SMALL AMOUNT (NEGATIVE); BACTERIA, URINE NONE SEEN; HYALINE CAST, URINE NONE SEEN /lpf (0-1); MUCUS, URINE SMALL AMOUNT (NEGATIVE)
[2022-01-06 18:13] LABS: BLOOD UREA NITROGEN 16 MG/DL (7-18); CREATININE FOR GFR 1.09 MG/DL (0.70-1.30); GLUCOSE, FASTING 119 MG/DL (70-100)
[2022-01-06 18:14] LABS: ALT/SGPT 47 U/L (12-78); BILIRUBIN,DIRECT 0.3 MG/DL (0.0-0.2); BILIRUBIN,TOTAL 0.8 MG/DL (0.2-1.0); CALCIUM LEVEL 9.8 MG/DL (8.5-10.1); CARBON DIOXIDE LEVEL 29 MEQ/L (21-32); CHLORIDE LEVEL 96 MEQ/L (98-107); GLOMERULAR FILTRATION RATE > 60.0 (>56); LIPASE 278 U/L (73-393); POTASSIUM SERUM 3.8 MEQ/L (3.5-5.1); SODIUM LEVEL 132 MEQ/L (136-145); TOTAL PROTEIN 7.7 GM/DL (6.4-8.2)
[2022-01-06 18:20] LABS: BASO % 0.4 % (0.0-1.0); EOS # 0.1 10^3/uL (0.0-0.5); EOS % 0.7 % (0.0-3.0); HEMATOCRIT 45.3 % (42.0-52.0); LYMPH # 2.9 10^3/uL (1.5-5.0); LYMPH % 28.4 % (24.0-44.0); MEAN CORPUSCULAR HEMOGLOBIN 29.7 pg (27.0-33.0); MEAN CORPUSCULAR HGB CONC 33.1 g/dl (32.0-36.5); MEAN CORPUSCULAR VOLUME 89.7 fl (80.0-96.0); MONO # 0.9 10^3/uL (0.0-0.8); MONO % 8.4 % (2.0-8.0); NEUTROPHILS # 6.3 10^3/uL (1.5-8.5); NEUTROPHILS % 61.7 % (36.0-66.0); PLATELET COUNT, AUTOMATED 348 10^3/uL (150-450); RED BLOOD COUNT 5.05 10^6/uL (4.30-6.10); WHITE BLOOD COUNT 10.2 10^3/uL (4.0-10.0)
[2022-01-06] MEDS ORDERED: KETOROLAC 30 MG/ML 1ML VIAL IV ONE (19:35)
[2022-01-06 20:27] LABS: RSV AMPLIFICATION NEGATIVE (NEGATIVE)
[2022-01-06 21:18] VITALS: BP 138/74
[2022-01-06] MEDS ORDERED: KETO10TAB PO (21:21)
== END 2022-01-06 21:38 | disposition home or self-care (01) ==
LOC: M ED 16:07
DX: R10.9 Unspecified abdominal pain (principal); I10 Essential (primary) hypertension; E78.5 Hyperlipidemia, unspecified; F41.9 Anxiety disorder, unspecified; K21.9 Gastro-esophageal reflux disease without esophagitis; F12.10 Cannabis abuse, uncomplicated; F17.200 Nicotine dependence, unspecified, uncomplicated; Z87.442 Personal history of urinary calculi; Z79.899 Other long term (current) drug therapy
CPT/HCPCS: 74176; 80048; 80076; 81000; 83690; 85025; 87631; 96374; 96375; 99284; J1885; J2270; J2405

== ENCOUNTER 2022-09-20 23:38 | Inpatient (IN) | payer OTHER ==
[~2022-09-20] VITALS: Ht 180.3 cm; Wt 102.8 kg
[2022-09-21] MEDS ORDERED: NS 1,000 ML IV ONE
[2022-09-21 00:14] LABS: BASO # 0.1 10^3/uL (0.0-0.2); BASO % 0.3 % (0.0-1.0); EOS % 0.2 % (0.0-3.0); HEMATOCRIT 47.6 % (42.0-52.0); LYMPH # 2.8 10^3/uL (1.5-5.0); LYMPH % 16.7 % (24.0-44.0); MEAN CORPUSCULAR HEMOGLOBIN 29.4 pg (27.0-33.0); MEAN CORPUSCULAR HGB CONC 33.6 g/dl (32.0-36.5); MEAN CORPUSCULAR VOLUME 87.3 fl (80.0-96.0); MONO # 1.2 10^3/uL (0.0-0.8); MONO % 7.2 % (2.0-8.0); NEUTROPHILS # 12.7 10^3/uL (1.5-8.5); NEUTROPHILS % 75.2 % (36.0-66.0); PLATELET COUNT, AUTOMATED 373 10^3/uL (150-450); RED BLOOD COUNT 5.45 10^6/uL (4.30-6.10); WHITE BLOOD COUNT 16.8 10^3/uL (4.0-10.0)
[2022-09-21] MEDS ORDERED: KETOROLAC 30 MG/ML 1ML VIAL IV ONE (00:20)
[2022-09-21] MEDS ORDERED: ONDANSETRON 4MG 2ML VIAL IV ONE (00:20)
[2022-09-21 00:43] LABS: LIPASE 172 U/L (12-53)
[2022-09-21 00:45] LABS: ALBUMIN 4.2 G/DL (3.2-5.2); ALKALINE PHOSPHATASE 70 U/L (46-116); ALT/SGPT 21 U/L (7.0-40); AST/SGOT 21 U/L (<34); BILIRUBIN,TOTAL 1.2 MG/DL (0.3-1.2); BLOOD UREA NITROGEN 16 MG/DL (9-23); CALCIUM LEVEL 9.5 MG/DL (8.5-10.1); CARBON DIOXIDE LEVEL 26 MMOL/L (20-31); CHLORIDE LEVEL 97 MMOL/L (98-107); CREATININE FOR GFR 0.88 MG/DL (0.70-1.30); GLOMERULAR FILTRATION RATE > 60.0 (>56); GLUCOSE, FASTING 126 MG/DL (60-100); POTASSIUM SERUM 3.8 MMOL/L (3.5-5.1); SODIUM LEVEL 133 MMOL/L (136-145); TOTAL PROTEIN 8.2 G/DL (5.7-8.2)
[2022-09-21] MEDS ORDERED: HYDROMORPHONE HCL 0.5 MG/ 0.5 ML SYRINGE IV ONE (00:55)
[2022-09-21] MEDS ORDERED: ISOVUE-370 76% 100ML VIAL As Ordered ONE (01:03)
[2022-09-21] MEDS ORDERED: cefTRIAXone SOD 1 GM in D5W MINI-BAG PLUS 50 ML IV ONE (02:00)
[2022-09-21] MEDS ORDERED: HOME MED LIST COMPLETE! XX SCH (02:20)
[2022-09-21] MEDS ORDERED: HYDROMORPHONE HCL 0.5 MG/ 0.5 ML SYRINGE IV PRN (02:45)
[2022-09-21] MEDS ORDERED: ONDANSETRON 4MG 2ML VIAL IV PRN (02:45)
[2022-09-21] MEDS ORDERED: ACETAMINOPHEN TAB 650MG DOSE (2X325MG) PO PRN (02:45)
[2022-09-21] MEDS: NS 1,000 ML IV SCH ×2 (03:00→09:56)
[2022-09-21 03:04] LABS: RSV AMPLIFICATION NEGATIVE (NEGATIVE)
[2022-09-21 03:51] VITALS: BP 182/95
[2022-09-21] MEDS: HYDROMORPHONE HCL 0.5 MG/ 0.5 ML SYRINGE IV PRN ×6 (04:04→21:04)
[2022-09-21 05:59] LABS: HEMATOCRIT 44.7 % (42.0-52.0); HEMOGLOBIN 14.7 g/dl (13.5-17.5); MEAN CORPUSCULAR HEMOGLOBIN 29.7 pg (27.0-33.0); MEAN CORPUSCULAR HGB CONC 32.9 g/dl (32.0-36.5); MEAN CORPUSCULAR VOLUME 90.3 fl (80.0-96.0); PLATELET COUNT, AUTOMATED 344 10^3/uL (150-450); RED BLOOD COUNT 4.95 10^6/uL (4.30-6.10); WHITE BLOOD COUNT 14.1 10^3/uL (4.0-10.0)
[2022-09-21] MEDS ORDERED: KETOROLAC 30 MG/ML 1ML VIAL IV SCH (06:00)
[2022-09-21 06:26] LABS: BLOOD UREA NITROGEN 18 MG/DL (9-23); CALCIUM LEVEL 8.8 MG/DL (8.5-10.1); CARBON DIOXIDE LEVEL 28 MMOL/L (20-31); CHLORIDE LEVEL 101 MMOL/L (98-107); CREATININE FOR GFR 0.86 MG/DL (0.70-1.30); GLOMERULAR FILTRATION RATE > 60.0 (>56); GLUCOSE, FASTING 105 MG/DL (60-100); MAGNESIUM LEVEL 1.7 MG/DL (1.8-2.4); POTASSIUM SERUM 3.8 MMOL/L (3.5-5.1); SODIUM LEVEL 135 MMOL/L (136-145)
[2022-09-21] MEDS: MIRALAX *UNIT DOSE* 17GM PACKET PO SCH (09:00)
[2022-09-21] MEDS: ENOXAPARIN 40MG/0.4ML SYRINGE (J1650 PER 10MG) SC SCH (09:54)
[2022-09-21] MEDS ORDERED: PERCOCET 5MG/325MG TAB PO PRN (10:15)
[2022-09-21] MEDS ORDERED: amLODIPine 5 MG TAB PO SCH (10:20)
[2022-09-21] MEDS ORDERED: LABETALOL 100MG/20ML VIAL IV PRN (10:20)
[2022-09-21] MEDS: MAG SULF 1GM/100ML (MAG RUN) 1 GM in IV 1 EA IV SCH ×2 (10:51→12:04)
[2022-09-21] MEDS ORDERED: PANTOPRAZOLE 40MG VIAL IV SCH (11:00)
[2022-09-21 14:00] VITALS: BP 142/66
[2022-09-21] MEDS ORDERED: SIMETHICONE 80MG CHEW TAB PO PRN (19:30)
[2022-09-21 20:00] VITALS: BP 150/73
[2022-09-21] MEDS ORDERED: cefTRIAXone SOD 1 GM in D5W MINI-BAG PLUS 50 ML IV SCH (22:00)
[2022-09-22] MEDS: HYDROMORPHONE HCL 0.5 MG/ 0.5 ML SYRINGE IV PRN (00:08)
[2022-09-22 05:59] LABS: BASO # 0.1 10^3/uL (0.0-0.2); BASO % 0.6 % (0.0-1.0); EOS # 0.2 10^3/uL (0.0-0.5); EOS % 2.1 % (0.0-3.0); HEMATOCRIT 43.8 % (42.0-52.0); HEMOGLOBIN 13.9 g/dl (13.5-17.5); LYMPH # 3.8 10^3/uL (1.5-5.0); LYMPH % 32.9 % (24.0-44.0); MEAN CORPUSCULAR HEMOGLOBIN 29.1 pg (27.0-33.0); MEAN CORPUSCULAR HGB CONC 31.7 g/dl (32.0-36.5); MEAN CORPUSCULAR VOLUME 91.6 fl (80.0-96.0); MONO % 8.6 % (2.0-8.0); NEUTROPHILS # 6.4 10^3/uL (1.5-8.5); NEUTROPHILS % 55.5 % (36.0-66.0); PLATELET COUNT, AUTOMATED 324 10^3/uL (150-450); RED BLOOD COUNT 4.78 10^6/uL (4.30-6.10); WHITE BLOOD COUNT 11.5 10^3/uL (4.0-10.0)
[2022-09-22 06:00] VITALS: BP 130/88
[2022-09-22 06:24] LABS: BLOOD UREA NITROGEN 17 MG/DL (9-23); CALCIUM LEVEL 8.7 MG/DL (8.5-10.1); CARBON DIOXIDE LEVEL 30 MMOL/L (20-31); CHLORIDE LEVEL 103 MMOL/L (98-107); CREATININE FOR GFR 0.94 MG/DL (0.70-1.30); GLOMERULAR FILTRATION RATE > 60.0 (>56); GLUCOSE, FASTING 86 MG/DL (60-100); POTASSIUM SERUM 4.1 MMOL/L (3.5-5.1); SODIUM LEVEL 138 MMOL/L (136-145)
[2022-09-22] MEDS ORDERED: ACET1TAB55 PO (07:45)
[2022-09-22] MEDS ORDERED: PROT20TA11 PO (07:47)
[2022-09-22] MEDS: ENOXAPARIN 40MG/0.4ML SYRINGE (J1650 PER 10MG) SC SCH (08:57)
[2022-09-22] MEDS: MIRALAX *UNIT DOSE* 17GM PACKET PO SCH ×2 (08:57→09:17)
== END 2022-09-22 10:45 | disposition home or self-care (01) | DRG 351 ==
LOC: EDBD 23:38 → M ED 23:38 → M ED INP 09-21 02:41 → M MSPAV 09-21 03:52
PROVIDERS: ADMIT Internal Medicine; ATTEND Internal Medicine
DX: M79.18 Myalgia, other site (principal); R10.9 Unspecified abdominal pain; E87.1 Hypo-osmolality and hyponatremia; G95.9 Disease of spinal cord, unspecified; K86.1 Other chronic pancreatitis; N12 Tubulo-interstitial nephritis, not specified as acute or chronic; K27.9 Peptic ulcer, site unspecified, unspecified as acute or chronic, without hemorrhage or perforation; E83.42 Hypomagnesemia; F17.210 Nicotine dependence, cigarettes, uncomplicated; K57.30 Diverticulosis of large intestine without perforation or abscess without bleeding; M54.9 Dorsalgia, unspecified; R11.2 Nausea with vomiting, unspecified; R74.8 Abnormal levels of other serum enzymes; Z96.652 Presence of left artificial knee joint; K20.90 Esophagitis, unspecified without bleeding; I16.9 Hypertensive crisis, unspecified

== ENCOUNTER 2022-10-13 09:08 | Emergency (ER) | payer OTHER ==
[~2022-10-13] VITALS: Ht 180.3 cm; Wt 102.3 kg
[2022-10-13] MEDS ORDERED: MORPHINE 4 MG/ML 1ML VIAL IV ONE ×2 (10:15→11:50)
[2022-10-13] MEDS ORDERED: NS 1,000 ML IV ONE (10:15)
[2022-10-13] MEDS ORDERED: ONDANSETRON 4MG 2ML VIAL IV ONE (10:15)
[2022-10-13 11:08] LABS: BASO # 0.1 10^3/uL (0.0-0.2); BASO % 0.5 % (0.0-1.0); EOS # 0.1 10^3/uL (0.0-0.5); EOS % 0.4 % (0.0-3.0); HEMATOCRIT 46.1 % (42.0-52.0); HEMOGLOBIN 15.6 g/dl (13.5-17.5); LYMPH # 1.9 10^3/uL (1.5-5.0); LYMPH % 14.1 % (24.0-44.0); MEAN CORPUSCULAR HEMOGLOBIN 29.7 pg (27.0-33.0); MEAN CORPUSCULAR HGB CONC 33.8 g/dl (32.0-36.5); MEAN CORPUSCULAR VOLUME 87.6 fl (80.0-96.0); MONO # 0.8 10^3/uL (0.0-0.8); NEUTROPHILS # 10.3 10^3/uL (1.5-8.5); NEUTROPHILS % 78.6 % (36.0-66.0); PLATELET COUNT, AUTOMATED 377 10^3/uL (150-450); RED BLOOD COUNT 5.26 10^6/uL (4.30-6.10); WHITE BLOOD COUNT 13.2 10^3/uL (4.0-10.0)
[2022-10-13 11:39] LABS: ALBUMIN 3.9 G/DL (3.2-5.2); BILIRUBIN,DIRECT 0.2 MG/DL (<0.4); BILIRUBIN,TOTAL 1.1 MG/DL (0.3-1.2); TOTAL PROTEIN 7.5 G/DL (5.7-8.2)
[2022-10-13] MEDS ORDERED: ISOVUE-370 76% 100ML VIAL As Ordered ONE (11:43)
[2022-10-13 13:03] VITALS: BP 122/64
[2022-10-13] MEDS ORDERED: GI COCKTAIL 50ML BTL(HYOSCYAMINE/MAALOX/LIDOCAINE VISCOUS)(1:3:1) PO ONE (13:40)
[2022-10-13] MEDS ORDERED: SUCRALFATE 1 GM TAB PO ONE (13:40)
[2022-10-13] MEDS ORDERED: DICYCLOMINE 10 MG CAP PO ONE (13:45)
[2022-10-13] MEDS ORDERED: PANTOPRAZOLE 40MG VIAL IV ONE (14:00)
[2022-10-13] MEDS ORDERED: PROT20TA11 PO (15:31)
[2022-10-13] MEDS ORDERED: DICY10CA13 PO (15:31)
[2022-10-13] MEDS ORDERED: CARA1TAB6 PO (15:31)
[2022-10-13] MEDS ORDERED: PROM12.56 PO (15:31)
== END 2022-10-13 15:46 | disposition home or self-care (01) ==
LOC: M ED 09:08
DX: R10.9 Unspecified abdominal pain (principal); K20.90 Esophagitis, unspecified without bleeding; R11.10 Vomiting, unspecified; F41.9 Anxiety disorder, unspecified; Z87.442 Personal history of urinary calculi; Z79.810 Long term (current) use of selective estrogen receptor modulators (SERMs); Z79.899 Other long term (current) drug therapy
CPT/HCPCS: 74177; 76705; 80047; 80076; 83690; 85025; 96361; 96374; 96375; 96376; 99284; C9113; J2405; Q9967

== ENCOUNTER 2022-10-14 08:34 | Observation (INO) | payer OTHER ==
[~2022-10-14] VITALS: Ht 180.3 cm; Wt 104.0 kg
[~2022-10-14 08:34] MED LIST changes: +DICY10CA13 PO; +PROM12.56 PO
[2022-10-14 09:55] LABS: BASO # 0.1 10^3/uL (0.0-0.2); BASO % 0.5 % (0.0-1.0); EOS # 0.1 10^3/uL (0.0-0.5); HEMATOCRIT 43.7 % (42.0-52.0); HEMOGLOBIN 14.7 g/dl (13.5-17.5); LYMPH # 2.3 10^3/uL (1.5-5.0); LYMPH % 21.6 % (24.0-44.0); MEAN CORPUSCULAR HEMOGLOBIN 29.5 pg (27.0-33.0); MEAN CORPUSCULAR HGB CONC 33.6 g/dl (32.0-36.5); MEAN CORPUSCULAR VOLUME 87.6 fl (80.0-96.0); MONO # 0.7 10^3/uL (0.0-0.8); MONO % 6.1 % (2.0-8.0); NEUTROPHILS # 7.6 10^3/uL (1.5-8.5); NEUTROPHILS % 70.4 % (36.0-66.0); PLATELET COUNT, AUTOMATED 370 10^3/uL (150-450); RED BLOOD COUNT 4.99 10^6/uL (4.30-6.10); WHITE BLOOD COUNT 10.8 10^3/uL (4.0-10.0)
[2022-10-14 10:02] LABS: CK-MB VALUE MASS < 1.0 NG/ML (<3.6); LIPASE 33 U/L (12-53)
[2022-10-14 10:03] LABS: CPK CREATINE PHOSPHOKINASE 84 U/L (46-171); MB/CK RELATIVE INDEX 1.19 (< OR =4)
[2022-10-14 10:04] LABS: ALBUMIN 3.9 G/DL (3.2-5.2); ALKALINE PHOSPHATASE 67 U/L (46-116); ALT/SGPT 20 U/L (7.0-40); AST/SGOT 15 U/L (<34); BILIRUBIN,DIRECT 0.2 MG/DL (<0.4); BILIRUBIN,TOTAL 0.6 MG/DL (0.3-1.2); BLOOD UREA NITROGEN 18 MG/DL (9-23); CARBON DIOXIDE LEVEL 25 MMOL/L (20-31); CHLORIDE LEVEL 101 MMOL/L (98-107); CREATININE FOR GFR 0.87 MG/DL (0.70-1.30); GLOMERULAR FILTRATION RATE > 60.0 (>56); GLUCOSE, FASTING 122 MG/DL (60-100); SODIUM LEVEL 136 MMOL/L (136-145); TOTAL PROTEIN 7.4 G/DL (5.7-8.2)
[2022-10-14 10:26] LABS: INR 0.94; PARTIAL THROMBOPLASTIN TIME 28.1 SECONDS (24.8-34.2); PROTHROMBIN TIME 12.8 SECONDS (12.5-14.5)
[2022-10-14] MEDS: HYDROMORPHONE HCL 0.5 MG/ 0.5 ML SYRINGE IV PRN ×3 (10:46→22:06)
[2022-10-14 10:47] LABS: RSV AMPLIFICATION NEGATIVE (NEGATIVE)
[2022-10-14 11:28] LABS: CK-MB VALUE MASS < 1.0 NG/ML (<3.6)
[2022-10-14] MEDS ORDERED: GI COCKTAIL 50ML BTL(HYOSCYAMINE/MAALOX/LIDOCAINE VISCOUS)(1:3:1) PO ONE (11:30)
[2022-10-14] MEDS ORDERED: HYDROMORPHONE HCL 0.5 MG/ 0.5 ML SYRINGE IV ONE ×2 (11:30→17:20)
[2022-10-14] MEDS ORDERED: NS 1,000 ML IV ONE (11:30)
[2022-10-14] MEDS ORDERED: PANTOPRAZOLE 40MG VIAL IV ONE (11:30)
[2022-10-14 11:35] LABS: CPK CREATINE PHOSPHOKINASE 81 U/L (46-171); MB/CK RELATIVE INDEX 1.23 (< OR =4)
[2022-10-14 12:05] LABS: AMPHETAMINES LEVEL URINE NEGATIVE (NEGATIVE); BARBITURATES URINE NEGATIVE (NEGATIVE); BENZODIAZEPINES URINE NEGATIVE (NEGATIVE); COCAINE METABOLITE URINE NEGATIVE (NEGATIVE); METHADONE URINE NEGATIVE (NEGATIVE); PHENCYCLIDINE URINE NEGATIVE (NEGATIVE)
[2022-10-14 12:06] LABS: CANNABINOIDS URINE POSITIVE (NEGATIVE); OPIATES URINE POSITIVE (NEGATIVE)
[2022-10-14] MEDS ORDERED: PANTOPRAZOLE SODIUM 40 MG in D5W 50 ML IV SCH (12:45)
[2022-10-14] MEDS: LR 1,000 ML IV SCH (14:04)
[2022-10-14] MEDS: SUCRALFATE SUSP 1GM/10ML UD PO SCH ×3 (14:04→22:07)
[2022-10-14] MEDS ORDERED: HOME MED LIST COMPLETE! XX SCH (14:15)
[2022-10-14] MEDS ORDERED: ISOVUE-370 76% 100ML VIAL As Ordered ONE (15:03)
[2022-10-14] MEDS ORDERED: HYDROMORPHONE HCL 0.5 MG/ 0.5 ML SYRINGE IV PRN (15:10)
[2022-10-14 15:40] VITALS: BP 162/97
[2022-10-14] MEDS: DICYCLOMINE INJ 20MG/2ML IM PRN (17:57)
[2022-10-14] MEDS: ONDANSETRON 4MG 2ML VIAL IV PRN (17:59)
[2022-10-14 20:27] VITALS: BP 141/80
[2022-10-14] MEDS: HEPARIN SOD (PORCINE) 5000UNITS/ML 1ML VIAL/SYRINGE SC SCH (22:08)
[2022-10-14] MEDS: PANTOPRAZOLE 40MG VIAL IV SCH (23:36)
[2022-10-15] VITALS (7 sets, daily range): BP systolic 121–152; BP diastolic 73–84
[2022-10-15] MEDS: HYDROMORPHONE HCL 0.5 MG/ 0.5 ML SYRINGE IV PRN ×4 (01:05→12:32)
[2022-10-15] MEDS: LR 1,000 ML IV SCH ×3 (02:46→15:53)
[2022-10-15] MEDS: HEPARIN SOD (PORCINE) 5000UNITS/ML 1ML VIAL/SYRINGE SC SCH ×2 (05:48→12:29)
[2022-10-15 06:37] LABS: BLOOD UREA NITROGEN 13 MG/DL (9-23); CALCIUM LEVEL 8.2 MG/DL (8.5-10.1); CARBON DIOXIDE LEVEL 29 MMOL/L (20-31); CHLORIDE LEVEL 104 MMOL/L (98-107); CREATININE FOR GFR 0.97 MG/DL (0.70-1.30); GLOMERULAR FILTRATION RATE > 60.0 (>56); GLUCOSE, FASTING 91 MG/DL (60-100); POTASSIUM SERUM 4.4 MMOL/L (3.5-5.1); SODIUM LEVEL 139 MMOL/L (136-145)
[2022-10-15 06:44] LABS: MEAN CORPUSCULAR HEMOGLOBIN 29.4 pg (27.0-33.0); MEAN CORPUSCULAR HGB CONC 32.1 g/dl (32.0-36.5); MEAN CORPUSCULAR VOLUME 91.8 fl (80.0-96.0); PLATELET COUNT, AUTOMATED 322 10^3/uL (150-450); RED BLOOD COUNT 4.25 10^6/uL (4.30-6.10); WHITE BLOOD COUNT 8.8 10^3/uL (4.0-10.0)
[2022-10-15 06:46] LABS: HEMOGLOBIN 12.5 g/dl (13.5-17.5)
[2022-10-15] MEDS: SUCRALFATE SUSP 1GM/10ML UD PO SCH ×3 (08:00→15:53)
[2022-10-15] MEDS: DICYCLOMINE INJ 20MG/2ML IM PRN (08:00)
[2022-10-15] MEDS: ONDANSETRON 4MG 2ML VIAL IV PRN (08:00)
[2022-10-15] MEDS ORDERED: CAPSAICIN 0.025% CR 60 GM TOP PRN (10:15)
[2022-10-15 12:14] LABS: BLOOD UREA NITROGEN 12 MG/DL (9-23); CALCIUM LEVEL 8.5 MG/DL (8.5-10.1); CARBON DIOXIDE LEVEL 27 MMOL/L (20-31); CHLORIDE LEVEL 105 MMOL/L (98-107); CREATININE FOR GFR 0.85 MG/DL (0.70-1.30); GLOMERULAR FILTRATION RATE > 60.0 (>56); GLUCOSE, FASTING 85 MG/DL (60-100); POTASSIUM SERUM 4.3 MMOL/L (3.5-5.1); SODIUM LEVEL 139 MMOL/L (136-145)
[2022-10-15] MEDS: PANTOPRAZOLE 40MG VIAL IV SCH (12:29)
[2022-10-15] MEDS ORDERED: propofoL 200 MG/20 ML VIAL As Ordered ONE ×2 (13:37→13:38)
[2022-10-15] MEDS ORDERED: LIDOCAINE 2% 100MG/5ML SDV (FOR ANES.) As Ordered ONE (13:38)
[2022-10-15] MEDS ORDERED: fentaNYL 100 MCG/2 ML INJECTION As Ordered ONE (13:55)
[2022-10-15] MEDS ORDERED: PERCOCET 5MG/325MG TAB PO PRN (15:20)
[2022-10-15] MEDS ORDERED: MAALOX 30 ML SUSP *UDC PO PRN (15:20)
[2022-10-15 18:25] LABS: BLOOD UREA NITROGEN 13 MG/DL (9-23); CARBON DIOXIDE LEVEL 29 MMOL/L (20-31); CHLORIDE LEVEL 105 MMOL/L (98-107); CREATININE FOR GFR 0.88 MG/DL (0.70-1.30); GLOMERULAR FILTRATION RATE > 60.0 (>56); GLUCOSE, FASTING 93 MG/DL (60-100); SODIUM LEVEL 138 MMOL/L (136-145)
[2022-10-16] MEDS ORDERED: PROT1TAB2 PO (08:16)
[2022-10-16] MEDS ORDERED: SUCR1ORA PO (08:16)
== END 2022-10-15 20:39 | disposition left against medical advice (07) ==
LOC: M ED 08:34 → M ED INP 13:20 → ENRESERV 14:04 → M MSPAV 15:23
PROVIDERS: ADMIT Internal Medicine; ATTEND Internal Medicine
DX: R10.13 Epigastric pain (principal); K44.9 Diaphragmatic hernia without obstruction or gangrene; K21.00 Gastro-esophageal reflux disease with esophagitis, without bleeding; K29.70 Gastritis, unspecified, without bleeding; K31.89 Other diseases of stomach and duodenum; R11.15 Cyclical vomiting syndrome unrelated to migraine; R11.2 Nausea with vomiting, unspecified; R10.30 Lower abdominal pain, unspecified; F17.210 Nicotine dependence, cigarettes, uncomplicated; F12.10 Cannabis abuse, uncomplicated
CPT/HCPCS: 36415; 43239; 71045; 74174; 80048; 80076; 80307; 81001; 82550; 82553; 83605; 83690; 85025; 85027; 85610; 85730; 87631; 88305; 93005; 93041; 96372; 96374; 96375; 96376; 99285; C9113; J0500; J1170; J2405; J3010; Q9967

== ENCOUNTER 2022-11-14 00:39 | Emergency (ER) | payer OTHER ==
[~2022-11-14] VITALS: Ht 180.3 cm; Wt 107.0 kg
[~2022-11-14 00:39] MED LIST changes: +SUCR1ORA PO
[2022-11-14 00:41] VITALS: BP 164/79; TEMP 98.9; O2SAT 98
== END 2022-11-14 02:53 | disposition left against medical advice (07) ==
LOC: M ED 00:39
DX: Z53.21 Procedure and treatment not carried out due to patient leaving prior to being seen by health care provider (principal)

== ENCOUNTER 2023-02-24 18:47 | Inpatient (IN) | payer OTHER ==
[~2023-02-24] VITALS: Ht 180.3 cm; Wt 105.9 kg
[~2023-02-24 18:47] MED LIST changes: -CEFD300C41 PO; +CEFD300C42 PO; +DICY-61 PO; -DICY10CA13 PO; -OXYB5TAB10 PO; +OXYB5TAB11 PO
[2023-02-24] MEDS ORDERED: METOCLOPRAMIDE INJ 10MG/2ML VIAL IV ONE (19:55)
[2023-02-24] MEDS ORDERED: NS 1,000 ML IV ONE (19:55)
[2023-02-24] MEDS ORDERED: KETOROLAC 30 MG/ML 1ML VIAL IV ONE (19:55)
[2023-02-24 20:51] LABS: BASO # 0.1 10^3/uL (0.0-0.2); BASO % 0.4 % (0.0-1.0); EOS % 0.1 % (0.0-3.0); HEMOGLOBIN 14.6 g/dl (13.5-17.5); LYMPH # 1.5 10^3/uL (1.5-5.0); LYMPH % 11.5 % (24.0-44.0); MEAN CORPUSCULAR VOLUME 88.5 fl (80.0-96.0); MONO # 0.3 10^3/uL (0.0-0.8); MONO % 2.5 % (2.0-8.0); NEUTROPHILS # 11.3 10^3/uL (1.5-8.5); NEUTROPHILS % 85.2 % (36.0-66.0); PLATELET COUNT, AUTOMATED 355 10^3/uL (150-450); RED BLOOD COUNT 4.86 10^6/uL (4.30-6.10); WHITE BLOOD COUNT 13.2 10^3/uL (4.0-10.0)
[2023-02-24 21:09] LABS: INR 1.07; PROTHROMBIN TIME 13.6 SECONDS (12.5-14.5)
[2023-02-24 21:11] LABS: LIPASE 31 U/L (12-53)
[2023-02-24 21:13] LABS: ALKALINE PHOSPHATASE 68 U/L (46-116); ALT/SGPT 22 U/L (7.0-40); AST/SGOT 15 U/L (<34); BILIRUBIN,DIRECT 0.2 MG/DL (<0.4); BILIRUBIN,TOTAL 0.7 MG/DL (0.3-1.2); BLOOD UREA NITROGEN 10 MG/DL (9-23); CALCIUM LEVEL 9.6 MG/DL (8.5-10.1); CARBON DIOXIDE LEVEL 26 MMOL/L (20-31); CHLORIDE LEVEL 106 MMOL/L (98-107); CREATININE FOR GFR 0.78 MG/DL (0.70-1.30); GLOMERULAR FILTRATION RATE > 60.0 (>56); GLUCOSE, FASTING 154 MG/DL (60-100); POTASSIUM SERUM 4.1 MMOL/L (3.5-5.1); SODIUM LEVEL 139 MMOL/L (136-145); TOTAL PROTEIN 7.7 G/DL (5.7-8.2)
[2023-02-24 21:18] LABS: RSV AMPLIFICATION NEGATIVE (NEGATIVE)
[2023-02-24] MEDS ORDERED: ISOVUE-370 76% 100ML VIAL As Ordered ONE (21:19)
[2023-02-24] MEDS ORDERED: MORPHINE 4 MG/ML 1ML VIAL IV ONE (22:40)
[2023-02-24] MEDS ORDERED: PANTOPRAZOLE 40MG VIAL IV ONE (22:55)
[2023-02-25] VITALS (7 sets, daily range): BP systolic 137–158; BP diastolic 68–88; TEMP 98–99.2; O2SAT 92–96
[2023-02-25] MEDS ORDERED: ACETAMINOPHEN TAB 650MG DOSE (2X325MG) PO PRN (00:05)
[2023-02-25] MEDS: NS 1,000 ML IV SCH ×4 (00:51→16:04)
[2023-02-25] MEDS ORDERED: hydrALAZINE 20MG/ML 1ML VIAL IV ONE (01:05)
[2023-02-25] MEDS ORDERED: MORPHINE 2 MG/ML 1ML VIAL IV PRN ×3 (02:00→03:00)
[2023-02-25] MEDS ORDERED: hydrALAZINE 20MG/ML 1ML VIAL IV PRN (02:30)
[2023-02-25] MEDS: MORPHINE 4 MG/ML 1ML VIAL IV PRN ×2 (02:58→07:52)
[2023-02-25] MEDS ORDERED: METOCLOPRAMIDE INJ 10MG/2ML VIAL IV PRN (03:00)
[2023-02-25 07:48] LABS: HEMATOCRIT 39.4 % (42.0-52.0); HEMOGLOBIN 13.3 g/dl (13.5-17.5); MEAN CORPUSCULAR HEMOGLOBIN 30.2 pg (27.0-33.0); MEAN CORPUSCULAR HGB CONC 33.8 g/dl (32.0-36.5); MEAN CORPUSCULAR VOLUME 89.3 fl (80.0-96.0); PLATELET COUNT, AUTOMATED 318 10^3/uL (150-450); RED BLOOD COUNT 4.41 10^6/uL (4.30-6.10); WHITE BLOOD COUNT 13.3 10^3/uL (4.0-10.0)
[2023-02-25] MEDS ORDERED: MED REC IN PROGRESS XX SCH (07:50)
[2023-02-25] MEDS: PANTOPRAZOLE 40MG VIAL IV SCH ×2 (07:51→20:18)
[2023-02-25 08:22] LABS: ALBUMIN 3.2 G/DL (3.2-5.2); ALKALINE PHOSPHATASE 56 U/L (46-116); ALT/SGPT 14 U/L (7.0-40); AST/SGOT 13 U/L (<34); BILIRUBIN,TOTAL 0.7 MG/DL (0.3-1.2); BLOOD UREA NITROGEN 10 MG/DL (9-23); CALCIUM LEVEL 8.4 MG/DL (8.5-10.1); CARBON DIOXIDE LEVEL 26 MMOL/L (20-31); CHLORIDE LEVEL 109 MMOL/L (98-107); CREATININE FOR GFR 0.81 MG/DL (0.70-1.30); GLOMERULAR FILTRATION RATE > 60.0 (>56); GLUCOSE, FASTING 108 MG/DL (60-100); POTASSIUM SERUM 3.9 MMOL/L (3.5-5.1); SODIUM LEVEL 141 MMOL/L (136-145); TOTAL PROTEIN 6.4 G/DL (5.7-8.2)
[2023-02-25] MEDS ORDERED: HOME MED LIST COMPLETE! XX SCH (08:40)
[2023-02-25] MEDS: NICOTINE 14 MG/24 HR TRANSDERMAL TD SCH (09:00)
[2023-02-25] MEDS ORDERED: MORPHINE 2 MG/ML 1ML VIAL IV ONE (09:00)
[2023-02-25] MEDS: CIPROFLOXACIN 400 MG in IV 1 EA IV SCH ×2 (09:20→20:59)
[2023-02-25] MEDS: metroNIDAZOLE 500 MG in IV 1 EA IV SCH ×2 (11:13→18:06)
[2023-02-25] MEDS ORDERED: HYDROMORPHONE HCL 0.5 MG/ 0.5 ML SYRINGE IV PRN ×4 (11:45→12:00)
[2023-02-25] MEDS ORDERED: ONDANSETRON 4MG 2ML VIAL IV PRN (12:00)
[2023-02-25] MEDS: ENOXAPARIN 40MG/0.4ML SYRINGE (J1650 PER 10MG) SC SCH (12:41)
[2023-02-25] MEDS: SUCRALFATE SUSP 1GM/10ML UD PO SCH ×3 (12:42→20:17)
[2023-02-25] MEDS: HYDROMORPHONE HCL 0.5 MG/ 0.5 ML SYRINGE IV PRN ×3 (16:06→23:59)
[2023-02-26] MEDS: NS 1,000 ML IV SCH ×3 (02:23→17:03)
[2023-02-26] MEDS: metroNIDAZOLE 500 MG in IV 1 EA IV SCH ×3 (03:34→18:33)
[2023-02-26 04:00] VITALS: BP 157/91; TEMP 97.8; O2SAT 98
[2023-02-26] MEDS: HYDROMORPHONE HCL 0.5 MG/ 0.5 ML SYRINGE IV PRN ×7 (04:33→23:37)
[2023-02-26 06:59] LABS: HEMATOCRIT 39.8 % (42.0-52.0); HEMOGLOBIN 13.1 g/dl (13.5-17.5); MEAN CORPUSCULAR HGB CONC 32.9 g/dl (32.0-36.5); MEAN CORPUSCULAR VOLUME 91.1 fl (80.0-96.0); PLATELET COUNT, AUTOMATED 313 10^3/uL (150-450); RED BLOOD COUNT 4.37 10^6/uL (4.30-6.10); WHITE BLOOD COUNT 9.1 10^3/uL (4.0-10.0)
[2023-02-26 07:31] LABS: ALBUMIN 3.2 G/DL (3.2-5.2); ALKALINE PHOSPHATASE 54 U/L (46-116); ALT/SGPT 12 U/L (7.0-40); AST/SGOT 14 U/L (<34); BILIRUBIN,TOTAL 0.8 MG/DL (0.3-1.2); BLOOD UREA NITROGEN 12 MG/DL (9-23); CALCIUM LEVEL 8.4 MG/DL (8.5-10.1); CARBON DIOXIDE LEVEL 27 MMOL/L (20-31); CHLORIDE LEVEL 107 MMOL/L (98-107); CREATININE FOR GFR 0.87 MG/DL (0.70-1.30); GLOMERULAR FILTRATION RATE > 60.0 (>56); GLUCOSE, FASTING 83 MG/DL (60-100); POTASSIUM SERUM 4.3 MMOL/L (3.5-5.1); SODIUM LEVEL 140 MMOL/L (136-145); TOTAL PROTEIN 6.3 G/DL (5.7-8.2)
[2023-02-26 07:35] VITALS: BP 177/96; TEMP 98; O2SAT 95
[2023-02-26] MEDS: ENOXAPARIN 40MG/0.4ML SYRINGE (J1650 PER 10MG) SC SCH (07:41)
[2023-02-26] MEDS: SUCRALFATE SUSP 1GM/10ML UD PO SCH ×4 (07:41→20:09)
[2023-02-26] MEDS: PANTOPRAZOLE 40MG VIAL IV SCH ×2 (07:42→20:10)
[2023-02-26] MEDS: amLODIPine 5 MG TAB PO SCH (08:50)
[2023-02-26] MEDS: NICOTINE 14 MG/24 HR TRANSDERMAL TD SCH (08:52)
[2023-02-26] MEDS: CIPROFLOXACIN 400 MG in IV 1 EA IV SCH ×2 (09:25→21:43)
[2023-02-26 14:32] VITALS: BP 146/72
[2023-02-26 15:50] VITALS: BP 149/83; TEMP 98.3; O2SAT 96
[2023-02-26 18:43] LABS: LIPASE 23 U/L (12-53)
[2023-02-26 19:38] VITALS: BP 155/95; TEMP 98.5; O2SAT 96
[2023-02-26] MEDS: SENNA 8.6 MG TAB (SENOKOT) PO SCH (20:10)
[2023-02-26] MEDS: DOCUSATE SODIUM 100MG CAPSULE PO SCH (20:10)
[2023-02-27] MEDS: metroNIDAZOLE 500 MG in IV 1 EA IV SCH ×2 (03:36→11:10)
[2023-02-27 03:39] VITALS: BP 131/60; TEMP 97.9; O2SAT 95
[2023-02-27 05:41] LABS: HEMATOCRIT 41.4 % (42.0-52.0); HEMOGLOBIN 13.7 g/dl (13.5-17.5); MEAN CORPUSCULAR HEMOGLOBIN 29.4 pg (27.0-33.0); MEAN CORPUSCULAR HGB CONC 33.1 g/dl (32.0-36.5); MEAN CORPUSCULAR VOLUME 88.8 fl (80.0-96.0); PLATELET COUNT, AUTOMATED 339 10^3/uL (150-450); RED BLOOD COUNT 4.66 10^6/uL (4.30-6.10); WHITE BLOOD COUNT 8.3 10^3/uL (4.0-10.0)
[2023-02-27 06:08] LABS: ALBUMIN 3.3 G/DL (3.2-5.2); ALKALINE PHOSPHATASE 56 U/L (46-116); ALT/SGPT 16 U/L (7.0-40); AST/SGOT 18 U/L (<34); BILIRUBIN,TOTAL 0.9 MG/DL (0.3-1.2); BLOOD UREA NITROGEN 11 MG/DL (9-23); CALCIUM LEVEL 8.8 MG/DL (8.5-10.1); CARBON DIOXIDE LEVEL 26 MMOL/L (20-31); CHLORIDE LEVEL 106 MMOL/L (98-107); CREATININE FOR GFR 0.84 MG/DL (0.70-1.30); GLOMERULAR FILTRATION RATE > 60.0 (>56); GLUCOSE, FASTING 83 MG/DL (60-100); SODIUM LEVEL 139 MMOL/L (136-145); TOTAL PROTEIN 6.6 G/DL (5.7-8.2)
[2023-02-27] MEDS: HYDROMORPHONE HCL 0.5 MG/ 0.5 ML SYRINGE IV PRN ×4 (08:18→20:32)
[2023-02-27] MEDS: SUCRALFATE SUSP 1GM/10ML UD PO SCH ×4 (08:20→20:32)
[2023-02-27] MEDS: ENOXAPARIN 40MG/0.4ML SYRINGE (J1650 PER 10MG) SC SCH (08:20)
[2023-02-27] MEDS: GABAPENTIN 100 MG CAP PO SCH ×2 (08:20→20:31)
[2023-02-27] MEDS: PANTOPRAZOLE 40MG VIAL IV SCH ×2 (08:20→20:32)
[2023-02-27] MEDS: DOCUSATE SODIUM 100MG CAPSULE PO SCH ×2 (08:20→20:31)
[2023-02-27] MEDS: NS 1,000 ML IV SCH (08:21)
[2023-02-27] MEDS: amLODIPine 5 MG TAB PO SCH (08:22)
[2023-02-27 08:23] VITALS: BP 150/86; TEMP 98.7; O2SAT 95
[2023-02-27] MEDS: NICOTINE 14 MG/24 HR TRANSDERMAL TD SCH (08:34)
[2023-02-27] MEDS ORDERED: amLODIPine 5 MG TAB PO SCH (09:00)
[2023-02-27] MEDS ORDERED: amLODIPine 5 MG TAB PO ONE (09:10)
[2023-02-27] MEDS: CIPROFLOXACIN 400 MG in IV 1 EA IV SCH (09:53)
[2023-02-27] MEDS: MIRALAX *UNIT DOSE* 17GM PACKET PO SCH (11:10)
[2023-02-27 12:00] VITALS: BP 134/92; TEMP 97.9; O2SAT 96
[2023-02-27 16:00] VITALS: BP 145/67; TEMP 98.2; O2SAT 97
[2023-02-27] MEDS ORDERED: metroNIDAZOLE (FLAGYL) 500MG TABLET PO ONE (16:00)
[2023-02-27] MEDS: CIPROFLOXACIN 500MG TABLET PO SCH (17:46)
[2023-02-27] MEDS: SENNA 8.6 MG TAB (SENOKOT) PO SCH (20:31)
[2023-02-27] MEDS: metroNIDAZOLE (FLAGYL) 500MG TABLET PO SCH (22:40)
[2023-02-28] VITALS: BP 140/73; TEMP 98.3; O2SAT 96
[2023-02-28 05:27] LABS: HEMATOCRIT 42.8 % (42.0-52.0); MEAN CORPUSCULAR HEMOGLOBIN 29.5 pg (27.0-33.0); MEAN CORPUSCULAR HGB CONC 32.7 g/dl (32.0-36.5); MEAN CORPUSCULAR VOLUME 90.3 fl (80.0-96.0); PLATELET COUNT, AUTOMATED 303 10^3/uL (150-450); RED BLOOD COUNT 4.74 10^6/uL (4.30-6.10); WHITE BLOOD COUNT 7.7 10^3/uL (4.0-10.0)
[2023-02-28 05:57] LABS: ALBUMIN 3.1 G/DL (3.2-5.2); ALKALINE PHOSPHATASE 54 U/L (46-116); ALT/SGPT 26 U/L (7.0-40); AST/SGOT 28 U/L (<34); BILIRUBIN,TOTAL 0.4 MG/DL (0.3-1.2); BLOOD UREA NITROGEN 16 MG/DL (9-23); CALCIUM LEVEL 8.8 MG/DL (8.5-10.1); CARBON DIOXIDE LEVEL 25 MMOL/L (20-31); CHLORIDE LEVEL 107 MMOL/L (98-107); CREATININE FOR GFR 0.92 MG/DL (0.70-1.30); GLOMERULAR FILTRATION RATE > 60.0 (>56); GLUCOSE, FASTING 100 MG/DL (60-100); POTASSIUM SERUM 4.2 MMOL/L (3.5-5.1); SODIUM LEVEL 139 MMOL/L (136-145); TOTAL PROTEIN 6.3 G/DL (5.7-8.2)
[2023-02-28] MEDS: HYDROMORPHONE HCL 0.5 MG/ 0.5 ML SYRINGE IV PRN (06:11)
[2023-02-28] MEDS: CIPROFLOXACIN 500MG TABLET PO SCH ×2 (06:15→18:25)
[2023-02-28] MEDS: metroNIDAZOLE (FLAGYL) 500MG TABLET PO SCH ×3 (06:15→22:38)
[2023-02-28] MEDS ORDERED: PERCOCET 5MG/325MG TAB PO PRN (07:25)
[2023-02-28] MEDS ORDERED: LACTULOSE 20GM/30ML SYRUP UDC PO ONE (07:25)
[2023-02-28 07:48] VITALS: BP 136/87; TEMP 99.2; O2SAT 98
[2023-02-28] MEDS: PANTOPRAZOLE 40MG VIAL IV SCH ×2 (08:41→20:25)
[2023-02-28] MEDS: GABAPENTIN 100 MG CAP PO SCH ×2 (08:41→20:25)
[2023-02-28] MEDS: NICOTINE 14 MG/24 HR TRANSDERMAL TD SCH (08:42)
[2023-02-28] MEDS: DOCUSATE SODIUM 100MG CAPSULE PO SCH ×2 (08:42→20:25)
[2023-02-28] MEDS: MIRALAX *UNIT DOSE* 17GM PACKET PO SCH (08:42)
[2023-02-28] MEDS: amLODIPine 5 MG TAB PO SCH (08:42)
[2023-02-28] MEDS: ENOXAPARIN 40MG/0.4ML SYRINGE (J1650 PER 10MG) SC SCH (08:42)
[2023-02-28] MEDS: SUCRALFATE SUSP 1GM/10ML UD PO SCH ×4 (08:51→20:25)
[2023-02-28] MEDS ORDERED: PROHANCE 279.3MG/ML 15ML VIAL As Ordered ONE (11:51)
[2023-02-28] MEDS ORDERED: PROHANCE 279.3MG/ML 5ML VIAL As Ordered ONE (11:51)
[2023-02-28] MEDS ORDERED: LORazepam 2 MG/ML 1ML VIAL IV STA (14:14)
[2023-02-28 19:53] VITALS: BP 132/88; TEMP 98.2; O2SAT 98
[2023-02-28] MEDS: traMADol 50 MG TAB PO PRN (20:25)
[2023-02-28] MEDS: SENNA 8.6 MG TAB (SENOKOT) PO SCH (20:25)
[2023-02-28 23:55] VITALS: BP 136/86; TEMP 98.5; O2SAT 97
[2023-03-01] MEDS: traMADol 50 MG TAB PO PRN ×2 (02:11→06:16)
[2023-03-01 04:00] VITALS: BP 132/85; TEMP 96.7; O2SAT 97
[2023-03-01 05:52] LABS: HEMATOCRIT 42.4 % (42.0-52.0); HEMOGLOBIN 13.9 g/dl (13.5-17.5); MEAN CORPUSCULAR HEMOGLOBIN 29.3 pg (27.0-33.0); MEAN CORPUSCULAR HGB CONC 32.8 g/dl (32.0-36.5); MEAN CORPUSCULAR VOLUME 89.3 fl (80.0-96.0); PLATELET COUNT, AUTOMATED 320 10^3/uL (150-450); RED BLOOD COUNT 4.75 10^6/uL (4.30-6.10); WHITE BLOOD COUNT 7.6 10^3/uL (4.0-10.0)
[2023-03-01] MEDS ORDERED: LACTULOSE 20GM/30ML SYRUP UDC PO SCH (06:00)
[2023-03-01 06:13] LABS: ALBUMIN 3.3 G/DL (3.2-5.2); ALKALINE PHOSPHATASE 53 U/L (46-116); ALT/SGPT 62 U/L (7.0-40); AST/SGOT 56 U/L (<34); BILIRUBIN,TOTAL 0.5 MG/DL (0.3-1.2); BLOOD UREA NITROGEN 15 MG/DL (9-23); CALCIUM LEVEL 8.6 MG/DL (8.5-10.1); CARBON DIOXIDE LEVEL 27 MMOL/L (20-31); CHLORIDE LEVEL 108 MMOL/L (98-107); CREATININE FOR GFR 0.87 MG/DL (0.70-1.30); GLOMERULAR FILTRATION RATE > 60.0 (>56); GLUCOSE, FASTING 95 MG/DL (60-100); POTASSIUM SERUM 4.2 MMOL/L (3.5-5.1); SODIUM LEVEL 141 MMOL/L (136-145); TOTAL PROTEIN 6.4 G/DL (5.7-8.2)
[2023-03-01] MEDS: CIPROFLOXACIN 500MG TABLET PO SCH (06:14)
[2023-03-01] MEDS: metroNIDAZOLE (FLAGYL) 500MG TABLET PO SCH (06:15)
[2023-03-01] MEDS: SUCRALFATE SUSP 1GM/10ML UD PO SCH ×4 (07:30→20:27)
[2023-03-01] MEDS: MIRALAX *UNIT DOSE* 17GM PACKET PO SCH (08:21)
[2023-03-01] MEDS: DOCUSATE SODIUM 100MG CAPSULE PO SCH ×2 (08:21→20:27)
[2023-03-01] MEDS: NICOTINE 14 MG/24 HR TRANSDERMAL TD SCH (08:21)
[2023-03-01] MEDS: GABAPENTIN 100 MG CAP PO SCH (08:59)
[2023-03-01] MEDS: amLODIPine 5 MG TAB PO SCH (09:00)
[2023-03-01] MEDS: ENOXAPARIN 40MG/0.4ML SYRINGE (J1650 PER 10MG) SC SCH (09:00)
[2023-03-01] MEDS: PANTOPRAZOLE 40MG VIAL IV SCH ×2 (09:00→20:27)
[2023-03-01 09:30] VITALS: BP 135/86; TEMP 96.7; O2SAT 98
[2023-03-01] MEDS ORDERED: MAGNESIUM CITRATE 300ML BTL PO ONE ×2 (12:40→22:00)
[2023-03-01] MEDS: NS 1,000 ML IV SCH ×2 (12:45→21:51)
[2023-03-01] MEDS ORDERED: HYDROMORPHONE HCL 0.5 MG/ 0.5 ML SYRINGE IV PRN (13:00)
[2023-03-01] MEDS: HYDROMORPHONE HCL 0.5 MG/ 0.5 ML SYRINGE IV PRN ×3 (14:13→22:58)
[2023-03-01 16:20] VITALS: BP 133/86; TEMP 97.8; O2SAT 96
[2023-03-01] MEDS: BISACODYL 10MG SUPP PR SCH (18:32)
[2023-03-01] MEDS: SIMETHICONE 80MG CHEW TAB PO SCH (18:32)
[2023-03-01 19:47] VITALS: BP 142/72; TEMP 97.9; O2SAT 97
[2023-03-01] MEDS: SENNA 8.6 MG TAB (SENOKOT) PO SCH (20:27)
[2023-03-02] MEDS: SIMETHICONE 80MG CHEW TAB PO SCH ×4 (00:38→13:45)
[2023-03-02] MEDS: BISACODYL 10MG SUPP PR SCH ×3 (00:38→13:21)
[2023-03-02] MEDS: HYDROMORPHONE HCL 0.5 MG/ 0.5 ML SYRINGE IV PRN ×3 (02:43→10:42)
[2023-03-02 04:31] VITALS: BP 132/78; TEMP 97.9; O2SAT 98
[2023-03-02] MEDS: NS 1,000 ML IV SCH ×2 (05:29→13:43)
[2023-03-02 06:36] LABS: HEMATOCRIT 40.9 % (42.0-52.0); HEMOGLOBIN 13.5 g/dl (13.5-17.5); MEAN CORPUSCULAR HEMOGLOBIN 30.3 pg (27.0-33.0); MEAN CORPUSCULAR VOLUME 91.7 fl (80.0-96.0); PLATELET COUNT, AUTOMATED 318 10^3/uL (150-450); RED BLOOD COUNT 4.46 10^6/uL (4.30-6.10); WHITE BLOOD COUNT 7.1 10^3/uL (4.0-10.0)
[2023-03-02 07:09] LABS: ALBUMIN 3.2 G/DL (3.2-5.2); ALKALINE PHOSPHATASE 50 U/L (46-116); ALT/SGPT 79 U/L (7.0-40); AST/SGOT 71 U/L (<34); BILIRUBIN,TOTAL 0.5 MG/DL (0.3-1.2); BLOOD UREA NITROGEN 15 MG/DL (9-23); CALCIUM LEVEL 8.6 MG/DL (8.5-10.1); CARBON DIOXIDE LEVEL 29 MMOL/L (20-31); CHLORIDE LEVEL 108 MMOL/L (98-107); CREATININE FOR GFR 0.87 MG/DL (0.70-1.30); GLOMERULAR FILTRATION RATE > 60.0 (>56); GLUCOSE, FASTING 93 MG/DL (60-100); POTASSIUM SERUM 4.6 MMOL/L (3.5-5.1); SODIUM LEVEL 140 MMOL/L (136-145); TOTAL PROTEIN 6.2 G/DL (5.7-8.2)
[2023-03-02 07:21] VITALS: BP 135/75; TEMP 97.4; O2SAT 95
[2023-03-02] MEDS: SUCRALFATE SUSP 1GM/10ML UD PO SCH ×3 (07:30→13:20)
[2023-03-02 08:42] VITALS: BP 135/75
[2023-03-02] MEDS: DOCUSATE SODIUM 100MG CAPSULE PO SCH (08:42)
[2023-03-02] MEDS: PANTOPRAZOLE 40MG VIAL IV SCH (08:42)
[2023-03-02] MEDS: NICOTINE 14 MG/24 HR TRANSDERMAL TD SCH ×2 (08:42→08:48)
[2023-03-02] MEDS: ENOXAPARIN 40MG/0.4ML SYRINGE (J1650 PER 10MG) SC SCH (08:42)
[2023-03-02] MEDS: amLODIPine 5 MG TAB PO SCH (08:42)
[2023-03-02] MEDS ORDERED: E-Z-PAQUE 96% w/w SUSP 176GM BTL As Ordered ONE (10:38)
[2023-03-02] MEDS: MIRALAX *UNIT DOSE* 17GM PACKET PO SCH (13:19)
[2023-03-02 13:39] VITALS: BP 138/67; TEMP 97.2; O2SAT 98
== END 2023-03-02 17:45 | disposition left against medical advice (07) | DRG 241 ==
LOC: M ED 18:47 → M ED INP 23:51 → M PCU 02-25 02:19
PROVIDERS: ADMIT Family Medicine; ATTEND Student in an Organized Health Care Education/Training Program
DX: K29.80 Duodenitis without bleeding (principal); K56.7 Ileus, unspecified; K76.0 Fatty (change of) liver, not elsewhere classified; K86.1 Other chronic pancreatitis; I10 Essential (primary) hypertension; E78.5 Hyperlipidemia, unspecified; K29.70 Gastritis, unspecified, without bleeding; F12.20 Cannabis dependence, uncomplicated; F17.200 Nicotine dependence, unspecified, uncomplicated; N40.0 Benign prostatic hyperplasia without lower urinary tract symptoms; Z96.652 Presence of left artificial knee joint; K44.9 Diaphragmatic hernia without obstruction or gangrene

== ENCOUNTER → 2023-06-04 | Outpatient (CLI) | payer OTHER ==
[~2023-06-04] MED LIST changes: +CEFD1CAP9 PO; -CEFD300C42 PO
[2023-06-04 09:10] LABS: HEMOGLOBIN A1c 5.7 % (4.0-6.0)
[2023-06-04 09:15] LABS: BASO # 0.1 10^3/uL (0.0-0.2); BASO % 0.9 % (0.0-1.0); EOS # 0.3 10^3/uL (0.0-0.5); EOS % 3.3 % (0.0-3.0); HEMATOCRIT 44.4 % (42.0-52.0); HEMOGLOBIN 14.2 g/dl (13.5-17.5); LYMPH # 2.4 10^3/uL (1.5-5.0); LYMPH % 31.6 % (24.0-44.0); MEAN CORPUSCULAR HEMOGLOBIN 29.8 pg (27.0-33.0); MEAN CORPUSCULAR VOLUME 93.1 fl (80.0-96.0); MONO # 0.5 10^3/uL (0.0-0.8); MONO % 6.7 % (2.0-8.0); NEUTROPHILS # 4.3 10^3/uL (1.5-8.5); NEUTROPHILS % 57.2 % (36.0-66.0); PLATELET COUNT, AUTOMATED 320 10^3/uL (150-450); RED BLOOD COUNT 4.77 10^6/uL (4.30-6.10); WHITE BLOOD COUNT 7.6 10^3/uL (4.0-10.0)
[2023-06-04 09:26] LABS: PSA SCREENING 0.63 NG/ML (< 4.00)
[2023-06-04 09:29] LABS: ALBUMIN 3.7 G/DL (3.2-5.2); ALKALINE PHOSPHATASE 62 U/L (46-116); ALT/SGPT 18 U/L (7.0-40); AST/SGOT 18 U/L (<34); BILIRUBIN,TOTAL 0.5 MG/DL (0.3-1.2); BLOOD UREA NITROGEN 11 MG/DL (9-23); CALCIUM LEVEL 9.4 MG/DL (8.5-10.1); CARBON DIOXIDE LEVEL 30 MMOL/L (20-31); CHLORIDE LEVEL 107 MMOL/L (98-107); CHOLESTEROL LEVEL 226 MG/DL (<200); CHOLESTEROL RISK RATIO 6.07 (<5); CREATININE FOR GFR 0.92 MG/DL (0.70-1.30); GLOMERULAR FILTRATION RATE > 60.0 (>56); GLUCOSE, FASTING 110 MG/DL (60-100); HDL CHOLESTEROL 37.2 MG/DL (>40); IRON (FE) 49 UG/DL (65-175); NON-HDL-C 188.8 MG/DL; PERCENT SATURATION 15.3 % (19.7-50.0); POTASSIUM SERUM 4.9 MMOL/L (3.5-5.1); SODIUM LEVEL 140 MMOL/L (136-145); THYROID STIMULATING HORMONE 0.575 uIU/ML (0.55-4.78); TOTAL IRON BINDING CAPACITY 321 UG/DL (250-425); TRIGLYCERIDES LEVEL 104 MG/DL (<150)
[2023-06-04 09:30] LABS: FERRITIN 44.5 NG/ML (10.5-307.3); TOTAL 25(OH) VITAMIN D 26.1 NG/ML (20.0-100.0)
[2023-06-04 09:31] LABS: FREE T4 0.88 NG/DL (0.89-1.76)
== END ==
LOC: M LAB 08:18
PROVIDERS: ATTEND Physician Assistant
DX: Z00.00 Encounter for general adult medical examination without abnormal findings (principal); M25.562 Pain in left knee; G89.29 Other chronic pain; N52.9 Male erectile dysfunction, unspecified; E66.09 Other obesity due to excess calories; Z68.34 Body mass index [BMI] 34.0-34.9, adult

== ENCOUNTER → 2023-07-02 | Outpatient (REF) | payer OTHER | LOC: M SFHCDERM 17:59 | PROVIDERS: ATTEND Physician Assistant | DX: D04.62 Carcinoma in situ of skin of left upper limb, including shoulder (principal) ==

== ENCOUNTER → 2023-07-06 | Outpatient (REF) | payer OTHER ==
[~2023-07-06] MED LIST changes: -OXYB5TAB11 PO; +OXYB5TAB14 PO
== END ==
LOC: M SFHCDERM 15:55
PROVIDERS: ATTEND Physician Assistant
DX: Z51.89 Encounter for other specified aftercare (principal); B95.1 Streptococcus, group B, as the cause of diseases classified elsewhere

== ENCOUNTER 2023-09-09 08:17 | Emergency (ER) | payer OTHER ==
[~2023-09-09] VITALS: Ht 180.3 cm; Wt 107.0 kg
[2023-09-09] MEDS: NS 1,000 ML IV SCH (08:40)
[2023-09-09] MEDS: KETOROLAC 30 MG/ML 1ML VIAL IV ONE (08:40)
[2023-09-09] MEDS: METOCLOPRAMIDE INJ 10MG/2ML VIAL IV ONE (08:40)
[2023-09-09] MEDS: MORPHINE 4 MG/ML 1ML VIAL IV PRN (09:01)
[2023-09-09 09:16] LABS: BASO # 0.1 10^3/uL (0.0-0.2); BASO % 0.5 % (0.0-1.0); EOS # 0.1 10^3/uL (0.0-0.5); HEMATOCRIT 46.8 % (42.0-52.0); HEMOGLOBIN 15.9 g/dl (13.5-17.5); LYMPH # 3.1 10^3/uL (1.5-5.0); LYMPH % 24.4 % (24.0-44.0); MEAN CORPUSCULAR HEMOGLOBIN 29.9 pg (27.0-33.0); MONO % 8.2 % (2.0-8.0); NEUTROPHILS # 8.3 10^3/uL (1.5-8.5); NEUTROPHILS % 65.5 % (36.0-66.0); PLATELET COUNT, AUTOMATED 344 10^3/uL (150-450); RED BLOOD COUNT 5.32 10^6/uL (4.30-6.10); WHITE BLOOD COUNT 12.6 10^3/uL (4.0-10.0)
[2023-09-09 09:18] LABS: LIPASE 31 U/L (12-53)
[2023-09-09 09:20] LABS: ALKALINE PHOSPHATASE 71 U/L (46-116); ALT/SGPT 26 U/L (7.0-40); AST/SGOT 34 U/L (<34); BILIRUBIN,DIRECT 0.4 MG/DL (<0.4); BILIRUBIN,TOTAL 1.7 MG/DL (0.3-1.2); BLOOD UREA NITROGEN 23 MG/DL (9-23); CALCIUM LEVEL 9.4 MG/DL (8.5-10.1); CARBON DIOXIDE LEVEL 25 MMOL/L (20-31); CHLORIDE LEVEL 99 MMOL/L (98-107); CREATININE FOR GFR 1.03 MG/DL (0.70-1.30); GLOMERULAR FILTRATION RATE > 60.0 (>56); GLUCOSE, FASTING 149 MG/DL (60-100); POTASSIUM SERUM 3.7 MMOL/L (3.5-5.1); SODIUM LEVEL 134 MMOL/L (136-145); TOTAL PROTEIN 7.8 G/DL (5.7-8.2)
[2023-09-09] MEDS ORDERED: ISOVUE-370 76% 100ML VIAL As Ordered ONE (09:27)
[2023-09-09] MEDS: HYDROMORPHONE HCL 0.5 MG/ 0.5 ML SYRINGE IV PRN (10:54)
[2023-09-09] MEDS: PERCOCET 5MG/325MG TAB PO ONE (12:10)
[2023-09-09] MEDS ORDERED: HOME MED LIST COMPLETE! XX SCH (12:35)
[2023-09-09 13:15] VITALS: BP 115/76; TEMP 98.1; O2SAT 98
== END 2023-09-09 13:23 | disposition home or self-care (01) ==
LOC: M ED 08:17 → EDBD 08:17 → M ED 13:23
DX: R10.9 Unspecified abdominal pain (principal); F17.210 Nicotine dependence, cigarettes, uncomplicated
CPT/HCPCS: 74176; 74177; 80048; 80076; 81001; 83605; 83690; 85025; 93005; 96361; 96374; 96375; 99284; J1170; J1885; J2765; Q9967

== ENCOUNTER 2023-11-01 22:44 | Emergency (ER) | payer OTHER ==
[~2023-11-01] VITALS: Ht 180.3 cm; Wt 100.0 kg
[~2023-11-01 22:44] MED LIST changes: +ONDA-282 PO; -ONDA4TAB6 PO
[2023-11-02 00:35] LABS: BASO # 0.1 10^3/uL (0.0-0.2); BASO % 0.5 % (0.0-1.0); EOS # 0.2 10^3/uL (0.0-0.5); EOS % 1.6 % (0.0-3.0); HEMATOCRIT 39.2 % (42.0-52.0); LYMPH % 26.5 % (24.0-44.0); MEAN CORPUSCULAR HEMOGLOBIN 29.9 pg (27.0-33.0); MEAN CORPUSCULAR HGB CONC 33.2 g/dl (32.0-36.5); MEAN CORPUSCULAR VOLUME 90.1 fl (80.0-96.0); MONO % 8.4 % (2.0-8.0); NEUTROPHILS # 7.2 10^3/uL (1.5-8.5); NEUTROPHILS % 62.7 % (36.0-66.0); PLATELET COUNT, AUTOMATED 285 10^3/uL (150-450); RED BLOOD COUNT 4.35 10^6/uL (4.30-6.10); WHITE BLOOD COUNT 11.5 10^3/uL (4.0-10.0)
[2023-11-02 01:06] LABS: ALBUMIN 3.9 G/DL (3.2-5.2); ALKALINE PHOSPHATASE 59 U/L (46-116); ALT/SGPT 17 U/L (7.0-40); AST/SGOT 13 U/L (<34); BILIRUBIN,TOTAL 0.5 MG/DL (0.3-1.2); BLOOD UREA NITROGEN 15 MG/DL (9-23); CALCIUM LEVEL 9.4 MG/DL (8.5-10.1); CARBON DIOXIDE LEVEL 26 MMOL/L (20-31); CHLORIDE LEVEL 105 MMOL/L (98-107); CK-MB VALUE MASS 1.4 NG/ML (<3.6); CREATININE FOR GFR 0.81 MG/DL (0.70-1.30); GLOMERULAR FILTRATION RATE > 60.0 (>56); GLUCOSE, FASTING 103 MG/DL (60-100); SODIUM LEVEL 136 MMOL/L (136-145)
[2023-11-02 01:13] LABS: CPK CREATINE PHOSPHOKINASE 152 U/L (46-171); MB/CK RELATIVE INDEX 0.92 (< OR =4)
[2023-11-02 01:45] VITALS: BP 142/90; TEMP 98.1; O2SAT 99
[2023-11-02 01:49] LABS: CK-MB VALUE MASS 1.2 NG/ML (<3.6)
[2023-11-02 01:51] LABS: CPK CREATINE PHOSPHOKINASE 159 U/L (46-171); MB/CK RELATIVE INDEX 0.75 (< OR =4)
[2023-11-02] MEDS ORDERED: ISOVUE-370 76% 100ML VIAL As Ordered ONE (03:35)
[2023-11-02] MEDS: ASPIRIN 325 MG TAB PO ONE (03:42)
[2023-11-02] MEDS: MORPHINE 4 MG/ML 1ML VIAL IV ONE (03:43)
[2023-11-02 03:48] LABS: LIPASE 38 U/L (12-53)
[2023-11-02] MEDS: OXYCODONE/APAP 5MG/325MG(HOME DOSE PACK) PO ONE (04:43)
== END 2023-11-02 05:18 | disposition home or self-care (01) ==
LOC: M ED 22:44
DX: R07.9 Chest pain, unspecified (principal); X50.0XXA Overexertion from strenuous movement or load, initial encounter; K76.0 Fatty (change of) liver, not elsewhere classified; N40.0 Benign prostatic hyperplasia without lower urinary tract symptoms; F17.200 Nicotine dependence, unspecified, uncomplicated; Y99.9 Unspecified external cause status
CPT/HCPCS: 71045; 71275; 74177; 80053; 82550; 82553; 83690; 84484; 85025; 93005; 93041; 94760; 96374; 99284; Q9967

== ENCOUNTER 2024-07-03 11:06 | Emergency (ER) | payer OTHER ==
[~2024-07-03] VITALS: Ht 180.3 cm; Wt 108.6 kg
[2024-07-03] MEDS: ONDANSETRON 4MG 2ML VIAL IV ONE (12:57)
[2024-07-03] MEDS: NS (Normal Saline) 0.9% 1,000 ML IV ONE (12:57)
[2024-07-03] MEDS: MORPHINE 4 MG/ML 1ML VIAL IV ONE (12:57)
[2024-07-03 13:01] LABS: BASO # 0.1 10^3/uL (0.0-0.2); BASO % 0.4 % (0.0-1.0); EOS # 0.1 10^3/uL (0.0-0.5); EOS % 0.4 % (0.0-3.0); HEMATOCRIT 44.8 % (42.0-52.0); LYMPH # 3.6 10^3/uL (1.5-5.0); LYMPH % 26.5 % (24.0-44.0); MEAN CORPUSCULAR HGB CONC 33.5 g/dl (32.0-36.5); MEAN CORPUSCULAR VOLUME 89.6 fl (80.0-96.0); MONO % 7.6 % (2.0-8.0); NEUTROPHILS # 8.7 10^3/uL (1.5-8.5); NEUTROPHILS % 64.7 % (36.0-66.0); PLATELET COUNT, AUTOMATED 350 10^3/uL (150-450); WHITE BLOOD COUNT 13.5 10^3/uL (4.0-10.0)
[2024-07-03 13:30] LABS: BLOOD UREA NITROGEN 18 MG/DL (9-23); CALCIUM LEVEL 9.4 MG/DL (8.5-10.1); CARBON DIOXIDE LEVEL 26 MMOL/L (20-31); CHLORIDE LEVEL 100 MMOL/L (98-107); CREATININE FOR GFR 0.95 MG/DL (0.70-1.30); GLOMERULAR FILTRATION RATE > 60.0 (>56); GLUCOSE, FASTING 102 MG/DL (60-100); SODIUM LEVEL 137 MMOL/L (136-145)
[2024-07-03] MEDS: MORPHINE 2 MG/ML 1ML VIAL IV ONE (14:15)
[2024-07-03 14:40] LABS: KETONE, URINE AUTO RFX 1+ mg/dL (NEGATIVE); LEUKOCYTE ESTERASE UR AUTO RFX NEGATIVE (NEGATIVE); MUCUS, URINE RFX MODERATE (NEGATIVE); NITRITE, URINE AUTO RFX NEGATIVE (NEGATIVE); RBC, URINE AUTO RFX 0 /HPF (0-3); SQUAM EPITHELIAL CELL UR AURFX 1 /HPF (0-6); WBC, URINE AUTO RFX 1 /HPF (0-3)
[2024-07-03] MEDS ORDERED: ASPE4PAD TOP (15:44)
[2024-07-03] MEDS ORDERED: KETO10TAB PO (15:44)
[2024-07-03] MEDS ORDERED: METH-1165 PO (15:44)
[2024-07-03 15:45] VITALS: BP 128/62; O2SAT 96
[2024-07-03 15:54] VITALS: TEMP 98.3
== END 2024-07-03 16:02 | disposition home or self-care (01) ==
LOC: EDBD 11:06 → M ED 11:06
DX: M54.50 Low back pain, unspecified (principal); E78.5 Hyperlipidemia, unspecified; I10 Essential (primary) hypertension; F41.9 Anxiety disorder, unspecified; Z79.899 Other long term (current) drug therapy; Z87.442 Personal history of urinary calculi
CPT/HCPCS: 74176; 80048; 81001; 85025; 96361; 96372; 96374; 96375; 99215; 99284; J1885; J2405